=== PATIENT | female | born 1945 | race Caucasian/White ===

== ENCOUNTER 2016-03-06 11:23 | Outpatient (CLI) | payer MEDICARE, MEDICAID | END 2016-03-06 11:24 | disposition home or self-care (01) | DX: R32 Unspecified urinary incontinence (principal); E11.65 Type 2 diabetes mellitus with hyperglycemia; I10 Essential (primary) hypertension; I48.91 Unspecified atrial fibrillation ==

== ENCOUNTER 2016-04-04 14:17 | Outpatient (CLI) | payer MEDICARE, MEDICAID | END 2016-04-04 14:18 | disposition home or self-care (01) | DX: I48.91 Unspecified atrial fibrillation (principal) ==

== ENCOUNTER 2016-04-24 15:10 | Outpatient (CLI) | payer MEDICARE, MEDICAID | END 2016-04-24 15:11 | disposition home or self-care (01) | DX: M16.12 Unilateral primary osteoarthritis, left hip (principal); M17.12 Unilateral primary osteoarthritis, left knee ==

== ENCOUNTER 2016-05-05 14:15 | Outpatient (CLI) | payer MEDICARE, MEDICAID | END 2016-05-05 14:16 | disposition home or self-care (01) | DX: I48.91 Unspecified atrial fibrillation (principal) ==

== ENCOUNTER 2016-05-27 14:39 | Outpatient (CLI) | payer MEDICARE, MEDICAID | END 2016-05-27 14:40 | disposition home or self-care (01) | DX: I48.91 Unspecified atrial fibrillation (principal) ==

== ENCOUNTER 2016-06-10 08:00 | Outpatient (CLI) | payer MEDICARE, MEDICAID | END 2016-06-10 08:01 | disposition home or self-care (01) | DX: E11.9 Type 2 diabetes mellitus without complications (principal) ==

== ENCOUNTER 2016-06-10 15:57 | Emergency (ER) | payer MEDICARE, MEDICAID ==
[2016-06-10] MEDS ORDERED: IPRATROPIUM/ALBUTEROL 3 ML NEB INH STA (16:09)
[2016-06-10] MEDS ORDERED: IPRATROPIUM/ALBUTEROL 3 ML NEB INH ONE (16:16)
[2016-06-10] MEDS ORDERED: AZITHROMYCIN 250 MG TABLET PO STA (17:45)
[2016-06-10] MEDS ORDERED: FUROSEMIDE 20 MG TABLET PO STA (17:45)
[2016-06-10] MEDS ORDERED: AZITHROMYCIN 250 MG TABLET PO ONE (17:51)
[2016-06-10] MEDS ORDERED: FUROSEMIDE 20 MG TABLET ONE (17:51)
== END 2016-06-10 18:07 | disposition home or self-care (01) ==
DX: J40 Bronchitis, not specified as acute or chronic (principal); I50.9 Heart failure, unspecified; Z79.01 Long term (current) use of anticoagulants; I48.91 Unspecified atrial fibrillation; J45.909 Unspecified asthma, uncomplicated; J44.9 Chronic obstructive pulmonary disease, unspecified; E11.9 Type 2 diabetes mellitus without complications; Z79.4 Long term (current) use of insulin; K21.9 Gastro-esophageal reflux disease without esophagitis
CPT/HCPCS: 36415; 71020; 80048; 83036; 84484; 93005; 93010; 94640; 99283; 99284; A9270; J7620

== ENCOUNTER 2016-06-13 14:18 | Outpatient (CLI) | payer MEDICARE, MEDICAID | END 2016-06-13 14:19 | disposition home or self-care (01) | DX: I48.91 Unspecified atrial fibrillation (principal) ==

== ENCOUNTER 2016-06-16 14:03 | Outpatient (CLI) | payer MEDICARE, MEDICAID | END 2016-06-16 14:04 | disposition home or self-care (01) | DX: I48.91 Unspecified atrial fibrillation (principal) ==

== ENCOUNTER 2016-07-08 13:56 | Outpatient (CLI) | payer MEDICARE, MEDICAID | END 2016-07-08 13:57 | disposition home or self-care (01) | DX: I48.91 Unspecified atrial fibrillation (principal) ==

== ENCOUNTER 2016-07-17 10:14 | Outpatient (CLI) | payer MEDICARE, MEDICAID | END 2016-07-17 10:15 | disposition home or self-care (01) | DX: I50.9 Heart failure, unspecified (principal); I48.2 Chronic atrial fibrillation; G47.33 Obstructive sleep apnea (adult) (pediatric); E66.01 Morbid (severe) obesity due to excess calories; I10 Essential (primary) hypertension; Z79.01 Long term (current) use of anticoagulants; I35.0 Nonrheumatic aortic (valve) stenosis ==

== ENCOUNTER 2016-07-24 10:39 | Outpatient (CLI) | payer MEDICARE, MEDICAID ==
--- NOTE | 2016-07-24 17:01 | Ultrasound Report ---
ABDOMEN LIMITED: 07/24/2016 CLINICAL HISTORY: The patient has a possible ventral hernia. She also has a palpable mass above her ventral hernia. TECHNIQUE: Real-time scanning was performed with goodwill representative static images obtained. FINDINGS: A benign lipoma measuring 2.8 cm by 1.2 cm by 2.5 cm is noted immediately superior to the patient's known ventral hernia. A definite ventral hernia is seen nursing home between the xiphoid process and the umbilicus. This ventral hernia contains both mesenteric fat and bowel extending through it. The defect in the anterior abdominal wall measures 2.6 cm by 1.3 cm. Bowel loops appear to be partially reducible. Anterior to the bowel loops within the hernia is mesenteric fat. IMPRESSION: 1. VENTRAL HERNIA IS SEEN. THE VENTRAL HERNIA IS LOCATED MIDWAY BETWEEN THE XIPHOID PROCESS AND UMBILICUS. THROUGH THE HERNIA EXTENDS MESENTERIC FAT AND A LOOP OF BOWEL. THE DEFECT IN THE ANTERIOR ABDOMINAL WALL MEASURES 2.6 CM BY 1.3 CM. THE LOOP OF BOWEL AND MESENTERIC FAT EXTENDING THROUGH THE VENTRAL HERNIA WERE PARTIALLY REDUCIBLE. 2. A 2.5 CM BY 2.8 CM BY 1.2 CM LIPOMA IS NOTED IN THE SUBCUTANEOUS SOFT TISSUES IMMEDIATELY ABOVE THE LEVEL OF THE VENTRAL HERNIA WITHIN THE MIDLINE. JOB #: [id number] EXT JOB #: [id number] DEXTER
== END 2016-07-24 10:40 | disposition home or self-care (01) ==
LOC: DI 10:39
PROVIDERS: ATTEND Family Medicine
DX: K43.9 Ventral hernia without obstruction or gangrene (principal); D17.1 Benign lipomatous neoplasm of skin and subcutaneous tissue of trunk
CPT/HCPCS: 76705

== ENCOUNTER 2016-08-01 15:47 | Outpatient (CLI) | payer MEDICARE, MEDICAID | END 2016-08-01 15:48 | disposition home or self-care (01) | LOC: LAB.N 15:47 | PROVIDERS: ATTEND Family Medicine | DX: I48.91 Unspecified atrial fibrillation (principal) | CPT/HCPCS: 85610 ==

== ENCOUNTER 2016-08-29 14:13 | Outpatient (CLI) | payer MEDICARE, MEDICAID | END 2016-08-29 14:14 | disposition home or self-care (01) | LOC: LAB.N 14:13 | PROVIDERS: ATTEND Family Medicine | DX: I48.91 Unspecified atrial fibrillation (principal) | CPT/HCPCS: 85610 ==

== ENCOUNTER 2016-09-18 15:03 | Outpatient (CLI) | payer MEDICARE, MEDICAID | END 2016-09-18 15:04 | disposition home or self-care (01) | LOC: LAB.N 15:03 | PROVIDERS: ATTEND Family Medicine | DX: E11.9 Type 2 diabetes mellitus without complications (principal); I48.91 Unspecified atrial fibrillation | CPT/HCPCS: 85610 ==

== ENCOUNTER 2016-09-18 15:04 | Outpatient (CLI) | payer MEDICARE, MEDICAID ==
[2016-09-18 19:13] LABS: HCT - HEMATOCRIT 33.9 % (37.0-47.0); HGB - HEMOGLOBIN 11.3 g/dL (12.0-16.0); MEAN CORPUSCULAR HEMOGLOBIN 30.8 pg (27.0-31.0); MEAN CORPUSCULAR HGB CONC 33.2 g/dL (32.0-36.0); MEAN CORPUSCULAR VOLUME 92.7 fL (81.0-99.0); MEAN PLATELET VOLUME 8.6 fL (7.9-10.8); RED BLOOD COUNT 3.66 10^6/uL (4.20-5.40); RED CELL DISTRIBUTION WIDTH 14.3 % (12.0-15.0); WHITE BLOOD COUNT 8.2 x10^3/uL (4.8-10.8)
[2016-09-18 19:38] LABS: CALCIUM 8.8 mg/dL (8.5-10.3); CREATININE 1.5 mg/dL (0.4-1.0); PHOSPHORUS 2.8 mg/dL (2.5-4.6); POTASSIUM 3.8 mmol/L (3.5-5.0)
[2016-09-18 19:45] LABS: HEMOGLOBIN A1C 0.75 g/dL
== END 2016-09-18 15:05 | disposition home or self-care (01) ==
LOC: LAB.N 15:04
PROVIDERS: ATTEND Internal Medicine Nephrology
DX: N05.9 Unspecified nephritic syndrome with unspecified morphologic changes (principal); E11.9 Type 2 diabetes mellitus without complications; D70.9 Neutropenia, unspecified; R80.9 Proteinuria, unspecified; E83.30 Disorder of phosphorus metabolism, unspecified; N25.81 Secondary hyperparathyroidism of renal origin
CPT/HCPCS: 36415; 80048; 82570; 83036; 83970; 84100; 84156; 85610

== ENCOUNTER 2016-09-24 14:36 | Outpatient (CLI) | payer MEDICARE, MEDICAID | END 2016-09-24 14:37 | disposition home or self-care (01) | LOC: LAB.N 14:36 | PROVIDERS: ATTEND Family Medicine | DX: I48.91 Unspecified atrial fibrillation (principal) | CPT/HCPCS: 85610 ==

== ENCOUNTER 2016-10-01 08:00 | Outpatient (CLI) | payer MEDICARE, MEDICAID | END 2016-10-01 08:01 | disposition home or self-care (01) | LOC: LAB.N 08:00 | PROVIDERS: ATTEND Family Medicine | DX: I48.91 Unspecified atrial fibrillation (principal) | CPT/HCPCS: 85610 ==

== ENCOUNTER 2016-10-29 14:35 | Outpatient (CLI) | payer MEDICARE, MEDICAID | END 2016-10-29 14:36 | disposition home or self-care (01) | LOC: LAB.N 14:35 | PROVIDERS: ATTEND Family Medicine | DX: I48.91 Unspecified atrial fibrillation (principal) | CPT/HCPCS: 85610 ==

== ENCOUNTER 2016-11-05 14:44 | Outpatient (CLI) | payer MEDICARE, MEDICAID | END 2016-11-05 14:45 | LOC: LAB.N 14:44 | PROVIDERS: ATTEND Family Medicine | DX: I48.91 Unspecified atrial fibrillation (principal) | CPT/HCPCS: 85610 ==

== ENCOUNTER 2016-11-12 14:07 | Outpatient (CLI) | payer MEDICARE, MEDICAID | END 2016-11-12 14:08 | disposition home or self-care (01) | LOC: LAB.N 14:07 | PROVIDERS: ATTEND Family Medicine | DX: I48.91 Unspecified atrial fibrillation (principal) | CPT/HCPCS: 85610 ==

== ENCOUNTER 2016-11-28 13:44 | Outpatient (CLI) | payer MEDICARE, MEDICAID | END 2016-11-28 13:45 | disposition home or self-care (01) | LOC: LAB.N 13:44 | PROVIDERS: ATTEND Family Medicine | DX: I48.91 Unspecified atrial fibrillation (principal) | CPT/HCPCS: 85610 ==

== ENCOUNTER 2016-12-22 14:48 | Outpatient (CLI) | payer MEDICARE, MEDICAID ==
[2016-12-22 19:37] LABS: CALCIUM 8.9 mg/dL (8.5-10.3); CREATININE 1.3 mg/dL (0.4-1.0); POTASSIUM 3.6 mmol/L (3.5-5.0)
[2016-12-22 19:38] LABS: HEMOGLOBIN A1C 0.76 g/dL
== END 2016-12-22 14:49 | disposition home or self-care (01) ==
LOC: LAB.N 14:48
PROVIDERS: ATTEND Family Medicine
DX: E11.40 Type 2 diabetes mellitus with diabetic neuropathy, unspecified (principal); I48.91 Unspecified atrial fibrillation
CPT/HCPCS: 36415; 80048; 83036; 85610

== ENCOUNTER 2017-01-19 08:00 | Outpatient (CLI) | payer MEDICARE, MEDICAID ==
[2017-01-19 19:07] LABS: BASOPHILS % (AUTO) 0.6 %; EOSINOPHILS % (AUTO) 0.5 %; HCT - HEMATOCRIT 35.6 % (37.0-47.0); HGB - HEMOGLOBIN 11.7 g/dL (12.0-16.0); LYMPHOCYTES # (AUTO) 2.2 10^3/uL (1.5-3.5); LYMPHOCYTES % (AUTO) 29.9 %; MEAN CORPUSCULAR HEMOGLOBIN 30.9 pg (27.0-31.0); MEAN CORPUSCULAR HGB CONC 32.9 g/dL (32.0-36.0); MONOCYTES # (AUTO) 0.5 10^3/uL (0.0-1.0); MONOCYTES % (AUTO) 7.5 %; NEUTROPHILS # (AUTO) 4.5 10^3/uL (1.5-6.6); NEUTROPHILS % (AUTO) 61.5 %; NUCLEATED RED BLOOD CELLS AUTO 0.1 /100WBC; RED BLOOD COUNT 3.79 10^6/uL (4.20-5.40); UNCORRECTED WHITE BLOOD COUNT 7.3 x10^3/uL; WHITE BLOOD COUNT 7.3 x10^3/uL (4.8-10.8)
[2017-01-19 19:42] LABS: CALCIUM 8.9 mg/dL (8.5-10.3); CREATININE 1.5 mg/dL (0.4-1.0); POTASSIUM 3.7 mmol/L (3.5-5.0)
== END 2017-01-19 08:01 | disposition home or self-care (01) ==
LOC: LAB.N 08:00
PROVIDERS: ATTEND Family Medicine
DX: I48.91 Unspecified atrial fibrillation (principal); R06.09 Other forms of dyspnea; I48.2 Chronic atrial fibrillation
CPT/HCPCS: 36415; 80048; 83880; 85025; 85610

== ENCOUNTER 2017-02-13 08:00 | Outpatient (CLI) | payer MEDICARE, MEDICAID | END 2017-02-13 08:01 | disposition home or self-care (01) | LOC: LAB.N 08:00 | PROVIDERS: ATTEND Family Medicine | DX: I48.91 Unspecified atrial fibrillation (principal) | CPT/HCPCS: 85610 ==

== ENCOUNTER 2017-03-10 15:45 | Outpatient (CLI) | payer MEDICARE, MEDICAID | END 2017-03-10 15:46 | disposition home or self-care (01) | LOC: LAB.N 15:45 | PROVIDERS: ATTEND Family Medicine | DX: I48.91 Unspecified atrial fibrillation (principal) | CPT/HCPCS: 85610 ==

== ENCOUNTER 2017-03-19 11:15 | Outpatient (CLI) | payer MEDICARE, MEDICAID | END 2017-03-19 11:16 | disposition home or self-care (01) | LOC: LAB.R 11:15 | PROVIDERS: ATTEND Family Medicine | DX: L97.529 Non-pressure chronic ulcer of other part of left foot with unspecified severity (principal) | CPT/HCPCS: 87070; 87205 ==

== ENCOUNTER 2017-03-27 12:21 | Outpatient (CLI) | payer MEDICARE, MEDICAID | END 2017-03-27 12:22 | disposition critical access hospital (66) | LOC: EMS 12:21 | PROVIDERS: ATTEND Surgery | DX: R53.1 Weakness (principal); R11.2 Nausea with vomiting, unspecified; R19.7 Diarrhea, unspecified; W06.XXXA Fall from bed, initial encounter; Y92.003 Bedroom of unspecified non-institutional (private) residence as the place of occurrence of the external cause | CPT/HCPCS: A0425; A0427 ==

== ENCOUNTER 2017-03-27 12:35 | Inpatient (IN) | payer MEDICARE, MEDICAID ==
[2017-03-27] MEDS ORDERED: SODIUM CHLORIDE 0.9% 1,000 ML IV ONE ×4 (12:54→15:13)
[2017-03-27 13:12] LABS: BASOPHILS # (AUTO) 0.1 10^3/uL (0.0-0.1); BASOPHILS % (AUTO) 0.3 %; HGB - HEMOGLOBIN 11.1 g/dL (12.0-16.0); LYMPHOCYTES # (AUTO) 0.7 10^3/uL (1.5-3.5); LYMPHOCYTES % (AUTO) 3.3 %; MEAN CORPUSCULAR HEMOGLOBIN 30.9 pg (27.0-31.0); MEAN CORPUSCULAR HGB CONC 33.1 g/dL (32.0-36.0); MEAN CORPUSCULAR VOLUME 93.4 fL (81.0-99.0); MONOCYTES # (AUTO) 1.2 10^3/uL (0.0-1.0); MONOCYTES % (AUTO) 5.2 %; NEUTROPHILS # (AUTO) 20.2 10^3/uL (1.5-6.6); NEUTROPHILS % (AUTO) 91.2 %; PLT - PLATELET COUNT 205 10^3/uL (130-450); RED BLOOD COUNT 3.58 10^6/uL (4.20-5.40); RED CELL DISTRIBUTION WIDTH 14.7 % (12.0-15.0); WHITE BLOOD COUNT 22.1 x10^3/uL (4.8-10.8)
[2017-03-27 13:26] LABS: RBC MORPHOLOGY (MULTIPLE) 2+ ANISOCYTOSIS (NORMAL)
[2017-03-27 13:28] LABS: INR 3.1 (0.8-1.2); PT - PROTHROMBIN TIME 33.2 secs (9.9-12.6)
--- NOTE | 2017-03-27 13:29 | ED Physician Documentation ---
History of Present Illness - Stated complaint Stated Complaint: WEAKNESS,N/V/D, INCONTINENT - Chief complaint Chief Complaint: General - History obtained from History obtained from: Patient, EMS - History of Present Illness Timing: Today Pain level max: 0 Pain level now: 0 Improved by: nothing Worsened by: nothing - Additonal information Additional information: Patient is a 71-year-old female, insulin-dependent diabetic history of CHF as well as morbid obesity. Had ovarian cancer in 2001. Is currently in remission. States that she has not been feeling well for the past 24 hours. Unable to stand today. Had diarrhea at home as well as urinary incontinence. Called that he empties to pick her up and were brought into the emergency department. She has felt feverish at home. She is on warfarin for atrial fibrillation. Had nausea and vomiting 1 today as well. Denies a cough, denies any chest pain or shortness of breath. States just feels very weak. Review of Systems Ten Systems: 10 systems reviewed and negative Constitutional: reports: Fever (subjective). denies: Chills Eyes: denies: Decreased vision, Photophobia Ears: denies: Ear pain Nose: denies: Rhinorrhea / runny nose, Congestion Throat: denies: Sore throat Cardiac: denies: Chest pain / pressure Respiratory: reports: Cough (mild, dry) GI: reports: Nausea, Vomiting, Diarrhea. denies: Abdominal Pain, Hematemesis, Bloody / black stool : reports: Incontinent. 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 HEENT: Cataracts, Other - Present Medications Home Medications: Ambulatory Orders Medication Instructions Recorded Confirmed Furosemide [Lasix] 40 mg ORAL DAILY 08/05/13 03/27/17 Insulin 70/30 Human [NovoLIN] 35 units SUBQ QDLUNCH 08/05/13 03/27/17 Albuterol Sulfate [Proair Hfa] 2 puffs INH Q4HR PRN 08/29/13 03/27/17 Cholecalciferol (Vitamin D3) 2,000 units PO DAILY 08/29/13 03/27/17 [Vitamin D] Docusate Sodium [Dss] 250 mg PO DAILY 08/29/13 03/27/17 Insulin 70/30 Human [NovoLIN] 70 units SUBQ QDBREAKFAST 10/31/14 03/27/17 Spironolactone 25 mg ORAL DAILY 08/01/15 03/27/17 Febuxostat [Uloric] 80 mg PO DAILY 10/31/15 03/27/17 Insulin 70/30 Human [NovoLIN] 30 units SUBQ QDDINNER 06/10/16 03/27/17 Losartan [Cozaar] 25 mg PO QPM 06/10/16 03/27/17 Metoprolol Succinate 50 mg PO DAILY 06/10/16 03/27/17 Clotrimazole [Clotrimazole] 1 applic TOP BID 03/27/17 03/27/17 Nystatin [Nystop] 1 applic TOP BID 03/27/17 03/27/17 Warfarin [Coumadin] 5 mg PO MOFR 03/27/17 03/27/17 Warfarin [Coumadin] 7.5 mg PO SUTUWETHSA 03/27/17 03/27/17 - Allergies Allergies/Adverse Reactions: Allergies Allergy/AdvReac Type Severity Reaction Status Date / Time levofloxacin Allergy Unknown Verified 06/10/16 16:12 Penicillins Allergy Respiratory Verified 06/10/16 16:12 - Social History Does the pt smoke?: No Smoking Status: Never smoker Does the pt drink ETOH?: No Does the pt have substance abuse?: No - Immunizations Immunizations are current?: Yes - POLST Patient has POLST: No PD ED PE NORMAL - Vitals Vital signs reviewed: Yes - General General: Alert and oriented X 3, Other (morbidly obese) - HEENT HEENT: PERRL, Other (dry lips and tongue) - Neck Neck: Supple, no meningeal sign, No adenopathy - Cardiac Cardiac: Other (irregular, tachycardic) - Respiratory Respiratory: No respiratory distress, Clear bilaterally - Abdomen Abdomen: Normal bowel sounds, Soft, Non tender, Non distended - Derm Derm: Warm and dry - Extremities Extremities: Other (LLE - redness, swelling, warmth, tenderness from foot to knee on the L side. NVI.) - Neuro Neuro: Alert and oriented X 3 - Psych Psych: Normal mood, Normal affect Results - Vitals Vitals: Vital Signs - 24 hr 03/27/17 03/27/17 12:42 14:25 Temperature 36.5 C 37.5 C Heart Rate 84 88 Respiratory 17 16 Rate Blood Pressure 118/89 H 120/92 H O2 Saturation 95 Oxygen O2 Source Room air - EKG (time done) 1304 Rate: Rate (enter#) (137) Rhythm: Atrial fibrillation ( w RVR) [place]: Normal QRS: Normal Ischemia: Normal ST segments - Labs Labs: Laboratory Tests 03/27/17 03/27/17 03/27/17 13:08 13:08 13:08 WBC 22.1 H RBC 3.58 L Hgb 11.1 L Hct 33.4 L MCV 93.4 MCH 30.9 MCHC 33.1 RDW 14.7 Plt Count 205 MPV 8.0 Neut # 20.2 H Lymph # 0.7 L Chase # 1.2 H Eos # 0.0 Baso # 0.1 Absolute Nucleated RBC 0.00 Nucleated RBC % 0.0 Manual Slide Review Indicated RBC Morph Micro Appear 2+ ANISOCYTOSIS PT 33.2 H INR 3.1 H D-Dimer VBG pH VBG pCO2 VBG pO2 VBG HCO3 VBG Total CO2 VBG O2 Saturation VBG Base Excess Sodium 129 L Potassium 4.0 Chloride 92 L Carbon Dioxide 23 Anion Gap 14.0 H BUN 48 H Creatinine 1.7 H Estimated GFR (MDRD) 30 L Glucose 540 H* Glycated Hemoglobin Estim Average Glucose Lactic Acid Calcium 8.6 Total Bilirubin 2.1 H AST 29 ALT 16 Alkaline Phosphatase 57 Troponin I B-Natriuretic Peptide Total Protein 7.7 Albumin 3.5 Globulin 4.2 Albumin/Globulin Ratio 0.8 L Lipase 11 L Urine Color Urine Clarity Urine pH Ur Specific [place] Urine Protein Urine Glucose (UA) Urine Ketones Urine Occult Blood Urine Nitrite Urine Bilirubin Urine Urobilinogen Ur Leukocyte Esterase Urine RBC Urine WBC Ur Squamous Epith Cells Urine Bacteria Ur Microscopic Review Urine Culture Comments Serum Ketones Influenza A (Rapid) Influenza B (Rapid) Influenza Types A,B Ag 01/26/18 01/26/18 01/26/18 13:08 13:08 14:09 WBC RBC Hgb Hct MCV MCH MCHC RDW Plt Count MPV Neut # Lymph # Chase # Eos # Baso # Absolute Nucleated RBC Nucleated RBC % Manual Slide Review RBC Morph Micro Appear PT INR D-Dimer 271.0 H VBG pH VBG pCO2 VBG pO2 VBG HCO3 VBG Total CO2 VBG O2 Saturation VBG Base Excess Sodium Potassium Chloride Carbon Dioxide Anion Gap BUN Creatinine Estimated GFR (MDRD) Glucose Glycated Hemoglobin 8.1 H Estim Average Glucose 186 H Lactic Acid Calcium Total Bilirubin AST ALT Alkaline Phosphatase Troponin I B-Natriuretic Peptide Total Protein Albumin Globulin Albumin/Globulin Ratio Lipase Urine Color YELLOW Urine Clarity SL. CLOUDY Urine pH 5.5 Ur Specific [place] 1.010 Urine Protein NEGATIVE Urine Glucose (UA) >=1000 H Urine Ketones TRACE Urine Occult Blood SMALL H Urine Nitrite NEGATIVE Urine Bilirubin NEGATIVE Urine Urobilinogen 0.2 (NORMAL) Ur Leukocyte Esterase TRACE H Urine RBC 0-5 Urine WBC >25 H Ur Squamous Epith Cells RARE Squamous Urine Bacteria Many H Ur Microscopic Review INDICATED Urine Culture Comments INDICATED Serum Ketones Influenza A (Rapid) Influenza B (Rapid) Influenza Types A,B Ag 03/27/17 03/27/17 03/27/17 14:24 14:32 14:32 WBC RBC Hgb Hct MCV MCH MCHC RDW Plt Count MPV Neut # Lymph # [place] # Eos # Baso # Absolute Nucleated RBC Nucleated RBC % Manual Slide Review RBC Morph Micro Appear PT INR D-Dimer VBG pH VBG pCO2 VBG pO2 VBG HCO3 VBG Total CO2 VBG O2 Saturation VBG Base Excess Sodium Potassium Chloride Carbon Dioxide Anion Gap BUN Creatinine Estimated GFR (MDRD) Glucose Glycated Hemoglobin Estim Average Glucose Lactic Acid 2.5 H Calcium Total Bilirubin AST ALT Alkaline Phosphatase Troponin I 0.05 B-Natriuretic Peptide Total Protein Albumin Globulin Albumin/Globulin Ratio Lipase Urine Color Urine Clarity Urine pH Ur Specific [place] Urine Protein Urine Glucose (UA) Urine Ketones Urine Occult Blood Urine Nitrite Urine Bilirubin Urine Urobilinogen Ur Leukocyte Esterase Urine RBC Urine WBC Ur Squamous Epith Cells Urine Bacteria Ur Microscopic Review Urine Culture Comments Serum Ketones Influenza A (Rapid) Negative Influenza B (Rapid) Negative Influenza Types A,B Ag - 03/27/17 03/27/17 03/27/17 14:32 14:32 14:32 WBC RBC Hgb Hct MCV MCH MCHC RDW Plt Count MPV Neut # Lymph # [place] # Eos # Baso # Absolute Nucleated RBC Nucleated RBC % Manual Slide Review RBC Morph Micro Appear PT INR D-Dimer VBG pH 7.399 VBG pCO2 38.1 L VBG pO2 34.6 VBG HCO3 23.0 VBG Total CO2 24.2 VBG O2 Saturation 68.2 VBG Base Excess -1.5 Sodium Potassium Chloride Carbon Dioxide Anion Gap BUN Creatinine Estimated GFR (MDRD) Glucose Glycated Hemoglobin Estim Average Glucose Lactic Acid Calcium Total Bilirubin AST ALT Alkaline Phosphatase Troponin I B-Natriuretic Peptide 879 H Total Protein Albumin Globulin Albumin/Globulin Ratio Lipase Urine Color Urine Clarity Urine pH Ur Specific [place] Urine Protein Urine Glucose (UA) Urine Ketones Urine Occult Blood Urine Nitrite Urine Bilirubin Urine Urobilinogen Ur Leukocyte Esterase Urine RBC Urine WBC Ur Squamous Epith Cells Urine Bacteria Ur Microscopic Review Urine Culture Comments Serum Ketones NEGATIVE Influenza A (Rapid) Influenza B (Rapid) Influenza Types A,B Ag - Rads (name of study) cxr Radiology: Prelim report reviewed, EMP read contemporaneously, See rad report ( Cardiomegaly without acute intrathoracic plain film abnormality) PD MEDICAL DECISION MAKING - ED course Complexity details: reviewed old records, reviewed results, re-evaluated patient , considered differential, d/w patient, d/w oracle hyperion consultant ED course: Patient is a 71-year-old female who presents to the emergency department with what appears to be sepsis possibly from UTI, possibly from left lower extremity cellulitis. Blood cultures drawn. IV fluids given somewhat cautiously given her history of congestive heart failure. Blood pressure remained stable. Offered with broad-spectrum antibiotics, she is penicillin allergic. Discussed the case with Dr. Rosario, hospitalist who accepts. This document was made in part using voice recognition software. While efforts are made to proofread this document, sound alike and grammatical errors may occur. Departure - Departure Disposition: [facility] DC/Xfer Clinical Impression: Atrial fibrillation with RVR Cellulitis Qualifiers: Site of cellulitis: extremity Site of cellulitis of extremity: lower extremity Laterality: left Qualified Code(s): L03.116 - Cellulitis of left lower limb UTI (urinary tract infection) Qualifiers: Urinary tract infection type: acute cystitis Hematuria presence: without hematuria Qualified Code(s): N30.00 - Acute cystitis without hematuria Sepsis Qualifiers: Sepsis type: sepsis due to unspecified organism Qualified Code(s): A41.9 - Sepsis, unspecified organism Condition: Stable Discharge Date/Time: 03/27/17 17:10
[2017-03-27 13:30] LABS: ALBUMIN 3.5 g/dL (3.2-5.5); ALBUMIN/GLOBULIN RATIO 0.8 (1.0-2.2); BILIRUBIN,TOTAL 2.1 mg/dL (0.2-1.0); CALCIUM 8.6 mg/dL (8.5-10.3); CREATININE 1.7 mg/dL (0.4-1.0); TOTAL PROTEIN 7.7 g/dL (6.7-8.2)
[2017-03-27] MEDS ORDERED: VANCOMYCIN INJ 2 GM in SODIUM CHLORIDE 0.9% 500 ML IV STA ×2 (13:31→13:41)
[2017-03-27] MEDS ORDERED: CEFEPIME 2 GM in SODIUM CHLORIDE 0.9% MINIBAG 100 ML IV STA (13:32)
[2017-03-27] MEDS ORDERED: VANCOMYCIN 2 GM/NS 500 ML 2 GM/500 ML BAG IV STA (13:37)
[2017-03-27 14:22] LABS: BILIRUBIN,URINE NEGATIVE (NEGATIVE); GLUCOSE, URINE (UA) >=1000 mg/dL (NEGATIVE); KETONES,URINE (UA) TRACE mg/dL (NEGATIVE); LEUKOCYTE ESTERASE, URINE TRACE (NEGATIVE); NITRITE,URINE NEGATIVE (NEGATIVE); OCCULT BLOOD,URINE SMALL (NEGATIVE); PH,URINE 5.5 PH (5.0-7.5); PROTEIN,URINE NEGATIVE (NEGATIVE); UROBILINOGEN,URINE 0.2 (NORMAL) E.U./dL (NORMAL)
[2017-03-27 14:23] LABS: CLARITY,URINE SL. CLOUDY (CLEAR)
[2017-03-27 14:30] LABS: BACTERIA,URINE Many /HPF (None Seen); RBC,URINE 0-5 /HPF (0-5); SQUAMOUS EPITHELIAL CELL,UR RARE Squamous (<= Few)
[2017-03-27 14:42] LABS: VBG PCO2 38.1 mmHg (41-51); VBG PH 7.399 (7.31-7.41); VBG PO2 34.6 mmHg (25-47)
[2017-03-27 14:43] LABS: VBG BASE EXCESS -1.5 mmol/L (-2 - +2); VBG TOTAL CO2 24.2 mmol/L (24-29)
--- NOTE | 2017-03-27 15:17 | XRAY Report ---
EXAM: CHEST RADIOGRAPHY EXAM DATE: 03/27/2017 03:03 PM. CLINICAL HISTORY: Fevers. COMPARISON: 06/10/2016. TECHNIQUE: 1 view. FINDINGS: Lungs/Pleura: No focal opacities evident. No pleural effusion. No pneumothorax. Mediastinum: There is cardiomegaly. Other: None. IMPRESSION: 1. There is cardiomegaly. 2. No acute intrathoracic plain film abnormality. [facility] Referring Provider Line: [phone] SITE ID: [id number]
[2017-03-27] MEDS ORDERED: PROMETHAZINE 25 MG/1 ML VIAL IM PRN (16:11)
--- NOTE | 2017-03-27 16:46 | HISTORY & PHYSICAL EXAMINATION ---
Chief Complaint - Chief Complaint Chief Complaint: nausea, vomiting, and weakness History of Present Illness - History of Present Illness HPI Comment/Other: This is a 71-year-old female with a past medical history significant for insulin -dependent uncontrolled diabetic, chronic lower extremity and foot infection, CHF, morbid obesity, ovarian cancer in 2002 currently in remission, CKD, Asthma , COPD, hx of shortness of breath, Gout, chronic vision loss, who present ER for evaluation and treatment of her lower extremity and foot infection, nausea, vomiting, generalized weakness. Pt States that she has not been feeling well for the past 24 hours, feeling of very weakness, Unable to stand today from bed , nausea, vomiting for one days, had diarrhea at home as well as urinary incontinence. She has also felt feverish at home. She is on warfarin for atrial fibrillation. She Denies a cough, any chest pain or shortness of breath, abdominal pain, headache, hematemesis, GI bleeding, vision changing. Lab test in ER, it reveals Na 129, Anion gap 14 without serum Ketone, BUN 48, creatinine 1.7, Glucose 540, Lactic acid 2.5, bili 2.1, BNP 879, INR 3.1, WBC 22.1. UA reveal positive UTI. 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 She had three children. Living arrangement: At home Living Situation: With spouse/s.o., With family Social History Notes: pt denies cigarette smoking, alcoholic or drug abuse history - Substance History Use: Uses substance without health or social issues: NONE Abuse: Recurrent use of substance despite neg consequences: NONE Dependence: Experiences withdrawal or developed tolerances: NONE - POLST Patient has POLST: No POLST Status: Full Code (pt state she request CPR but without incubation for her code status) Meds/Allgy - Home Medications Home Medications: Ambulatory Orders Medication Instructions Recorded Confirmed Furosemide [Lasix] 40 mg ORAL DAILY 08/05/13 03/27/17 Insulin 70/30 Human [NovoLIN] 35 units SUBQ QDLUNCH 08/05/13 03/27/17 Albuterol Sulfate [Proair Hfa] 2 puffs INH Q4HR PRN 08/29/13 03/27/17 Cholecalciferol (Vitamin D3) 2,000 units PO DAILY 08/29/13 03/27/17 [Vitamin D] Docusate Sodium [Dss] 250 mg PO DAILY 08/29/13 03/27/17 Insulin 70/30 Human [NovoLIN] 70 units SUBQ QDBREAKFAST 10/31/14 03/27/17 Spironolactone 25 mg ORAL DAILY 08/01/15 03/27/17 Febuxostat [Uloric] 80 mg PO DAILY 10/31/15 03/27/17 Insulin 70/30 Human [NovoLIN] 30 units SUBQ QDDINNER 06/10/16 03/27/17 Losartan [Cozaar] 25 mg PO QPM 06/10/16 03/27/17 Metoprolol Succinate 50 mg PO DAILY 06/10/16 03/27/17 Clotrimazole [Clotrimazole] 1 applic TOP BID 03/27/17 03/27/17 Nystatin [Nystop] 1 applic TOP BID 03/27/17 03/27/17 Warfarin [Coumadin] 5 mg PO MOFR 03/27/17 03/27/17 Warfarin [Coumadin] 7.5 mg PO SUTUWETHSA 03/27/17 03/27/17 - Allergies Allergies/Adverse Reactions: Allergies Allergy/AdvReac Type Severity Reaction Status Date / Time levofloxacin Allergy Unknown Verified 06/10/16 16:12 Penicillins Allergy Respiratory Verified 06/10/16 16:12 Review of Systems - Constitutional Constitutional: reports: Fatigue, Fever, Chills, Malaise, Weakness. denies: Diaphoresis, Night sweats, Weight gain, Weight loss - Eyes Eyes: denies: Pain, Irritation, Amaurosis, Blurred vision, Spots in vision, Field loss, Vision loss, Dipolpia - Ears, Nose & Throat Ears, Nose & Throat: denies: Ear pain, Hearing loss, Hearing aids, Tinnitus, Vertigo, Nasal pain, Nasal discharge, Nosebleeds, Nasal obstruction, Nasal congestion, Postnasal drainage, Sore throat, Hoarseness, Mouth lesions, Bleeding gums - Cardiovascular Cariovascular: reports: Edema. denies: Irregular heart rate, Palpitations, Chest pain, Lightheadedness, Syncope, Exertional dyspnea, Decr. exercise tolerance, Orthopnea - Respiratory Respiratory: denies: Cough, Sputum production, Wheezing, Snoring, Hemoptysis, Orthopnea, SOB at rest, SOB with exertion - Gastrointestinal Gastrointestinal: reports: Diarrhea, Nausea, Vomiting. denies: Abdominal pain, Abdominal distention, Constipation, Change in bowel habits, Rectal bleeding, Black stools, Bloody stools, Bile emesis, Damián blood emesis, Coffee grounds emesis, Reflux/heartburn - Genitourinary Genitourinary: reports: Incontinence. denies: Dysuria, Frequency, Urgency, Hematuria, Flank pain, Nocturia, Urethral discharge - Musculoskeletal Musculoskeletal: denies: Muscle pain, Back pain, Muscle aches, Stiffness, Limited range of motion, Muscle weakness, Gout, Joint pain - Integumentary Integumentary: denies: Rash, Lesions, Dryness, Lumps, Pigment changes - Neurological Neurological: reports: General weakness. denies: Focal weakness, Headache, Dizziness, Numbness, Pre-existing deficit, Abnormal gait, Seizures, Incoordination, Slurred speech - Psychiatric Psychiatric: denies: Depression, Anxiety, Suicidal, Delusions, Hallucinations, Homicidal - Endocrine Endocrine: denies: Polyuria, Polydypsia, Polyphagia, Intolerance to cold - Hematologic/Lymphatic Hematologic/Lymphatic: reports: Recurrent infections. denies: Anemia, Bruising , Petechiae, Blood clots, Lymphadenopathy, Bleeding tendencies Exam - Vital Signs Reviewed Vital Signs: Yes Vital Signs: Vital Signs x48h Pulse Resp Pulse Ox 03/27/17 16:20 122 H 25 H 97 - Physical Exam General Appearance: positive: No acute distress, Alert. negative: Lethargic Eyes Bilateral: positive: Normal inspection, PERRL, No lid inflammation, Conjunctivae nml ENT: positive: ENT inspection nml, Pharynx nml, No signs of dehydration. negative: Purulent nasal drainage, Pharyngeal erythema, Oral lesions Neck: positive: Nml inspection, Thyroid nml, No JVD, Trachea midline. negative : Thyromegaly, Lymphadenopathy (R), Lymphadenopathy (L), Stiff neck, Carotid bruit, Swelling/bruising, Tracheal deviation Respiratory: positive: Chest non-tender, No respiratory distress, Breath sounds nml. negative: Wheezes, Rales, Rhonchi Cardiovascular: positive: Regular rate & rhythm, No murmur, No gallop. negative : Irregularly irregular, Extrasystoles, Tachycardia, Bradycardia, Systolic murmur, Diastolic murmur Peripheral Pulses: positive: 2+ Abdomen: negative: Non-tender, No organomegaly, Nml bowel sounds, Tenderness, Guarding, Rebound Back: positive: Nml inspection. negative: CVA tenderness (R), CVA tenderness (L ) Skin: positive: Warm, Dry, Skin rash, Decubitus. negative: Cyanosis, Diaphoresis, Pallor Extremities: positive: Non-tender, Full ROM. negative: Calf tenderness, Joint swelling, Justice's sign/cords Neurologic/Psychiatric: positive: Oriented x3, Mood/affect nml. negative: Sensory loss, Facial droop, Slurred/abnml speech, Depressed mood/affect Conclusion/Plan - Problem List (1) Diabetic foot infection Conclusion/Plan: pt has drainage with odor smell at her left lateral foot for around 4-5 months, and with cellulitis at her left lower extremity blood and wound culture, will follow up Vancomycin Cefepim MRI of foot to R/O osteomyelitis wound care, dressing change (2) UTI (urinary tract infection) Conclusion/Plan: UA reveals UTI UA culture, sensitive study, will follow up Cefepim Qualifiers: Urinary tract infection type: acute cystitis Hematuria presence: without hematuria Qualified Code(s): N30.00 - Acute cystitis without hematuria (3) DM2 (diabetes mellitus, type 2) Conclusion/Plan: uncontrolled DM2, with hyperglycemia at 540 glucose, with complication on vision , renal, and foot infection resume home insulin slide scale for insulin ACHS hypoglycemia protocol check A1C (4) Hx of chronic congestive heart failure Conclusion/Plan: pt with elevated BNP will caution of IVF hydration continue lab and vital monitor continue home meds Lasix, adjust as needed tele monitor (5) History of COPD Conclusion/Plan: pt denies cough, as baseline of breathing status continue home INH treatment O2 supplement as needed RT consult (6) Hx of gout Conclusion/Plan: stable, will resume home meds, and monitor (7) Elevated lactic acid level Conclusion/Plan: Pt's lactic acid 2.5, uncontrolled DM without DKA but elevated anion gap and ongoing infection recheck lactic acid pt already IVF hydration at ER, mild IVF because of hx of CHF continue antibiotics closely monitor with tele, vital, lab test (8) Hyponatremia Conclusion/Plan: today Na 129 Mild hydration IVF of NS lab test closely monitor (10) CKD (chronic kidney disease) Conclusion/Plan: it seems as her baseline of renal function hydration and avoid nephrotoxic agent daily lab monitor (11) Afib Conclusion/Plan: hx of afib controlled HR at 88 today, with Coumadin tele monitor closely continue Coumadin PT/INR test daily today INR is 3.1, will hold Coumadin now. (12) DVT prophylaxis Conclusion/Plan: no SCD due to leg infection, with Heparin bid 5000 unit (13) Full code status Conclusion/Plan: pt clearly request full code with CPR but no incubation status - Lab Results Fish Bones: 03/28/17 04:25 03/28/17 04:25 Core Measures - Anticipated LOS I expect patient to be DC'd or transferred within 96 hours.: Yes
[2017-03-27] MEDS ORDERED: VANCOMYCIN PER PHARMACY 1.5 GM in SODIUM CHLORIDE 0.9% 250 ML IV SCH (17:00)
[2017-03-27] MEDS ORDERED: SODIUM CHLORIDE 0.9% 1,000 ML IV SCH (17:00)
[2017-03-27] MEDS ORDERED: INSULIN 70/30 HUMAN 100 UNIT/1 ML 10 ML MDV SUBQ SCH (17:00)
[2017-03-27 17:07] LABS: HB2 TOTAL 12.5 g/dL; HEMOGLOBIN A1C 0.81 g/dL; HEMOGLOBIN A1C % 8.1 % (4.6-6.2)
[2017-03-27] MEDS ORDERED: INSULIN ASPART 300 UNIT/3 ML PEN SUBQ SCH (17:35)
[2017-03-27] MEDS: INSULIN ASPART 300 UNIT/3 ML PEN SUBQ SCH ×2 (17:48→21:08)
[2017-03-27] MEDS ORDERED: diltiaZEM INJ 5 MG/ML VIAL IVP SCH (20:19)
[2017-03-27] MEDS: METOPROLOL SUCCINATE 50 MG TABLET PO SCH (20:52)
[2017-03-27] MEDS ORDERED: HEPARIN 5,000 UNIT/ML VIAL SUBQ SCH (21:00)
[2017-03-27] MEDS ORDERED: LOSARTAN 50 MG TABLET PO SCH (21:00)
[2017-03-27] MEDS: ONDANSETRON 4 MG/2 ML VIAL IVP PRN (21:05)
[2017-03-27] MEDS: SODIUM CHLORIDE FLUSH 0.9% 10 ML SYRINGE IVP SCH (21:08)
[2017-03-27] MEDS ORDERED: INSULIN REGULAR HUMAN 100 UNIT in SODIUM CHLORIDE 0.9% 100ML 99 ML IV SCH (21:25)
[2017-03-27] MEDS ORDERED: diltiaZEM INJ 125 MG in SODIUM CHLORIDE 0.9% 100ML 100 ML IV SCH (22:00)
[2017-03-27] MEDS: NYSTATIN POWDER 15 GM TOP SCH (22:45)
[2017-03-28] MEDS ORDERED: SODIUM CHLORIDE 0.9% 500 ML IV PRN (01:05)
[2017-03-28] MEDS ORDERED: SODIUM CHLORIDE 0.9% 500 ML IV ONE (02:59)
[2017-03-28] MEDS: SODIUM CHLORIDE FLUSH 0.9% 10 ML SYRINGE IVP SCH ×4 (03:14→20:24)
[2017-03-28] MEDS: ONDANSETRON 4 MG/2 ML VIAL IVP PRN ×3 (04:19→19:11)
[2017-03-28 04:55] LABS: BASOPHILS % (AUTO) 0.1 %; HGB - HEMOGLOBIN 10.2 g/dL (12.0-16.0); LYMPHOCYTES # (AUTO) 1.4 10^3/uL (1.5-3.5); LYMPHOCYTES % (AUTO) 7.7 %; MEAN CORPUSCULAR HEMOGLOBIN 31.2 pg (27.0-31.0); MEAN CORPUSCULAR HGB CONC 33.1 g/dL (32.0-36.0); MEAN CORPUSCULAR VOLUME 94.2 fL (81.0-99.0); MEAN PLATELET VOLUME 9.2 fL (7.9-10.8); MONOCYTES # (AUTO) 1.2 10^3/uL (0.0-1.0); NEUTROPHILS % (AUTO) 85.2 %; PLT - PLATELET COUNT 201 10^3/uL (130-450); RED BLOOD COUNT 3.27 10^6/uL (4.20-5.40); RED CELL DISTRIBUTION WIDTH 14.6 % (12.0-15.0); WHITE BLOOD COUNT 17.6 x10^3/uL (4.8-10.8)
[2017-03-28 05:06] LABS: ALBUMIN 3.1 g/dL (3.2-5.5); ALBUMIN/GLOBULIN RATIO 0.8 (1.0-2.2); BILIRUBIN,TOTAL 1.1 mg/dL (0.2-1.0); CALCIUM 8.7 mg/dL (8.5-10.3); CREATININE 1.6 mg/dL (0.4-1.0); MAGNESIUM 1.7 mg/dL (1.7-2.8); TOTAL PROTEIN 6.8 g/dL (6.7-8.2)
[2017-03-28 05:12] LABS: INR 3.5 (0.8-1.2); PT - PROTHROMBIN TIME 37.7 secs (9.9-12.6)
[2017-03-28] MEDS: MIN OIL/DIMETHICON/COCONUT OIL 92 GM TUBE TOP PRN ×2 (05:45→14:26)
[2017-03-28] MEDS: SODIUM CHLORIDE FLUSH 0.9% 10 ML SYRINGE IVP PRN ×4 (06:06→19:07)
[2017-03-28] MEDS ORDERED: INSULIN 70/30 HUMAN 100 UNIT/1 ML 10 ML MDV SUBQ SCH ×2 (08:00→12:00)
[2017-03-28] MEDS: POLYETHYLENE GLYCOL 3350 17 GM PACKET PO SCH (08:35)
[2017-03-28] MEDS: FAMOTIDINE 20 MG TABLET PO SCH (08:37)
[2017-03-28] MEDS: ACETAMINOPHEN 325 MG TABLET PO PRN ×3 (08:38→18:07)
[2017-03-28] MEDS: METOPROLOL SUCCINATE 50 MG TABLET PO SCH (08:38)
[2017-03-28] MEDS: CHOLECALCIFEROL 1,000 UNIT TABLET PO SCH (08:38)
[2017-03-28] MEDS ORDERED: SPIRONOLACTONE 25 MG TABLET PO SCH (09:00)
[2017-03-28] MEDS ORDERED: FUROSEMIDE 20 MG TABLET PO SCH (09:00)
[2017-03-28] MEDS ORDERED: METOPROLOL SUCCINATE 50 MG TABLET PO SCH ×2 (09:00→20:01)
[2017-03-28 10:44] LABS: HB2 TOTAL 10.6 g/dL; HEMOGLOBIN A1C 0.67 g/dL; HEMOGLOBIN A1C % 7.9 % (4.6-6.2)
[2017-03-28] MEDS ORDERED: INSULIN GLARGINE 300 UNIT/3 ML PEN SUBQ SCH (11:00)
[2017-03-28] MEDS: INSULIN ASPART 300 UNIT/3 ML PEN SUBQ SCH ×5 (12:08→20:43)
[2017-03-28] MEDS: FEBUXOSTAT 80 MG PO SCH (12:08)
[2017-03-28] MEDS: NYSTATIN POWDER 15 GM TOP SCH ×2 (14:26→20:23)
--- NOTE | 2017-03-28 16:34 | PROVIDER PROGRESS NOTE ---
Assessment/Plan - Problem List (1) Atrial fibrillation with RVR Assessment/Plan: After gentle hydration and with iv Cardizem drip overnight and her usual B- carlos po, HR has declined to 80-90s Trops are neg Will DC iv Cardizem and use Cardizem 60 mg po q8h on top of her Toprol Pt off her Coumadin, in preparation for very likely surgery (debridement vs amputation) Daily INR ordered When INR <2, she will need bridging with Lovenox or Heparin Poss begin OOB and PT tomorrow (2) CKD (chronic kidney disease) Assessment/Plan: Small improvement in creat from 1.7 to 1.6 with hydration Continue plan and monitor BUN/creat daily (3) Cellulitis Qualifiers: Site of cellulitis: extremity Site of cellulitis of extremity: lower extremity Laterality: left Qualified Code(s): L03.116 - Cellulitis of left lower limb Assessment/Plan: Pt on Vanco and Cefipime No growth after 24 hours in blood culture Imaging of L lower extremity pending today (4) Diabetic foot infection Assessment/Plan: Foul drainage suggests Pseudomonas vs anaerobic bacteria Culture from wound has no result in [email or web address] yet MRI of L leg pending today Continue empiric antibiotics using Vanco and Cefipime Dr Enrique of Ortho following (5) DM2 (diabetes mellitus, type 2) Assessment/Plan: HbA1c is 7.9 Glu in 400-500 yesterday, today 200-300 Will stop iv Reg Insulin infusion and start an empiric dose of LAntus 20U sq bid and start ss Insulin coverage for an eating Pt Cont glu checks ac and hs (6) History of COPD Assessment/Plan: Wheezing may be bronchospasm vs cardiac asthma Cont inhaler, meds and supplemental O2 Awaiting Echo for LVEF (7) Hx of chronic congestive heart failure Assessment/Plan: Unknown LVEF, awaiting Echo (8) UTI (urinary tract infection) Qualifiers: Urinary tract infection type: acute cystitis Hematuria presence: without hematuria Qualified Code(s): N30.00 - Acute cystitis without hematuria Assessment/Plan: Urine culture is thus far no growth Continue empiric Cefipime - Current Meds Current Meds: Current Medications Generic Name Dose Route Start Last Admin Trade Name Freq PRN Reason Stop Dose Admin Acetaminophen 650 mg 03/27/17 16:11 03/28/17 12:08 Tylenol PO 650 mg Q4HR PRN Administration Pain 1 to 4 Cholecalciferol 2,000 unit 03/28/17 09:00 03/28/17 08:38 Vitamin D3 PO 2,000 unit DAILY EILEEN Administration Diltiazem HCl 60 mg 03/28/17 12:00 03/28/17 12:07 Cardizem PO 60 mg Q8H EILEEN Administration Famotidine 20 mg 03/28/17 09:00 03/28/17 08:37 Pepcid PO 20 mg DAILY EILEEN Administration Insulin Aspart 1 - 5 unit 03/28/17 12:00 03/28/17 12:08 Novolog SUBQ 4 unit 0800,1200,1700,2100 EILEEN Administration Protocol Insulin Glargine 20 unit 03/28/17 11:00 03/28/17 10:55 Lantus Solostar SUBQ 20 unit BID EILEEN Administration Metoprolol Succinate 50 mg 03/27/17 20:18 03/28/17 08:38 Toprol Xl PO 50 mg DAILY EILEEN Administration Mineral Oil 1 applic 03/28/17 05:28 03/28/17 14:26 Cavilon TOP 1 applic PRN PRN Administration Skin Care Nystatin 1 applic 03/27/17 21:00 03/28/17 14:26 Nystop TOP 1 applic BID EILEEN Administration Ondansetron HCl 4 mg 03/27/17 16:11 03/28/17 04:19 Zofran Inj IVP 4 mg Q6HR PRN Administration Nausea / Vomiting (Febuxostat [Uloric] 1 each 03/28/17 09:00 03/28/17 12:08 80 Mg) Tab PO 1 each DAILY EILEEN Administration Polyethylene Glycol 17 gm 03/28/17 09:00 03/28/17 08:35 Miralax PO Not Given DAILY EILEEN Sodium Chloride 10 ml 03/27/17 16:11 03/28/17 11:12 Normal Saline Flush 0.9% IVP 10 ml PRN PRN Administration NEEDED PER PROVIDER ORDERS Sodium Chloride 10 ml 03/27/17 22:00 03/28/17 14:33 Normal Saline Flush 0.9% IVP 10 ml Q8HR EILEEN Administration - Lab Result Fish Bone Diagrams: 03/28/17 04:25 03/28/17 04:25 - Additional Planning My Orders: My Active Orders 03/28/17 09:20 Daily Weight [RC] 0600 03/28/17 11:00 Insulin Glargine [Lantus Solostar] 20 unit SUBQ BID 03/28/17 12:00 Insulin Aspart [NovoLOG] 1 - 5 unit SUBQ 0800,1200,1700,2100 diltiaZEM [Cardizem] 60 mg PO Q8H Subjective - Subjective Patient Reports: Feeling Better, Shortness of Breath Nursing Reports: Other (Pt spiked a Temp of 38 today) Objective Vital Signs: Vital Signs - 24 hr 03/27/17 03/27/17 03/27/17 17:00 20:56 21:00 Temperature Heart Rate [ 124 H 147 H Monitoring electrodes] Respiratory 28 H Rate Blood Pressure 108/57 L Blood Pressure 109/65 108/57 L [Left Radial artery] O2 Saturation 97 03/27/17 03/27/17 03/27/17 21:05 21:10 21:15 Temperature Heart Rate [ 120 H 130 H 140 H Monitoring electrodes] Respiratory Rate Blood Pressure Blood Pressure 116/86 H 63/40 L 100/86 H [Left Radial artery] O2 Saturation 03/27/17 03/27/17 03/28/17 22:32 23:00 00:11 Temperature 37.9 C H Heart Rate [ 138 H 95 123 H Monitoring electrodes] Respiratory 22 25 H 25 H Rate Blood Pressure Blood Pressure 123/45 L 108/57 L 106/70 [Left Radial artery] O2 Saturation 96 97 03/28/17 03/28/17 03/28/17 01:00 02:00 03:00 Temperature Heart Rate [ 112 H 104 H 107 H Monitoring electrodes] Respiratory 27 H 25 H 26 H Rate Blood Pressure Blood Pressure 122/100 H 105/68 87/77 L [Left Radial artery] O2 Saturation 96 96 96 03/28/17 03/28/17 03/28/17 03:15 04:00 05:00 Temperature 38.0 C H Heart Rate [ 103 H 100 104 H Monitoring electrodes] Respiratory 27 H 24 19 Rate Blood Pressure Blood Pressure 116/69 123/63 108/57 L [Left Radial artery] O2 Saturation 96 95 95 03/28/17 03/28/17 03/28/17 06:00 07:00 08:00 Temperature 37.3 C Heart Rate [ 106 H 106 H 101 H Monitoring electrodes] Respiratory 28 H 21 21 Rate Blood Pressure Blood Pressure 111/47 L 108/67 105/51 L [Left Radial artery] O2 Saturation 95 97 96 03/28/17 03/28/17 03/28/17 09:00 10:00 10:23 Temperature Heart Rate [ 100 88 98 Monitoring electrodes] Respiratory 22 23 Rate Blood Pressure Blood Pressure 116/92 H 92/48 L 81/49 L [Left Radial artery] O2 Saturation 94 95 03/28/17 03/28/17 03/28/17 10:25 10:30 10:45 Temperature Heart Rate [ 94 97 97 Monitoring electrodes] Respiratory Rate Blood Pressure Blood Pressure 82/60 L 90/52 L 103/54 L [Left Radial artery] O2 Saturation 03/28/17 03/28/17 03/28/17 11:00 11:15 11:30 Temperature Heart Rate [ 93 99 95 Monitoring electrodes] Respiratory Rate Blood Pressure Blood Pressure 108/56 L 76/57 L 107/49 L [Left Radial artery] O2 Saturation 03/28/17 03/28/17 03/28/17 11:57 12:07 13:00 Temperature 38.2 C H 37.2 C Heart Rate [ 100 98 Monitoring electrodes] Respiratory 21 19 Rate Blood Pressure 104/62 Blood Pressure 104/62 117/76 [Left Radial artery] O2 Saturation 96 100 03/28/17 03/28/17 14:00 15:00 Temperature Heart Rate [ 88 89 Monitoring electrodes] Respiratory 21 21 Rate Blood Pressure Blood Pressure 115/67 99/49 L [Left Radial artery] O2 Saturation 95 95 Oxygen O2 Source Room air I&O (Last 24 Hrs): Intake and Output Totals x24h 03/26/17 03/27/17 03/28/17 23:59 23:59 23:59 Intake Total 4008.917 1836.166 Output Total 550 619 Balance 3458.917 1217.166 General: Alert, Oriented x3 HEENT: Mucous membr. moist/pink Neck: Supple Cardiovascular: No murmurs Respiratory: Other (prolonged expiratory phase and mild wheezing at bases bilaterally) Abdomen: Soft, Other (Obese with a pannus) Extremities: Other (Trace edema, shins are bandaged, R foot bandaged) - Results Results: Laboratory Results WBC 17.6 x10^3/uL (4.8-10.8) H 03/28/17 04:25 RBC 3.27 10^6/uL (4.20-5.40) L 03/28/17 04:25 Hgb 10.2 g/dL (12.0-16.0) L 03/28/17 04:25 Hct 30.8 % (37.0-47.0) L 03/28/17 04:25 MCV 94.2 fL (81.0-99.0) 03/28/17 04:25 MCH 31.2 pg (27.0-31.0) H 03/28/17 04:25 MCHC 33.1 g/dL (32.0-36.0) 03/28/17 04:25 RDW 14.6 % (12.0-15.0) 03/28/17 04:25 Plt Count 201 10^3/uL (130-450) 03/28/17 04:25 MPV 9.2 fL (7.9-10.8) 03/28/17 04:25 Neut # 15.0 10^3/uL (1.5-6.6) H 03/28/17 04:25 Lymph # 1.4 10^3/uL (1.5-3.5) L 03/28/17 04:25 [place] # 1.2 10^3/uL (0.0-1.0) H 03/28/17 04:25 Eos # 0.0 10^3/uL (0.0-0.7) 03/28/17 04:25 Baso # 0.0 10^3/uL (0.0-0.1) 03/28/17 04:25 Absolute Nucleated RBC 0.00 x10^3/uL 03/28/17 04:25 Nucleated RBC % 0.0 /100WBC 03/28/17 04:25 Manual Slide Review Indicated 03/27/17 13:08 RBC Morph Micro Appear 2+ ANISOCYTOSIS (NORMAL) 03/27/17 13:08 PT 37.7 secs (9.9-12.6) H 03/28/17 04:25 INR 3.5 (0.8-1.2) H 03/28/17 04:25 D-Dimer 271.0 ng/mL (200.0-255.0) H 03/27/17 13:08 VBG pH 7.399 (7.31-7.41) 03/27/17 14:32 VBG pCO2 38.1 mmHg (41-51) L 03/27/17 14:32 VBG pO2 34.6 mmHg (25-47) 03/27/17 14:32 VBG HCO3 23.0 mmol/L (23-28) 03/27/17 14:32 VBG Total CO2 24.2 mmol/L (24-29) 03/27/17 14:32 VBG O2 Saturation 68.2 % (60-80) 03/27/17 14:32 VBG Base Excess -1.5 mmol/L (-2 - +2) 03/27/17 14:32 Sodium 135 mmol/L (135-145) 03/28/17 04:25 Potassium 3.9 mmol/L (3.5-5.0) 03/28/17 04:25 Chloride 99 mmol/L (101-111) L 03/28/17 04:25 Carbon Dioxide 24 mmol/L (21-32) 03/28/17 04:25 Anion Gap 12.0 (6-13) 03/28/17 04:25 BUN 51 mg/dL (6-20) H 03/28/17 04:25 Creatinine 1.6 mg/dL (0.4-1.0) H 03/28/17 04:25 Estimated GFR (MDRD) 32 (>89) L 03/28/17 04:25 Glucose 202 mg/dL (70-100) H 03/28/17 04:25 Glycated Hemoglobin 7.9 % (4.6-6.2) H 03/28/17 07:49 Estim Average Glucose 180 (70-100) H 03/28/17 07:49 Lactic Acid 1.4 mmol/L (0.5-2.2) 03/28/17 07:49 Calcium 8.7 mg/dL (8.5-10.3) 03/28/17 04:25 Magnesium 1.7 mg/dL (1.7-2.8) 03/28/17 04:25 Total Bilirubin 1.1 mg/dL (0.2-1.0) H 03/28/17 04:25 AST 51 IU/L (10-42) H 03/28/17 04:25 ALT 19 IU/L (10-60) 03/28/17 04:25 Alkaline Phosphatase 48 IU/L (42-121) 03/28/17 04:25 Troponin I 0.05 ng/mL (<0.49) 03/27/17 14:32 B-Natriuretic Peptide 879 pg/mL (5-100) H 03/27/17 14:32 Total Protein 6.8 g/dL (6.7-8.2) 03/28/17 04:25 Albumin 3.1 g/dL (3.2-5.5) L 03/28/17 04:25 Globulin 3.7 g/dL (2.1-4.2) 03/28/17 04:25 Albumin/Globulin Ratio 0.8 (1.0-2.2) L 03/28/17 04:25 Lipase 11 U/L (22-51) L 03/27/17 13:08 Urine Color YELLOW 03/27/17 14:09 Urine Clarity SL. CLOUDY (CLEAR) 03/27/17 14:09 Urine pH 5.5 PH (5.0-7.5) 03/27/17 14:09 Ur Specific [place] 1.010 (1.002-1.030) 03/27/17 14:09 Urine Protein NEGATIVE mg/dL (NEGATIVE) 03/27/17 14:09 Urine Glucose (UA) >=1000 mg/dL (NEGATIVE) H 03/27/17 14:09 Urine Ketones TRACE mg/dL (NEGATIVE) 03/27/17 14:09 Urine Occult Blood SMALL (NEGATIVE) H 03/27/17 14:09 Urine Nitrite NEGATIVE (NEGATIVE) 03/27/17 14:09 Urine Bilirubin NEGATIVE (NEGATIVE) 03/27/17 14:09 Urine Urobilinogen 0.2 (NORMAL) E.U./dL (NORMAL) 03/27/17 14:09 Ur Leukocyte Esterase TRACE (NEGATIVE) H 03/27/17 14:09 Urine RBC 0-5 /HPF (0-5) 03/27/17 14:09 Urine WBC >25 /HPF (0-5) H 03/27/17 14:09 Ur Squamous Epith Cells RARE Squamous (<= Few) 03/27/17 14:09 Urine Bacteria Many /HPF (None Seen) H 03/27/17 14:09 Ur Microscopic Review INDICATED 03/27/17 14:09 Urine Culture Comments INDICATED 03/27/17 14:09 Serum Ketones NEGATIVE (NEGATIVE) 03/27/17 14:32 Influenza A (Rapid) Negative (Negative) 03/27/17 14:24 Influenza B (Rapid) Negative (Negative) 03/27/17 14:24 Influenza Types A,B Ag - 03/27/17 14:24
[2017-03-28] MEDS: VANCOMYCIN INJ 2 GM in SODIUM CHLORIDE 0.9% 500 ML IV SCH (17:15)
[2017-03-28] MEDS: CEFEPIME 2 GM in SODIUM CHLORIDE 0.9% MINIBAG 100 ML IV SCH (17:39)
[2017-03-28] MEDS ORDERED: VANCOMYCIN 2 GM/NS 500 ML 2 GM/500 ML BAG IV SCH (18:00)
[2017-03-28] MEDS ORDERED: VANCOMYCIN INJ 2 GM in SODIUM CHLORIDE 0.9% 500 ML IV SCH ×4 (18:00)
[2017-03-28] MEDS: ALBUTEROL NEB 2.5 MG/3 ML INH PRN ×2 (18:17→22:56)
--- NOTE | 2017-03-28 18:43 | MRI Preliminary Report ---
Exam: MRI FOOT LT W/O IMPRESSION: 1. Extensive periarticular fifth metatarsophalangeal joint edema and artifact presumably from a post surgical changes and there is likely postsurgical artifact dorsal aspect of proximal phalanx of fourt h toe. Soft tissue gas cannot be excluded. 2. There is edema at the fifth metatarsal head and base of the proximal phalanx fifth digit with equi vocal cortical disruption and decreased marrow signal sagittal T1-weighted sequence (image 25 series 1101) . Moderate suspicion for osteomyelitis fifth metatarsophalangeal joint. [facility] MUSCULOSKELETAL RADIOLOGY SECTION SITE ID: [id number]
--- NOTE | 2017-03-28 20:30 | XRAY Report ---
EXAM: LEFT TIBIA/FIBULA RADIOGRAPHY EXAM DATE: 03/28/2017 08:14 PM. CLINICAL HISTORY: Might have a radha, ortho needs to see planning surg. COMPARISON: None. TECHNIQUE: 2 views. FINDINGS: Bones: Fixation track artifacts are present in the mid and distal tibia. No tibial hardware present a t this time. A metal plate is secured to the lateral surface of the distal femur means of multiple sc rews, incompletely seen. No acute fracture or other bone lesion. Joints: Marked degenerative changes of the knee. Mild degenerative changes of the ankle. Soft Tissues: Extensive vascular calcification, compatible with diabetes. IMPRESSION: Chronic findings. No acute disease. [facility] Referring Provider Line: [phone] SITE ID: [id number]
[2017-03-28] MEDS ORDERED: INSULIN REGULAR HUMAN 100 UNIT/1 ML 10 ML MDV IVP STA (20:36)
[2017-03-28] MEDS: INSULIN GLARGINE 300 UNIT/3 ML PEN SUBQ SCH (21:05)
--- NOTE | 2017-03-28 23:20 | MRI Report ---
EXAM: LEFT FOREFOOT MRI WITHOUT CONTRAST EXAM DATE: 03/28/2017 03:19 PM. CLINICAL HISTORY: Diabetes mellitus foot infection, osteomyelitis. Patient had corn removed plantar l ateral aspect of left foot 3 weeks ago. COMPARISON: None. TECHNIQUE: Multiplanar, multisequence T1-weighted and fluid-sensitive sequences of the forefoot witho ut contrast. Other: None. FINDINGS: Bones: Edema is noted at the fifth metatarsal head and the base of proximal phalanx fifth toe. Indist inct cortical margin dorsal aspect fifth metatarsal head on the sagittal T1-weighted sequence. Indist inct dorsal margin base proximal phalanx fifth toe on the sagittal T1-weighted sequence. Negative for marrow decreased signal on the T1-weighted sequences to confirm osteomyelitis. Joints: There is a hallux valgus. Increased primus metatarsus angle. Moderate osteoarthritis of first metatarsal-phalangeal joint and first metatarsal head and cuneiform articulations. Mild osteoarthrit is interphalangeal joint great toe. No effusions. The [id number] complex is unremarka ble. The visualized plantar plates are unremarkable. Articular Cartilage: Unremarkable. Ligaments: The visualized collateral ligaments are intact. Tendons: The flexor and extensor tendons are unremarkable. Musculature: No edema or fatty atrophy. Other: Low signal artifact from gas, fistula or metallic fragments is noted at the dorsal aspect prox imal phalanx fourth digit (image 22 series 1101 and image 13 series 1601). Multifocal decreased signa l or artifact from postsurgical changes or gas is noted at the dorsal aspect fifth metatarsophalangea l joint (image 25 series 1101 and image 19 series 1401). Possible focal 1 cm fluid collection dorsal lateral aspect of fifth metatarsophalangeal joint on the coronal T2-weighted fat saturation sequence. The subcutaneous tissues are unremarkable. Extensive subcutaneous edema or cellulitis forefoot. IMPRESSION: 1. Extensive periarticular fifth metatarsophalangeal joint edema and artifact presumably from postsur gical changes and there is likely postsurgical artifact dorsal aspect of proximal phalanx of fourth t oe. Soft tissue gas cannot be excluded. 2. There is a edema at the fifth metatarsal head and the base of the proximal phalanx fifth digit wit h equivocal cortical disruption and decreased marrow signal sagittal T1-weighted sequence (image 25 s eries 1101). Moderate suspicion for osteomyelitis. [facility] MUSCULOSKELETAL RADIOLOGY SECTION Referring Provider Line: [phone] SITE ID: [id number]
[2017-03-29 04:38] LABS: BASOPHILS # (AUTO) 0.1 10^3/uL (0.0-0.1); BASOPHILS % (AUTO) 0.4 %; HGB - HEMOGLOBIN 10.4 g/dL (12.0-16.0); LYMPHOCYTES # (AUTO) 1.1 10^3/uL (1.5-3.5); LYMPHOCYTES % (AUTO) 6.1 %; MEAN CORPUSCULAR HEMOGLOBIN 30.9 pg (27.0-31.0); MEAN CORPUSCULAR HGB CONC 32.6 g/dL (32.0-36.0); MEAN CORPUSCULAR VOLUME 94.7 fL (81.0-99.0); MEAN PLATELET VOLUME 9.4 fL (7.9-10.8); MONOCYTES # (AUTO) 0.9 10^3/uL (0.0-1.0); MONOCYTES % (AUTO) 5.2 %; NEUTROPHILS # (AUTO) 15.4 10^3/uL (1.5-6.6); NEUTROPHILS % (AUTO) 88.3 %; PLT - PLATELET COUNT 202 10^3/uL (130-450); RED BLOOD COUNT 3.37 10^6/uL (4.20-5.40); RED CELL DISTRIBUTION WIDTH 14.5 % (12.0-15.0); WHITE BLOOD COUNT 17.4 x10^3/uL (4.8-10.8)
[2017-03-29 04:44] LABS: ALBUMIN/GLOBULIN RATIO 0.7 (1.0-2.2); BILIRUBIN,TOTAL 1.2 mg/dL (0.2-1.0); CALCIUM 8.3 mg/dL (8.5-10.3); CREATININE 1.7 mg/dL (0.4-1.0); TOTAL PROTEIN 7.1 g/dL (6.7-8.2); URIC ACID 5.9 mg/dL (2.6-7.2)
[2017-03-29 05:03] LABS: INR 2.9 (0.8-1.2)
[2017-03-29] MEDS: SODIUM CHLORIDE FLUSH 0.9% 10 ML SYRINGE IVP SCH ×7 (06:12→20:54)
[2017-03-29] MEDS: ACETAMINOPHEN 325 MG TABLET PO PRN ×3 (08:29→23:02)
[2017-03-29] MEDS: CHOLECALCIFEROL 1,000 UNIT TABLET PO SCH (08:51)
[2017-03-29] MEDS: FAMOTIDINE 20 MG TABLET PO SCH (08:51)
[2017-03-29] MEDS: INSULIN ASPART 300 UNIT/3 ML PEN SUBQ SCH ×4 (08:52→20:52)
[2017-03-29] MEDS: INSULIN GLARGINE 300 UNIT/3 ML PEN SUBQ SCH ×2 (08:54→20:52)
[2017-03-29] MEDS: FEBUXOSTAT 80 MG PO SCH (08:56)
[2017-03-29] MEDS: METOPROLOL SUCCINATE 50 MG TABLET PO SCH (09:01)
[2017-03-29] MEDS ORDERED: INSULIN ASPART 300 UNIT/3 ML PEN SUBQ SCH (12:00)
[2017-03-29] MEDS: POLYETHYLENE GLYCOL 3350 17 GM PACKET PO SCH (12:00)
--- NOTE | 2017-03-29 12:11 | PROVIDER PROGRESS NOTE ---
Subjective - Prog Note Date Prog Note Date: 03/29/17 Prog Note Time: 12:09 - Subjective Pt reports feeling: No change (Still with lateral left foot pain) Objective - Vital Signs/Intake & Output Vital Signs: Vital Signs x48h Temp Pulse Resp BP BP Pulse Ox 03/29/17 09:00 36.7 C 106 H 24 132/62 H 95 03/29/17 08:51 132/62 H 03/29/17 07:33 37.7 C H 106 H 28 H 95 Intake & Output: Intake & Output 03/26/17 03/27/17 03/28/17 03/29/17 23:59 23:59 23:59 23:59 Intake Total 4008.917 3626.166 970 Output Total 550 1159 675 Balance 3458.917 2467.166 295 - Lab Results Fish Bones: 03/29/17 04:23 03/29/17 04:23 Other Labs: Lab Results x24hrs 03/29/17 03/29/17 03/29/17 Range/Units 08:22 04:23 04:23 WBC 17.4 H (4.8-10.8) x10^3/uL RBC 3.37 L (4.20-5.40) 10^6/uL Hgb 10.4 L (12.0-16.0) g/dL Hct 31.9 L (37.0-47.0) % MCV 94.7 (81.0-99.0) fL MCH 30.9 (27.0-31.0) pg MCHC 32.6 (32.0-36.0) g/dL RDW 14.5 (12.0-15.0) % Plt Count 202 (130-450) 10^3/uL MPV 9.4 (7.9-10.8) fL Neut # 15.4 H (1.5-6.6) 10^3/uL Lymph # 1.1 L (1.5-3.5) 10^3/uL [place] # 0.9 (0.0-1.0) 10^3/uL Eos # 0.0 (0.0-0.7) 10^3/uL Baso # 0.1 (0.0-0.1) 10^3/uL Absolute Nucleated RBC 0.00 x10^3/uL Nucleated RBC % 0.0 /100WBC PT (9.9-12.6) secs INR (0.8-1.2) Sodium 131 L (135-145) mmol/L Potassium 4.0 (3.5-5.0) mmol/L Chloride 99 L (101-111) mmol/L Carbon Dioxide 22 (21-32) mmol/L Anion Gap 10.0 (6-13) BUN 62 H (6-20) mg/dL Creatinine 1.7 H (0.4-1.0) mg/dL Estimated GFR (MDRD) 30 L (>89) Glucose 350 H (70-100) mg/dL POC Whole Bld Glucose 360 H (70 - 100) mg/dL Uric Acid 5.9 (2.6-7.2) mg/dL Calcium 8.3 L (8.5-10.3) mg/dL Total Bilirubin 1.2 H (0.2-1.0) mg/dL AST 81 H (10-42) IU/L ALT 35 (10-60) IU/L Alkaline Phosphatase 56 (42-121) IU/L Total Protein 7.1 (6.7-8.2) g/dL Albumin 3.0 L (3.2-5.5) g/dL Globulin 4.1 (2.1-4.2) g/dL Albumin/Globulin Ratio 0.7 L (1.0-2.2) 03/29/17 03/28/17 03/28/17 Range/Units 04:23 23:01 20:12 WBC (4.8-10.8) x10^3/uL RBC (4.20-5.40) 10^6/uL Hgb (12.0-16.0) g/dL Hct (37.0-47.0) % MCV (81.0-99.0) fL MCH (27.0-31.0) pg MCHC (32.0-36.0) g/dL RDW (12.0-15.0) % Plt Count (130-450) 10^3/uL MPV (7.9-10.8) fL Neut # (1.5-6.6) 10^3/uL Lymph # (1.5-3.5) 10^3/uL [place] # (0.0-1.0) 10^3/uL Eos # (0.0-0.7) 10^3/uL Baso # (0.0-0.1) 10^3/uL Absolute Nucleated RBC x10^3/uL Nucleated RBC % /100WBC PT 31.0 H (9.9-12.6) secs INR 2.9 H (0.8-1.2) Sodium (135-145) mmol/L Potassium (3.5-5.0) mmol/L Chloride (101-111) mmol/L Carbon Dioxide (21-32) mmol/L Anion Gap (6-13) BUN (6-20) mg/dL Creatinine (0.4-1.0) mg/dL Estimated GFR (MDRD) (>89) Glucose (70-100) mg/dL POC Whole Bld Glucose 328 H 455 H (70 - 100) mg/dL Uric Acid (2.6-7.2) mg/dL Calcium (8.5-10.3) mg/dL Total Bilirubin (0.2-1.0) mg/dL AST (10-42) IU/L ALT (10-60) IU/L Alkaline Phosphatase (42-121) IU/L Total Protein (6.7-8.2) g/dL Albumin (3.2-5.5) g/dL Globulin (2.1-4.2) g/dL Albumin/Globulin Ratio (1.0-2.2) 03/28/17 03/28/17 03/28/17 Range/Units 17:01 12:01 10:07 WBC (4.8-10.8) x10^3/uL RBC (4.20-5.40) 10^6/uL Hgb (12.0-16.0) g/dL Hct (37.0-47.0) % MCV (81.0-99.0) fL MCH (27.0-31.0) pg MCHC (32.0-36.0) g/dL RDW (12.0-15.0) % Plt Count (130-450) 10^3/uL MPV (7.9-10.8) fL Neut # (1.5-6.6) 10^3/uL Lymph # (1.5-3.5) 10^3/uL [place] # (0.0-1.0) 10^3/uL Eos # (0.0-0.7) 10^3/uL Baso # (0.0-0.1) 10^3/uL Absolute Nucleated RBC x10^3/uL Nucleated RBC % /100WBC PT (9.9-12.6) secs INR (0.8-1.2) Sodium (135-145) mmol/L Potassium (3.5-5.0) mmol/L Chloride (101-111) mmol/L Carbon Dioxide (21-32) mmol/L Anion Gap (6-13) BUN (6-20) mg/dL Creatinine (0.4-1.0) mg/dL Estimated GFR (MDRD) (>89) Glucose (70-100) mg/dL POC Whole Bld Glucose 350 H 305 H 312 H (70 - 100) mg/dL Uric Acid (2.6-7.2) mg/dL Calcium (8.5-10.3) mg/dL Total Bilirubin (0.2-1.0) mg/dL AST (10-42) IU/L ALT (10-60) IU/L Alkaline Phosphatase (42-121) IU/L Total Protein (6.7-8.2) g/dL Albumin (3.2-5.5) g/dL Globulin (2.1-4.2) g/dL Albumin/Globulin Ratio (1.0-2.2) 03/28/17 03/28/17 03/28/17 Range/Units 09:10 08:59 08:08 WBC (4.8-10.8) x10^3/uL RBC (4.20-5.40) 10^6/uL Hgb (12.0-16.0) g/dL Hct (37.0-47.0) % MCV (81.0-99.0) fL MCH (27.0-31.0) pg MCHC (32.0-36.0) g/dL RDW (12.0-15.0) % Plt Count (130-450) 10^3/uL MPV (7.9-10.8) fL Neut # (1.5-6.6) 10^3/uL Lymph # (1.5-3.5) 10^3/uL [place] # (0.0-1.0) 10^3/uL Eos # (0.0-0.7) 10^3/uL Baso # (0.0-0.1) 10^3/uL Absolute Nucleated RBC x10^3/uL Nucleated RBC % /100WBC PT (9.9-12.6) secs INR (0.8-1.2) Sodium (135-145) mmol/L Potassium (3.5-5.0) mmol/L Chloride (101-111) mmol/L Carbon Dioxide (21-32) mmol/L Anion Gap (6-13) BUN (6-20) mg/dL Creatinine (0.4-1.0) mg/dL Estimated GFR (MDRD) (>89) Glucose (70-100) mg/dL POC Whole Bld Glucose 299 H 304 H 198 H (70 - 100) mg/dL Uric Acid (2.6-7.2) mg/dL Calcium (8.5-10.3) mg/dL Total Bilirubin (0.2-1.0) mg/dL AST (10-42) IU/L ALT (10-60) IU/L Alkaline Phosphatase (42-121) IU/L Total Protein (6.7-8.2) g/dL Albumin (3.2-5.5) g/dL Globulin (2.1-4.2) g/dL Albumin/Globulin Ratio (1.0-2.2) 03/28/17 03/28/17 03/28/17 Range/Units 07:00 06:02 05:02 WBC (4.8-10.8) x10^3/uL RBC (4.20-5.40) 10^6/uL Hgb (12.0-16.0) g/dL Hct (37.0-47.0) % MCV (81.0-99.0) fL MCH (27.0-31.0) pg MCHC (32.0-36.0) g/dL RDW (12.0-15.0) % Plt Count (130-450) 10^3/uL MPV (7.9-10.8) fL Neut # (1.5-6.6) 10^3/uL Lymph # (1.5-3.5) 10^3/uL [place] # (0.0-1.0) 10^3/uL Eos # (0.0-0.7) 10^3/uL Baso # (0.0-0.1) 10^3/uL Absolute Nucleated RBC x10^3/uL Nucleated RBC % /100WBC PT (9.9-12.6) secs INR (0.8-1.2) Sodium (135-145) mmol/L Potassium (3.5-5.0) mmol/L Chloride (101-111) mmol/L Carbon Dioxide (21-32) mmol/L Anion Gap (6-13) BUN (6-20) mg/dL Creatinine (0.4-1.0) mg/dL Estimated GFR (MDRD) (>89) Glucose (70-100) mg/dL POC Whole Bld Glucose 191 H 195 H 202 H (70 - 100) mg/dL Uric Acid (2.6-7.2) mg/dL Calcium (8.5-10.3) mg/dL Total Bilirubin (0.2-1.0) mg/dL AST (10-42) IU/L ALT (10-60) IU/L Alkaline Phosphatase (42-121) IU/L Total Protein (6.7-8.2) g/dL Albumin (3.2-5.5) g/dL Globulin (2.1-4.2) g/dL Albumin/Globulin Ratio (1.0-2.2) 03/28/17 03/28/17 03/28/17 Range/Units 03:56 02:38 01:37 WBC (4.8-10.8) x10^3/uL RBC (4.20-5.40) 10^6/uL Hgb (12.0-16.0) g/dL Hct (37.0-47.0) % MCV (81.0-99.0) fL MCH (27.0-31.0) pg MCHC (32.0-36.0) g/dL RDW (12.0-15.0) % Plt Count (130-450) 10^3/uL MPV (7.9-10.8) fL Neut # (1.5-6.6) 10^3/uL Lymph # (1.5-3.5) 10^3/uL [place] # (0.0-1.0) 10^3/uL Eos # (0.0-0.7) 10^3/uL Baso # (0.0-0.1) 10^3/uL Absolute Nucleated RBC x10^3/uL Nucleated RBC % /100WBC PT (9.9-12.6) secs INR (0.8-1.2) Sodium (135-145) mmol/L Potassium (3.5-5.0) mmol/L Chloride (101-111) mmol/L Carbon Dioxide (21-32) mmol/L Anion Gap (6-13) BUN (6-20) mg/dL Creatinine (0.4-1.0) mg/dL Estimated GFR (MDRD) (>89) Glucose (70-100) mg/dL POC Whole Bld Glucose 214 H 212 H 275 H (70 - 100) mg/dL Uric Acid (2.6-7.2) mg/dL Calcium (8.5-10.3) mg/dL Total Bilirubin (0.2-1.0) mg/dL AST (10-42) IU/L ALT (10-60) IU/L Alkaline Phosphatase (42-121) IU/L Total Protein (6.7-8.2) g/dL Albumin (3.2-5.5) g/dL Globulin (2.1-4.2) g/dL Albumin/Globulin Ratio (1.0-2.2) 03/28/17 03/27/17 03/27/17 Range/Units 00:35 23:34 22:28 WBC (4.8-10.8) x10^3/uL RBC (4.20-5.40) 10^6/uL Hgb (12.0-16.0) g/dL Hct (37.0-47.0) % MCV (81.0-99.0) fL MCH (27.0-31.0) pg MCHC (32.0-36.0) g/dL RDW (12.0-15.0) % Plt Count (130-450) 10^3/uL MPV (7.9-10.8) fL Neut # (1.5-6.6) 10^3/uL Lymph # (1.5-3.5) 10^3/uL [place] # (0.0-1.0) 10^3/uL Eos # (0.0-0.7) 10^3/uL Baso # (0.0-0.1) 10^3/uL Absolute Nucleated RBC x10^3/uL Nucleated RBC % /100WBC PT (9.9-12.6) secs INR (0.8-1.2) Sodium (135-145) mmol/L Potassium (3.5-5.0) mmol/L Chloride (101-111) mmol/L Carbon Dioxide (21-32) mmol/L Anion Gap (6-13) BUN (6-20) mg/dL Creatinine (0.4-1.0) mg/dL Estimated GFR (MDRD) (>89) Glucose (70-100) mg/dL POC Whole Bld Glucose 334 H 406 H 439 H (70 - 100) mg/dL Uric Acid (2.6-7.2) mg/dL Calcium (8.5-10.3) mg/dL Total Bilirubin (0.2-1.0) mg/dL AST (10-42) IU/L ALT (10-60) IU/L Alkaline Phosphatase (42-121) IU/L Total Protein (6.7-8.2) g/dL Albumin (3.2-5.5) g/dL Globulin (2.1-4.2) g/dL Albumin/Globulin Ratio (1.0-2.2) 03/27/17 03/27/17 Range/Units 20:20 17:27 WBC (4.8-10.8) x10^3/uL RBC (4.20-5.40) 10^6/uL Hgb (12.0-16.0) g/dL Hct (37.0-47.0) % MCV (81.0-99.0) fL MCH (27.0-31.0) pg MCHC (32.0-36.0) g/dL RDW (12.0-15.0) % Plt Count (130-450) 10^3/uL MPV (7.9-10.8) fL Neut # (1.5-6.6) 10^3/uL Lymph # (1.5-3.5) 10^3/uL [place] # (0.0-1.0) 10^3/uL Eos # (0.0-0.7) 10^3/uL Baso # (0.0-0.1) 10^3/uL Absolute Nucleated RBC x10^3/uL Nucleated RBC % /100WBC PT (9.9-12.6) secs INR (0.8-1.2) Sodium (135-145) mmol/L Potassium (3.5-5.0) mmol/L Chloride (101-111) mmol/L Carbon Dioxide (21-32) mmol/L Anion Gap (6-13) BUN (6-20) mg/dL Creatinine (0.4-1.0) mg/dL Estimated GFR (MDRD) (>89) Glucose (70-100) mg/dL POC Whole Bld Glucose 465 H 540 H* (70 - 100) mg/dL Uric Acid (2.6-7.2) mg/dL Calcium (8.5-10.3) mg/dL Total Bilirubin (0.2-1.0) mg/dL AST (10-42) IU/L ALT (10-60) IU/L Alkaline Phosphatase (42-121) IU/L Total Protein (6.7-8.2) g/dL Albumin (3.2-5.5) g/dL Globulin (2.1-4.2) g/dL Albumin/Globulin Ratio (1.0-2.2) - Diagnostic Imaging Diagnostic Imaging Comments: MRI scan: consistent with osteomyelitis of left 5th proximal phalanx and metatarsal head. - Other Results/Comments Other Results/Comments: EXAM: Persistent purulent drainage from lateral forefoot wound. Less redness/ swelling in foot. Assessment/Plan - Problem List (1) Diabetic foot infection Impression: clinically better but still symptomatic. MRI scan showed probable osteomyelitis of 5th proximal phalanx and 5th MT head PLAN: Had extensive discussion with patient and her of treatment options. They agree that surgical amputation is necessary. Would like to proceed directly to a [id number] amputation vs trying a 5th ray amputation first. Risk and benefit of surgery explained. Questions answered. Consent signed and leg marked. INR is elevated and will need to be reversed preop. Will schedule surgery later in the week.
[2017-03-29 12:25] LABS: VANCOMYCIN,RANDOM 17.7 ug/mL
[2017-03-29] MEDS: NYSTATIN POWDER 15 GM TOP SCH ×2 (12:33→20:53)
--- NOTE | 2017-03-29 12:55 | CONSULTATION NOTE ---
DATE OF SERVICE: 03/29/2017 Physician: Benji Enrique MD DATE OF CONSULTATION: 03/29/2017 REFERRING PHYSICIAN: Dr. Medina CHIEF COMPLAINT: "My left foot hurts." HISTORY OF PRESENT ILLNESS: The patient is a 71-year-old diabetic female who was recently admitted to the hospital for a left diabetic foot infection. She has had a persistent lateral forefoot wound that had been draining gross purulence. She has responded well to the antibiotics since her admission. Recently was admitted to the ICU for treatment of her atrial fibrillation as well. Part of her workup while an inpatient has included an MRI scan of her foot. This showed evidence of osteomyelitis involving the fifth proximal phalanx of the toe as well as the distal fifth metatarsal head. We have been asked to consult with regards to possible surgical intervention to help with her osteomyelitis of her diabetic foot infection. PHYSICAL EXAMINATION: Patient was afebrile. Examination of her left foot shows a wound over the lateral fifth metatarsal head. It is draining foul smelling purulence from the wound. The foot and distal calf, however, are less swollen and less erythematous than on admission. She still has some sensation in her toes on exam. Has tenderness on palpation over the fifth MTP joint. X-rays of her left tibia show no hardware present. MRI scan of the foot shows evidence consistent with osteomyelitis of her fifth metatarsal head and fifth proximal phalanx of the toe. Laboratories showed elevated white count of 17,400 with a left shift. INR elevated at 2.9. ASSESSMENT: 1. Clinically and improving left diabetic foot infection, but MRI scan is consistent with associated osteomyelitis of her forefoot. 2. Atrial fibrillation with rapid ventricular rate. 3. Chronic Coumadin therapy. PLAN: After speaking extensively with the patient and her with regards to treatment options for her osteomyelitis, they have agreed that a surgical intervention would be necessary for a curative plan. We have talked about possibly doing a partial fifth ray resection in hopes that this would eventually heal and would eliminate the foot infection. It is not clear that this would be the last procedure, however. The other option would be doing a [id number] amputation, which would be more likely to be the last procedure for this particular problem. After answering all their questions, they have opted to proceed with a [id number] amputation when she has been medically cleared to do so. Risks and benefits of surgery were explained, including anesthesia risk, wound healing issues, recurrent infection, blood clots in the leg, etc. All their questions were answered. Consent has been signed. Leg marked. We will then proceed with a [id number] amputation later this week once the INR has been reversed. TD: 03/29/2017 13:54
[2017-03-29] MEDS ORDERED: PHYTONADIONE INJ (ADULT) 10 MG in SODIUM CHLORIDE 0.9% 50 ML IV ONE (14:30)
[2017-03-29] MEDS: CEFEPIME 2 GM in SODIUM CHLORIDE 0.9% MINIBAG 100 ML IV SCH (17:19)
[2017-03-29] MEDS: ONDANSETRON 4 MG/2 ML VIAL IVP PRN (17:28)
[2017-03-29] MEDS ORDERED: INSULIN ASPART 300 UNIT/3 ML PEN SUBQ ONE (17:48)
[2017-03-29] MEDS: VANCOMYCIN INJ 2 GM in SODIUM CHLORIDE 0.9% 500 ML IV SCH (17:59)
[2017-03-29] MEDS: ALBUTEROL NEB 2.5 MG/3 ML INH PRN (23:07)
[2017-03-30] MEDS: SODIUM CHLORIDE FLUSH 0.9% 10 ML SYRINGE IVP SCH ×5 (04:43→21:42)
[2017-03-30 05:13] LABS: BASOPHILS % (AUTO) 0.2 %; EOSINOPHILS % (AUTO) 0.1 %; HGB - HEMOGLOBIN 10.2 g/dL (12.0-16.0); LYMPHOCYTES # (AUTO) 1.2 10^3/uL (1.5-3.5); LYMPHOCYTES % (AUTO) 8.2 %; MEAN CORPUSCULAR HEMOGLOBIN 30.7 pg (27.0-31.0); MEAN CORPUSCULAR HGB CONC 32.4 g/dL (32.0-36.0); MEAN CORPUSCULAR VOLUME 94.6 fL (81.0-99.0); MEAN PLATELET VOLUME 9.4 fL (7.9-10.8); MONOCYTES # (AUTO) 1.1 10^3/uL (0.0-1.0); MONOCYTES % (AUTO) 7.4 %; NEUTROPHILS # (AUTO) 12.4 10^3/uL (1.5-6.6); NEUTROPHILS % (AUTO) 84.1 %; PLT - PLATELET COUNT 207 10^3/uL (130-450); RED BLOOD COUNT 3.34 10^6/uL (4.20-5.40); RED CELL DISTRIBUTION WIDTH 14.1 % (12.0-15.0); WHITE BLOOD COUNT 14.8 x10^3/uL (4.8-10.8)
[2017-03-30 05:21] LABS: ALBUMIN 2.8 g/dL (3.2-5.5); ALBUMIN/GLOBULIN RATIO 0.7 (1.0-2.2); BILIRUBIN,TOTAL 1.2 mg/dL (0.2-1.0); CALCIUM 8.4 mg/dL (8.5-10.3); CREATININE 1.3 mg/dL (0.4-1.0); TOTAL PROTEIN 6.9 g/dL (6.7-8.2)
[2017-03-30 05:24] LABS: INR 1.4 (0.8-1.2); PT - PROTHROMBIN TIME 15.4 secs (9.9-12.6)
[2017-03-30] MEDS: CHOLECALCIFEROL 1,000 UNIT TABLET PO SCH (08:26)
[2017-03-30] MEDS: INSULIN ASPART 300 UNIT/3 ML PEN SUBQ SCH ×4 (08:26→21:03)
[2017-03-30] MEDS: FAMOTIDINE 20 MG TABLET PO SCH (08:26)
[2017-03-30] MEDS: diltiaZEM CD 180 MG CAPSULE PO SCH (08:26)
[2017-03-30] MEDS: FEBUXOSTAT 80 MG PO SCH (08:26)
[2017-03-30] MEDS: INSULIN GLARGINE 300 UNIT/3 ML PEN SUBQ SCH ×2 (08:33→21:02)
[2017-03-30] MEDS: POLYETHYLENE GLYCOL 3350 17 GM PACKET PO SCH (08:34)
[2017-03-30] MEDS: cefTRIAXone 2 GM in SODIUM CHLORIDE 0.9% MINIBAG 100 ML IV SCH (09:18)
[2017-03-30] MEDS: METOPROLOL SUCCINATE 50 MG TABLET PO SCH ×2 (09:19→21:03)
--- NOTE | 2017-03-30 09:45 | PROVIDER PROGRESS NOTE ---
Subjective - Prog Note Date Prog Note Date: 03/30/17 Prog Note Time: 09:42 - Subjective Pt reports feeling: Improved (Less foot pain.) Objective - Vital Signs/Intake & Output Vital Signs: Vital Signs x48h Temp Pulse Pulse Resp BP BP Pulse Ox 03/30/17 09:00 36.8 C 109 H 25 H 120/83 H 96 03/30/17 08:15 114 H 20 03/30/17 04:41 36.7 C 101 H 21 145/87 H 95 Intake & Output: Intake & Output 03/27/17 03/28/17 03/29/17 03/30/17 23:59 23:59 23:59 23:59 Intake Total 4008.917 3626.166 2796 575 Output Total 550 1159 1785 675 Balance 3458.917 2467.166 1011 -100 - Lab Results Fish Bones: 03/30/17 04:38 03/30/17 04:38 Other Labs: Lab Results x24hrs 03/30/17 03/30/17 03/30/17 Range/Units 07:43 04:38 04:38 WBC 14.8 H (4.8-10.8) x10^3/uL RBC 3.34 L (4.20-5.40) 10^6/uL Hgb 10.2 L (12.0-16.0) g/dL Hct 31.5 L (37.0-47.0) % MCV 94.6 (81.0-99.0) fL MCH 30.7 (27.0-31.0) pg MCHC 32.4 (32.0-36.0) g/dL RDW 14.1 (12.0-15.0) % Plt Count 207 (130-450) 10^3/uL MPV 9.4 (7.9-10.8) fL Neut # 12.4 H (1.5-6.6) 10^3/uL Lymph # 1.2 L (1.5-3.5) 10^3/uL [place] # 1.1 H (0.0-1.0) 10^3/uL Eos # 0.0 (0.0-0.7) 10^3/uL Baso # 0.0 (0.0-0.1) 10^3/uL Absolute Nucleated RBC 0.00 x10^3/uL Nucleated RBC % 0.0 /100WBC PT (9.9-12.6) secs INR (0.8-1.2) Sodium 135 (135-145) mmol/L Potassium 3.9 (3.5-5.0) mmol/L Chloride 102 (101-111) mmol/L Carbon Dioxide 24 (21-32) mmol/L Anion Gap 9.0 (6-13) BUN 51 H (6-20) mg/dL Creatinine 1.3 H (0.4-1.0) mg/dL Estimated GFR (MDRD) 40 L (>89) Glucose 288 H (70-100) mg/dL POC Whole Bld Glucose 295 H (70 - 100) mg/dL Calcium 8.4 L (8.5-10.3) mg/dL Total Bilirubin 1.2 H (0.2-1.0) mg/dL AST 64 H (10-42) IU/L ALT 49 (10-60) IU/L Alkaline Phosphatase 66 (42-121) IU/L Total Protein 6.9 (6.7-8.2) g/dL Albumin 2.8 L (3.2-5.5) g/dL Globulin 4.1 (2.1-4.2) g/dL Albumin/Globulin Ratio 0.7 L (1.0-2.2) Last Dose Date Last Dose Time Random Vancomycin ug/mL 03/30/17 03/29/17 03/29/17 Range/Units 04:38 20:50 16:53 WBC (4.8-10.8) x10^3/uL RBC (4.20-5.40) 10^6/uL Hgb (12.0-16.0) g/dL Hct (37.0-47.0) % MCV (81.0-99.0) fL MCH (27.0-31.0) pg MCHC (32.0-36.0) g/dL RDW (12.0-15.0) % Plt Count (130-450) 10^3/uL MPV (7.9-10.8) fL Neut # (1.5-6.6) 10^3/uL Lymph # (1.5-3.5) 10^3/uL [place] # (0.0-1.0) 10^3/uL Eos # (0.0-0.7) 10^3/uL Baso # (0.0-0.1) 10^3/uL Absolute Nucleated RBC x10^3/uL Nucleated RBC % /100WBC PT 15.4 H (9.9-12.6) secs INR 1.4 H (0.8-1.2) Sodium (135-145) mmol/L Potassium (3.5-5.0) mmol/L Chloride (101-111) mmol/L Carbon Dioxide (21-32) mmol/L Anion Gap (6-13) BUN (6-20) mg/dL Creatinine (0.4-1.0) mg/dL Estimated GFR (MDRD) (>89) Glucose (70-100) mg/dL POC Whole Bld Glucose 297 H 406 H (70 - 100) mg/dL Calcium (8.5-10.3) mg/dL Total Bilirubin (0.2-1.0) mg/dL AST (10-42) IU/L ALT (10-60) IU/L Alkaline Phosphatase (42-121) IU/L Total Protein (6.7-8.2) g/dL Albumin (3.2-5.5) g/dL Globulin (2.1-4.2) g/dL Albumin/Globulin Ratio (1.0-2.2) Last Dose Date Last Dose Time Random Vancomycin ug/mL 03/29/17 03/29/17 03/29/17 Range/Units 12:07 12:00 08:22 WBC (4.8-10.8) x10^3/uL RBC (4.20-5.40) 10^6/uL Hgb (12.0-16.0) g/dL Hct (37.0-47.0) % MCV (81.0-99.0) fL MCH (27.0-31.0) pg MCHC (32.0-36.0) g/dL RDW (12.0-15.0) % Plt Count (130-450) 10^3/uL MPV (7.9-10.8) fL Neut # (1.5-6.6) 10^3/uL Lymph # (1.5-3.5) 10^3/uL [place] # (0.0-1.0) 10^3/uL Eos # (0.0-0.7) 10^3/uL Baso # (0.0-0.1) 10^3/uL Absolute Nucleated RBC x10^3/uL Nucleated RBC % /100WBC PT (9.9-12.6) secs INR (0.8-1.2) Sodium (135-145) mmol/L Potassium (3.5-5.0) mmol/L Chloride (101-111) mmol/L Carbon Dioxide (21-32) mmol/L Anion Gap (6-13) BUN (6-20) mg/dL Creatinine (0.4-1.0) mg/dL Estimated GFR (MDRD) (>89) Glucose (70-100) mg/dL POC Whole Bld Glucose 373 H 360 H (70 - 100) mg/dL Calcium (8.5-10.3) mg/dL Total Bilirubin (0.2-1.0) mg/dL AST (10-42) IU/L ALT (10-60) IU/L Alkaline Phosphatase (42-121) IU/L Total Protein (6.7-8.2) g/dL Albumin (3.2-5.5) g/dL Globulin (2.1-4.2) g/dL Albumin/Globulin Ratio (1.0-2.2) Last Dose Date 03/28/17 Last Dose Time 1934 Random Vancomycin 17.7 ug/mL 03/28/17 03/28/17 03/28/17 Range/Units 23:01 20:12 17:01 WBC (4.8-10.8) x10^3/uL RBC (4.20-5.40) 10^6/uL Hgb (12.0-16.0) g/dL Hct (37.0-47.0) % MCV (81.0-99.0) fL MCH (27.0-31.0) pg MCHC (32.0-36.0) g/dL RDW (12.0-15.0) % Plt Count (130-450) 10^3/uL MPV (7.9-10.8) fL Neut # (1.5-6.6) 10^3/uL Lymph # (1.5-3.5) 10^3/uL [place] # (0.0-1.0) 10^3/uL Eos # (0.0-0.7) 10^3/uL Baso # (0.0-0.1) 10^3/uL Absolute Nucleated RBC x10^3/uL Nucleated RBC % /100WBC PT (9.9-12.6) secs INR (0.8-1.2) Sodium (135-145) mmol/L Potassium (3.5-5.0) mmol/L Chloride (101-111) mmol/L Carbon Dioxide (21-32) mmol/L Anion Gap (6-13) BUN (6-20) mg/dL Creatinine (0.4-1.0) mg/dL Estimated GFR (MDRD) (>89) Glucose (70-100) mg/dL POC Whole Bld Glucose 328 H 455 H 350 H (70 - 100) mg/dL Calcium (8.5-10.3) mg/dL Total Bilirubin (0.2-1.0) mg/dL AST (10-42) IU/L ALT (10-60) IU/L Alkaline Phosphatase (42-121) IU/L Total Protein (6.7-8.2) g/dL Albumin (3.2-5.5) g/dL Globulin (2.1-4.2) g/dL Albumin/Globulin Ratio (1.0-2.2) Last Dose Date Last Dose Time Random Vancomycin ug/mL 03/28/17 03/28/17 03/28/17 Range/Units 12:01 10:07 09:10 WBC (4.8-10.8) x10^3/uL RBC (4.20-5.40) 10^6/uL Hgb (12.0-16.0) g/dL Hct (37.0-47.0) % MCV (81.0-99.0) fL MCH (27.0-31.0) pg MCHC (32.0-36.0) g/dL RDW (12.0-15.0) % Plt Count (130-450) 10^3/uL MPV (7.9-10.8) fL Neut # (1.5-6.6) 10^3/uL Lymph # (1.5-3.5) 10^3/uL [place] # (0.0-1.0) 10^3/uL Eos # (0.0-0.7) 10^3/uL Baso # (0.0-0.1) 10^3/uL Absolute Nucleated RBC x10^3/uL Nucleated RBC % /100WBC PT (9.9-12.6) secs INR (0.8-1.2) Sodium (135-145) mmol/L Potassium (3.5-5.0) mmol/L Chloride (101-111) mmol/L Carbon Dioxide (21-32) mmol/L Anion Gap (6-13) BUN (6-20) mg/dL Creatinine (0.4-1.0) mg/dL Estimated GFR (MDRD) (>89) Glucose (70-100) mg/dL POC Whole Bld Glucose 305 H 312 H 299 H (70 - 100) mg/dL Calcium (8.5-10.3) mg/dL Total Bilirubin (0.2-1.0) mg/dL AST (10-42) IU/L ALT (10-60) IU/L Alkaline Phosphatase (42-121) IU/L Total Protein (6.7-8.2) g/dL Albumin (3.2-5.5) g/dL Globulin (2.1-4.2) g/dL Albumin/Globulin Ratio (1.0-2.2) Last Dose Date Last Dose Time Random Vancomycin ug/mL 03/28/17 03/28/17 03/28/17 Range/Units 08:59 08:08 07:00 WBC (4.8-10.8) x10^3/uL RBC (4.20-5.40) 10^6/uL Hgb (12.0-16.0) g/dL Hct (37.0-47.0) % MCV (81.0-99.0) fL MCH (27.0-31.0) pg MCHC (32.0-36.0) g/dL RDW (12.0-15.0) % Plt Count (130-450) 10^3/uL MPV (7.9-10.8) fL Neut # (1.5-6.6) 10^3/uL Lymph # (1.5-3.5) 10^3/uL [place] # (0.0-1.0) 10^3/uL Eos # (0.0-0.7) 10^3/uL Baso # (0.0-0.1) 10^3/uL Absolute Nucleated RBC x10^3/uL Nucleated RBC % /100WBC PT (9.9-12.6) secs INR (0.8-1.2) Sodium (135-145) mmol/L Potassium (3.5-5.0) mmol/L Chloride (101-111) mmol/L Carbon Dioxide (21-32) mmol/L Anion Gap (6-13) BUN (6-20) mg/dL Creatinine (0.4-1.0) mg/dL Estimated GFR (MDRD) (>89) Glucose (70-100) mg/dL POC Whole Bld Glucose 304 H 198 H 191 H (70 - 100) mg/dL Calcium (8.5-10.3) mg/dL Total Bilirubin (0.2-1.0) mg/dL AST (10-42) IU/L ALT (10-60) IU/L Alkaline Phosphatase (42-121) IU/L Total Protein (6.7-8.2) g/dL Albumin (3.2-5.5) g/dL Globulin (2.1-4.2) g/dL Albumin/Globulin Ratio (1.0-2.2) Last Dose Date Last Dose Time Random Vancomycin ug/mL 03/28/17 03/28/17 03/28/17 Range/Units 06:02 05:02 03:56 WBC (4.8-10.8) x10^3/uL RBC (4.20-5.40) 10^6/uL Hgb (12.0-16.0) g/dL Hct (37.0-47.0) % MCV (81.0-99.0) fL MCH (27.0-31.0) pg MCHC (32.0-36.0) g/dL RDW (12.0-15.0) % Plt Count (130-450) 10^3/uL MPV (7.9-10.8) fL Neut # (1.5-6.6) 10^3/uL Lymph # (1.5-3.5) 10^3/uL [place] # (0.0-1.0) 10^3/uL Eos # (0.0-0.7) 10^3/uL Baso # (0.0-0.1) 10^3/uL Absolute Nucleated RBC x10^3/uL Nucleated RBC % /100WBC PT (9.9-12.6) secs INR (0.8-1.2) Sodium (135-145) mmol/L Potassium (3.5-5.0) mmol/L Chloride (101-111) mmol/L Carbon Dioxide (21-32) mmol/L Anion Gap (6-13) BUN (6-20) mg/dL Creatinine (0.4-1.0) mg/dL Estimated GFR (MDRD) (>89) Glucose (70-100) mg/dL POC Whole Bld Glucose 195 H 202 H 214 H (70 - 100) mg/dL Calcium (8.5-10.3) mg/dL Total Bilirubin (0.2-1.0) mg/dL AST (10-42) IU/L ALT (10-60) IU/L Alkaline Phosphatase (42-121) IU/L Total Protein (6.7-8.2) g/dL Albumin (3.2-5.5) g/dL Globulin (2.1-4.2) g/dL Albumin/Globulin Ratio (1.0-2.2) Last Dose Date Last Dose Time Random Vancomycin ug/mL 03/28/17 03/28/17 03/28/17 Range/Units 02:38 01:37 00:35 WBC (4.8-10.8) x10^3/uL RBC (4.20-5.40) 10^6/uL Hgb (12.0-16.0) g/dL Hct (37.0-47.0) % MCV (81.0-99.0) fL MCH (27.0-31.0) pg MCHC (32.0-36.0) g/dL RDW (12.0-15.0) % Plt Count (130-450) 10^3/uL MPV (7.9-10.8) fL Neut # (1.5-6.6) 10^3/uL Lymph # (1.5-3.5) 10^3/uL [place] # (0.0-1.0) 10^3/uL Eos # (0.0-0.7) 10^3/uL Baso # (0.0-0.1) 10^3/uL Absolute Nucleated RBC x10^3/uL Nucleated RBC % /100WBC PT (9.9-12.6) secs INR (0.8-1.2) Sodium (135-145) mmol/L Potassium (3.5-5.0) mmol/L Chloride (101-111) mmol/L Carbon Dioxide (21-32) mmol/L Anion Gap (6-13) BUN (6-20) mg/dL Creatinine (0.4-1.0) mg/dL Estimated GFR (MDRD) (>89) Glucose (70-100) mg/dL POC Whole Bld Glucose 212 H 275 H 334 H (70 - 100) mg/dL Calcium (8.5-10.3) mg/dL Total Bilirubin (0.2-1.0) mg/dL AST (10-42) IU/L ALT (10-60) IU/L Alkaline Phosphatase (42-121) IU/L Total Protein (6.7-8.2) g/dL Albumin (3.2-5.5) g/dL Globulin (2.1-4.2) g/dL Albumin/Globulin Ratio (1.0-2.2) Last Dose Date Last Dose Time Random Vancomycin ug/mL 03/27/17 03/27/17 03/27/17 Range/Units 23:34 22:28 20:20 WBC (4.8-10.8) x10^3/uL RBC (4.20-5.40) 10^6/uL Hgb (12.0-16.0) g/dL Hct (37.0-47.0) % MCV (81.0-99.0) fL MCH (27.0-31.0) pg MCHC (32.0-36.0) g/dL RDW (12.0-15.0) % Plt Count (130-450) 10^3/uL MPV (7.9-10.8) fL Neut # (1.5-6.6) 10^3/uL Lymph # (1.5-3.5) 10^3/uL [place] # (0.0-1.0) 10^3/uL Eos # (0.0-0.7) 10^3/uL Baso # (0.0-0.1) 10^3/uL Absolute Nucleated RBC x10^3/uL Nucleated RBC % /100WBC PT (9.9-12.6) secs INR (0.8-1.2) Sodium (135-145) mmol/L Potassium (3.5-5.0) mmol/L Chloride (101-111) mmol/L Carbon Dioxide (21-32) mmol/L Anion Gap (6-13) BUN (6-20) mg/dL Creatinine (0.4-1.0) mg/dL Estimated GFR (MDRD) (>89) Glucose (70-100) mg/dL POC Whole Bld Glucose 406 H 439 H 465 H (70 - 100) mg/dL Calcium (8.5-10.3) mg/dL Total Bilirubin (0.2-1.0) mg/dL AST (10-42) IU/L ALT (10-60) IU/L Alkaline Phosphatase (42-121) IU/L Total Protein (6.7-8.2) g/dL Albumin (3.2-5.5) g/dL Globulin (2.1-4.2) g/dL Albumin/Globulin Ratio (1.0-2.2) Last Dose Date Last Dose Time Random Vancomycin ug/mL 03/27/17 Range/Units 17:27 WBC (4.8-10.8) x10^3/uL RBC (4.20-5.40) 10^6/uL Hgb (12.0-16.0) g/dL Hct (37.0-47.0) % MCV (81.0-99.0) fL MCH (27.0-31.0) pg MCHC (32.0-36.0) g/dL RDW (12.0-15.0) % Plt Count (130-450) 10^3/uL MPV (7.9-10.8) fL Neut # (1.5-6.6) 10^3/uL Lymph # (1.5-3.5) 10^3/uL [place] # (0.0-1.0) 10^3/uL Eos # (0.0-0.7) 10^3/uL Baso # (0.0-0.1) 10^3/uL Absolute Nucleated RBC x10^3/uL Nucleated RBC % /100WBC PT (9.9-12.6) secs INR (0.8-1.2) Sodium (135-145) mmol/L Potassium (3.5-5.0) mmol/L Chloride (101-111) mmol/L Carbon Dioxide (21-32) mmol/L Anion Gap (6-13) BUN (6-20) mg/dL Creatinine (0.4-1.0) mg/dL Estimated GFR (MDRD) (>89) Glucose (70-100) mg/dL POC Whole Bld Glucose 540 H* (70 - 100) mg/dL Calcium (8.5-10.3) mg/dL Total Bilirubin (0.2-1.0) mg/dL AST (10-42) IU/L ALT (10-60) IU/L Alkaline Phosphatase (42-121) IU/L Total Protein (6.7-8.2) g/dL Albumin (3.2-5.5) g/dL Globulin (2.1-4.2) g/dL Albumin/Globulin Ratio (1.0-2.2) Last Dose Date Last Dose Time Random Vancomycin ug/mL - Other Results/Comments Other Results/Comments: EXAM: Still with purulent drainage from forefoot wound. Assessment/Plan - Problem List (1) Diabetic foot infection Impression: INR now 1.4 PLAN: Patient still in favor of left BKA tomorrow. COnsent signed.
[2017-03-30] MEDS: NYSTATIN POWDER 15 GM TOP SCH ×2 (12:13→21:05)
[2017-03-30] MEDS: ACETAMINOPHEN 325 MG TABLET PO PRN (14:47)
[2017-03-30] MEDS: ONDANSETRON 4 MG/2 ML VIAL IVP PRN (14:47)
--- NOTE | 2017-03-30 16:55 | CONSULTATION NOTE ---
DATE OF SERVICE: 03/27/2017 Physician: Kacy Martinez MD DAILY PROGRESS NOTE/OVERNIGHT EVALUATION NOTE/CRITICAL CARE TRANSFER NOTE REASON FOR EVALUATION: Hypotension, atrial fibrillation with rapid ventricular rate, sepsis. BRIEF PRESENTATION AND EVALUATION COURSE: Patient is a 71-year-old white female with multiple chronic medical problems who was admitted earlier on 03/27/2017, I refer the reader to the history and physical performed by [facility]. Briefly, this patient was admitted showing septic physiology. She was tachycardic, had elevated white blood cell count and was found with extensive lower extremity wounds, cellulitis, and infection. She was started on vancomycin and cefepime and for possible osteomyelitis, orthopedic consultation was requested. 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 Monitor and EKG showed atrial fibrillation with rapid ventricular rate; blood pressure was borderline around 110 systolic. In addition, patient remained hyperglycemic. On admission , her blood glucose was above 500 and remained in the 400 range regardless insulin boluses. For atrial fibrillation and rapid ventricular rate, a dose of Cardizem was given, 10 mg IV , after which blood pressure dropped to 60 systolic. This was a transient hypotensive episode ; however, unfortunately, although the heart rate improved for a short time, the improvement of the heart rate was transient as well, and regardless of the Cardizem bolus, heart rate again went up to the 140s. Additional issue was IV hydration. Patient received 3 liters normal saline; she had good urine output and good mentation, but I did feel that, given her history of underlying congestive heart failure and elevated BNP, she could not tolerate much more IV fluid. Therefore, given these complicated issues, I decided to transfer her to the intensive care unit, manage atrial fibrillation and rapid ventricular rate on Cardizem drip and manage hyperglycemia on insulin drip. PHYSICAL EXAMINATION VITAL SIGNS: Lowest blood pressure 60/40. Current blood pressure 100/70. Respiratory rate 25, oxygen saturation 97% on room air, heart rate between 120 and 140, temperature 37.9. MUSCULOSKELETAL: Extensive wounds on the left foot and left leg; skin with cellulitis on both lower extremities. Panniculitis of the abdominal wall and erythema and macerated skin under the breast area. CARDIOVASCULAR: S1, S2, irregular fast rate. RESPIRATORY: Slightly increased work of breathing with increased respiratory rate. No wheezes, no crackles. LYMPH: Pitting edema. NEUROLOGIC: Alert, oriented, nonfocal. PSYCHIATRIC: Cooperative. REVIEWED ADMISSION DOCUMENTS: ER workup, laboratories and diagnostics per electronic medical record. OUTPATIENT MEDICATIONS AND CURRENT MEDICATIONS: Per electronic medical record. ACTIVE ISSUES/DIAGNOSES 1. Sepsis secondary to wounds on both lower extremities, chronic superficial skin infection of the under breast area and extensive cellulitis of both lower extremities. There is high risk that this patient has bacteremia plus her left foot wound is likely complicated by osteomyelitis. 2. Diabetic foot. 3. Uncontrolled diabetes/hyperglycemia in the setting of sepsis. 4. Atrial fibrillation with rapid ventricular rate. Notably, the patient has history of atrial fibrillation. She was on atenolol for rate control and she was therapeutically anticoagulated on Coumadin. Her hemodynamic decompensation is likely secondary to sepsis plus her hypotensive episodes are associated with rate dependent hypotension in the setting of rapid ventricular rate. Patient will be on Cardizem drip, will also continue metoprolol at home dose. PLAN AND ORDERS 1. Transfer to the intensive care unit. 2. Cardizem drip. 3. Insulin drip. Notably, the patient did not have consistent oral intake and she has high dose insulin boluses with 70/30 as outpatient. Given the current situation when she is acutely ill, she is better managed on insulin drip. 4. Regarding atrial fibrillation with rapid rate and hypotension in the setting of sepsis, we will hold all diuretics including Lasix, losartan, and spironolactone. 5. Regarding IV fluids, the patient already received 3 liters. To avoid overloading her circulation and pushing her into congestive heart failure, I will hold IV fluids overnight and will encourage oral fluid intake. 6. Regarding anticoagulation, INR was above 3; therefore heparin for DVT prophylaxis is not needed. INR should be rechecked in the morning and when falls below 2, then heparin bridging should be started until further intervention is decided. In particular, patient might need intervention such as surgical debridement of her foot wound and for that, coagulopathy would need to be reversed. I would think until we have a plan on possible procedure or surgery, we should hold the Coumadin and use heparin for bridging. 7. Repeat laboratories are already ordered for the morning, cultures are pending including urine culture and blood culture. 8. We will order wound care and send wound cultures. 9. We will continue antibiotics including cefepime and vancomycin. Critical care time spent with the patient overnight was 40 minutes. TD: 03/28/2017 06:29 [email or web address]
[2017-03-30] MEDS ORDERED: METOPROLOL 5 MG/5 ML VIAL IVP STA (18:48)
--- NOTE | 2017-03-30 21:49 | PROVIDER PROGRESS NOTE ---
Assessment/Plan - Problem List (1) Osteomyelitis of left foot Assessment/Plan: MRI of the foot shows osteomyelitis of the 4th and 5th toes on the left foot Ortho consulted today and discussed with patient who would like to get a left BKA Patient on coumadin with supertherapeutic INR therefore will give Vitamin K and monitor INR once it is below 1.5 Ortho will schedule patient for surgery Continue IV vancomycin and Cefepime day 3 Wound culture pending (2) Atrial fibrillation with RVR Assessment/Plan: Patient off dilt drip this am Will continue to titrate PO dilt and metoprolol as patients HR still in low 100s Coumadin has been held Will give Vitamin K today and monitor INR daily Once INR is below 1.5 patient will be scheduled for surgery Patients CHADS2 score is 3 therefore does not need bridging with heparin for surgery Will restart coumadin after surgery Continue monitoring on tele (3) CKD (chronic kidney disease) Assessment/Plan: Technical Support Professional remains 1.7 after hydration COntinue to monitor Avoid nephrotoxic agents (4) DM2 (diabetes mellitus, type 2) Assessment/Plan: HbA1c is 7.9 Glu continues to be elevated in the 300s-400s Increase lantus to 50 units BID Continue sliding scale insulin Cont glu checks ac and hs (5) History of COPD Assessment/Plan: Wheezing improved Cont inhaler, meds and supplemental O2 Echo shows EF of 30-35% (6) Hx of chronic congestive heart failure Assessment/Plan: EF is 30-35% Patient has LE edema Breathing well on RA Patient on metoprolol and cozaar at home Will continue home meds No need for lasix at this time (7) UTI (urinary tract infection) Qualifiers: Urinary tract infection type: acute cystitis Hematuria presence: without hematuria Qualified Code(s): N30.00 - Acute cystitis without hematuria Assessment/Plan: Urine culture pending Continue empiric Cefipime day 3 - Current Meds Current Meds: Current Medications Generic Name Dose Route Start Last Admin Trade Name Freq PRN Reason Stop Dose Admin Acetaminophen 650 mg 03/27/17 16:11 03/30/17 14:47 Tylenol PO 650 mg Q4HR PRN Administration Pain 1 to 4 Albuterol 2.5 mg 03/27/17 16:56 03/29/17 23:07 INH 2.5 mg RTQ4H PRN Administration Wheezing Cholecalciferol 2,000 unit 03/28/17 09:00 03/30/17 08:26 Vitamin D3 PO 2,000 unit DAILY EILEEN Administration Diltiazem HCl 360 mg 03/30/17 08:00 03/30/17 08:26 Cardizem Cd PO 360 mg DAILY EILEEN Administration Famotidine 20 mg 03/28/17 09:00 03/30/17 08:26 Pepcid PO 20 mg DAILY EILEEN Administration Ceftriaxone Sodium 2 gm/ 100 mls @ 200 mls/hr 03/30/17 09:00 03/30/17 10:00 Sodium Chloride IV Infused DAILY EILEEN Infusion Insulin Aspart 3 - 11 unit 03/29/17 17:00 03/30/17 21:03 Novolog SUBQ 11 unit 0800,1200,1700,2100 EILEEN Administration Protocol Insulin Glargine 50 unit 03/29/17 21:00 03/30/17 21:02 Lantus Solostar SUBQ 50 unit BID EILEEN Administration Metoprolol Succinate 100 mg 03/30/17 21:00 03/30/17 21:03 Toprol Xl PO 100 mg DAILY EILEEN Administration Mineral Oil 1 applic 03/28/17 05:28 03/28/17 14:26 Cavilon TOP 1 applic PRN PRN Administration Skin Care Nystatin 1 applic 03/27/17 21:00 03/30/17 21:05 Nystop TOP 1 applic BID EILEEN Administration Ondansetron HCl 4 mg 03/27/17 16:11 03/30/17 14:47 Zofran Inj IVP 4 mg Q6HR PRN Administration Nausea / Vomiting (Febuxostat [Uloric] 1 each 03/28/17 09:00 03/30/17 08:26 80 Mg) Tab PO 1 each DAILY EILEEN Administration Polyethylene Glycol 17 gm 03/28/17 09:00 03/30/17 08:34 Miralax PO Not Given DAILY EILEEN Sodium Chloride 10 ml 03/27/17 16:11 03/28/17 19:07 Normal Saline Flush 0.9% IVP 10 ml PRN PRN Administration NEEDED PER PROVIDER ORDERS Sodium Chloride 10 ml 03/27/17 22:00 03/30/17 04:43 Normal Saline Flush 0.9% IVP 10 ml Q8HR EILEEN Administration Sodium Chloride 10 ml 03/28/17 22:00 03/30/17 12:17 Normal Saline Flush 0.9% IVP 10 ml Q8HR EILEEN Administration - Lab Result Lab results reviewed: Yes Fish Bone Diagrams: 03/30/17 04:38 03/30/17 04:38 - Diagnostic Imaging Results Diagnostic Imaging Results: Final report reviewed - Additional Planning Condition/Complexity: Guarded My Orders: My Active Orders 03/29/17 21:00 Insulin Glargine [Lantus Solostar] 50 unit SUBQ BID 03/30/17 08:00 [email or web address] CD [Cardizem Cd] 360 mg PO DAILY 03/30/17 09:00 cefTRIAXone [Rocephin] 2 gm Sodium Chloride 0.9% Minibag [Normal Saline 0.9% Minibag] 100 ml IV DAILY 03/30/17 21:00 Metoprolol Succinate [Toprol Xl] 100 mg PO DAILY 03/30/17 Lunch Soft Mechanical Diet [DIET] Consult/Specialty: Other (Ortho) Time Spent: Greater than 60 minutes Subjective - Subjective Patient Reports: Fatigue, Fever, Pain (Left foot), Other (Generalized weakness) Nursing Reports: No Complaints Objective Vital Signs: Vital Signs - 24 hr 03/29/17 03/30/17 03/30/17 23:09 01:00 01:07 Temperature 36.5 C Heart Rate 90 Heart Rate [ 91 Monitoring electrodes] Respiratory 20 97 H Rate Blood Pressure 159/104 H Blood Pressure [Left Radial artery] Blood Pressure 159/104 H [Right Brachial artery] O2 Saturation 21 L 03/30/17 03/30/17 03/30/17 04:41 08:15 09:00 Temperature 36.7 C 36.8 C Heart Rate 114 H Heart Rate [ 101 H 109 H Monitoring electrodes] Respiratory 21 20 25 H Rate Blood Pressure Blood Pressure 120/83 H [Left Radial artery] Blood Pressure 145/87 H [Right Brachial artery] O2 Saturation 95 96 03/30/17 03/30/17 03/30/17 13:00 15:55 16:03 Temperature 37.3 C 38.0 C H Heart Rate Heart Rate [ 110 H 123 H 117 H Monitoring electrodes] Respiratory 28 H 30 H Rate Blood Pressure Blood Pressure [Left Radial artery] Blood Pressure 153/92 H 115/89 H [Right Brachial artery] O2 Saturation 98 96 03/30/17 03/30/17 03/30/17 16:46 17:14 18:41 Temperature 37.2 C Heart Rate Heart Rate [ 125 H 123 H 99 Monitoring electrodes] Respiratory 28 H 22 Rate Blood Pressure Blood Pressure [Left Radial artery] Blood Pressure [Right Brachial artery] O2 Saturation 94 95 03/30/17 03/30/17 03/30/17 18:54 19:00 19:07 Temperature Heart Rate Heart Rate [ 95 98 Monitoring electrodes] Respiratory 30 H 25 H Rate Blood Pressure 113/73 Blood Pressure 102/75 109/56 L [Left Radial artery] Blood Pressure [Right Brachial artery] O2 Saturation 98 96 03/30/17 19:59 Temperature 37.5 C Heart Rate Heart Rate [ 107 H Monitoring electrodes] Respiratory 30 H Rate Blood Pressure Blood Pressure 126/77 [Left Radial artery] Blood Pressure [Right Brachial artery] O2 Saturation 97 Oxygen O2 Source Room air I&O (Last 24 Hrs): Intake and Output Totals x24h 03/28/17 03/29/17 03/30/17 23:59 23:59 23:59 Intake Total 3626.166 2796 1795 Output Total 1159 1785 2270 Balance 2467.166 1011 -475 General: Alert, Oriented x3, Cooperative, Other (Obese) HEENT: Atraumatic, PERRLA, EOMI, Mucous membr. moist/pink Neck: Supple, No JVD, No thyromegaly, +2 carotid pulse wo bruit, No LAD Lymphatic: no adenopathy Neuro: Alert, Non Focal, CN 2-12 Grossly Intact, Oriented Times 3 Cardiovascular: No murmurs, Other (Irregularly irregular with tachycardia) Respiratory: Chest non-tender, No respiratory distress, Wheezes (scattered), Rales (bases) Abdomen: Normal bowel sounds, Soft, No tenderness, Other (Obese) Extremities: No clubbing, No cyanosis, Normal pulses, Other (Bilateral LE edema) Comments/Notes: Left foot swollen, with erythema and drainage, foul smelling - Results Results: Laboratory Results WBC 14.8 x10^3/uL (4.8-10.8) H 03/30/17 04:38 RBC 3.34 10^6/uL (4.20-5.40) L 03/30/17 04:38 Hgb 10.2 g/dL (12.0-16.0) L 03/30/17 04:38 Hct 31.5 % (37.0-47.0) L 03/30/17 04:38 MCV 94.6 fL (81.0-99.0) 03/30/17 04:38 MCH 30.7 pg (27.0-31.0) 03/30/17 04:38 MCHC 32.4 g/dL (32.0-36.0) 03/30/17 04:38 RDW 14.1 % (12.0-15.0) 03/30/17 04:38 Plt Count 207 10^3/uL (130-450) 03/30/17 04:38 MPV 9.4 fL (7.9-10.8) 03/30/17 04:38 Neut # 12.4 10^3/uL (1.5-6.6) H 03/30/17 04:38 Lymph # 1.2 10^3/uL (1.5-3.5) L 03/30/17 04:38 [place] # 1.1 10^3/uL (0.0-1.0) H 03/30/17 04:38 Eos # 0.0 10^3/uL (0.0-0.7) 03/30/17 04:38 Baso # 0.0 10^3/uL (0.0-0.1) 03/30/17 04:38 Absolute Nucleated RBC 0.00 x10^3/uL 03/30/17 04:38 Nucleated RBC % 0.0 /100WBC 03/30/17 04:38 Manual Slide Review Indicated 03/27/17 13:08 RBC Morph Micro Appear 2+ ANISOCYTOSIS (NORMAL) 03/27/17 13:08 PT 15.4 secs (9.9-12.6) H 03/30/17 04:38 INR 1.4 (0.8-1.2) H 03/30/17 04:38 D-Dimer 271.0 ng/mL (200.0-255.0) H 03/27/17 13:08 VBG pH 7.399 (7.31-7.41) 03/27/17 14:32 VBG pCO2 38.1 mmHg (41-51) L 03/27/17 14:32 VBG pO2 34.6 mmHg (25-47) 03/27/17 14:32 VBG HCO3 23.0 mmol/L (23-28) 03/27/17 14:32 VBG Total CO2 24.2 mmol/L (24-29) 03/27/17 14:32 VBG O2 Saturation 68.2 % (60-80) 03/27/17 14:32 VBG Base Excess -1.5 mmol/L (-2 - +2) 03/27/17 14:32 Sodium 135 mmol/L (135-145) 03/30/17 04:38 Potassium 3.9 mmol/L (3.5-5.0) 03/30/17 04:38 Chloride 102 mmol/L (101-111) 03/30/17 04:38 Carbon Dioxide 24 mmol/L (21-32) 03/30/17 04:38 Anion Gap 9.0 (6-13) 03/30/17 04:38 BUN 51 mg/dL (6-20) H 03/30/17 04:38 Creatinine 1.3 mg/dL (0.4-1.0) H 03/30/17 04:38 Estimated GFR (MDRD) 40 (>89) L 03/30/17 04:38 Glucose 288 mg/dL (70-100) H 03/30/17 04:38 POC Whole Bld Glucose 373 mg/dL (70 - 100) H 03/30/17 20:50 Glycated Hemoglobin 7.9 % (4.6-6.2) H 03/28/17 07:49 Estim Average Glucose 180 (70-100) H 03/28/17 07:49 Lactic Acid 1.4 mmol/L (0.5-2.2) 03/28/17 07:49 Uric Acid 5.9 mg/dL (2.6-7.2) 03/29/17 04:23 Calcium 8.4 mg/dL (8.5-10.3) L 03/30/17 04:38 Magnesium 1.7 mg/dL (1.7-2.8) 03/28/17 04:25 Total Bilirubin 1.2 mg/dL (0.2-1.0) H 03/30/17 04:38 AST 64 IU/L (10-42) H 03/30/17 04:38 ALT 49 IU/L (10-60) 03/30/17 04:38 Alkaline Phosphatase 66 IU/L (42-121) 03/30/17 04:38 Troponin I 0.05 ng/mL (<0.49) 03/27/17 14:32 B-Natriuretic Peptide 879 pg/mL (5-100) H 03/27/17 14:32 Total Protein 6.9 g/dL (6.7-8.2) 03/30/17 04:38 Albumin 2.8 g/dL (3.2-5.5) L 03/30/17 04:38 Globulin 4.1 g/dL (2.1-4.2) 03/30/17 04:38 Albumin/Globulin Ratio 0.7 (1.0-2.2) L 03/30/17 04:38 Lipase 11 U/L (22-51) L 03/27/17 13:08 Urine Color YELLOW 03/27/17 14:09 Urine Clarity SL. CLOUDY (CLEAR) 03/27/17 14:09 Urine pH 5.5 PH (5.0-7.5) 03/27/17 14:09 Ur Specific [place] 1.010 (1.002-1.030) 03/27/17 14:09 Urine Protein NEGATIVE mg/dL (NEGATIVE) 03/27/17 14:09 Urine Glucose (UA) >=1000 mg/dL (NEGATIVE) H 03/27/17 14:09 Urine Ketones TRACE mg/dL (NEGATIVE) 03/27/17 14:09 Urine Occult Blood SMALL (NEGATIVE) H 03/27/17 14:09 Urine Nitrite NEGATIVE (NEGATIVE) 03/27/17 14:09 Urine Bilirubin NEGATIVE (NEGATIVE) 03/27/17 14:09 Urine Urobilinogen 0.2 (NORMAL) E.U./dL (NORMAL) 03/27/17 14:09 Ur Leukocyte Esterase TRACE (NEGATIVE) H 03/27/17 14:09 Urine RBC 0-5 /HPF (0-5) 03/27/17 14:09 Urine WBC >25 /HPF (0-5) H 03/27/17 14:09 Ur Squamous Epith Cells RARE Squamous (<= Few) 03/27/17 14:09 Urine Bacteria Many /HPF (None Seen) H 03/27/17 14:09 Ur Microscopic Review INDICATED 03/27/17 14:09 Urine Culture Comments INDICATED 03/27/17 14:09 Last Dose Date 03/28/17 03/29/17 12:00 Last Dose Time 19303/29/17 12:00 Random Vancomycin 17.7 ug/mL 03/29/17 12:00 Serum Ketones NEGATIVE (NEGATIVE) 03/27/17 14:32 Influenza A (Rapid) Negative (Negative) 03/27/17 14:24 Influenza B (Rapid) Negative (Negative) 03/27/17 14:24 Influenza Types A,B Ag - 03/27/17 14:24
--- NOTE | 2017-03-30 22:20 | PROVIDER PROGRESS NOTE ---
Assessment/Plan - Problem List (1) Osteomyelitis of left foot Qualifiers: Osteomyelitis type: subacute Qualified Code(s): M86.272 - Subacute osteomyelitis, left ankle and foot Assessment/Plan: MRI of the foot shows osteomyelitis of the 4th and 5th toes on the left foot Ortho consulted they discussed with patient who would like to get a left BKA INR 1.4 today after Vit K given Continue IV vancomycin and Cefepime day 4 Wound culture growing ecoli susceptible to ceftriaxone Stop vanco and cefepime and start ceftriaxone Ortho to take patient for Left BKA tomorrow morning Patient NPO after midnight for left BKA (2) Atrial fibrillation with RVR Assessment/Plan: Patient off dilt drip HR in the 110s to 120s Increase Dilt to 360 mg daily and metoprolol to 100mg BID Coumadin held for surgery and given Vit K and INR now down to 1.4 Patients CHADS2 score is 3 therefore does not need bridging with heparin for surgery Will restart coumadin after surgery Continue monitoring on tele (3) CKD (chronic kidney disease) Assessment/Plan: Tripe Scraper improved to 1.3 after hydration COntinue to monitor Avoid nephrotoxic agents (4) DM2 (diabetes mellitus, type 2) Assessment/Plan: HbA1c is 7.9 Glu continues to be elevated in the 300s-400s Continue lantus to 50 units BID Continue sliding scale insulin Cont glu checks ac and hs (5) History of COPD Assessment/Plan: Mild wheezing Cont inhaler, meds and supplemental O2 Echo shows EF of 30-35% (6) Hx of chronic congestive heart failure Assessment/Plan: EF is 30-35% Patient has LE edema Breathing well on RA Patient on metoprolol and cozaar at home Will continue home meds No need for lasix at this time (7) UTI (urinary tract infection) Qualifiers: Urinary tract infection type: acute cystitis Hematuria presence: without hematuria Qualified Code(s): N30.00 - Acute cystitis without hematuria Assessment/Plan: Urine culture growing ecoli and klebsiella pneumonia both susceptible to ceftriaxone - Current Meds Current Meds: Current Medications Generic Name Dose Route Start Last Admin Trade Name Freq PRN Reason Stop Dose Admin Acetaminophen 650 mg 03/27/17 16:11 03/30/17 14:47 Tylenol PO 650 mg Q4HR PRN Administration Pain 1 to 4 Albuterol 2.5 mg 03/27/17 16:56 03/29/17 23:07 INH 2.5 mg RTQ4H PRN Administration Wheezing Cholecalciferol 2,000 unit 03/28/17 09:00 03/30/17 08:26 Vitamin D3 PO 2,000 unit DAILY EILEEN Administration Diltiazem HCl 360 mg 03/30/17 08:00 03/30/17 08:26 Cardizem Cd PO 360 mg DAILY EILEEN Administration Famotidine 20 mg 03/28/17 09:00 03/30/17 08:26 Pepcid PO 20 mg DAILY EILEEN Administration Ceftriaxone Sodium 2 gm/ 100 mls @ 200 mls/hr 03/30/17 09:00 03/30/17 10:00 Sodium Chloride IV Infused DAILY EILEEN Infusion Insulin Aspart 3 - 11 unit 03/29/17 17:00 03/30/17 21:03 Novolog SUBQ 11 unit 0800,1200,1700,2100 EILEEN Administration Protocol Insulin Glargine 50 unit 03/29/17 21:00 03/30/17 21:02 Lantus Solostar SUBQ 50 unit BID EILEEN Administration Metoprolol Succinate 100 mg 03/30/17 21:00 03/30/17 21:03 Toprol Xl PO 100 mg DAILY EILEEN Administration Mineral Oil 1 applic 03/28/17 05:28 03/28/17 14:26 Cavilon TOP 1 applic PRN PRN Administration Skin Care Nystatin 1 applic 03/27/17 21:00 03/30/17 21:05 Nystop TOP 1 applic BID EILEEN Administration Ondansetron HCl 4 mg 03/27/17 16:11 03/30/17 14:47 Zofran Inj IVP 4 mg Q6HR PRN Administration Nausea / Vomiting (Febuxostat [Uloric] 1 each 03/28/17 09:00 03/30/17 08:26 80 Mg) Tab PO 1 each DAILY EILEEN Administration Polyethylene Glycol 17 gm 03/28/17 09:00 03/30/17 08:34 Miralax PO Not Given DAILY EILEEN Sodium Chloride 10 ml 03/27/17 16:11 03/28/17 19:07 Normal Saline Flush 0.9% IVP 10 ml PRN PRN Administration NEEDED PER PROVIDER ORDERS Sodium Chloride 10 ml 03/27/17 22:00 03/30/17 21:42 Normal Saline Flush 0.9% IVP 10 ml Q8HR EILEEN Administration Sodium Chloride 10 ml 03/28/17 22:00 03/30/17 21:42 Normal Saline Flush 0.9% IVP 10 ml Q8HR EILEEN Administration - Lab Result Lab results reviewed: Yes Fish Bone Diagrams: 03/30/17 04:38 03/30/17 04:38 - Diagnostic Imaging Results Diagnostic Imaging Results: Final report reviewed - Additional Planning Condition/Complexity: Guarded My Orders: My Active Orders 03/30/17 08:00 [email or web address] CD [Cardizem Cd] 360 mg PO DAILY 03/30/17 09:00 cefTRIAXone [Rocephin] 2 gm Sodium Chloride 0.9% Minibag [Normal Saline 0.9% Minibag] 100 ml IV DAILY 03/30/17 21:00 Metoprolol Succinate [Toprol Xl] 100 mg PO DAILY 03/30/17 Lunch Soft Mechanical Diet [DIET] Consult/Specialty: PT, Other (Ortho) Plan Discussed with:: Patient, Family Time Spent: 31-60 minutes Subjective - Subjective Patient Reports: Fatigue, Fever, Nausea, Pain (LEft foot), Other (Patient feels lowsy) Nursing Reports: No Complaints Objective Vital Signs: Vital Signs - 24 hr 03/29/17 03/30/17 03/30/17 23:09 01:00 01:07 Temperature 36.5 C Heart Rate 90 Heart Rate [ 91 Monitoring electrodes] Respiratory 20 97 H Rate Blood Pressure 159/104 H Blood Pressure [Left Radial artery] Blood Pressure 159/104 H [Right Brachial artery] O2 Saturation 21 L 03/30/17 03/30/17 03/30/17 04:41 08:15 09:00 Temperature 36.7 C 36.8 C Heart Rate 114 H Heart Rate [ 101 H 109 H Monitoring electrodes] Respiratory 21 20 25 H Rate Blood Pressure Blood Pressure 120/83 H [Left Radial artery] Blood Pressure 145/87 H [Right Brachial artery] O2 Saturation 95 96 03/30/17 03/30/17 03/30/17 13:00 15:55 16:03 Temperature 37.3 C 38.0 C H Heart Rate Heart Rate [ 110 H 123 H 117 H Monitoring electrodes] Respiratory 28 H 30 H Rate Blood Pressure Blood Pressure [Left Radial artery] Blood Pressure 153/92 H 115/89 H [Right Brachial artery] O2 Saturation 98 96 03/30/17 03/30/17 03/30/17 16:46 17:14 18:41 Temperature 37.2 C Heart Rate Heart Rate [ 125 H 123 H 99 Monitoring electrodes] Respiratory 28 H 22 Rate Blood Pressure Blood Pressure [Left Radial artery] Blood Pressure [Right Brachial artery] O2 Saturation 94 95 03/30/17 03/30/17 03/30/17 18:54 19:00 19:07 Temperature Heart Rate Heart Rate [ 95 98 Monitoring electrodes] Respiratory 30 H 25 H Rate Blood Pressure 113/73 Blood Pressure 102/75 109/56 L [Left Radial artery] Blood Pressure [Right Brachial artery] O2 Saturation 98 96 03/30/17 19:59 Temperature 37.5 C Heart Rate Heart Rate [ 107 H Monitoring electrodes] Respiratory 30 H Rate Blood Pressure Blood Pressure 126/77 [Left Radial artery] Blood Pressure [Right Brachial artery] O2 Saturation 97 Oxygen O2 Source Room air I&O (Last 24 Hrs): Intake and Output Totals x24h 03/28/17 03/29/17 03/30/17 23:59 23:59 23:59 Intake Total 3626.166 2796 1975 Output Total 1159 1785 2510 Balance 2467.166 1011 -535 General: Alert, Oriented x3, Cooperative, Mild distress, Other (Obese) HEENT: Atraumatic, PERRLA, EOMI, Mucous membr. moist/pink Neck: Supple, No JVD, No thyromegaly, +2 carotid pulse wo bruit, No LAD Lymphatic: no adenopathy Neuro: Alert, Non Focal, CN 2-12 Grossly Intact, Oriented Times 3 Cardiovascular: No murmurs, Other (Irregular with tachycardia) Respiratory: No respiratory distress, Wheezes (scattered), Rales (bases) Abdomen: Normal bowel sounds, Soft, No tenderness, No hepatospenomegaly Extremities: Normal pulses, Other (Bilateral LE edema, left foot foul smelling with drainage, swelling and erythema) Comments/Notes: Left foot as above, bilateral lower extremity stasis dermatitis. - Results Results: Laboratory Results WBC 14.8 x10^3/uL (4.8-10.8) H 03/30/17 04:38 RBC 3.34 10^6/uL (4.20-5.40) L 03/30/17 04:38 Hgb 10.2 g/dL (12.0-16.0) L 03/30/17 04:38 Hct 31.5 % (37.0-47.0) L 03/30/17 04:38 MCV 94.6 fL (81.0-99.0) 03/30/17 04:38 MCH 30.7 pg (27.0-31.0) 03/30/17 04:38 MCHC 32.4 g/dL (32.0-36.0) 03/30/17 04:38 RDW 14.1 % (12.0-15.0) 03/30/17 04:38 Plt Count 207 10^3/uL (130-450) 03/30/17 04:38 MPV 9.4 fL (7.9-10.8) 03/30/17 04:38 Neut # 12.4 10^3/uL (1.5-6.6) H 03/30/17 04:38 Lymph # 1.2 10^3/uL (1.5-3.5) L 03/30/17 04:38 [place] # 1.1 10^3/uL (0.0-1.0) H 03/30/17 04:38 Eos # 0.0 10^3/uL (0.0-0.7) 03/30/17 04:38 Baso # 0.0 10^3/uL (0.0-0.1) 03/30/17 04:38 Absolute Nucleated RBC 0.00 x10^3/uL 03/30/17 04:38 Nucleated RBC % 0.0 /100WBC 03/30/17 04:38 Manual Slide Review Indicated 03/27/17 13:08 RBC Morph Micro Appear 2+ ANISOCYTOSIS (NORMAL) 03/27/17 13:08 PT 15.4 secs (9.9-12.6) H 03/30/17 04:38 INR 1.4 (0.8-1.2) H 03/30/17 04:38 D-Dimer 271.0 ng/mL (200.0-255.0) H 03/27/17 13:08 VBG pH 7.399 (7.31-7.41) 03/27/17 14:32 VBG pCO2 38.1 mmHg (41-51) L 03/27/17 14:32 VBG pO2 34.6 mmHg (25-47) 03/27/17 14:32 VBG HCO3 23.0 mmol/L (23-28) 03/27/17 14:32 VBG Total CO2 24.2 mmol/L (24-29) 03/27/17 14:32 VBG O2 Saturation 68.2 % (60-80) 03/27/17 14:32 VBG Base Excess -1.5 mmol/L (-2 - +2) 03/27/17 14:32 Sodium 135 mmol/L (135-145) 03/30/17 04:38 Potassium 3.9 mmol/L (3.5-5.0) 03/30/17 04:38 Chloride 102 mmol/L (101-111) 03/30/17 04:38 Carbon Dioxide 24 mmol/L (21-32) 03/30/17 04:38 Anion Gap 9.0 (6-13) 03/30/17 04:38 BUN 51 mg/dL (6-20) H 03/30/17 04:38 Creatinine 1.3 mg/dL (0.4-1.0) H 03/30/17 04:38 Estimated GFR (MDRD) 40 (>89) L 03/30/17 04:38 Glucose 288 mg/dL (70-100) H 03/30/17 04:38 POC Whole Bld Glucose 373 mg/dL (70 - 100) H 03/30/17 20:50 Glycated Hemoglobin 7.9 % (4.6-6.2) H 03/28/17 07:49 Estim Average Glucose 180 (70-100) H 03/28/17 07:49 Lactic Acid 1.4 mmol/L (0.5-2.2) 03/28/17 07:49 Uric Acid 5.9 mg/dL (2.6-7.2) 03/29/17 04:23 Calcium 8.4 mg/dL (8.5-10.3) L 03/30/17 04:38 Magnesium 1.7 mg/dL (1.7-2.8) 03/28/17 04:25 Total Bilirubin 1.2 mg/dL (0.2-1.0) H 03/30/17 04:38 AST 64 IU/L (10-42) H 03/30/17 04:38 ALT 49 IU/L (10-60) 03/30/17 04:38 Alkaline Phosphatase 66 IU/L (42-121) 03/30/17 04:38 Troponin I 0.05 ng/mL (<0.49) 03/27/17 14:32 B-Natriuretic Peptide 879 pg/mL (5-100) H 03/27/17 14:32 Total Protein 6.9 g/dL (6.7-8.2) 03/30/17 04:38 Albumin 2.8 g/dL (3.2-5.5) L 03/30/17 04:38 Globulin 4.1 g/dL (2.1-4.2) 03/30/17 04:38 Albumin/Globulin Ratio 0.7 (1.0-2.2) L 03/30/17 04:38 Lipase 11 U/L (22-51) L 03/27/17 13:08 Urine Color YELLOW 03/27/17 14:09 Urine Clarity SL. CLOUDY (CLEAR) 03/27/17 14:09 Urine pH 5.5 PH (5.0-7.5) 03/27/17 14:09 Ur Specific [place] 1.010 (1.002-1.030) 03/27/17 14:09 Urine Protein NEGATIVE mg/dL (NEGATIVE) 03/27/17 14:09 Urine Glucose (UA) >=1000 mg/dL (NEGATIVE) H 03/27/17 14:09 Urine Ketones TRACE mg/dL (NEGATIVE) 03/27/17 14:09 Urine Occult Blood SMALL (NEGATIVE) H 03/27/17 14:09 Urine Nitrite NEGATIVE (NEGATIVE) 03/27/17 14:09 Urine Bilirubin NEGATIVE (NEGATIVE) 03/27/17 14:09 Urine Urobilinogen 0.2 (NORMAL) E.U./dL (NORMAL) 03/27/17 14:09 Ur Leukocyte Esterase TRACE (NEGATIVE) H 03/27/17 14:09 Urine RBC 0-5 /HPF (0-5) 03/27/17 14:09 Urine WBC >25 /HPF (0-5) H 03/27/17 14:09 Ur Squamous Epith Cells RARE Squamous (<= Few) 03/27/17 14:09 Urine Bacteria Many /HPF (None Seen) H 03/27/17 14:09 Ur Microscopic Review INDICATED 03/27/17 14:09 Urine Culture Comments INDICATED 03/27/17 14:09 Last Dose Date 03/28/17 03/29/17 12:00 Last Dose Time 193303/29/17 12:00 Random Vancomycin 17.7 ug/mL 03/29/17 12:00 Serum Ketones NEGATIVE (NEGATIVE) 03/27/17 14:32 Influenza A (Rapid) Negative (Negative) 03/27/17 14:24 Influenza B (Rapid) Negative (Negative) 03/27/17 14:24 Influenza Types A,B Ag - 03/27/17 14:24
[2017-03-31] MEDS: LOSARTAN 50 MG TABLET PO SCH ×2 (00:24→09:22)
[2017-03-31 05:09] LABS: BASOPHILS # (AUTO) 0.1 10^3/uL (0.0-0.1); BASOPHILS % (AUTO) 0.7 %; HGB - HEMOGLOBIN 10.1 g/dL (12.0-16.0); LYMPHOCYTES # (AUTO) 1.3 10^3/uL (1.5-3.5); LYMPHOCYTES % (AUTO) 7.7 %; MEAN CORPUSCULAR HEMOGLOBIN 30.7 pg (27.0-31.0); MEAN CORPUSCULAR HGB CONC 31.3 g/dL (32.0-36.0); MEAN CORPUSCULAR VOLUME 98.1 fL (81.0-99.0); MEAN PLATELET VOLUME 9.2 fL (7.9-10.8); MONOCYTES # (AUTO) 1.4 10^3/uL (0.0-1.0); MONOCYTES % (AUTO) 8.2 %; NEUTROPHILS # (AUTO) 13.9 10^3/uL (1.5-6.6); NEUTROPHILS % (AUTO) 83.4 %; PLT - PLATELET COUNT 224 10^3/uL (130-450); RED BLOOD COUNT 3.28 10^6/uL (4.20-5.40); RED CELL DISTRIBUTION WIDTH 15.1 % (12.0-15.0); WHITE BLOOD COUNT 16.7 x10^3/uL (4.8-10.8)
[2017-03-31 05:15] LABS: INR 1.3 (0.8-1.2); PT - PROTHROMBIN TIME 14.8 secs (9.9-12.6)
[2017-03-31 05:23] LABS: ALBUMIN 2.6 g/dL (3.2-5.5); ALBUMIN/GLOBULIN RATIO 0.7 (1.0-2.2); BILIRUBIN,TOTAL 0.9 mg/dL (0.2-1.0); CALCIUM 8.5 mg/dL (8.5-10.3); CREATININE 1.4 mg/dL (0.4-1.0); TOTAL PROTEIN 6.6 g/dL (6.7-8.2)
[2017-03-31] MEDS: SODIUM CHLORIDE FLUSH 0.9% 10 ML SYRINGE IVP SCH ×7 (05:59→21:36)
[2017-03-31] MEDS: INSULIN REGULAR HUMAN 100 UNIT/1 ML 10 ML MDV SUBQ SCH ×2 (08:35→14:22)
[2017-03-31] MEDS: cefTRIAXone 2 GM in SODIUM CHLORIDE 0.9% MINIBAG 100 ML IV SCH (08:40)
[2017-03-31] MEDS: MIN OIL/DIMETHICON/COCONUT OIL 92 GM TUBE TOP PRN (08:46)
[2017-03-31] MEDS: INSULIN GLARGINE 300 UNIT/3 ML PEN SUBQ SCH ×2 (09:11→21:16)
[2017-03-31] MEDS: SODIUM CHLORIDE FLUSH 0.9% 10 ML SYRINGE IVP PRN (09:16)
[2017-03-31] MEDS: diltiaZEM CD 180 MG CAPSULE PO SCH (09:21)
[2017-03-31] MEDS: FAMOTIDINE 20 MG TABLET PO SCH (09:21)
[2017-03-31] MEDS: CHOLECALCIFEROL 1,000 UNIT TABLET PO SCH (09:21)
[2017-03-31] MEDS: METOPROLOL SUCCINATE 50 MG TABLET PO SCH (09:22)
[2017-03-31] MEDS: FEBUXOSTAT 80 MG PO SCH (09:22)
[2017-03-31] MEDS: POLYETHYLENE GLYCOL 3350 17 GM PACKET PO SCH (09:22)
[2017-03-31] MEDS: NYSTATIN POWDER 15 GM TOP SCH ×2 (09:22→21:15)
[2017-03-31] MEDS ORDERED: LACTATED RINGERS 1,000 ML IV ONE (12:02)
[2017-03-31] MEDS ORDERED: PROCHLORPERAZINE 10 MG/2 ML VIAL IVP PRN (12:24)
[2017-03-31] MEDS ORDERED: SENNA 8.6 MG TABLET PO PRN (12:24)
[2017-03-31] MEDS ORDERED: ONDANSETRON 4 MG/2 ML VIAL IVP PRN (12:24)
[2017-03-31] MEDS ORDERED: SODIUM CHLORIDE FLUSH 0.9% 10 ML SYRINGE IVP PRN (12:24)
[2017-03-31] MEDS ORDERED: ACETAMINOPHEN 325 MG TABLET PO PRN (12:24)
[2017-03-31] MEDS ORDERED: ACETAMINOPHEN 1,000 MG/100 ML 100 ML IV PRN (12:24)
[2017-03-31] MEDS ORDERED: ceFAZolin 2 GM/50 ML 50 ML IV SCH (12:30)
--- NOTE | 2017-03-31 12:34 | OPERATIVE REPORT ---
Operative Report - General Admit Date: 03/27/17 Procedure Date: 03/31/17 Planned Procedure: Left Anzsu-cif-Hymf Amputation Pre-Op Diagnosis: Left diabetic foot infection Procedure Performed: Left Lxwsx-yzk-Jllz Amputation Post Op Diagnosis: Same - Procedure Note Primary Surgeon: Kalia Enrique Anesthesia Provider: Michela Santos Anesthesia Technique: General ET tube Pathology: Left foot and calf IV Fluids (mL): 1,200 Estimated Blood Loss (mL): 600 Drain/Tube Type: Edilma (1/2 inch [place] drain) Complications: None
[2017-03-31] MEDS: MORPHINE 2 MG/ML CARPUJECT IVP PRN ×3 (12:40→18:38)
--- NOTE | 2017-03-31 13:08 | OPERATIVE REPORT ---
DATE OF SERVICE: 03/31/2017 Physician: Benji Enrique MD DATE OF SURGERY: 03/31/2017 PREOPERATIVE DIAGNOSIS: Diabetic left foot infection. POSTOPERATIVE DIAGNOSIS: Diabetic left foot infection. NAME OF PROCEDURE: Left [id number] amputation. SURGEON: Benji Enrique MD ANESTHESIA: General. DESCRIPTION OF PROCEDURE: The patient was taken to the operating room in the morning of 03/31/2017, where she was placed under general anesthetic without any complications. We then placed a sandbag under her left hip and placed thigh pneumatic tourniquet to the left lower extremity. We then prepped and draped the left leg free in the usual fashion for our procedure. We inflated the thigh pneumatic tourniquet to 350 mmHg pressure after 30 seconds of gravity exsanguination of the limb. We then proceeded to create a transverse skin incision anteriorly approximately 8 cm distal to the joint line. We then fashioned a very long posterior flap extending to approximately a 12 cm beyond the anterior transverse skin incision made earlier. Next, we transected the proximal tibia shaft approximately 2 cm proximal to our transverse skin incision. We also transected the proximal fibular shaft approximately a centimeter more proximal to the transtibial saw cut. At this point, we then dissected the soft tissues off the posterior aspect of the tibial shaft and fibular shaft down to the distal end of our posterior flap. At this point, the left foot and tibia specimen was free and it was transferred off the operating table and sent to Pathology for inspection. Using a sharp knife, we then trimmed the bulk of our posterior flap to allow for easier closure of our posterior flap to our anterior incision. Satisfied with this, we then released the tourniquet. The bleeders were then clamped with hemostats and a large posterior tibial vasculature and posterior nerve were clamped with hemostats. Hemostasis was obtained with electrocautery and with 2-0 free ties. A 2-0 Vicryl stick tie was also used to tie off the posterior tibial vessels and nerve. At this point, we had good hemostasis of the posterior flap of our amputation site. We then smoothed off the distal end of our fibula and tibia osteotomies. This was done with our oscillating saw, as well as with the file. At this point, we then irrigated the wounds out thoroughly with saline. We then proceeded to close the wound in layers, first closing the fascial layer with 0 Vicryl sutures with simple interrupted stitches. The subcutaneous tissue was then closed with 2-0 Vicryl in a buried simple stitch fashion. Finally, the skin was closed with horizontal mattress stitches of 3-0 nylon. As we were closing the wound, we also placed a through and through half inch [place] drain from medial to lateral across our stump wound. Care was made not to incorporate any of our stitches with the [place] drain. We then washed the wound and applied Xeroform gauze, fluffs, Kerlix, and an Bobby wrap to dress the stump. Patient was then transferred off the operating room table onto her bed and taken to ICU for her recovery. ESTIMATED BLOOD LOSS: 600 mL REPLACEMENT: 1200 mL crystalloid. TOURNIQUET TIME: 22 minutes. INTRAOPERATIVE COMPLICATIONS: None. PLAN: The patient will keep the left [id number] amputation stump elevated on pillows. We will pull the drain out in 36-48 hours. Patient will be mobilized as tolerated. TD: 03/31/2017 14:07
[2017-03-31] MEDS: SODIUM CHLORIDE 0.9% 1,000 ML IV SCH (13:22)
[2017-03-31] MEDS ORDERED: SODIUM CHLORIDE FLUSH 0.9% 10 ML SYRINGE IVP SCH (14:00)
[2017-03-31] MEDS ORDERED: SODIUM CHLORIDE 0.9% 500 ML IV ONE (16:26)
[2017-03-31] MEDS: INSULIN ASPART 300 UNIT/3 ML PEN SUBQ SCH ×2 (17:43→21:15)
--- NOTE | 2017-03-31 23:07 | PROVIDER PROGRESS NOTE ---
Assessment/Plan - Problem List (1) Atrial fibrillation with RVR Assessment/Plan: Improved HR. Continue present plan. (2) CKD (chronic kidney disease) Assessment/Plan: Minimal improvement Urine output down after surgery. Will give a fluid bolus (500cc NS) Continue present plan and watch creat and urine output (3) Cellulitis Qualifiers: Site of cellulitis: extremity Site of cellulitis of extremity: lower extremity Laterality: left Qualified Code(s): L03.116 - Cellulitis of left lower limb Assessment/Plan: Pt had successful BKA by Dr Enrique. She is in good s[pirits post-op. Continue with wound care as per Orthopedics. (4) Diabetic foot infection Assessment/Plan: S/P BKA Continue iv antibiotics (5) DM2 (diabetes mellitus, type 2) Assessment/Plan: Glu under control on current Insulin and diet orders. Continue plan. (6) History of COPD Assessment/Plan: SDtable without wheezing since admission. (7) Hx of chronic congestive heart failure Assessment/Plan: Stable without rales or excessive edema since admission. Continue present meds. (8) UTI (urinary tract infection) Qualifiers: Urinary tract infection type: acute cystitis Hematuria presence: without hematuria Qualified Code(s): N30.00 - Acute cystitis without hematuria Assessment/Plan: Awaiting culture results Continue antibiotics for UTI (and foot infection) coverage. - Current Meds Current Meds: Current Medications Generic Name Dose Route Start Last Admin Trade Name Freq PRN Reason Stop Dose Admin Acetaminophen 650 mg 03/27/17 16:11 03/30/17 14:47 Tylenol PO 650 mg Q4HR PRN Administration Pain 1 to 4 Albuterol 2.5 mg 03/27/17 16:56 03/29/17 23:07 INH 2.5 mg RTQ4H PRN Administration Wheezing Cholecalciferol 2,000 unit 03/28/17 09:00 03/31/17 09:21 Vitamin D3 PO Not Given DAILY EILEEN Diltiazem HCl 360 mg 03/30/17 08:00 03/31/17 09:21 Cardizem Cd PO Not Given DAILY EILEEN Famotidine 20 mg 03/28/17 09:00 03/31/17 09:21 Pepcid PO Not Given DAILY EILEEN Ceftriaxone Sodium 2 gm/ 100 mls @ 200 mls/hr 03/30/17 09:00 03/31/17 09:10 Sodium Chloride IV Infused DAILY EILEEN Infusion Sodium Chloride 1,000 mls @ 80 mls/hr 03/31/17 13:00 03/31/17 19:00 Normal Saline 0.9% IV 80 mls/hr .[id number] IELEEN Infusion Insulin Aspart 3 - 11 unit 03/31/17 17:00 03/31/17 21:15 Novolog SUBQ 11 unit 0800,1200,1700,2100 EILEEN Administration Protocol Insulin Glargine 50 unit 03/29/17 21:00 03/31/17 21:16 Lantus Solostar SUBQ 50 unit BID EILEEN Administration Losartan Potassium 50 mg 03/30/17 23:00 03/31/17 09:22 Cozaar PO Not Given DAILY EILEEN Metoprolol Succinate 100 mg 03/30/17 21:00 03/31/17 09:22 Toprol Xl PO Not Given DAILY [facility] Mineral Oil 1 applic 03/28/17 05:28 03/31/17 08:46 Cavilon TOP 1 applic PRN PRN Administration Skin Care Morphine Sulfate 2 mg 03/31/17 12:24 03/31/17 18:38 Morphine (Carpuject) IVP 2 mg Q2HR PRN Administration PAIN Nystatin 1 applic 03/27/17 21:00 03/31/17 21:15 Nystop TOP 1 applic BID EILEEN Administration Ondansetron HCl 4 mg 03/27/17 16:11 03/30/17 14:47 Zofran Inj IVP 4 mg Q6HR PRN Administration Nausea / Vomiting (Febuxostat [Uloric] 1 each 03/28/17 09:00 03/31/17 09:22 80 Mg) Tab PO Not Given DAILY [facility] Polyethylene Glycol 17 gm 03/28/17 09:00 03/31/17 09:22 Miralax PO Not Given DAILY [facility] Sodium Chloride 10 ml 03/27/17 16:11 03/31/17 09:16 Normal Saline Flush 0.9% IVP 10 ml PRN PRN Administration NEEDED PER PROVIDER ORDERS Sodium Chloride 10 ml 03/27/17 22:00 03/31/17 21:16 Normal Saline Flush 0.9% IVP 10 ml Q8HR EILEEN Administration Sodium Chloride 10 ml 03/28/17 22:00 01/30/18 21:36 Normal Saline Flush 0.9% IVP Not Given Q8HR EILEEN - Lab Result Fish Bone Diagrams: 04/03/17 05:45 04/03/17 05:45 - Additional Planning My Orders: My Active Orders 03/31/17 Dinner DIET [Carb-controlled Diet] [DIET] Subjective - Subjective Patient Reports: Feeling Better Objective Vital Signs: Vital Signs - 24 hr 03/31/17 03/31/17 03/31/17 00:27 04:00 05:56 Temperature 37.4 C 37.1 C Heart Rate Heart Rate [ 98 88 85 Monitoring electrodes] Respiratory 20 24 26 H Rate Blood Pressure 120/58 L 121/70 [Left Radial artery] O2 Saturation 96 95 94 03/31/17 03/31/17 03/31/17 08:13 12:17 12:25 Temperature 37.3 C Heart Rate Heart Rate [ 92 Monitoring electrodes] Respiratory 24 Rate Blood Pressure 121/70 [Left Radial artery] O2 Saturation 97 99 98 03/31/17 03/31/17 03/31/17 12:30 13:00 13:30 Temperature 36.6 C Heart Rate Heart Rate [ 116 H 106 H Monitoring electrodes] Respiratory 224 H 24 Rate Blood Pressure 115/69 101/74 [Left Radial artery] O2 Saturation 99 98 97 03/31/17 03/31/17 03/31/17 14:09 15:00 16:00 Temperature Heart Rate Heart Rate [ 95 107 H 102 H Monitoring electrodes] Respiratory 109 H 23 18 Rate Blood Pressure 115/90 H 126/78 120/65 [Left Radial artery] O2 Saturation 100 98 99 03/31/17 03/31/17 03/31/17 17:00 17:20 18:00 Temperature 37.1 C Heart Rate 106 H Heart Rate [ 89 111 H Monitoring electrodes] Respiratory 18 20 24 Rate Blood Pressure 129/73 101/64 [Left Radial artery] O2 Saturation 100 94 03/31/17 03/31/17 03/31/17 19:58 21:00 22:00 Temperature 37.4 C Heart Rate Heart Rate [ 107 H 113 H 113 H Monitoring electrodes] Respiratory 21 19 22 Rate Blood Pressure 101/66 123/81 H 128/81 H [Left Radial artery] O2 Saturation 98 96 97 03/31/17 23:00 Temperature Heart Rate Heart Rate [ 110 H Monitoring electrodes] Respiratory 25 H Rate Blood Pressure 97/79 [Left Radial artery] O2 Saturation 98 Oxygen O2 Source Room air I&O (Last 24 Hrs): Intake and Output Totals x24h 03/29/17 03/30/17 03/31/17 23:59 23:59 23:59 Intake Total 2796 1975 1809.334 Output Total 1785 1710 1205 Balance 1011 -535 604.334 - Results Results: Laboratory Results WBC 16.7 x10^3/uL (4.8-10.8) H 03/31/17 05:00 RBC 3.28 10^6/uL (4.20-5.40) L 03/31/17 05:00 Hgb 10.1 g/dL (12.0-16.0) L 03/31/17 05:00 Hct 32.1 % (37.0-47.0) L 03/31/17 05:00 MCV 98.1 fL (81.0-99.0) 03/31/17 05:00 MCH 30.7 pg (27.0-31.0) 03/31/17 05:00 MCHC 31.3 g/dL (32.0-36.0) L 03/31/17 05:00 RDW 15.1 % (12.0-15.0) H 03/31/17 05:00 Plt Count 224 10^3/uL (130-450) 03/31/17 05:00 MPV 9.2 fL (7.9-10.8) 03/31/17 05:00 Neut # 13.9 10^3/uL (1.5-6.6) H 03/31/17 05:00 Lymph # 1.3 10^3/uL (1.5-3.5) L 03/31/17 05:00 [place] # 1.4 10^3/uL (0.0-1.0) H 03/31/17 05:00 Eos # 0.0 10^3/uL (0.0-0.7) 03/31/17 05:00 Baso # 0.1 10^3/uL (0.0-0.1) 03/31/17 05:00 Absolute Nucleated RBC 0.01 x10^3/uL 03/31/17 05:00 Nucleated RBC % 0.1 /100WBC 03/31/17 05:00 Manual Slide Review Indicated 03/27/17 13:08 RBC Morph Micro Appear 2+ ANISOCYTOSIS (NORMAL) 03/27/17 13:08 PT 14.8 secs (9.9-12.6) H 03/31/17 05:00 INR 1.3 (0.8-1.2) H 03/31/17 05:00 D-Dimer 271.0 ng/mL (200.0-255.0) H 03/27/17 13:08 VBG pH 7.399 (7.31-7.41) 03/27/17 14:32 VBG pCO2 38.1 mmHg (41-51) L 03/27/17 14:32 VBG pO2 34.6 mmHg (25-47) 03/27/17 14:32 VBG HCO3 23.0 mmol/L (23-28) 03/27/17 14:32 VBG Total CO2 24.2 mmol/L (24-29) 03/27/17 14:32 VBG O2 Saturation 68.2 % (60-80) 03/27/17 14:32 VBG Base Excess -1.5 mmol/L (-2 - +2) 03/27/17 14:32 Sodium 137 mmol/L (135-145) 03/31/17 05:00 Potassium 4.0 mmol/L (3.5-5.0) 03/31/17 05:00 Chloride 102 mmol/L (101-111) 03/31/17 05:00 Carbon Dioxide 25 mmol/L (21-32) 03/31/17 05:00 Anion Gap 10.0 (6-13) 03/31/17 05:00 BUN 46 mg/dL (6-20) H 03/31/17 05:00 Creatinine 1.4 mg/dL (0.4-1.0) H 03/31/17 05:00 Estimated GFR (MDRD) 37 (>89) L 03/31/17 05:00 Glucose 271 mg/dL (70-100) H 03/31/17 05:00 POC Whole Bld Glucose 359 mg/dL (70 - 100) H 03/31/17 21:07 Glycated Hemoglobin 7.9 % (4.6-6.2) H 03/28/17 07:49 Estim Average Glucose 180 (70-100) H 03/28/17 07:49 Lactic Acid 1.4 mmol/L (0.5-2.2) 03/28/17 07:49 Uric Acid 5.9 mg/dL (2.6-7.2) 03/29/17 04:23 Calcium 8.5 mg/dL (8.5-10.3) 03/31/17 05:00 Magnesium 1.7 mg/dL (1.7-2.8) 03/28/17 04:25 Total Bilirubin 0.9 mg/dL (0.2-1.0) 03/31/17 05:00 AST 46 IU/L (10-42) H 03/31/17 05:00 ALT 48 IU/L (10-60) 03/31/17 05:00 Alkaline Phosphatase 64 IU/L (42-121) 03/31/17 05:00 Troponin I 0.05 ng/mL (<0.49) 03/27/17 14:32 B-Natriuretic Peptide 775 pg/mL (5-100) H 03/31/17 05:00 Total Protein 6.6 g/dL (6.7-8.2) L 03/31/17 05:00 Albumin 2.6 g/dL (3.2-5.5) L 03/31/17 05:00 Globulin 4.0 g/dL (2.1-4.2) 03/31/17 05:00 Albumin/Globulin Ratio 0.7 (1.0-2.2) L 03/31/17 05:00 Lipase 11 U/L (22-51) L 03/27/17 13:08 Urine Color YELLOW 03/27/17 14:09 Urine Clarity SL. CLOUDY (CLEAR) 03/27/17 14:09 Urine pH 5.5 PH (5.0-7.5) 03/27/17 14:09 Ur Specific [place] 1.010 (1.002-1.030) 03/27/17 14:09 Urine Protein NEGATIVE mg/dL (NEGATIVE) 03/27/17 14:09 Urine Glucose (UA) >=1000 mg/dL (NEGATIVE) H 03/27/17 14:09 Urine Ketones TRACE mg/dL (NEGATIVE) 03/27/17 14:09 Urine Occult Blood SMALL (NEGATIVE) H 03/27/17 14:09 Urine Nitrite NEGATIVE (NEGATIVE) 03/27/17 14:09 Urine Bilirubin NEGATIVE (NEGATIVE) 03/27/17 14:09 Urine Urobilinogen 0.2 (NORMAL) E.U./dL (NORMAL) 03/27/17 14:09 Ur Leukocyte Esterase TRACE (NEGATIVE) H 03/27/17 14:09 Urine RBC 0-5 /HPF (0-5) 03/27/17 14:09 Urine WBC >25 /HPF (0-5) H 03/27/17 14:09 Ur Squamous Epith Cells RARE Squamous (<= Few) 03/27/17 14:09 Urine Bacteria Many /HPF (None Seen) H 03/27/17 14:09 Ur Microscopic Review INDICATED 03/27/17 14:09 Urine Culture Comments INDICATED 03/27/17 14:09 Last Dose Date 03/28/17 03/29/17 12:00 Last Dose Time 193303/29/17 12:00 Random Vancomycin 17.7 ug/mL 03/29/17 12:00 Serum Ketones NEGATIVE (NEGATIVE) 03/27/17 14:32 Influenza A (Rapid) Negative (Negative) 03/27/17 14:24 Influenza B (Rapid) Negative (Negative) 03/27/17 14:24 Influenza Types A,B Ag - 03/27/17 14:24 Blood Type A POSITIVE 03/31/17 09:16 Antibody Screen NEGATIVE 03/31/17 09:16
[2017-04-01] MEDS: SODIUM CHLORIDE 0.9% 1,000 ML IV SCH ×2 (02:44→15:27)
[2017-04-01 04:47] LABS: BASOPHILS % (AUTO) 0.1 %; EOSINOPHILS % (AUTO) 0.1 %; HGB - HEMOGLOBIN 9.3 g/dL (12.0-16.0); LYMPHOCYTES # (AUTO) 1.4 10^3/uL (1.5-3.5); MEAN CORPUSCULAR HEMOGLOBIN 30.7 pg (27.0-31.0); MEAN CORPUSCULAR HGB CONC 32.4 g/dL (32.0-36.0); MEAN CORPUSCULAR VOLUME 94.7 fL (81.0-99.0); MEAN PLATELET VOLUME 9.2 fL (7.9-10.8); MONOCYTES # (AUTO) 1.3 10^3/uL (0.0-1.0); MONOCYTES % (AUTO) 9.5 %; NEUTROPHILS # (AUTO) 11.3 10^3/uL (1.5-6.6); NEUTROPHILS % (AUTO) 80.3 %; PLT - PLATELET COUNT 216 10^3/uL (130-450); RED BLOOD COUNT 3.04 10^6/uL (4.20-5.40); WHITE BLOOD COUNT 14.1 x10^3/uL (4.8-10.8)
[2017-04-01 04:55] LABS: INR 1.2 (0.8-1.2); PT - PROTHROMBIN TIME 13.9 secs (9.9-12.6)
[2017-04-01 04:58] LABS: ALBUMIN 2.3 g/dL (3.2-5.5); ALBUMIN/GLOBULIN RATIO 0.6 (1.0-2.2); BILIRUBIN,TOTAL 0.4 mg/dL (0.2-1.0); CALCIUM 7.9 mg/dL (8.5-10.3); TOTAL PROTEIN 6.2 g/dL (6.7-8.2)
[2017-04-01] MEDS: SODIUM CHLORIDE FLUSH 0.9% 10 ML SYRINGE IVP SCH ×6 (06:11→21:04)
[2017-04-01] MEDS: INSULIN ASPART 300 UNIT/3 ML PEN SUBQ SCH ×5 (09:17→21:00)
[2017-04-01] MEDS: INSULIN GLARGINE 300 UNIT/3 ML PEN SUBQ SCH ×2 (09:18→21:00)
[2017-04-01] MEDS: cefTRIAXone 2 GM in SODIUM CHLORIDE 0.9% MINIBAG 100 ML IV SCH (09:21)
[2017-04-01] MEDS: SODIUM CHLORIDE FLUSH 0.9% 10 ML SYRINGE IVP PRN (09:21)
[2017-04-01] MEDS: FEBUXOSTAT 80 MG PO SCH (09:31)
[2017-04-01] MEDS: POLYETHYLENE GLYCOL 3350 17 GM PACKET PO SCH (09:32)
[2017-04-01] MEDS: ACETAMINOPHEN 325 MG TABLET PO PRN ×2 (09:32→15:25)
[2017-04-01] MEDS: diltiaZEM CD 240 MG CAPSULE PO SCH (09:33)
[2017-04-01] MEDS: LOSARTAN 50 MG TABLET PO SCH (09:34)
[2017-04-01] MEDS: METOPROLOL SUCCINATE 50 MG TABLET PO SCH (09:35)
[2017-04-01] MEDS: CHOLECALCIFEROL 1,000 UNIT TABLET PO SCH (09:36)
[2017-04-01] MEDS: FAMOTIDINE 20 MG TABLET PO SCH (09:36)
[2017-04-01] MEDS: MIN OIL/DIMETHICON/COCONUT OIL 92 GM TUBE TOP PRN ×2 (09:56→12:39)
--- NOTE | 2017-04-01 11:06 | PROVIDER PROGRESS NOTE ---
Subjective - Prog Note Date Prog Note Date: 04/01/17 Prog Note Time: 11:02 - Subjective Pt reports feeling: Improved (Mild stump pain.) Objective - Vital Signs/Intake & Output Vital Signs: Vital Signs x48h Temp Pulse Resp BP Pulse Ox 04/01/17 10:09 110 H 18 117/65 95 04/01/17 09:16 120 H 04/01/17 09:14 36.7 C 109/90 H 04/01/17 07:56 54 L 21 100/87 H 97 04/01/17 07:00 111 H 20 100/87 H 98 04/01/17 06:00 113 H 20 98/61 97 04/01/17 05:00 115 H 25 H 116/83 H 96 04/01/17 04:00 36.8 C 100 15 134/57 H 97 Intake & Output: Intake & Output 03/29/17 03/30/17 03/31/17 04/01/17 23:59 23:59 23:59 23:59 Intake Total 2796 1975 4537.657 7097.666 Output Total 1785 2510 1205 596 Balance 1011 -535 201.493 9780.666 - Lab Results Fish Bones: 04/01/17 04:10 04/01/17 04:10 Other Labs: Lab Results x24hrs 04/01/17 04/01/17 04/01/17 Range/Units 08:00 04:10 04:10 WBC (4.8-10.8) x10^3/uL RBC (4.20-5.40) 10^6/uL Hgb (12.0-16.0) g/dL Hct (37.0-47.0) % MCV (81.0-99.0) fL MCH (27.0-31.0) pg MCHC (32.0-36.0) g/dL RDW (12.0-15.0) % Plt Count (130-450) 10^3/uL MPV (7.9-10.8) fL Neut # (1.5-6.6) 10^3/uL Lymph # (1.5-3.5) 10^3/uL [place] # (0.0-1.0) 10^3/uL Eos # (0.0-0.7) 10^3/uL Baso # (0.0-0.1) 10^3/uL Absolute Nucleated RBC x10^3/uL Nucleated RBC % /100WBC PT (9.9-12.6) secs INR (0.8-1.2) Sodium 137 (135-145) mmol/L Potassium 4.5 (3.5-5.0) mmol/L Chloride 103 (101-111) mmol/L Carbon Dioxide 24 (21-32) mmol/L Anion Gap 10.0 (6-13) BUN 61 H (6-20) mg/dL Creatinine 2.0 H (0.4-1.0) mg/dL Estimated GFR (MDRD) 25 L (>89) Glucose 282 H (70-100) mg/dL POC Whole Bld Glucose 304 H (70 - 100) mg/dL Calcium 7.9 L (8.5-10.3) mg/dL Total Bilirubin 0.4 (0.2-1.0) mg/dL AST 73 H (10-42) IU/L ALT 49 (10-60) IU/L Alkaline Phosphatase 58 (42-121) IU/L B-Natriuretic Peptide 506 H (5-100) pg/mL Total Protein 6.2 L (6.7-8.2) g/dL Albumin 2.3 L (3.2-5.5) g/dL Globulin 3.9 (2.1-4.2) g/dL Albumin/Globulin Ratio 0.6 L (1.0-2.2) 04/01/17 04/01/17 03/31/17 Range/Units 04:10 04:10 21:07 WBC 14.1 H (4.8-10.8) x10^3/uL RBC 3.04 L (4.20-5.40) 10^6/uL Hgb 9.3 L (12.0-16.0) g/dL Hct 28.8 L (37.0-47.0) % MCV 94.7 (81.0-99.0) fL MCH 30.7 (27.0-31.0) pg MCHC 32.4 (32.0-36.0) g/dL RDW 15.0 (12.0-15.0) % Plt Count 216 (130-450) 10^3/uL MPV 9.2 (7.9-10.8) fL Neut # 11.3 H (1.5-6.6) 10^3/uL Lymph # 1.4 L (1.5-3.5) 10^3/uL [place] # 1.3 H (0.0-1.0) 10^3/uL Eos # 0.0 (0.0-0.7) 10^3/uL Baso # 0.0 (0.0-0.1) 10^3/uL Absolute Nucleated RBC 0.00 x10^3/uL Nucleated RBC % 0.0 /100WBC PT 13.9 H (9.9-12.6) secs INR 1.2 (0.8-1.2) Sodium (135-145) mmol/L Potassium (3.5-5.0) mmol/L Chloride (101-111) mmol/L Carbon Dioxide (21-32) mmol/L Anion Gap (6-13) BUN (6-20) mg/dL Creatinine (0.4-1.0) mg/dL Estimated GFR (MDRD) (>89) Glucose (70-100) mg/dL POC Whole Bld Glucose 359 H (70 - 100) mg/dL Calcium (8.5-10.3) mg/dL Total Bilirubin (0.2-1.0) mg/dL AST (10-42) IU/L ALT (10-60) IU/L Alkaline Phosphatase (42-121) IU/L B-Natriuretic Peptide (5-100) pg/mL Total Protein (6.7-8.2) g/dL Albumin (3.2-5.5) g/dL Globulin (2.1-4.2) g/dL Albumin/Globulin Ratio (1.0-2.2) 03/31/17 03/31/17 Range/Units 17:18 13:36 WBC (4.8-10.8) x10^3/uL RBC (4.20-5.40) 10^6/uL Hgb (12.0-16.0) g/dL Hct (37.0-47.0) % MCV (81.0-99.0) fL MCH (27.0-31.0) pg MCHC (32.0-36.0) g/dL RDW (12.0-15.0) % Plt Count (130-450) 10^3/uL MPV (7.9-10.8) fL Neut # (1.5-6.6) 10^3/uL Lymph # (1.5-3.5) 10^3/uL [place] # (0.0-1.0) 10^3/uL Eos # (0.0-0.7) 10^3/uL Baso # (0.0-0.1) 10^3/uL Absolute Nucleated RBC x10^3/uL Nucleated RBC % /100WBC PT (9.9-12.6) secs INR (0.8-1.2) Sodium (135-145) mmol/L Potassium (3.5-5.0) mmol/L Chloride (101-111) mmol/L Carbon Dioxide (21-32) mmol/L Anion Gap (6-13) BUN (6-20) mg/dL Creatinine (0.4-1.0) mg/dL Estimated GFR (MDRD) (>89) Glucose (70-100) mg/dL POC Whole Bld Glucose 254 H 282 H (70 - 100) mg/dL Calcium (8.5-10.3) mg/dL Total Bilirubin (0.2-1.0) mg/dL AST (10-42) IU/L ALT (10-60) IU/L Alkaline Phosphatase (42-121) IU/L B-Natriuretic Peptide (5-100) pg/mL Total Protein (6.7-8.2) g/dL Albumin (3.2-5.5) g/dL Globulin (2.1-4.2) g/dL Albumin/Globulin Ratio (1.0-2.2) - Other Results/Comments Other Results/Comments: EXAM: Dressing intact. Minimal visible drainage Assessment/Plan - Problem List (2) Osteomyelitis of left foot Impression: S/p left BKA for left foot osteomyelitis - doing eell post op PLAN: change dressing in AM and remove [place] drain Qualifiers: Osteomyelitis type: subacute Qualified Code(s): M86.272 - Subacute osteomyelitis, left ankle and foot
[2017-04-01 11:53] LABS: HGB - HEMOGLOBIN 9.4 g/dL (12.0-16.0)
[2017-04-01] MEDS: NYSTATIN POWDER 15 GM TOP SCH ×2 (12:39→20:59)
--- NOTE | 2017-04-01 16:48 | PROVIDER PROGRESS NOTE ---
Assessment/Plan - Problem List (1) DM2 (diabetes mellitus, type 2) Assessment/Plan: Glu control is better with BKA. Continue present meds and diet (2) Atrial fibrillation with RVR Assessment/Plan: Rate is better controlled. Continue present meds (3) History of COPD Assessment/Plan: No active wheezing, no SOB. Continue present plan. (4) Hx of chronic congestive heart failure Assessment/Plan: Stable symptoms. Will advance activity with PT. (5) UTI (urinary tract infection) Qualifiers: Urinary tract infection type: acute cystitis Hematuria presence: without hematuria Qualified Code(s): N30.00 - Acute cystitis without hematuria Assessment/Plan: No c/o dysuria. Her antibiotic for foot infection is covering her for the UTI - Current Meds Current Meds: Current Medications Generic Name Dose Route Start Last Admin Trade Name Freq PRN Reason Stop Dose Admin Acetaminophen 650 mg 03/27/17 16:11 04/01/17 15:25 Tylenol PO 650 mg Q4HR PRN Administration Pain 1 to 4 Albuterol 2.5 mg 03/27/17 16:56 03/29/17 23:07 INH 2.5 mg RTQ4H PRN Administration Wheezing Cholecalciferol 2,000 unit 03/28/17 09:00 04/01/17 09:36 Vitamin D3 PO 2,000 unit DAILY EILEEN Administration Diltiazem HCl 240 mg 04/01/17 08:14 04/01/17 09:33 Cardizem Cd PO 240 mg DAILY EILEEN Administration Famotidine 20 mg 03/28/17 09:00 04/01/17 09:36 Pepcid PO 20 mg DAILY EILEEN Administration Ceftriaxone Sodium 2 gm/ 100 mls @ 200 mls/hr 03/30/17 09:00 04/01/17 09:51 Sodium Chloride IV Infused DAILY EILEEN Infusion Insulin Aspart 3 - 11 unit 03/31/17 17:00 04/01/17 12:40 Novolog SUBQ 11 unit 0800,1200,1700,2100 EILEEN Administration Protocol Insulin Glargine 50 unit 03/29/17 21:00 04/01/17 09:18 Lantus Solostar SUBQ 50 unit BID EILEEN Administration Losartan Potassium 50 mg 03/30/17 23:00 04/01/17 09:34 Cozaar PO 50 mg DAILY EILEEN Administration Metoprolol Succinate 100 mg 03/30/17 21:00 04/01/17 09:35 Toprol Xl PO 100 mg DAILY EILEEN Administration Mineral Oil 1 applic 03/28/17 05:28 04/01/17 12:39 Cavilon TOP 2 applic PRN PRN Administration Skin Care Morphine Sulfate 2 mg 03/31/17 12:24 03/31/17 18:38 Morphine (Carpuject) IVP 2 mg Q2HR PRN Administration PAIN Nystatin 1 applic 03/27/17 21:00 04/01/17 12:39 Nystop TOP 1 applic BID EILEEN Administration Ondansetron HCl 4 mg 03/27/17 16:11 03/30/17 14:47 Zofran Inj IVP 4 mg Q6HR PRN Administration Nausea / Vomiting (Febuxostat [Uloric] 1 each 03/28/17 09:00 04/01/17 09:31 80 Mg) Tab PO 1 each DAILY EILEEN Administration Polyethylene Glycol 17 gm 03/28/17 09:00 04/01/17 09:32 Miralax PO 17 gm DAILY EILEEN Administration Sodium Chloride 10 ml 03/27/17 16:11 04/01/17 09:21 Normal Saline Flush 0.9% IVP 10 ml PRN PRN Administration NEEDED PER PROVIDER ORDERS Sodium Chloride 10 ml 03/27/17 22:00 04/01/17 15:25 Normal Saline Flush 0.9% IVP 10 ml Q8HR EILEEN Administration Sodium Chloride 10 ml 03/28/17 22:00 04/01/17 15:27 Normal Saline Flush 0.9% IVP Not Given Q8HR EILEEN - Lab Result Fish Bone Diagrams: 04/03/17 05:45 04/03/17 05:45 - Additional Planning My Orders: My Active Orders 03/31/17 Dinner DIET [Carb-controlled Diet] [DIET] 04/01/17 08:14 [email or web address] CD [Cardizem Cd] 240 mg PO DAILY 04/01/17 16:27 Admit \ Transfer \ Status [RC] .ONCE 04/01/17 16:33 Telemetry- [RC] Q4HR 04/01/17 17:00 Insulin Aspart [NovoLOG] 10 unit SUBQ TIDWM Subjective - Subjective Patient Reports: Other (Spirits are good after BKA) Nursing Reports: Other (HR was 110 overnight, this am back up to 133 (aflutter with 2:1 block)) Objective Vital Signs: Vital Signs - 24 hr 03/31/17 03/31/17 03/31/17 17:00 17:20 18:00 Temperature 37.1 C Heart Rate 106 H Heart Rate [ 89 111 H Monitoring electrodes] Heart Rate [ Sitting] Heart Rate [ Supine] Respiratory 18 20 24 Rate Blood Pressure 129/73 101/64 [Left Radial artery] Blood Pressure [Right Radial artery] Blood Pressure [Sitting] Blood Pressure [Supine] O2 Saturation 100 94 03/31/17 03/31/17 03/31/17 19:58 21:00 22:00 Temperature 37.4 C Heart Rate Heart Rate [ 107 H 113 H 113 H Monitoring electrodes] Heart Rate [ Sitting] Heart Rate [ Supine] Respiratory 21 19 22 Rate Blood Pressure 101/66 123/81 H 128/81 H [Left Radial artery] Blood Pressure [Right Radial artery] Blood Pressure [Sitting] Blood Pressure [Supine] O2 Saturation 98 96 97 03/31/17 04/01/17 04/01/17 23:00 00:00 01:00 Temperature 36.7 C Heart Rate Heart Rate [ 110 H 104 H 104 H Monitoring electrodes] Heart Rate [ Sitting] Heart Rate [ Supine] Respiratory 25 H 16 15 Rate Blood Pressure 97/79 104/58 L 108/64 [Left Radial artery] Blood Pressure [Right Radial artery] Blood Pressure [Sitting] Blood Pressure [Supine] O2 Saturation 98 97 97 04/01/17 04/01/17 04/01/17 02:00 03:00 04:00 Temperature 36.8 C Heart Rate Heart Rate [ 100 98 100 Monitoring electrodes] Heart Rate [ Sitting] Heart Rate [ Supine] Respiratory 15 16 15 Rate Blood Pressure 109/81 H 102/72 134/57 H [Left Radial artery] Blood Pressure [Right Radial artery] Blood Pressure [Sitting] Blood Pressure [Supine] O2 Saturation 97 98 97 04/01/17 04/01/17 04/01/17 05:00 06:00 07:00 Temperature Heart Rate Heart Rate [ 115 H 113 H 111 H Monitoring electrodes] Heart Rate [ Sitting] Heart Rate [ Supine] Respiratory 25 H 20 20 Rate Blood Pressure 116/83 H 98/61 100/87 H [Left Radial artery] Blood Pressure [Right Radial artery] Blood Pressure [Sitting] Blood Pressure [Supine] O2 Saturation 96 97 98 04/01/17 04/01/17 04/01/17 07:56 09:14 09:16 Temperature 36.7 C Heart Rate Heart Rate [ 54 L 120 H Monitoring electrodes] Heart Rate [ Sitting] Heart Rate [ Supine] Respiratory 21 Rate Blood Pressure 100/87 H 109/90 H [Left Radial artery] Blood Pressure [Right Radial artery] Blood Pressure [Sitting] Blood Pressure [Supine] O2 Saturation 97 04/01/17 04/01/17 04/01/17 10:00 10:09 10:49 Temperature Heart Rate 105 H Heart Rate [ 110 H Monitoring electrodes] Heart Rate [ 114 H Sitting] Heart Rate [ 105 H Supine] Respiratory 22 18 Rate Blood Pressure 117/65 [Left Radial artery] Blood Pressure [Right Radial artery] Blood Pressure 129/90 H [Sitting] Blood Pressure 108/52 L [Supine] O2 Saturation 95 04/01/17 04/01/17 10:50 15:33 Temperature 36.6 C Heart Rate Heart Rate [ 85 Monitoring electrodes] Heart Rate [ 113 H Sitting] Heart Rate [ 114 H Supine] Respiratory 20 Rate Blood Pressure [Left Radial artery] Blood Pressure 109/56 L [Right Radial artery] Blood Pressure 88/72 L [Sitting] Blood Pressure 108/52 L [Supine] O2 Saturation 100 Oxygen O2 Source Room air I&O (Last 24 Hrs): Intake and Output Totals x24h 03/30/17 03/31/17 04/01/17 23:59 23:59 23:59 Intake Total 1975 7343.610 7254.666 Output Total 2510 1205 811 Balance -535 702.306 4619.666 General: Alert, Oriented x3 HEENT: Mucous membr. moist/pink Neck: Supple Cardiovascular: No murmurs Respiratory: No respiratory distress Abdomen: Soft Extremities: Other (L foot bandaged at BKA) - Results Results: Laboratory Results WBC 14.1 x10^3/uL (4.8-10.8) H 04/01/17 04:10 RBC 3.04 10^6/uL (4.20-5.40) L 04/01/17 04:10 Hgb 9.4 g/dL (12.0-16.0) L 04/01/17 11:39 Hct 27.1 % (37.0-47.0) L 04/01/17 11:39 MCV 94.7 fL (81.0-99.0) 04/01/17 04:10 MCH 30.7 pg (27.0-31.0) 04/01/17 04:10 MCHC 32.4 g/dL (32.0-36.0) 04/01/17 04:10 RDW 15.0 % (12.0-15.0) 04/01/17 04:10 Plt Count 216 10^3/uL (130-450) 04/01/17 04:10 MPV 9.2 fL (7.9-10.8) 04/01/17 04:10 Neut # 11.3 10^3/uL (1.5-6.6) H 04/01/17 04:10 Lymph # 1.4 10^3/uL (1.5-3.5) L 04/01/17 04:10 [place] # 1.3 10^3/uL (0.0-1.0) H 04/01/17 04:10 Eos # 0.0 10^3/uL (0.0-0.7) 04/01/17 04:10 Baso # 0.0 10^3/uL (0.0-0.1) 04/01/17 04:10 Absolute Nucleated RBC 0.00 x10^3/uL 04/01/17 04:10 Nucleated RBC % 0.0 /100WBC 04/01/17 04:10 Manual Slide Review Indicated 03/27/17 13:08 RBC Morph Micro Appear 2+ ANISOCYTOSIS (NORMAL) 03/27/17 13:08 PT 13.9 secs (9.9-12.6) H 04/01/17 04:10 INR 1.2 (0.8-1.2) 04/01/17 04:10 D-Dimer 271.0 ng/mL (200.0-255.0) H 03/27/17 13:08 VBG pH 7.399 (7.31-7.41) 03/27/17 14:32 VBG pCO2 38.1 mmHg (41-51) L 03/27/17 14:32 VBG pO2 34.6 mmHg (25-47) 03/27/17 14:32 VBG HCO3 23.0 mmol/L (23-28) 03/27/17 14:32 VBG Total CO2 24.2 mmol/L (24-29) 03/27/17 14:32 VBG O2 Saturation 68.2 % (60-80) 03/27/17 14:32 VBG Base Excess -1.5 mmol/L (-2 - +2) 03/27/17 14:32 Sodium 137 mmol/L (135-145) 04/01/17 04:10 Potassium 4.5 mmol/L (3.5-5.0) 04/01/17 04:10 Chloride 103 mmol/L (101-111) 04/01/17 04:10 Carbon Dioxide 24 mmol/L (21-32) 04/01/17 04:10 Anion Gap 10.0 (6-13) 04/01/17 04:10 BUN 61 mg/dL (6-20) H 04/01/17 04:10 Creatinine 2.0 mg/dL (0.4-1.0) H 04/01/17 04:10 Estimated GFR (MDRD) 25 (>89) L 04/01/17 04:10 Glucose 282 mg/dL (70-100) H 04/01/17 04:10 POC Whole Bld Glucose 261 mg/dL (70 - 100) H 04/01/17 16:23 Glycated Hemoglobin 7.9 % (4.6-6.2) H 03/28/17 07:49 Estim Average Glucose 180 (70-100) H 03/28/17 07:49 Lactic Acid 1.4 mmol/L (0.5-2.2) 03/28/17 07:49 Uric Acid 5.9 mg/dL (2.6-7.2) 03/29/17 04:23 Calcium 7.9 mg/dL (8.5-10.3) L 04/01/17 04:10 Magnesium 1.7 mg/dL (1.7-2.8) 03/28/17 04:25 Total Bilirubin 0.4 mg/dL (0.2-1.0) 04/01/17 04:10 AST 73 IU/L (10-42) H 04/01/17 04:10 ALT 49 IU/L (10-60) 04/01/17 04:10 Alkaline Phosphatase 58 IU/L (42-121) 04/01/17 04:10 Troponin I 0.05 ng/mL (<0.49) 03/27/17 14:32 B-Natriuretic Peptide 506 pg/mL (5-100) H 04/01/17 04:10 Total Protein 6.2 g/dL (6.7-8.2) L 04/01/17 04:10 Albumin 2.3 g/dL (3.2-5.5) L 04/01/17 04:10 Globulin 3.9 g/dL (2.1-4.2) 04/01/17 04:10 Albumin/Globulin Ratio 0.6 (1.0-2.2) L 04/01/17 04:10 Lipase 11 U/L (22-51) L 03/27/17 13:08 Urine Color YELLOW 03/27/17 14:09 Urine Clarity SL. CLOUDY (CLEAR) 03/27/17 14:09 Urine pH 5.5 PH (5.0-7.5) 03/27/17 14:09 Ur Specific [place] 1.010 (1.002-1.030) 03/27/17 14:09 Urine Protein NEGATIVE mg/dL (NEGATIVE) 03/27/17 14:09 Urine Glucose (UA) >=1000 mg/dL (NEGATIVE) H 03/27/17 14:09 Urine Ketones TRACE mg/dL (NEGATIVE) 03/27/17 14:09 Urine Occult Blood SMALL (NEGATIVE) H 03/27/17 14:09 Urine Nitrite NEGATIVE (NEGATIVE) 03/27/17 14:09 Urine Bilirubin NEGATIVE (NEGATIVE) 03/27/17 14:09 Urine Urobilinogen 0.2 (NORMAL) E.U./dL (NORMAL) 03/27/17 14:09 Ur Leukocyte Esterase TRACE (NEGATIVE) H 03/27/17 14:09 Urine RBC 0-5 /HPF (0-5) 03/27/17 14:09 Urine WBC >25 /HPF (0-5) H 03/27/17 14:09 Ur Squamous Epith Cells RARE Squamous (<= Few) 03/27/17 14:09 Urine Bacteria Many /HPF (None Seen) H 03/27/17 14:09 Ur Microscopic Review INDICATED 03/27/17 14:09 Urine Culture Comments INDICATED 03/27/17 14:09 Last Dose Date 03/28/17 03/29/17 12:00 Last Dose Time 19303/29/17 12:00 Random Vancomycin 17.7 ug/mL 03/29/17 12:00 Serum Ketones NEGATIVE (NEGATIVE) 03/27/17 14:32 Influenza A (Rapid) Negative (Negative) 03/27/17 14:24 Influenza B (Rapid) Negative (Negative) 03/27/17 14:24 Influenza Types A,B Ag - 03/27/17 14:24 Blood Type A POSITIVE 03/31/17 09:16 Antibody Screen NEGATIVE 03/31/17 09:16
[2017-04-01] MEDS: oxyCOD/ACETAMIN 5 MG/325 MG TABLET PO PRN (19:36)
[2017-04-02] MEDS: SODIUM CHLORIDE FLUSH 0.9% 10 ML SYRINGE IVP SCH ×6 (05:27→22:54)
[2017-04-02 05:49] LABS: BASOPHILS # (AUTO) 0.1 10^3/uL (0.0-0.1); BASOPHILS % (AUTO) 0.6 %; EOSINOPHILS # (AUTO) 0.1 10^3/uL (0.0-0.7); EOSINOPHILS % (AUTO) 0.9 %; HGB - HEMOGLOBIN 9.3 g/dL (12.0-16.0); LYMPHOCYTES # (AUTO) 2.3 10^3/uL (1.5-3.5); LYMPHOCYTES % (AUTO) 20.1 %; MEAN CORPUSCULAR HEMOGLOBIN 30.6 pg (27.0-31.0); MEAN CORPUSCULAR HGB CONC 32.2 g/dL (32.0-36.0); MEAN CORPUSCULAR VOLUME 94.9 fL (81.0-99.0); MEAN PLATELET VOLUME 8.8 fL (7.9-10.8); MONOCYTES # (AUTO) 1.2 10^3/uL (0.0-1.0); MONOCYTES % (AUTO) 10.5 %; NEUTROPHILS # (AUTO) 7.8 10^3/uL (1.5-6.6); NEUTROPHILS % (AUTO) 67.9 %; PLT - PLATELET COUNT 267 10^3/uL (130-450); RED BLOOD COUNT 3.03 10^6/uL (4.20-5.40); RED CELL DISTRIBUTION WIDTH 14.9 % (12.0-15.0); WHITE BLOOD COUNT 11.5 x10^3/uL (4.8-10.8)
[2017-04-02 05:53] LABS: INR 1.3 (0.8-1.2); PT - PROTHROMBIN TIME 14.3 secs (9.9-12.6)
[2017-04-02 06:03] LABS: ALBUMIN 2.4 g/dL (3.2-5.5); ALBUMIN/GLOBULIN RATIO 0.6 (1.0-2.2); BILIRUBIN,TOTAL 0.5 mg/dL (0.2-1.0); CALCIUM 7.9 mg/dL (8.5-10.3); CREATININE 1.6 mg/dL (0.4-1.0); TOTAL PROTEIN 6.3 g/dL (6.7-8.2)
[2017-04-02] MEDS: ALBUTEROL NEB 2.5 MG/3 ML INH PRN ×2 (07:47→16:27)
[2017-04-02 09:10] LABS: HGB - HEMOGLOBIN 10.1 g/dL (12.0-16.0)
[2017-04-02] MEDS: INSULIN ASPART 300 UNIT/3 ML PEN SUBQ SCH ×7 (09:13→20:31)
[2017-04-02] MEDS: CHOLECALCIFEROL 1,000 UNIT TABLET PO SCH (09:32)
[2017-04-02] MEDS: FAMOTIDINE 20 MG TABLET PO SCH (09:34)
[2017-04-02] MEDS: LOSARTAN 50 MG TABLET PO SCH (09:34)
[2017-04-02] MEDS: diltiaZEM CD 240 MG CAPSULE PO SCH (09:34)
[2017-04-02] MEDS: DOCUSATE SODIUM 100 MG CAPSULE PO PRN (09:34)
[2017-04-02] MEDS: METOPROLOL SUCCINATE 50 MG TABLET PO SCH (09:34)
[2017-04-02] MEDS: INSULIN GLARGINE 300 UNIT/3 ML PEN SUBQ SCH ×2 (09:35→20:31)
[2017-04-02] MEDS: POLYETHYLENE GLYCOL 3350 17 GM PACKET PO SCH (09:36)
[2017-04-02] MEDS: FEBUXOSTAT 80 MG PO SCH (09:36)
[2017-04-02] MEDS: cefTRIAXone 2 GM in SODIUM CHLORIDE 0.9% MINIBAG 100 ML IV SCH (09:40)
[2017-04-02] MEDS: SODIUM CHLORIDE FLUSH 0.9% 10 ML SYRINGE IVP PRN (09:41)
[2017-04-02] MEDS: NYSTATIN POWDER 15 GM TOP SCH ×2 (10:03→20:28)
--- NOTE | 2017-04-02 11:44 | PROVIDER PROGRESS NOTE ---
Subjective - Prog Note Date Prog Note Date: 04/02/17 Prog Note Time: 11:42 - Subjective Pt reports feeling: Improved (Minimal stump pain) Objective - Vital Signs/Intake & Output Vital Signs: Vital Signs x48h Temp Pulse Pulse Pulse Resp BP BP 04/02/17 08:11 36.7 C 92 20 128/77 04/02/17 07:50 52 L 22 04/02/17 05:17 36.5 C 79 19 126/62 Pulse Ox 04/02/17 08:11 98 04/02/17 07:50 04/02/17 05:17 97 Intake & Output: Intake & Output 03/30/17 03/31/17 04/01/17 04/02/17 23:59 23:59 23:59 23:59 Intake Total 1975 8115.018 2012.666 456 Output Total 2510 1205 1611 60 Balance -535 904.988 8202.666 396 - Lab Results Fish Bones: 04/02/17 09:00 04/02/17 05:19 Other Labs: Lab Results x24hrs 04/02/17 04/02/17 04/02/17 Range/Units 11:21 09:00 07:20 WBC (4.8-10.8) x10^3/uL RBC (4.20-5.40) 10^6/uL Hgb 10.1 L (12.0-16.0) g/dL Hct 31.5 L (37.0-47.0) % MCV (81.0-99.0) fL MCH (27.0-31.0) pg MCHC (32.0-36.0) g/dL RDW (12.0-15.0) % Plt Count (130-450) 10^3/uL MPV (7.9-10.8) fL Neut # (1.5-6.6) 10^3/uL Lymph # (1.5-3.5) 10^3/uL [place] # (0.0-1.0) 10^3/uL Eos # (0.0-0.7) 10^3/uL Baso # (0.0-0.1) 10^3/uL Absolute Nucleated RBC x10^3/uL Nucleated RBC % /100WBC PT (9.9-12.6) secs INR (0.8-1.2) Sodium (135-145) mmol/L Potassium (3.5-5.0) mmol/L Chloride (101-111) mmol/L Carbon Dioxide (21-32) mmol/L Anion Gap (6-13) BUN (6-20) mg/dL Creatinine (0.4-1.0) mg/dL Estimated GFR (MDRD) (>89) Glucose (70-100) mg/dL POC Whole Bld Glucose 197 H 124 H (70 - 100) mg/dL Calcium (8.5-10.3) mg/dL Total Bilirubin (0.2-1.0) mg/dL AST (10-42) IU/L ALT (10-60) IU/L Alkaline Phosphatase (42-121) IU/L B-Natriuretic Peptide (5-100) pg/mL Total Protein (6.7-8.2) g/dL Albumin (3.2-5.5) g/dL Globulin (2.1-4.2) g/dL Albumin/Globulin Ratio (1.0-2.2) 04/02/17 04/02/17 04/02/17 Range/Units 05:19 05:19 05:19 WBC 11.5 H (4.8-10.8) x10^3/uL RBC 3.03 L (4.20-5.40) 10^6/uL Hgb 9.3 L (12.0-16.0) g/dL Hct 28.8 L (37.0-47.0) % MCV 94.9 (81.0-99.0) fL MCH 30.6 (27.0-31.0) pg MCHC 32.2 (32.0-36.0) g/dL RDW 14.9 (12.0-15.0) % Plt Count 267 (130-450) 10^3/uL MPV 8.8 (7.9-10.8) fL Neut # 7.8 H (1.5-6.6) 10^3/uL Lymph # 2.3 (1.5-3.5) 10^3/uL [place] # 1.2 H (0.0-1.0) 10^3/uL Eos # 0.1 (0.0-0.7) 10^3/uL Baso # 0.1 (0.0-0.1) 10^3/uL Absolute Nucleated RBC 0.00 x10^3/uL Nucleated RBC % 0.0 /100WBC PT (9.9-12.6) secs INR (0.8-1.2) Sodium 138 (135-145) mmol/L Potassium 4.2 (3.5-5.0) mmol/L Chloride 105 (101-111) mmol/L Carbon Dioxide 24 (21-32) mmol/L Anion Gap 9.0 (6-13) BUN 60 H (6-20) mg/dL Creatinine 1.6 H (0.4-1.0) mg/dL Estimated GFR (MDRD) 32 L (>89) Glucose 144 H (70-100) mg/dL POC Whole Bld Glucose (70 - 100) mg/dL Calcium 7.9 L (8.5-10.3) mg/dL Total Bilirubin 0.5 (0.2-1.0) mg/dL AST 91 H (10-42) IU/L ALT 74 H (10-60) IU/L Alkaline Phosphatase 58 (42-121) IU/L B-Natriuretic Peptide 378 H (5-100) pg/mL Total Protein 6.3 L (6.7-8.2) g/dL Albumin 2.4 L (3.2-5.5) g/dL Globulin 3.9 (2.1-4.2) g/dL Albumin/Globulin Ratio 0.6 L (1.0-2.2) 04/02/17 04/01/17 04/01/17 Range/Units 05:19 20:47 16:23 WBC (4.8-10.8) x10^3/uL RBC (4.20-5.40) 10^6/uL Hgb (12.0-16.0) g/dL Hct (37.0-47.0) % MCV (81.0-99.0) fL MCH (27.0-31.0) pg MCHC (32.0-36.0) g/dL RDW (12.0-15.0) % Plt Count (130-450) 10^3/uL MPV (7.9-10.8) fL Neut # (1.5-6.6) 10^3/uL Lymph # (1.5-3.5) 10^3/uL [place] # (0.0-1.0) 10^3/uL Eos # (0.0-0.7) 10^3/uL Baso # (0.0-0.1) 10^3/uL Absolute Nucleated RBC x10^3/uL Nucleated RBC % /100WBC PT 14.3 H (9.9-12.6) secs INR 1.3 H (0.8-1.2) Sodium (135-145) mmol/L Potassium (3.5-5.0) mmol/L Chloride (101-111) mmol/L Carbon Dioxide (21-32) mmol/L Anion Gap (6-13) BUN (6-20) mg/dL Creatinine (0.4-1.0) mg/dL Estimated GFR (MDRD) (>89) Glucose (70-100) mg/dL POC Whole Bld Glucose 265 H 261 H (70 - 100) mg/dL Calcium (8.5-10.3) mg/dL Total Bilirubin (0.2-1.0) mg/dL AST (10-42) IU/L ALT (10-60) IU/L Alkaline Phosphatase (42-121) IU/L B-Natriuretic Peptide (5-100) pg/mL Total Protein (6.7-8.2) g/dL Albumin (3.2-5.5) g/dL Globulin (2.1-4.2) g/dL Albumin/Globulin Ratio (1.0-2.2) 04/01/17 04/01/17 Range/Units 12:10 11:39 WBC (4.8-10.8) x10^3/uL RBC (4.20-5.40) 10^6/uL Hgb 9.4 L (12.0-16.0) g/dL Hct 27.1 L (37.0-47.0) % MCV (81.0-99.0) fL MCH (27.0-31.0) pg MCHC (32.0-36.0) g/dL RDW (12.0-15.0) % Plt Count (130-450) 10^3/uL MPV (7.9-10.8) fL Neut # (1.5-6.6) 10^3/uL Lymph # (1.5-3.5) 10^3/uL [place] # (0.0-1.0) 10^3/uL Eos # (0.0-0.7) 10^3/uL Baso # (0.0-0.1) 10^3/uL Absolute Nucleated RBC x10^3/uL Nucleated RBC % /100WBC PT (9.9-12.6) secs INR (0.8-1.2) Sodium (135-145) mmol/L Potassium (3.5-5.0) mmol/L Chloride (101-111) mmol/L Carbon Dioxide (21-32) mmol/L Anion Gap (6-13) BUN (6-20) mg/dL Creatinine (0.4-1.0) mg/dL Estimated GFR (MDRD) (>89) Glucose (70-100) mg/dL POC Whole Bld Glucose 328 H (70 - 100) mg/dL Calcium (8.5-10.3) mg/dL Total Bilirubin (0.2-1.0) mg/dL AST (10-42) IU/L ALT (10-60) IU/L Alkaline Phosphatase (42-121) IU/L B-Natriuretic Peptide (5-100) pg/mL Total Protein (6.7-8.2) g/dL Albumin (3.2-5.5) g/dL Globulin (2.1-4.2) g/dL Albumin/Globulin Ratio (1.0-2.2) - Other Results/Comments Other Results/Comments: EXAM: Stump dressing changed. Riesel drain removed without problem. Wound edges appear viable. Flaps appear viable Assessment/Plan - Problem List (2) Osteomyelitis of left foot Impression: S/p left BKA - doing well post op PLAN: Can go to SNF from orthopedic standpoint with follow up in clinic in 3-4 weeks for wound inspection and SR. Qualifiers: Osteomyelitis type: subacute Qualified Code(s): M86.272 - Subacute osteomyelitis, left ankle and foot
[2017-04-02 14:12] LABS: BILIRUBIN,URINE NEGATIVE (NEGATIVE); CLARITY,URINE CLOUDY (CLEAR); GLUCOSE, URINE (UA) NEGATIVE (NEGATIVE); KETONES,URINE (UA) NEGATIVE (NEGATIVE); LEUKOCYTE ESTERASE, URINE SMALL (NEGATIVE); NITRITE,URINE NEGATIVE (NEGATIVE); OCCULT BLOOD,URINE MODERATE (NEGATIVE); PH,URINE 5.5 PH (5.0-7.5); PROTEIN,URINE NEGATIVE (NEGATIVE); UROBILINOGEN,URINE 0.2 (NORMAL) E.U./dL (NORMAL)
[2017-04-02 14:27] LABS: BACTERIA,URINE Rare /HPF (None Seen); RBC,URINE 0-5 /HPF (0-5); SQUAMOUS EPITHELIAL CELL,UR RARE Squamous (<= Few)
[2017-04-02 14:28] LABS: YEAST,URINE PRESENT
--- NOTE | 2017-04-02 16:05 | PROVIDER PROGRESS NOTE ---
Assessment/Plan - Problem List (1) Atrial fibrillation with RVR Assessment/Plan: Tachycardia has resolved. HR is controlled but Pt still in Afib No need for telemetry as she was transferred to Med Surg floor, we will watch her Pulse in VS (2) CKD (chronic kidney disease) Assessment/Plan: Creat remains elevated but is improving overall Continue to monitor urine output and creat (3) Diabetic foot infection Assessment/Plan: Osteomyelitis was documented. She is S/P BKA POD #2. Antibiotics can be stopped per Dr Enrique, Orthopod He looked at her wound and took out a drain today. Continue with advancing OOB and PT She will need a SNF, SW is starting to locate a place for her with poss [facility] tomorrow (4) DM2 (diabetes mellitus, type 2) Assessment/Plan: Glu control is tighter due to improved infection with a BKA Continue with present diet and will decrease sliding scale Insulin coverage from High to Moderate. (5) History of COPD Assessment/Plan: Mild wheezing today when she was constipated and trying to move for a BM Continue inhalers (6) Hx of chronic congestive heart failure Assessment/Plan: Continue present management (7) UTI (urinary tract infection) Qualifiers: Urinary tract infection type: acute cystitis Hematuria presence: without hematuria Qualified Code(s): N30.00 - Acute cystitis without hematuria Assessment/Plan: Urine culture has grown Ecoli and Klebsiella. Will complete a 7-10 day of treatment by changing iv antibiotics to Macrodantin , which both bacteria are sensative to. (8) Constipation Qualifiers: Constipation type: drug induced constipation Qualified Code(s): K59.03 - Drug induced constipation Assessment/Plan: Begin bowel protocol - Current Meds Current Meds: Current Medications Generic Name Dose Route Start Last Admin Trade Name Freq PRN Reason Stop Dose Admin Acetaminophen 650 mg 03/27/17 16:11 04/01/17 15:25 Tylenol PO 650 mg Q4HR PRN Administration Pain 1 to 4 Albuterol 2.5 mg 03/27/17 16:56 04/02/17 07:47 INH 2.5 mg RTQ4H PRN Administration Wheezing Cholecalciferol 2,000 unit 03/28/17 09:00 04/02/17 09:32 Vitamin D3 PO 2,000 unit DAILY EILEEN Administration Diltiazem HCl 240 mg 04/01/17 08:14 04/02/17 09:34 Cardizem Cd PO 240 mg DAILY EILEEN Administration Docusate Sodium 100 mg 03/31/17 12:24 04/02/17 09:34 Colace 100mg Capsule PO 100 mg BID PRN Administration Constipation Famotidine 20 mg 03/28/17 09:00 04/02/17 09:34 Pepcid PO 20 mg DAILY EILEEN Administration Ceftriaxone Sodium 2 gm/ 100 mls @ 200 mls/hr 03/30/17 09:00 04/02/17 11:32 Sodium Chloride IV Infused DAILY EILEEN Infusion Insulin Aspart 10 unit 04/01/17 17:00 04/02/17 12:03 Novolog SUBQ 10 unit TIDWM EILEEN Administration Insulin Glargine 50 unit 03/29/17 21:00 04/02/17 09:35 Lantus Solostar SUBQ 50 unit BID EILEEN Administration Losartan Potassium 50 mg 03/30/17 23:00 04/02/17 09:34 Cozaar PO 50 mg DAILY EILEEN Administration Metoprolol Succinate 100 mg 03/30/17 21:00 04/02/17 09:34 Toprol Xl PO 100 mg DAILY EILEEN Administration Mineral Oil 1 applic 03/28/17 05:28 04/01/17 12:39 Cavilon TOP 2 applic PRN PRN Administration Skin Care Morphine Sulfate 2 mg 03/31/17 12:24 03/31/17 18:38 Morphine (Carpuject) IVP 2 mg Q2HR PRN Administration PAIN Nystatin 1 applic 03/27/17 21:00 04/02/17 10:03 Nystop TOP 1 applic BID EILEEN Administration Ondansetron HCl 4 mg 03/27/17 16:11 03/30/17 14:47 Zofran Inj IVP 4 mg Q6HR PRN Administration Nausea / Vomiting Oxycodone/Acetaminophen 1 tab 03/31/17 12:24 04/01/17 19:36 Percocet 5 Mg/325 Mg PO 1 tab Q4HR PRN Administration PAIN (Febuxostat [Uloric] 1 each 03/28/17 09:00 04/02/17 09:36 80 Mg) Tab PO 1 each DAILY EILEEN Administration Polyethylene Glycol 17 gm 03/28/17 09:00 04/02/17 09:36 Miralax PO 17 gm DAILY EILEEN Administration Sodium Chloride 10 ml 03/27/17 16:11 04/02/17 09:41 Normal Saline Flush 0.9% IVP 10 ml PRN PRN Administration NEEDED PER PROVIDER ORDERS Sodium Chloride 10 ml 03/27/17 22:00 04/02/17 05:27 Normal Saline Flush 0.9% IVP 10 ml Q8HR EILEEN Administration Sodium Chloride 10 ml 03/28/17 22:00 04/02/17 05:27 Normal Saline Flush 0.9% IVP Not Given Q8HR EILEEN - Lab Result Fish Bone Diagrams: 04/02/17 09:00 04/02/17 05:19 - Additional Planning My Orders: My Active Orders 04/01/17 17:00 Insulin Aspart [NovoLOG] 10 unit SUBQ TIDWM 04/02/17 11:01 Miscellaenous Nursing Order [RC] QSHIFT 04/02/17 12:42 Initiate Hypoglycemia Protocol [RC] .protocol 04/02/17 14:00 CUL, URINE [RM] Urgent 04/02/17 17:00 Insulin Aspart [NovoLOG] 1 - 9 unit SUBQ 0800,1200,1700,2100 Subjective - Subjective Patient Reports: Other (New constipation) Nursing Reports: Other (Pt wanrts an enema but hasn't had MOM, etc) Objective Vital Signs: Vital Signs - 24 hr 04/01/17 04/01/17 04/01/17 19:15 20:48 23:58 Temperature 37.2 C 36.8 C 36.8 C Heart Rate Heart Rate [ Brachial] Heart Rate [ 85 86 79 Monitoring electrodes] Respiratory 28 H 22 20 Rate Blood Pressure 119/66 [Left Radial artery] Blood Pressure 112/67 110/71 [Right Radial artery] O2 Saturation 99 95 97 04/02/17 04/02/17 04/02/17 05:17 07:50 08:11 Temperature 36.5 C 36.7 C Heart Rate 52 L Heart Rate [ 92 Brachial] Heart Rate [ 79 Monitoring electrodes] Respiratory 19 22 20 Rate Blood Pressure 126/62 [Left Radial artery] Blood Pressure 128/77 [Right Radial artery] O2 Saturation 97 98 04/02/17 04/02/17 11:45 15:59 Temperature 36.6 C 36.9 C Heart Rate Heart Rate [ 59 L Brachial] Heart Rate [ 85 Monitoring electrodes] Respiratory 20 20 Rate Blood Pressure [Left Radial artery] Blood Pressure 117/66 109/60 [Right Radial artery] O2 Saturation 100 98 Oxygen O2 Source Room air I&O (Last 24 Hrs): Intake and Output Totals x24h 03/31/17 04/01/17 04/02/17 23:59 23:59 23:59 Intake Total 0980.639 6983.666 856 Output Total 1205 1611 60 Balance 737.338 8769.666 796 General: Alert, Oriented x3 HEENT: Mucous membr. moist/pink Neck: Supple Cardiovascular: Regular rate Respiratory: Other (Scattered wheezing) Abdomen: Soft, Other (Obese with pannus) Extremities: Other (L BKA bandaged) - Results Results: Laboratory Results WBC 11.5 x10^3/uL (4.8-10.8) H 04/02/17 05:19 RBC 3.03 10^6/uL (4.20-5.40) L 04/02/17 05:19 Hgb 10.1 g/dL (12.0-16.0) L 04/02/17 09:00 Hct 31.5 % (37.0-47.0) L 04/02/17 09:00 MCV 94.9 fL (81.0-99.0) 04/02/17 05:19 MCH 30.6 pg (27.0-31.0) 04/02/17 05:19 MCHC 32.2 g/dL (32.0-36.0) 04/02/17 05:19 RDW 14.9 % (12.0-15.0) 04/02/17 05:19 Plt Count 267 10^3/uL (130-450) 04/02/17 05:19 MPV 8.8 fL (7.9-10.8) 04/02/17 05:19 Neut # 7.8 10^3/uL (1.5-6.6) H 04/02/17 05:19 Lymph # 2.3 10^3/uL (1.5-3.5) 04/02/17 05:19 Leake # 1.2 10^3/uL (0.0-1.0) H 04/02/17 05:19 Eos # 0.1 10^3/uL (0.0-0.7) 04/02/17 05:19 Baso # 0.1 10^3/uL (0.0-0.1) 04/02/17 05:19 Absolute Nucleated RBC 0.00 x10^3/uL 04/02/17 05:19 Nucleated RBC % 0.0 /100WBC 04/02/17 05:19 Manual Slide Review Indicated 03/27/17 13:08 RBC Morph Micro Appear 2+ ANISOCYTOSIS (NORMAL) 03/27/17 13:08 PT 14.3 secs (9.9-12.6) H 04/02/17 05:19 INR 1.3 (0.8-1.2) H 04/02/17 05:19 D-Dimer 271.0 ng/mL (200.0-255.0) H 03/27/17 13:08 VBG pH 7.399 (7.31-7.41) 03/27/17 14:32 VBG pCO2 38.1 mmHg (41-51) L 03/27/17 14:32 VBG pO2 34.6 mmHg (25-47) 03/27/17 14:32 VBG HCO3 23.0 mmol/L (23-28) 03/27/17 14:32 VBG Total CO2 24.2 mmol/L (24-29) 03/27/17 14:32 VBG O2 Saturation 68.2 % (60-80) 03/27/17 14:32 VBG Base Excess -1.5 mmol/L (-2 - +2) 03/27/17 14:32 Sodium 138 mmol/L (135-145) 04/02/17 05:19 Potassium 4.2 mmol/L (3.5-5.0) 04/02/17 05:19 Chloride 105 mmol/L (101-111) 04/02/17 05:19 Carbon Dioxide 24 mmol/L (21-32) 04/02/17 05:19 Anion Gap 9.0 (6-13) 04/02/17 05:19 BUN 60 mg/dL (6-20) H 04/02/17 05:19 Creatinine 1.6 mg/dL (0.4-1.0) H 04/02/17 05:19 Estimated GFR (MDRD) 32 (>89) L 04/02/17 05:19 Glucose 144 mg/dL (70-100) H 04/02/17 05:19 POC Whole Bld Glucose 197 mg/dL (70 - 100) H 04/02/17 11:21 Glycated Hemoglobin 7.9 % (4.6-6.2) H 03/28/17 07:49 Estim Average Glucose 180 (70-100) H 03/28/17 07:49 Lactic Acid 1.4 mmol/L (0.5-2.2) 03/28/17 07:49 Uric Acid 5.9 mg/dL (2.6-7.2) 03/29/17 04:23 Calcium 7.9 mg/dL (8.5-10.3) L 04/02/17 05:19 Magnesium 1.7 mg/dL (1.7-2.8) 03/28/17 04:25 Total Bilirubin 0.5 mg/dL (0.2-1.0) 04/02/17 05:19 AST 91 IU/L (10-42) H 04/02/17 05:19 ALT 74 IU/L (10-60) H 04/02/17 05:19 Alkaline Phosphatase 58 IU/L (42-121) 04/02/17 05:19 Troponin I 0.05 ng/mL (<0.49) 03/27/17 14:32 B-Natriuretic Peptide 378 pg/mL (5-100) H 04/02/17 05:19 Total Protein 6.3 g/dL (6.7-8.2) L 04/02/17 05:19 Albumin 2.4 g/dL (3.2-5.5) L 04/02/17 05:19 Globulin 3.9 g/dL (2.1-4.2) 04/02/17 05:19 Albumin/Globulin Ratio 0.6 (1.0-2.2) L 04/02/17 05:19 Lipase 11 U/L (22-51) L 03/27/17 13:08 Urine Color YELLOW 04/02/17 14:00 Urine Clarity CLOUDY (CLEAR) 04/02/17 14:00 Urine pH 5.5 PH (5.0-7.5) 04/02/17 14:00 Ur Specific [place] 1.010 (1.002-1.030) 04/02/17 14:00 Urine Protein NEGATIVE mg/dL (NEGATIVE) 04/02/17 14:00 Urine Glucose (UA) NEGATIVE mg/dL (NEGATIVE) 04/02/17 14:00 Urine Ketones NEGATIVE mg/dL (NEGATIVE) 04/02/17 14:00 Urine Occult Blood MODERATE (NEGATIVE) H 04/02/17 14:00 Urine Nitrite NEGATIVE (NEGATIVE) 04/02/17 14:00 Urine Bilirubin NEGATIVE (NEGATIVE) 04/02/17 14:00 Urine Urobilinogen 0.2 (NORMAL) E.U./dL (NORMAL) 04/02/17 14:00 Ur Leukocyte Esterase SMALL (NEGATIVE) H 04/02/17 14:00 Urine RBC 0-5 /HPF (0-5) 04/02/17 14:00 Urine WBC 6-10 /HPF (0-5) H 04/02/17 14:00 Ur Squamous Epith Cells RARE Squamous (<= Few) 04/02/17 14:00 Urine Bacteria Rare /HPF (None Seen) 04/02/17 14:00 Urine Yeast PRESENT 04/02/17 14:00 Ur Microscopic Review INDICATED 04/02/17 14:00 Urine Culture Comments INDICATED 04/02/17 14:00 Last Dose Date 03/28/17 03/29/17 12:00 Last Dose Time 1934 03/29/17 12:00 Random Vancomycin 17.7 ug/mL 03/29/17 12:00 Serum Ketones NEGATIVE (NEGATIVE) 03/27/17 14:32 Influenza A (Rapid) Negative (Negative) 03/27/17 14:24 Influenza B (Rapid) Negative (Negative) 03/27/17 14:24 Influenza Types A,B Ag - 03/27/17 14:24 Blood Type A POSITIVE 03/31/17 09:16 Antibody Screen NEGATIVE 03/31/17 09:16
[2017-04-02] MEDS: ACETAMINOPHEN 325 MG TABLET PO PRN (17:48)
[2017-04-02] MEDS: oxyCOD/ACETAMIN 5 MG/325 MG TABLET PO PRN (20:25)
[2017-04-03 05:52] LABS: BASOPHILS # (AUTO) 0.1 10^3/uL (0.0-0.1); BASOPHILS % (AUTO) 1.1 %; EOSINOPHILS # (AUTO) 0.1 10^3/uL (0.0-0.7); HGB - HEMOGLOBIN 9.7 g/dL (12.0-16.0); LYMPHOCYTES # (AUTO) 2.3 10^3/uL (1.5-3.5); LYMPHOCYTES % (AUTO) 23.9 %; MEAN CORPUSCULAR HEMOGLOBIN 31.1 pg (27.0-31.0); MEAN CORPUSCULAR HGB CONC 32.3 g/dL (32.0-36.0); MEAN CORPUSCULAR VOLUME 96.5 fL (81.0-99.0); MEAN PLATELET VOLUME 8.2 fL (7.9-10.8); MONOCYTES # (AUTO) 1.1 10^3/uL (0.0-1.0); MONOCYTES % (AUTO) 11.7 %; NEUTROPHILS # (AUTO) 6.1 10^3/uL (1.5-6.6); NEUTROPHILS % (AUTO) 62.3 %; PLT - PLATELET COUNT 271 10^3/uL (130-450); RED BLOOD COUNT 3.12 10^6/uL (4.20-5.40); RED CELL DISTRIBUTION WIDTH 14.7 % (12.0-15.0); WHITE BLOOD COUNT 9.8 x10^3/uL (4.8-10.8)
[2017-04-03 05:57] LABS: INR 1.2 (0.8-1.2); PT - PROTHROMBIN TIME 13.6 secs (9.9-12.6)
[2017-04-03] MEDS: SODIUM CHLORIDE FLUSH 0.9% 10 ML SYRINGE IVP SCH ×2 (06:00)
[2017-04-03 06:04] LABS: ALBUMIN 2.3 g/dL (3.2-5.5); ALBUMIN/GLOBULIN RATIO 0.6 (1.0-2.2); BILIRUBIN,TOTAL 0.6 mg/dL (0.2-1.0); CALCIUM 8.1 mg/dL (8.5-10.3); CREATININE 1.2 mg/dL (0.4-1.0); TOTAL PROTEIN 6.3 g/dL (6.7-8.2)
[2017-04-03] MEDS: ALBUTEROL NEB 2.5 MG/3 ML INH PRN (07:48)
[2017-04-03] MEDS: METOPROLOL SUCCINATE 50 MG TABLET PO SCH (08:59)
[2017-04-03] MEDS: diltiaZEM CD 240 MG CAPSULE PO SCH (08:59)
[2017-04-03] MEDS: CHOLECALCIFEROL 1,000 UNIT TABLET PO SCH (08:59)
[2017-04-03] MEDS: LOSARTAN 50 MG TABLET PO SCH (08:59)
[2017-04-03] MEDS: POLYETHYLENE GLYCOL 3350 17 GM PACKET PO SCH (08:59)
[2017-04-03] MEDS: FAMOTIDINE 20 MG TABLET PO SCH (08:59)
[2017-04-03] MEDS: cefTRIAXone 2 GM in SODIUM CHLORIDE 0.9% MINIBAG 100 ML IV SCH (09:00)
[2017-04-03] MEDS: INSULIN ASPART 300 UNIT/3 ML PEN SUBQ SCH (09:09)
[2017-04-03] MEDS ORDERED: INSULIN ASPART 300 UNIT/3 ML PEN SUBQ SCH ×2 (09:12→12:00)
[2017-04-03] MEDS: INSULIN GLARGINE 300 UNIT/3 ML PEN SUBQ SCH ×2 (09:17→10:18)
[2017-04-03] MEDS: FEBUXOSTAT 80 MG PO SCH (09:18)
[2017-04-03] MEDS: NYSTATIN POWDER 15 GM TOP SCH (09:18)
--- NOTE | 2017-04-03 10:40 | PROVIDER PROGRESS NOTE ---
Subjective - Prog Note Date Prog Note Date: 04/03/17 Prog Note Time: 10:38 - Subjective Pt reports feeling: Improved (No problems) Objective - Vital Signs/Intake & Output Vital Signs: Vital Signs x48h Temp Pulse Pulse Resp BP Pulse Ox 04/03/17 09:00 36.7 C 94 18 135/77 H 98 04/03/17 07:49 58 L 20 04/03/17 05:00 36.5 C 71 20 126/71 99 Intake & Output: Intake & Output 03/31/17 04/01/17 04/02/17 04/03/17 23:59 23:59 23:59 23:59 Intake Total 2851.583 0931.666 1606 250 Output Total 1205 1611 310 200 Balance 236.935 9094.666 1296 50 - Lab Results Fish Bones: 04/03/17 05:45 04/03/17 05:45 Other Labs: Lab Results x24hrs 04/03/17 04/03/17 04/03/17 Range/Units 10:08 08:16 07:29 WBC (4.8-10.8) x10^3/uL RBC (4.20-5.40) 10^6/uL Hgb (12.0-16.0) g/dL Hct (37.0-47.0) % MCV (81.0-99.0) fL MCH (27.0-31.0) pg MCHC (32.0-36.0) g/dL RDW (12.0-15.0) % Plt Count (130-450) 10^3/uL MPV (7.9-10.8) fL Neut # (1.5-6.6) 10^3/uL Lymph # (1.5-3.5) 10^3/uL Mcminn # (0.0-1.0) 10^3/uL Eos # (0.0-0.7) 10^3/uL Baso # (0.0-0.1) 10^3/uL Absolute Nucleated RBC x10^3/uL Nucleated RBC % /100WBC PT (9.9-12.6) secs INR (0.8-1.2) Sodium (135-145) mmol/L Potassium (3.5-5.0) mmol/L Chloride (101-111) mmol/L Carbon Dioxide (21-32) mmol/L Anion Gap (6-13) BUN (6-20) mg/dL Creatinine (0.4-1.0) mg/dL Estimated GFR (MDRD) (>89) Glucose (70-100) mg/dL POC Whole Bld Glucose 176 H 98 68 L (70 - 100) mg/dL Calcium (8.5-10.3) mg/dL Total Bilirubin (0.2-1.0) mg/dL AST (10-42) IU/L ALT (10-60) IU/L Alkaline Phosphatase (42-121) IU/L Total Protein (6.7-8.2) g/dL Albumin (3.2-5.5) g/dL Globulin (2.1-4.2) g/dL Albumin/Globulin Ratio (1.0-2.2) Urine Color Urine Clarity (CLEAR) Urine pH (5.0-7.5) PH Ur Specific [place] (1.002-1.030) Urine Protein (NEGATIVE) mg/dL Urine Glucose (UA) (NEGATIVE) mg/dL Urine Ketones (NEGATIVE) mg/dL Urine Occult Blood (NEGATIVE) Urine Nitrite (NEGATIVE) Urine Bilirubin (NEGATIVE) Urine Urobilinogen (NORMAL) E.U./dL Ur Leukocyte Esterase (NEGATIVE) Urine RBC (0-5) /HPF Urine WBC (0-5) /HPF Ur Squamous Epith Cells (<= Few) Urine Bacteria (None Seen) /HPF Urine Yeast Ur Microscopic Review Urine Culture Comments 04/03/17 04/03/17 04/03/17 Range/Units 05:45 05:45 05:45 WBC 9.8 (4.8-10.8) x10^3/uL RBC 3.12 L (4.20-5.40) 10^6/uL Hgb 9.7 L (12.0-16.0) g/dL Hct 30.1 L (37.0-47.0) % MCV 96.5 (81.0-99.0) fL MCH 31.1 H (27.0-31.0) pg MCHC 32.3 (32.0-36.0) g/dL RDW 14.7 (12.0-15.0) % Plt Count 271 (130-450) 10^3/uL MPV 8.2 (7.9-10.8) fL Neut # 6.1 (1.5-6.6) 10^3/uL Lymph # 2.3 (1.5-3.5) 10^3/uL Mcminn # 1.1 H (0.0-1.0) 10^3/uL Eos # 0.1 (0.0-0.7) 10^3/uL Baso # 0.1 (0.0-0.1) 10^3/uL Absolute Nucleated RBC 0.00 x10^3/uL Nucleated RBC % 0.0 /100WBC PT 13.6 H (9.9-12.6) secs INR 1.2 (0.8-1.2) Sodium 139 (135-145) mmol/L Potassium 4.7 (3.5-5.0) mmol/L Chloride 103 (101-111) mmol/L Carbon Dioxide 27 (21-32) mmol/L Anion Gap 9.0 (6-13) BUN 51 H (6-20) mg/dL Creatinine 1.2 H (0.4-1.0) mg/dL Estimated GFR (MDRD) 44 L (>89) Glucose 81 (70-100) mg/dL POC Whole Bld Glucose (70 - 100) mg/dL Calcium 8.1 L (8.5-10.3) mg/dL Total Bilirubin 0.6 (0.2-1.0) mg/dL AST 56 H (10-42) IU/L ALT 63 H (10-60) IU/L Alkaline Phosphatase 68 (42-121) IU/L Total Protein 6.3 L (6.7-8.2) g/dL Albumin 2.3 L (3.2-5.5) g/dL Globulin 4.0 (2.1-4.2) g/dL Albumin/Globulin Ratio 0.6 L (1.0-2.2) Urine Color Urine Clarity (CLEAR) Urine pH (5.0-7.5) PH Ur Specific [place] (1.002-1.030) Urine Protein (NEGATIVE) mg/dL Urine Glucose (UA) (NEGATIVE) mg/dL Urine Ketones (NEGATIVE) mg/dL Urine Occult Blood (NEGATIVE) Urine Nitrite (NEGATIVE) Urine Bilirubin (NEGATIVE) Urine Urobilinogen (NORMAL) E.U./dL Ur Leukocyte Esterase (NEGATIVE) Urine RBC (0-5) /HPF Urine WBC (0-5) /HPF Ur Squamous Epith Cells (<= Few) Urine Bacteria (None Seen) /HPF Urine Yeast Ur Microscopic Review Urine Culture Comments 04/02/17 04/02/17 04/02/17 Range/Units 20:21 16:42 14:00 WBC (4.8-10.8) x10^3/uL RBC (4.20-5.40) 10^6/uL Hgb (12.0-16.0) g/dL Hct (37.0-47.0) % MCV (81.0-99.0) fL MCH (27.0-31.0) pg MCHC (32.0-36.0) g/dL RDW (12.0-15.0) % Plt Count (130-450) 10^3/uL MPV (7.9-10.8) fL Neut # (1.5-6.6) 10^3/uL Lymph # (1.5-3.5) 10^3/uL Mcminn # (0.0-1.0) 10^3/uL Eos # (0.0-0.7) 10^3/uL Baso # (0.0-0.1) 10^3/uL Absolute Nucleated RBC x10^3/uL Nucleated RBC % /100WBC PT (9.9-12.6) secs INR (0.8-1.2) Sodium (135-145) mmol/L Potassium (3.5-5.0) mmol/L Chloride (101-111) mmol/L Carbon Dioxide (21-32) mmol/L Anion Gap (6-13) BUN (6-20) mg/dL Creatinine (0.4-1.0) mg/dL Estimated GFR (MDRD) (>89) Glucose (70-100) mg/dL POC Whole Bld Glucose 188 H 140 H (70 - 100) mg/dL Calcium (8.5-10.3) mg/dL Total Bilirubin (0.2-1.0) mg/dL AST (10-42) IU/L ALT (10-60) IU/L Alkaline Phosphatase (42-121) IU/L Total Protein (6.7-8.2) g/dL Albumin (3.2-5.5) g/dL Globulin (2.1-4.2) g/dL Albumin/Globulin Ratio (1.0-2.2) Urine Color YELLOW Urine Clarity CLOUDY (CLEAR) Urine pH 5.5 (5.0-7.5) PH Ur Specific [place] 1.010 (1.002-1.030) Urine Protein NEGATIVE (NEGATIVE) mg/dL Urine Glucose (UA) NEGATIVE (NEGATIVE) mg/dL Urine Ketones NEGATIVE (NEGATIVE) mg/dL Urine Occult Blood MODERATE H (NEGATIVE) Urine Nitrite NEGATIVE (NEGATIVE) Urine Bilirubin NEGATIVE (NEGATIVE) Urine Urobilinogen 0.2 (NORMAL) (NORMAL) E.U./dL Ur Leukocyte Esterase SMALL H (NEGATIVE) Urine RBC 0-5 (0-5) /HPF Urine WBC 6-10 H (0-5) /HPF Ur Squamous Epith Cells RARE Squamous (<= Few) Urine Bacteria Rare (None Seen) /HPF Urine Yeast PRESENT Ur Microscopic Review INDICATED Urine Culture Comments INDICATED 04/02/17 Range/Units 11:21 WBC (4.8-10.8) x10^3/uL RBC (4.20-5.40) 10^6/uL Hgb (12.0-16.0) g/dL Hct (37.0-47.0) % MCV (81.0-99.0) fL MCH (27.0-31.0) pg MCHC (32.0-36.0) g/dL RDW (12.0-15.0) % Plt Count (130-450) 10^3/uL MPV (7.9-10.8) fL Neut # (1.5-6.6) 10^3/uL Lymph # (1.5-3.5) 10^3/uL Mcminn # (0.0-1.0) 10^3/uL Eos # (0.0-0.7) 10^3/uL Baso # (0.0-0.1) 10^3/uL Absolute Nucleated RBC x10^3/uL Nucleated RBC % /100WBC PT (9.9-12.6) secs INR (0.8-1.2) Sodium (135-145) mmol/L Potassium (3.5-5.0) mmol/L Chloride (101-111) mmol/L Carbon Dioxide (21-32) mmol/L Anion Gap (6-13) BUN (6-20) mg/dL Creatinine (0.4-1.0) mg/dL Estimated GFR (MDRD) (>89) Glucose (70-100) mg/dL POC Whole Bld Glucose 197 H (70 - 100) mg/dL Calcium (8.5-10.3) mg/dL Total Bilirubin (0.2-1.0) mg/dL AST (10-42) IU/L ALT (10-60) IU/L Alkaline Phosphatase (42-121) IU/L Total Protein (6.7-8.2) g/dL Albumin (3.2-5.5) g/dL Globulin (2.1-4.2) g/dL Albumin/Globulin Ratio (1.0-2.2) Urine Color Urine Clarity (CLEAR) Urine pH (5.0-7.5) PH Ur Specific [place] (1.002-1.030) Urine Protein (NEGATIVE) mg/dL Urine Glucose (UA) (NEGATIVE) mg/dL Urine Ketones (NEGATIVE) mg/dL Urine Occult Blood (NEGATIVE) Urine Nitrite (NEGATIVE) Urine Bilirubin (NEGATIVE) Urine Urobilinogen (NORMAL) E.U./dL Ur Leukocyte Esterase (NEGATIVE) Urine RBC (0-5) /HPF Urine WBC (0-5) /HPF Ur Squamous Epith Cells (<= Few) Urine Bacteria (None Seen) /HPF Urine Yeast Ur Microscopic Review Urine Culture Comments - Other Results/Comments Other Results/Comments: EXAM: Dressing intact Assessment/Plan - Problem List (2) Osteomyelitis of left foot Impression: S/p left BKA - satis post op PLAN: To SNF. Every other day stump dressing change as needed. Bed to chair transfers to wheelchair. Followup in ortho clinic in 3 weeks for SR and wound check. Qualifiers: Osteomyelitis type: subacute Qualified Code(s): M86.272 - Subacute osteomyelitis, left ankle and foot
[2017-04-03] MEDS ORDERED: BISACODYL 10 MG SUPP PR SCH (12:59)
--- NOTE | 2017-04-03 13:07 | Discharge Plan ---
"Discharge Plan for SNF / [facility] - DC Plan and Transition Orders Disposition: 03 SNF DC/Xfer Condition: Stable SNF Transition Orders: Admit to: [facility] under the care of Dr Kelly Discharge Diagnosis: 1) S/P BKA 2) Osteomyelitis 3) Diabetic foot infection 4) UTI 5) Chronic Afib 6) Chronic systolic heart failure 7) Chronic Kidney Disease 8) History of COPD 9) Morbid Obesity 10) Code Status: Full Code Medicare Certification: I certify that [facility] care is medically necessary on a continuing basis for any of the conditions for which she/he is receiving care during hospitalization. Notify PCP of admission and forward orders to primary provider for signature. Weight on admission and Weekly. Call PCP immediately if weight increases by 5 pounds or if patient develops dyspnea, chest pain/tightness or edema. House Bowel Program: Yes If no BM after 2 days, nurse may give M.O.M. 30ml PO PRN and /or ducolax Supp 1 PA and /or BRONWYN 250mg P.O., and/or senna 1-2 tabs PO. On day 3 nurse may give repeat above order until residents constipation is resolved. Immunizations: Annual Influenza Vaccine: Yes. (between Oct 31 and May 30.) Unless allergy or already given Two-Step PPD: Yes per [facility] [id number] or appropriate documentation of approved exceptions Treatments & Other Orders: Daily PT Daily OT Oxygen Orders: No Lab Tests or X-Rays Orders: None Orthopedic Orders: Pt to be seen in Ortho Clinic in 3 weeks for suture removal ( per Dr Enrique, Ortho). Medications: PLEASE REFER TO THE DISCHARGE MEDICATION LIST. Insulin Orders? Yes Diagnosis: Diabetes Initiate hypo and hyperglycemia protocols for BG <70 and BG >375. May check BG prn for signs/symptoms of dysglycemia. Frequency of BG checks: AC and HS] Basal Insulin: Lantus 50 units inject subq as follows: bid Other: Insulin Aspart 5 U subq tid with meals Correction Insulin: - Select the type of insulin below Insulin Aspart 100 units /ml insulin inject subq per orders indicate below: LOW DOSE CORRECTION X LOW DOSE [] MODERATE DOSE [] MODERATE/HIGH DOSE [] HIGH DOSE GB UNITS GB UNITS GB UNITS GB UNITS 61-140 0 UNITS 61-140 0 UNITS 61-140 0 UNITS 61-140 0 UNITS 141-175 1 UNITS 141-175 1 UNITS 141-175 2 UNITS 141-175 3 UNITS 176-225 2 UNITS 176-225 3 UNITS 176-225 4 UNITS 176-225 5 UNITS 226-275 3 UNITS 226-275 5 UNITS 226-275 6 UNITS 226-275 7 UNITS 276-325 4 UNITS 276-325 7 UNITS 276-325 8 UNITS 276-325 9 UNITS 326-375 5 UNITS 326-375 9 UNITS 326-375 10 UNITS 326-375 11 UNITS >375 CONTACT MD >375 CONTACT MD >375 CONTACT MD >375 CONTACT MD Allergies and Adverse Reactions: Allergies Allergy/AdvReac Type Severity Reaction Status Date / Time levofloxacin Allergy Unknown Verified 06/10/16 16:12 Penicillins Allergy Respiratory Verified 06/10/16 16:12 shellfish Allergy Rash Uncoded 03/29/17 09:47 - Medications New Prescriptions: Acetaminophen [Tylenol] 650 mg PO Q4HR PRN #50 tablet PRN Reason: Pain 1 to 4 oxyCODONE/ACET 5/325 [Percocet 5 mg/325 mg] 1 tab PO Q4HR PRN #14 tablet PRN Reason: Pain diltiaZEM CD [Cardizem Cd] 240 mg PO DAILY #30 capsule Insulin Aspart [NovoLOG] 5 unit SUBQ TIDWM #1 pen Insulin Aspart [NovoLOG] 5 unit SUBQ 0800,1200,1700,2100 #1 pen Insulin Glargine [Lantus Solostar] 50 unit SUBQ BID #1 pen Nitrofurantoin Macrocrystal [Macrodantin] 100 mg PO BID #8 capsule Polyethylene Glycol 3350 [Miralax] 17 gm PO DAILY #30 packet - Diet Type: Diabetic Texture: Regular May have monthly special meal: No - Therapies | Activity Therapy: Evaluation | Treat if indicated: PT, OT Rehabilitation Potential: Maximize functional status Activity: Wt Bearing as Tolerated Weight Bearing: Other (L BKA) Extremities: NWBLLE Assistance Devices: Wheelchair Additional Instructions: Take the Macrodantin til pills are done Follow Up: Follow-up with your primary doctor in 1-2 weeks See [facility] in 3 weeks"
[2017-04-03] MEDS: DOCUSATE SODIUM 100 MG CAPSULE PO PRN (13:18)
[2017-04-03 14:07] VITALS: BP 116/49
--- NOTE | 2017-04-19 10:38 | DISCHARGE SUMMARY ---
Physician: Katie Isaac MD DATE OF ADMISSION: 03/27/2017 DATE OF DISCHARGE: 04/03/2017 This is a 71-year-old white female with history of obesity, insulin-dependent diabetes, ovarian cancer in 2001, currently in remission, COPD/asthma, CKD, gout, urinary incontinence, who presented to the emergency room with severe weakness, nausea and vomiting, fever , foul smelling discharge from her left leg and foot where she had several open wounds and was treating them on her own topically. The patient was felt to be septic, admitted for management of diabetic foot infection, poorly controlled diabetes with a glucose of 540, findings of a UTI from her admission urinalysis. and also atrial fibrillation with initially a normal =rate , that worsened into RVR over the first evening, HOSPITAL COURSE AND DISCHARGE DIAGNOSES 1. Status post below the knee amputation. The eventual management of the diabetic foot and leg infection and osteomyelitis, was the need for a left BKA. This was done by the consulting orthopedist. Following this, her spirits improved and she was eager to begin physical therapy. she was discharged to a [facility] facility to start aggressive PT and OT and eventual use of a prosthesis and weightbearing. 2. Osteomyelitis. This was diagnosed by MRI on the day after admission and she was on iv antibiotics (see #3) and she required an orthopedic consultation and the BKA procedure ( done in #1). 3. Diabetic foot infection. The patient had cellulitis of both shins and multiple wounds of the left foot and left leg and there was foul smelling discharge from these wounds. She had wound and blood cultures done. The wound cultures grew E coli, but blood cultures were negative. She was put on vancomycin and a third generation cephalosporin during her entire course. After the BKA, the surgeon felt that she did not require further antibiotics for treatment of the soft tissue and bony infection. 4. Urinary tract infection. Urinalysis on admission showed a trace of ketones , many white blood cells and many bacteria. The urine grew E coli, and Klebsiella. Her third generation cephalosporin covered these bacteria and when she was discharged to the SNF she was put on Macrodantin 100 mg p.o. b.i.d. for 4 more days of treatment. 5. Chronic atrial fibrillation. The patient was in rapid ventricular response and required an ICU stay for an IV Cardizem drip and overall further management in the ICU until after the BKA. Her heart rate was eventually controlled as the infection was treated. Coumadin was held for the surgery, but resumed after that. 6. Chronic systolic heart failure. The patient's BNP on admission was 879. The patient had an echo during this admission showing moderate concentric LVH, moderate to severe global hypokinesis with an LVEF of 30% to 35% and diastolic function indeterminate. She also had moderate RV enlargement with mildly impaired RV function. Both atria were severely enlarged and valves had mild aortic regurgitation, moderate to severe mitral regurgitation, moderate tricuspid regurgitation and calculated PA pressure 36 mmHg. The patient required gentle diuresis during this admission and her electrolytes and BUN and creatinine were followed throughout. 7. Chronic kidney disease. The patient's creatinine was 1.7 on admission, went as high as 2.0, and at discharge creat was 1.2. There was careful management of her volume status and any nephrotoxic medications. 8. Chronic obstructive pulmonary disease/asthma. The patient was kept on her inhaler throughout the hospitalization. She had no signs of shortness of breath or wheezing until the day before discharge to the SNF, when extra nebulizers were given p.r.n. 9. Morbid obesity. The patient was on a diabetic calorie restricted diet. 10. Diabetes. The patient's admission A1c was 8.1. Her initial glucose of 540 was undoubtedly elevated because of the active infection. She was not in DKA and had glucose values that ranged between 250 and 350 during most of this stay, and the final blood glucose was 219. 11. Gout. A low purine diet is advised for the future. 12. Urinary incontinence. This problem began prior to hospitalization, she did require a Solorio during part of her stay. 13. Vision loss per her report and a history of cataracts. Diabetic eye exams are advised. IMAGING AND LABS: Reviewed and summarized above. ALLERGIES 1. LEVOFLOXACIN. 2. PENICILLIN. 3. SHELLFISH. MEDICATIONS AT THE TIME OF TRANSFER TO SNF 1. Tylenol p.r.n. pain. 2. Albuterol inhaler 2 puffs q. 4 hours p.r.n. 3. Percocet p.r.n. pain. 4. Vitamin D3 2000 units daily. 5. Clotrimazole cream p.r.n. 6. Cardizem-CD 240 mg p.o. daily. 7. Colace 250 mg p.o. daily. 8. Uloric 80 mg p.o. daily. 9. Lasix 40 mg p.o. daily. 10. NovoLog insulin 5 units subcutaneous t.i.d. with meals. 11. Low dose sliding scale, Glargine insulin 50 units subcutaneous b.i.d. 12. Cozaar 25 mg p.o. every evening. 13. Toprol-XL 50 mg p.o. daily. 14. Nitrofurantoin 100 mg p.o. b.i.d. for an additional 4 days. 15. Nystatin topically p.r.n. 16. MiraLax 17 grams p.o. daily. 17. Spironolactone 25 mg p.o. daily. 18. Warfarin alternating between 2.5 and 7.5 mg as needed to obtain a therapeutic INR of 2.0. CONDITION AT DISCHARGE: Stable PHYSICAL EXAM AT DISCHARGE: VSS HEENT: unremarkable NECK: no JVD or bruits Chest: clear, diminished breath sounds Heart: distant heart sounds Abdomen: obese with a large pannus, non-tender, soft Extremities: L BKA stump pink with rahul and bandaged. R has trace edema Neurologic: intact FOLLOWUP: The patient is to see Orthopedics in 3 weeks following the BKA per the insurance claims specialist. She should have physical therapy and occupational therapy at [facility]. She should have followup with her PCP after discharge from the SNF. CODE STATUS: FULL CODE. TIME REQUIRED TO COMPLETE THIS ENTIRE DISCHARGE: 65 minutes. TD: 04/19/2017 10[facility]
== END 2017-04-03 15:30 | DRG 616 ==
LOC: ED 12:35 → MS2 16:11 → ICU 22:32 → MS2 04-01 20:14
PROVIDERS: ADMIT Nurse Practitioner Gerontology; ATTEND Internal Medicine
PROC: 0Y6J0Z1 Detachment at Left Lower Leg, High, Open Approach (ICD-10-PCS; principal; 2017-03-31 09:30)
DX: I48.91 Unspecified atrial fibrillation (principal); E11.69 Type 2 diabetes mellitus with other specified complication; A41.9 Sepsis, unspecified organism; M86.672 Other chronic osteomyelitis, left ankle and foot; E11.52 Type 2 diabetes mellitus with diabetic peripheral angiopathy with gangrene; Z68.43 Body mass index [BMI] 50.0-59.9, adult; I50.9 Heart failure, unspecified; L03.116 Cellulitis of left lower limb; E11.9 Type 2 diabetes mellitus without complications; L03.115 Cellulitis of right lower limb; N30.00 Acute cystitis without hematuria; E87.1 Hypo-osmolality and hyponatremia; I50.22 Chronic systolic (congestive) heart failure; E11.621 Type 2 diabetes mellitus with foot ulcer; L97.524 Non-pressure chronic ulcer of other part of left foot with necrosis of bone; I48.2 Chronic atrial fibrillation; E11.65 Type 2 diabetes mellitus with hyperglycemia; E11.42 Type 2 diabetes mellitus with diabetic polyneuropathy; E11.22 Type 2 diabetes mellitus with diabetic chronic kidney disease; N18.9 Chronic kidney disease, unspecified; E66.01 Morbid (severe) obesity due to excess calories; J44.9 Chronic obstructive pulmonary disease, unspecified; I08.3 Combined rheumatic disorders of mitral, aortic and tricuspid valves; K21.9 Gastro-esophageal reflux disease without esophagitis; K44.9 Diaphragmatic hernia without obstruction or gangrene; R32 Unspecified urinary incontinence; H54.7 Unspecified visual loss; M10.9 Gout, unspecified; Z79.4 Long term (current) use of insulin; Z79.51 Long term (current) use of inhaled steroids; Z79.01 Long term (current) use of anticoagulants; Z79.899 Other long term (current) drug therapy; Z85.43 Personal history of malignant neoplasm of ovary
CPT/HCPCS: 36415; 51702; 71045; 80053; 80202; 81001; 81003; 82009; 82803; 83036; 83605; 83690; 83735; 83880; 84132; 84484; 84550; 85014; 85018; 85025; 85379; 85610; 86850; 86900; 86901; 87040; 87070; 87077; 87086; 87150; 87205; 87275; 87276; 88307; 93005; 93306; 94640; 96365; 96366; 96368; 99283; 99284; 99285

== ENCOUNTER 2017-04-03 15:25 | Outpatient (CLI) | payer MEDICARE, MEDICAID | END 2017-04-03 15:26 | LOC: EMS 15:25 | PROVIDERS: ATTEND Surgery | DX: R53.1 Weakness (principal); E66.9 Obesity, unspecified; Z89.512 Acquired absence of left leg below knee | CPT/HCPCS: A0425; A0428 ==

== ENCOUNTER 2017-04-05 12:36 | Outpatient (CLI) | payer MEDICARE, MEDICAID | END 2017-04-05 12:37 | disposition critical access hospital (66) | LOC: EMS 12:36 | PROVIDERS: ATTEND Surgery | DX: M79.605 Pain in left leg (principal) | CPT/HCPCS: A0425; A0429 ==

== ENCOUNTER 2017-04-05 12:43 | Inpatient (IN) | payer MEDICARE, MEDICAID ==
--- NOTE | 2017-04-05 14:15 | PROVIDER PROGRESS NOTE ---
Subjective - Prog Note Date Prog Note Date: 04/05/17 Prog Note Time: 14:07 - Subjective Pt reports feeling: Worse (No fever. Mild lateral stump pain with persistent drainage) Objective - Vital Signs/Intake & Output Vital Signs: Vital Signs x48h Temp Pulse Resp BP Pulse Ox 04/05/17 12:47 36.5 C 53 L 22 118/57 L 96 - Other Results/Comments Other Results/Comments: EXAM: Erythematous posterior and anterior flaps. Flaps appear viable except small area of the anterolateral incision (1-1.5 cm . No,lymphangitis into thigh. Small amount of serosangious drainage from lateral [place] drain site was expressible. After betadine skin prep of the stump, attempt to aspirate the stump in three areas: lateral, near the [place] drain site of stump incision, midline posterior of incision, and anterolateral of the incision site in an area seen on ultrasound done at the bedside in ED. Only 0.5 ml of bloody fluid obtained fromaspiration from all sites - specimen sent to lab for C&S. The only fluid collection seen on ED U/S was very superficial and anteriolateral of stump incision and was not aspirable and thought to likely be a postop hematoma. (not compressible like an abscess would have been). Pateint toleratd the procedure well. Assessment/Plan - Problem List (1) Cellulitis Impression: No abscess aspirated and ulotrasound did not detect abscess collection either. PLAN: Discussed with hospitalist. Medicine will admit for IV antibiotics for presumed cellulitis to her left BKA stump. and management of her multiple medical problems, including DM, cardiovascular/pulmonary issues. Orthopedics will follow with medicine. Dr. Arsalan Becerra will be covering, beginning on Thursday04/06/2017. Qualifiers: Site of cellulitis: extremity Site of cellulitis of extremity: lower extremity Laterality: left Qualified Code(s): L03.116 - Cellulitis of left lower limb
[2017-04-05 14:17] LABS: BASOPHILS # (AUTO) 0.4 10^3/uL (0.0-0.1); BASOPHILS % (AUTO) 2.8 %; EOSINOPHILS # (AUTO) 0.1 10^3/uL (0.0-0.7); EOSINOPHILS % (AUTO) 0.6 %; LYMPHOCYTES # (AUTO) 2.3 10^3/uL (1.5-3.5); LYMPHOCYTES % (AUTO) 15.9 %; MEAN CORPUSCULAR HEMOGLOBIN 30.6 pg (27.0-31.0); MEAN CORPUSCULAR HGB CONC 32.9 g/dL (32.0-36.0); MEAN CORPUSCULAR VOLUME 93.2 fL (81.0-99.0); MEAN PLATELET VOLUME 8.3 fL (7.9-10.8); MONOCYTES # (AUTO) 1.2 10^3/uL (0.0-1.0); MONOCYTES % (AUTO) 8.5 %; NEUTROPHILS # (AUTO) 10.3 10^3/uL (1.5-6.6); NEUTROPHILS % (AUTO) 72.2 %; PLT - PLATELET COUNT 343 10^3/uL (130-450); RED BLOOD COUNT 3.27 10^6/uL (4.20-5.40); RED CELL DISTRIBUTION WIDTH 14.6 % (12.0-15.0); WHITE BLOOD COUNT 14.2 x10^3/uL (4.8-10.8)
[2017-04-05 14:34] LABS: ALBUMIN 2.8 g/dL (3.2-5.5); ALBUMIN/GLOBULIN RATIO 0.6 (1.0-2.2); BILIRUBIN,TOTAL 0.6 mg/dL (0.2-1.0); CALCIUM 8.7 mg/dL (8.5-10.3); CREATININE 1.1 mg/dL (0.4-1.0); TOTAL PROTEIN 7.4 g/dL (6.7-8.2)
--- NOTE | 2017-04-05 14:37 | ED Physician Documentation ---
History of Present Illness - Stated complaint Stated Complaint: POST OP WOUND - Chief complaint Chief Complaint: Ext Problem - History obtained from History obtained from: Patient, Other (ortho Dr. Enrique) - History of Present Illness Timing: Yesterday - Additonal information Additional information: 71-year-old female had a left BKA done here last week and she has returned to [facility] for recovery. She has developed some erythema and drainage from the stump. She is sent to the emergency department for evaluation by Dr. Benji Enrique. Review of Systems Constitutional: denies: Fever Eyes: denies: Decreased vision Ears: denies: Ear pain Nose: denies: Congestion Throat: denies: Sore throat Cardiac: denies: Chest pain / pressure Respiratory: denies: Dyspnea, Cough GI: denies: Abdominal Pain, Nausea, Vomiting : denies: Dysuria Skin: reports: Other (The patient does have some developing bedsores and her biggest complaint is pain to her buttocks) Musculoskeletal: reports: Extremity pain Neurologic: reports: Generalized weakness. denies: Focal weakness, Numbness PD PAST MEDICAL HISTORY - Past Medical History Cardiovascular: Congestive heart failure Respiratory: Asthma, COPD, Shortness of breath Neuro: Peripheral neuropathy Endocrine/Autoimmune: Type 2 diabetes GI: GERD, Hiatal hernia : Incontinence HEENT: Chronic vision loss Psych: None Musculoskeletal: Gout Derm: None - Past Surgical History Past Surgical History: Yes General: Cholecystectomy, Appendectomy Ortho: Other /[employer]ER: Hysterectomy, Oophrectomy HEENT: Cataracts, Other - Present Medications Home Medications: Ambulatory Orders Medication Instructions Recorded Confirmed Cholecalciferol (Vitamin D3) 2,000 units PO DAILY 08/29/13 03/27/17 [Vitamin D3] Losartan [Cozaar] 25 mg PO QPM 06/10/16 03/27/17 Metoprolol Succinate 50 mg PO DAILY 06/10/16 03/27/17 Acetaminophen [Tylenol] 650 mg PO Q4HR PRN #50 tablet 04/03/17 Albuterol Sulfate [Proair Hfa 2 puffs INH Q4HR PRN #1 inh 04/03/17 03/27/17 Inhaler] Clotrimazole 1 applic TOP BID #1 tub 04/03/17 03/27/17 Docusate Sodium [Dss] 250 mg PO DAILY #30 04/03/17 03/27/17 Febuxostat [Uloric] 80 mg PO DAILY #30 04/03/17 03/27/17 Furosemide [Lasix] 40 mg ORAL DAILY #60 04/03/17 03/27/17 Insulin Aspart [NovoLOG] 5 unit SUBQ 0800,1200,1700,2100 #1 04/03/17 pen Insulin Aspart [NovoLOG] 5 unit SUBQ TIDWM #1 pen 04/03/17 Insulin Glargine [Lantus Solostar] 50 unit SUBQ BID #1 pen 04/03/17 Nitrofurantoin Macrocrystal 100 mg PO BID #8 capsule 04/03/17 [Macrodantin] Nystatin [Nystop] 1 applic TOP BID #1 tub 04/03/17 03/27/17 Polyethylene Glycol 3350 [Miralax] 17 gm PO DAILY #30 packet 04/03/17 Spironolactone 25 mg ORAL DAILY #30 04/03/17 03/27/17 Warfarin [Coumadin] 5 mg PO MOFR #8 04/03/17 03/27/17 Warfarin [Coumadin] 7.5 mg PO SUTUWETHSA #22 04/03/17 03/27/17 diltiaZEM CD [Cardizem Cd] 240 mg PO DAILY #30 capsule 04/03/17 oxyCODONE/ACET 5/325 [Percocet 5 1 tab PO Q4HR PRN #14 tablet 04/03/17 mg/325 mg] - Allergies Allergies/Adverse Reactions: Allergies Allergy/AdvReac Type Severity Reaction Status Date / Time levofloxacin Allergy Unknown Verified 04/05/17 12:51 Penicillins Allergy Respiratory Verified 04/05/17 12:51 shellfish Allergy Rash Uncoded 04/05/17 12:51 - Social History Does the pt smoke?: No Smoking Status: Never smoker Does the pt drink ETOH?: No Does the pt have substance abuse?: No - Immunizations Immunizations are current?: Yes - POLST Patient has POLST: No POLST Status: Full Code (pt state she request CPR but without incubation for her code status) PD ED PE NORMAL - Vitals Vital signs reviewed: Yes (Normal) - General General: Alert and oriented X 3, No acute distress, Well developed/nourished - HEENT HEENT: Atraumatic, PERRL - Neck Neck: Supple, no meningeal sign - Respiratory Respiratory: No respiratory distress - Derm Derm: Normal color, Warm and dry - Extremities Extremities: Other (There is a left BKA and the flap appears erythematous with some recent drainage from the anterior portion of this there is no specific fluctuance to anywhere on the area of the stump. The outlines of the erythema are marked.The erythema does not extend past the knee) - Neuro Neuro: No motor deficit, No sensory deficit Eye Opening: Spontaneous Motor: Obeys Commands Verbal: Oriented GCS Score: 15 - Psych Psych: Normal mood, Normal affect Results - Vitals Vitals: Vital Signs - 24 hr 04/05/17 12:47 Temperature 36.5 C Heart Rate 53 L Respiratory 22 Rate Blood Pressure 118/57 L O2 Saturation 96 Oxygen O2 Source Room air - Labs Labs: Microbiology 04/05/17 13:45 Wound Culture - Preliminary Abscess Laboratory Tests 04/05/17 04/05/17 14:00 14:00 WBC 14.2 H RBC 3.27 L Hgb 10.0 L Hct 30.5 L MCV 93.2 MCH 30.6 MCHC 32.9 RDW 14.6 Plt Count 343 MPV 8.3 Neut # 10.3 H Lymph # 2.3 Summers # 1.2 H Eos # 0.1 Baso # 0.4 H Absolute Nucleated RBC 0.00 Nucleated RBC % 0.0 Sodium 139 Potassium 4.8 Chloride 100 L Carbon Dioxide 27 Anion Gap 12.0 BUN 31 H Creatinine 1.1 H Estimated GFR (MDRD) 49 L Glucose 177 H Calcium 8.7 Total Bilirubin 0.6 AST 28 ALT 38 Alkaline Phosphatase 68 Total Protein 7.4 Albumin 2.8 L Globulin 4.6 H Albumin/Globulin Ratio 0.6 L Lipase 42 PD MEDICAL DECISION MAKING - ED course Complexity details: reviewed old records, reviewed results, re-evaluated patient , considered differential, d/w patient, d/w family ED course: 71-year-old female status post left BKA appears to have infection in the residual stump. Dr. Enrique comes to the emergency department and evaluates the patient he is able to draw off some fluid from one area of the wound and with ultrasound assistance there does appear to be a hematoma on the anterior portion of the wound and attempt to aspirate this resulted only a small amount of blood aspiration. He is asked Dr. Rosario for help with admission and Dr. Rosario will admit the patient to the hospital for antibiotic therapy today. Departure - Departure Disposition: [facility] DC/Xfer Clinical Impression: Postoperative wound cellulitis Qualifiers: Encounter type: initial encounter Qualified Code(s): T81.4XXA - Infection following a procedure, initial encounter Condition: Stable
[2017-04-05] MEDS ORDERED: ZOLPIDEM 5 MG TABLET PO PRN (16:34)
[2017-04-05] MEDS ORDERED: PROCHLORPERAZINE 10 MG/2 ML VIAL IVP PRN (16:34)
[2017-04-05] MEDS ORDERED: WARFARIN 2.5 MG TABLET PO SCH (17:00)
[2017-04-05] MEDS ORDERED: VANCOMYCIN PER PHARMACY 100 GM in SODIUM CHLORIDE 0.9% 250 ML IV SCH (17:00)
--- NOTE | 2017-04-05 17:48 | CONSULTATION NOTE ---
Physician: Benji Enrique MD DATE OF ADMISSION: 04/05/2017. ORTHOPEDIC CONSULT NOTE FROM EMERGENCY ROOM REFERRING PHYSICIAN: Dr. Arsalan Morales of the emergency room department. CHIEF COMPLAINT: "I was sent in by the skilled nursing to have my left leg evaluated." HISTORY OF PRESENT ILLNESS: The patient is a 71-year-old obese female, diabetic , who is well known to my service. She was recently admitted with a severe left foot diabetic infection, which on further evaluation with an MRI scan indicated a presumed osteomyelitis associated with this infection involving the fifth metatarsal. After her condition was stabilized and she had been on IV antibiotics with some clinical improvement in the redness and swelling of her left foot, she elected to proceed with a [id number]-jcz-[id number] amputation as opposed to a fifth ray resection. This was done approximately 5 days ago. It was only done under 22 minutes of tourniquet time. Her flaps at the time of surgery appeared viable. We were able to close her wound satisfactorily over a Sherwood drain. After 48 hours, her drain was removed. She was noted to have some serosanguineous drainage from her stump. There was a little questionable area of edge necrosis in the anterior lateral portion of her stump incision site , but otherwise incision looked fine. She had no tenderness or fluctuance. No associated erythema of her flaps noted. The patient was subsequently transferred to [facility] for the balance of her postoperative care 2 days ago. Reports from the nursing staff at [facility] indicated the patient still had a moderate amount of serosanguineous drainage, the day before and the day of her admission. There was a foul smell to the drainage. The patient had no fever, had minimal stump symptoms, and had stable vital signs. She was subsequently transferred for an evaluation in the emergency room on Thursday04/05/2017. While in the emergency room, she was afebrile, and her vital signs were stable. Examination of her left [id number]-[id number] amputation stump after the dressings were removed showed that she still had some foul smelling serosanguineous drainage, primarily from the lateral portion of her stump in the area where the Sherwood drain had been. This was also an area that was slightly tender on palpation, though no significant amount of drainage was expressible. She did have a significant amount of erythema involving the posterior flap, as well as an irregular pattern over the anterior flap as well. This was demarcated by the skilled nursing staff. There was no proximal lymphangitis extending from her stump into the thigh. There was no obvious fluctuance on palpation around her stump or the stump incision site. There was still an area of about a centimeter in length in the anterolateral aspect of her stump incision that looked to be somewhat necrotic, but again measured about a centimeter in length and may be 0.25 to 0.5 cm wide. Again, no fluctuance or tenderness in this area noted. With the patient's permission after Betadine skin preparation in multiple sites around her stump, we attempted to aspirate any collection of fluid that might be present. First aspiration was done lateral in the vicinity of her prior Edilma drain site. The other site was in the posterior mid portion of her incision. Only a couple drops of bloody fluid were obtained, and they were sent off to laboratory for cultures and sensitivity. An ultrasound study done in the emergency room was performed with the emergency room doctor. No large deep collection of fluid was noted on our exam. There was a small area anterior lateral and proximal to the stump incision that was seen on our ultrasound exam. We did introduce another needle and syringe, and we were unable to aspirate any fluid from this. The mass was noted not to be compressible, and the needle was in the vicinity and confirmed with the ultrasound exam. It was thought that this probably represented a postoperative hematoma as opposed to an abscess collection. The fluid was pooled with the other aspirate and sent to microbiology for cultures and sensitivities. The patient tolerated the aspiration and ultrasound study well. Wound was redressed. ASSESSMENT 1. Presumed cellulitis of left [id number] amputation. 2. Status post left below-knee amputation secondary to a left diabetic foot infection, which involved osteomyelitis of the fifth metatarsal. 3. Diabetes mellitus. 4. History of congestive heart failure. 5. History of chronic obstructive pulmonary disease. 6. History of atrial fibrillation. PLAN: I have discussed this patient with the medical hospitalist. This was also the hospitalist that the patient was on at the time of the amputation done a week ago. She has accepted the patient onto her service and will begin IV antibiotics with adjustments as needed pending the patient's clinical improvement as well as the culture results. If she continues to not improve, would consider doing an MRI scan to determine if again there was an associated soft tissue abscess that may need to be surgically drained and washed out. Dr. Arsalan Becerra will be covering the orthopedic service beginning on Thursday04/06/2017. TD: 04/05/2017 17:47 [email or web address]
[2017-04-05] MEDS: ACETAMINOPHEN 325 MG TABLET PO PRN (19:27)
[2017-04-05] MEDS: INSULIN ASPART 300 UNIT/3 ML PEN SUBQ SCH (19:32)
[2017-04-05] MEDS: CLINDAMYCIN 600 MG/50 ML 50 ML IV SCH (20:03)
[2017-04-05] MEDS: INSULIN GLARGINE 300 UNIT/3 ML PEN SUBQ SCH (20:55)
[2017-04-05] MEDS: SODIUM CHLORIDE FLUSH 0.9% 10 ML SYRINGE IVP SCH (21:02)
[2017-04-05] MEDS: CLOTRIMAZOLE 1% CREAM 15 GM TUBE TOP SCH (21:22)
[2017-04-05] MEDS: SODIUM CHLORIDE FLUSH 0.9% 10 ML SYRINGE IVP PRN (21:22)
[2017-04-05] MEDS: NYSTATIN POWDER 15 GM TOP SCH (22:00)
[2017-04-06] MEDS: CLINDAMYCIN 600 MG/50 ML 50 ML IV SCH ×4 (03:00→19:49)
[2017-04-06 06:08] LABS: BASOPHILS % (AUTO) 0.3 %; EOSINOPHILS # (AUTO) 0.1 10^3/uL (0.0-0.7); EOSINOPHILS % (AUTO) 0.6 %; LYMPHOCYTES # (AUTO) 2.6 10^3/uL (1.5-3.5); LYMPHOCYTES % (AUTO) 20.7 %; MEAN CORPUSCULAR HEMOGLOBIN 30.8 pg (27.0-31.0); MEAN CORPUSCULAR HGB CONC 33.2 g/dL (32.0-36.0); MEAN CORPUSCULAR VOLUME 92.7 fL (81.0-99.0); MEAN PLATELET VOLUME 8.3 fL (7.9-10.8); NEUTROPHILS # (AUTO) 8.8 10^3/uL (1.5-6.6); NEUTROPHILS % (AUTO) 70.4 %; PLT - PLATELET COUNT 302 10^3/uL (130-450); RED BLOOD COUNT 2.94 10^6/uL (4.20-5.40); RED CELL DISTRIBUTION WIDTH 14.9 % (12.0-15.0); WHITE BLOOD COUNT 12.5 x10^3/uL (4.8-10.8)
[2017-04-06 06:13] LABS: CALCIUM 8.1 mg/dL (8.5-10.3); CREATININE 1.2 mg/dL (0.4-1.0); MAGNESIUM 1.7 mg/dL (1.7-2.8)
[2017-04-06 06:14] LABS: INR 1.5 (0.8-1.2); PT - PROTHROMBIN TIME 16.7 secs (9.9-12.6)
[2017-04-06] MEDS: SODIUM CHLORIDE FLUSH 0.9% 10 ML SYRINGE IVP SCH ×3 (06:42→22:17)
[2017-04-06] MEDS: ALBUTEROL NEB 2.5 MG/3 ML INH PRN ×2 (08:11→21:41)
[2017-04-06 08:17] LABS: BASOPHILS # (AUTO) 0.2 10^3/uL (0.0-0.1); BASOPHILS % (AUTO) 1.7 %; EOSINOPHILS # (AUTO) 0.1 10^3/uL (0.0-0.7); EOSINOPHILS % (AUTO) 0.5 %; LYMPHOCYTES # (AUTO) 1.8 10^3/uL (1.5-3.5); LYMPHOCYTES % (AUTO) 16.8 %; MEAN CORPUSCULAR HEMOGLOBIN 30.9 pg (27.0-31.0); MEAN CORPUSCULAR HGB CONC 33.4 g/dL (32.0-36.0); MEAN CORPUSCULAR VOLUME 92.5 fL (81.0-99.0); MONOCYTES # (AUTO) 0.9 10^3/uL (0.0-1.0); NEUTROPHILS # (AUTO) 7.9 10^3/uL (1.5-6.6); PLT - PLATELET COUNT 303 10^3/uL (130-450); RED BLOOD COUNT 2.91 10^6/uL (4.20-5.40); RED CELL DISTRIBUTION WIDTH 14.4 % (12.0-15.0); WHITE BLOOD COUNT 10.9 x10^3/uL (4.8-10.8)
[2017-04-06] MEDS ORDERED: NITROFURANTOIN MACRO 100 MG CAPSULE PO SCH (09:00)
[2017-04-06] MEDS: METOPROLOL SUCCINATE 50 MG TABLET PO SCH (10:26)
[2017-04-06] MEDS: SODIUM CHLORIDE FLUSH 0.9% 10 ML SYRINGE IVP PRN ×2 (10:26→22:42)
--- NOTE | 2017-04-06 10:27 | PROVIDER PROGRESS NOTE ---
Subjective - General Admit Date: 04/05/17 Procedure Date: 03/31/17 Post Op Days: 6 - Review of Systems General: positive: Fatigue Objective - Patient Data Vital Signs: Vital Signs x48h Temp Pulse Pulse Resp BP Pulse Ox 04/06/17 08:12 92 20 04/06/17 08:02 36.5 C 94 20 129/90 H 97 04/06/17 05:46 37.2 C 60 20 126/79 97 Weight: Weight 04/04/17 04/05/17 04/06/17 23:59 23:59 23:59 Weight (kg) 147 kg 150.5 kg Intake & Output: Intake and Output Totals x24h 04/04/17 04/05/17 04/06/17 23:59 23:59 23:59 Intake Total 50 50 Output Total 1000 Balance 50 -950 - Lab Results Lab Results: 04/06/17 08:09 04/06/17 05:55 Other Lab Results: Lab Results x24hrs 04/06/17 04/06/17 04/06/17 Range/Units 08:09 05:55 05:55 WBC 10.9 H 12.5 H (4.8-10.8) x10^3/uL RBC 2.91 L 2.94 L (4.20-5.40) 10^6/uL Hgb 9.0 L 9.0 L (12.0-16.0) g/dL Hct 26.9 L 27.2 L (37.0-47.0) % MCV 92.5 92.7 (81.0-99.0) fL MCH 30.9 30.8 (27.0-31.0) pg MCHC 33.4 33.2 (32.0-36.0) g/dL RDW 14.4 14.9 (12.0-15.0) % Plt Count 303 302 (130-450) 10^3/uL MPV 8.0 8.3 (7.9-10.8) fL Neut # 7.9 H 8.8 H (1.5-6.6) 10^3/uL Lymph # 1.8 2.6 (1.5-3.5) 10^3/uL [place]ham # 0.9 1.0 (0.0-1.0) 10^3/uL Eos # 0.1 0.1 (0.0-0.7) 10^3/uL Baso # 0.2 H 0.0 (0.0-0.1) 10^3/uL Absolute Nucleated RBC 0.00 0.00 x10^3/uL Nucleated RBC % 0.0 0.0 /100WBC ESR (0-30) mm/Hr PT 16.7 H (9.9-12.6) secs INR 1.5 H (0.8-1.2) Sodium (135-145) mmol/L Potassium (3.5-5.0) mmol/L Chloride (101-111) mmol/L Carbon Dioxide (21-32) mmol/L Anion Gap (6-13) BUN (6-20) mg/dL Creatinine (0.4-1.0) mg/dL Estimated GFR (MDRD) (>89) Glucose (70-100) mg/dL Calcium (8.5-10.3) mg/dL Magnesium (1.7-2.8) mg/dL C-Reactive Protein (0-1.0) mg/dL 04/06/17 04/05/17 04/05/17 Range/Units 05:55 20:39 20:39 WBC (4.8-10.8) x10^3/uL RBC (4.20-5.40) 10^6/uL Hgb (12.0-16.0) g/dL Hct (37.0-47.0) % MCV (81.0-99.0) fL MCH (27.0-31.0) pg MCHC (32.0-36.0) g/dL RDW (12.0-15.0) % Plt Count (130-450) 10^3/uL MPV (7.9-10.8) fL Neut # (1.5-6.6) 10^3/uL Lymph # (1.5-3.5) 10^3/uL [place] # (0.0-1.0) 10^3/uL Eos # (0.0-0.7) 10^3/uL Baso # (0.0-0.1) 10^3/uL Absolute Nucleated RBC x10^3/uL Nucleated RBC % /100WBC ESR > 140 H (0-30) mm/Hr PT (9.9-12.6) secs INR (0.8-1.2) Sodium 139 (135-145) mmol/L Potassium 4.6 (3.5-5.0) mmol/L Chloride 101 (101-111) mmol/L Carbon Dioxide 27 (21-32) mmol/L Anion Gap 11.0 (6-13) BUN 30 H (6-20) mg/dL Creatinine 1.2 H (0.4-1.0) mg/dL Estimated GFR (MDRD) 44 L (>89) Glucose 132 H (70-100) mg/dL Calcium 8.1 L (8.5-10.3) mg/dL Magnesium 1.7 (1.7-2.8) mg/dL C-Reactive Protein 10.5 H (0-1.0) mg/dL esF > 140 crp 10 wbc 12k - Current Medications Current Medications: Current Medications Generic Name Dose Route Start Last Admin Trade Name Freq PRN Reason Stop Dose Admin Acetaminophen 650 mg 04/05/17 16:34 04/05/17 19:27 Tylenol PO 650 mg Q4HR PRN Administration Pain 1 to 4 Albuterol 2.5 mg 04/05/17 17:05 04/06/17 08:11 INH 2.5 mg RTQ4H PRN Administration Wheezing Clotrimazole 1 applic 04/05/17 21:00 04/05/17 21:22 Lotrimin 1% Cream TOP Not Given BID EILEEN Clindamycin Phosphate 50 mls @ 100 mls/hr 04/05/17 20:00 04/06/17 03:35 Cleocin 600 Mg/50 Ml IV Infused Q6H EILEEN Infusion Insulin Aspart 5 unit 04/05/17 17:00 04/05/17 19:32 Novolog SUBQ 5 unit TIDWM EILEEN Administration Insulin Glargine 50 unit 04/05/17 21:00 04/05/17 20:55 Lantus Solostar SUBQ 50 unit BID EILEEN Administration Nystatin 1 applic 04/05/17 21:00 04/05/17 22:00 Nystop TOP 1 applic BID EILEEN Administration Sodium Chloride 10 ml 04/05/17 16:34 04/05/17 21:22 Normal Saline Flush 0.9% IVP 10 ml PRN PRN Administration NEEDED PER PROVIDER ORDERS Sodium Chloride 10 ml 04/05/17 22:00 04/06/17 06:42 Normal Saline Flush 0.9% IVP 10 ml Q8HR EILEEN Administration Warfarin Sodium 7.5 mg 04/05/17 17:00 04/05/17 19:35 Coumadin PO 7.5 mg SUTUWETHSA@1700 EILEEN Administration - Physical Exam Wound/Incisions: positive: Dressing dry and intact, No drainage, Drainage (LEft stump foul odor, gross pus in middle of wound, diffuse eryhema, about 1cm DECREASE in e erythema approaching the knee; short stump.) Impression/Plan - Problem List Problem List: Left Leg stump infection. I explained to patient that the leg infection will spread. If it involves the orthopedic hardware in he femur, she coiuld of complicatons. I&D urgently needed to allow wound to drain and o remove infected tissuee. She seemed to understand and signed the conssent in my presence. Surgery planned for later this morning.
[2017-04-06] MEDS: INSULIN ASPART 300 UNIT/3 ML PEN SUBQ SCH ×5 (10:31→22:08)
[2017-04-06] MEDS: CHOLECALCIFEROL 1,000 UNIT TABLET PO SCH (10:31)
[2017-04-06] MEDS: FAMOTIDINE 20 MG TABLET PO SCH (10:32)
[2017-04-06] MEDS: diltiaZEM CD 240 MG CAPSULE PO SCH (10:32)
[2017-04-06] MEDS: DOCUSATE SODIUM 250 MG CAPSULE PO SCH ×2 (10:32→22:01)
[2017-04-06] MEDS: ENOXAPARIN 40 MG/0.4 ML SYRINGE SUBQ SCH (10:32)
[2017-04-06] MEDS: FUROSEMIDE 20 MG TABLET PO SCH (10:33)
[2017-04-06] MEDS: INSULIN GLARGINE 300 UNIT/3 ML PEN SUBQ SCH ×2 (10:39→22:06)
[2017-04-06] MEDS: INSULIN REGULAR HUMAN 100 UNIT/1 ML 10 ML MDV SUBQ SCH ×2 (10:39→11:58)
[2017-04-06] MEDS: NYSTATIN POWDER 15 GM TOP SCH ×2 (10:40→22:11)
[2017-04-06] MEDS: POLYETHYLENE GLYCOL 3350 17 GM PACKET PO SCH (10:41)
[2017-04-06] MEDS: SPIRONOLACTONE 25 MG TABLET PO SCH (10:41)
[2017-04-06] MEDS: CLOTRIMAZOLE 1% CREAM 15 GM TUBE TOP SCH ×2 (11:15→22:11)
[2017-04-06] MEDS: cefTRIAXone 2 GM in SODIUM CHLORIDE 0.9% MINIBAG 100 ML IV SCH (11:15)
[2017-04-06] MEDS ORDERED: LACTATED RINGERS 1,000 ML IV ONE ×2 (11:18→13:58)
[2017-04-06] MEDS ORDERED: ROCURONIUM 50 MG/5 ML VIAL IVP ONE (13:15)
[2017-04-06] MEDS ORDERED: PHENYLEPHRINE 50 MG/5 ML VIAL IV ONE (13:15)
[2017-04-06] MEDS ORDERED: PROPOFOL 200 MG/20 ML VIAL IVP ONE (13:15)
--- NOTE | 2017-04-06 13:40 | OPERATIVE REPORT ---
Operative Report - General Admit Date: 04/05/17 Planned Procedure: I andD of left amputation stump Pre-Op Diagnosis: Left leg stump wound infection Procedure Performed: I andD of left amputation stump Wound Vac Placement -- large area Post Op Diagnosis: same - Procedure Note Primary Surgeon: Mariam Anesthesia Technique: General ET tube Pathology: Culture specimen sent for aerobic and anaerobic Estimated Blood Loss (mL): 200 Drain/Tube Type: Self contained (WoundVac)
[2017-04-06] MEDS ORDERED: ALBUTEROL NEB 2.5 MG/3 ML INH ONE (13:51)
[2017-04-06] MEDS ORDERED: MIN OIL/DIMETHICON/COCONUT OIL 92 GM TUBE TOP PRN (14:24)
[2017-04-06 14:26] LABS: BASOPHILS # (AUTO) 0.2 10^3/uL (0.0-0.1); BASOPHILS % (AUTO) 1.4 %; EOSINOPHILS # (AUTO) 0.1 10^3/uL (0.0-0.7); EOSINOPHILS % (AUTO) 0.7 %; HGB - HEMOGLOBIN 9.1 g/dL (12.0-16.0); MEAN CORPUSCULAR HEMOGLOBIN 30.6 pg (27.0-31.0); MEAN CORPUSCULAR HGB CONC 32.7 g/dL (32.0-36.0); MEAN CORPUSCULAR VOLUME 93.6 fL (81.0-99.0); MONOCYTES # (AUTO) 0.9 10^3/uL (0.0-1.0); MONOCYTES % (AUTO) 7.2 %; NEUTROPHILS # (AUTO) 8.3 10^3/uL (1.5-6.6); NEUTROPHILS % (AUTO) 66.7 %; PLT - PLATELET COUNT 348 10^3/uL (130-450); RED BLOOD COUNT 2.98 10^6/uL (4.20-5.40); WHITE BLOOD COUNT 12.4 x10^3/uL (4.8-10.8)
[2017-04-06] MEDS: ACETAMINOPHEN 325 MG TABLET PO PRN ×2 (14:39→22:00)
[2017-04-06] MEDS ORDERED: WARFARIN 5 MG TABLET PO SCH (17:00)
--- NOTE | 2017-04-06 18:17 | PROVIDER PROGRESS NOTE ---
Assessment/Plan - Problem List (1) Postoperative wound infection Qualifiers: Encounter type: subsequent encounter Qualified Code(s): T81.4XXD - Infection following a procedure, subsequent encounter Assessment/Plan: The BKA site needed debridement, done by Ortho. Continue iv antibiotics and dressing changes, wound management as per Dr Mazariegos. (2) Osteomyelitis of ankle and foot Assessment/Plan: Wound aspirates done in ER yesterday from the BKA stump (which was done due to osteo) have grown Ecoli, which was one of the organisms in the original infected diabetic foot. Blood cultures done yesterday have not grown any pathogen yet. New wound samples were sent from the OR today. Continue current empiric antibiotics, Day#2 of iv Clinda and iv Ceftriaxone. (3) Atrial fibrillation with RVR Assessment/Plan: Rate is controlled on B-carlos and Cardizem Pt also on Coumadin, currently on hold. (4) DM2 (diabetes mellitus, type 2) Assessment/Plan: Continue diet an Insulin coverage, glu checks. (5) History of COPD Assessment/Plan: Respiratory status stable, on inhalers. (6) Hx of chronic congestive heart failure Assessment/Plan: Pt on B-carlos and Spironolactone and Lasix. Continue meds and follow daily weights. (7) UTI (urinary tract infection) Qualifiers: Urinary tract infection type: acute cystitis Hematuria presence: without hematuria Qualified Code(s): N30.00 - Acute cystitis without hematuria Assessment/Plan: She was on po Macrodantin for a UTI last recent admission. Continue Ceftriaxone. - Current Meds Current Meds: Current Medications Generic Name Dose Route Start Last Admin Trade Name Freq PRN Reason Stop Dose Admin Acetaminophen 650 mg 04/05/17 16:34 04/06/17 14:39 Tylenol PO 650 mg Q4HR PRN Administration Pain 1 to 4 Albuterol 2.5 mg 04/05/17 17:05 04/06/17 08:11 INH 2.5 mg RTQ4H PRN Administration Wheezing Cholecalciferol 2,000 unit 04/06/17 09:00 04/06/17 10:31 Vitamin D3 PO Not Given DAILY [facility] Clotrimazole 1 applic 04/05/17 21:00 04/06/17 11:15 Lotrimin 1% Cream TOP Not Given BID [facility] Diltiazem HCl 240 mg 04/06/17 09:00 04/06/17 10:32 Cardizem Cd PO Not Given DAILY [facility] Docusate Sodium 250 mg 04/06/17 09:00 04/06/17 10:32 Colace 250mg Capsule PO Not Given DAILY [facility] Enoxaparin Sodium 40 mg 04/06/17 09:00 04/06/17 10:32 Lovenox SUBQ Not Given DAILY [facility] Famotidine 20 mg 04/06/17 09:00 04/06/17 10:32 Pepcid PO Not Given DAILY [facility] Furosemide 40 mg 04/06/17 09:00 04/06/17 10:33 Lasix PO Not Given DAILY [facility] Ceftriaxone Sodium 2 gm/ 100 mls @ 200 mls/hr 04/06/17 09:00 04/06/17 11:15 Sodium Chloride IV Not Given DAILY [facility] Clindamycin Phosphate 50 mls @ 100 mls/hr 04/05/17 20:00 04/06/17 15:25 Cleocin 600 Mg/50 Ml IV Infused Q6H [facility] Infusion Insulin Aspart 5 unit 04/05/17 17:00 04/06/17 17:22 Novolog SUBQ 5 unit TIDWM [facility] Administration Insulin Aspart 1 - 5 unit 04/06/17 17:00 04/06/17 17:22 Novolog SUBQ 1 unit 0800,1200,1700,2100 [facility] Administration Protocol Insulin Glargine 50 unit 04/05/17 21:00 04/06/17 10:39 Lantus Solostar SUBQ Not Given BID [facility] Metoprolol Succinate 50 mg 04/06/17 09:00 04/06/17 10:26 Toprol Xl PO 50 mg DAILY [facility] Administration Nitrofurantoin 100 mg 04/06/17 09:00 04/06/17 10:33 Macrobid PO Not Given BID [facility] Nystatin 1 applic 04/05/17 21:00 04/06/17 10:40 Nystop TOP 1 applic BID EILEEN Administration (Febuxostat [Uloric] 1 each 04/06/17 09:00 04/06/17 10:40 80 Mg) Tab PO Not Given DAILY [facility] Polyethylene Glycol 17 gm 04/06/17 09:00 04/06/17 10:41 Miralax PO Not Given DAILY [facility] Sodium Chloride 10 ml 04/05/17 16:34 04/06/17 10:26 Normal Saline Flush 0.9% IVP 10 ml PRN PRN Administration NEEDED PER PROVIDER ORDERS Sodium Chloride 10 ml 04/05/17 22:00 04/06/17 14:33 Normal Saline Flush 0.9% IVP Not Given Q8HR [facility] Spironolactone 25 mg 04/06/17 09:00 04/06/17 10:41 Aldactone PO Not Given DAILY [facility] Warfarin Sodium 7.5 mg 04/05/17 17:00 04/05/17 19:35 Coumadin PO 7.5 mg SUTUWETHSA@1700 [facility] Administration Warfarin Sodium 5 mg 04/06/17 17:00 04/06/17 17:22 Coumadin PO 5 mg MOFR@1700 [facility] Administration - Lab Result Fish Bone Diagrams: 04/06/17 14:13 04/06/17 05:55 - Additional Planning My Orders: My Active Orders 04/05/17 20:00 Clindamycin 600 mg/50 ml [Cleocin 600 mg/50 ml] 50 ml IV Q6H 04/05/17 21:00 Clotrimazole 1% Cream [Lotrimin 1% Cream] 1 applic TOP BID Insulin Glargine [Lantus Solostar] 50 unit SUBQ BID Nystatin [Nystop] 1 applic TOP BID 04/06/17 08:31 Blood Glucose POC [] 0800,1200,1700,2100 Initiate Hypoglycemia Protocol [RC] .protocol 04/06/17 09:00 Cholecalciferol [Vitamin D3] 2,000 unit PO DAILY Docusate Sodium 250Mg Capsule [Colace 250Mg Capsule] 250 mg PO DAILY Furosemide [Lasix] 40 mg PO DAILY Metoprolol Succinate [Toprol Xl] 50 mg PO DAILY Nitrofurantoin [Macrobid] 100 mg PO BID Patient Own Med [Patient Own Medication] 1 each PO DAILY Spironolactone [Aldactone] 25 mg PO DAILY cefTRIAXone [Rocephin] 2 gm Sodium Chloride 0.9% Minibag [Normal Saline 0.9% Minibag] 100 ml IV DAILY diltiaZEM CD [Cardizem Cd] 240 mg PO DAILY 04/06/17 14:24 Min Oil/Dimeth/Coconut Oil Crm [Cavilon] 1 applic TOP PRN PRN 04/06/17 17:00 Insulin Aspart [NovoLOG] 1 - 5 unit SUBQ 0800,1200,1700,2100 Warfarin [Coumadin] 5 mg PO MOFR@1700 04/06/17 21:00 Losartan [Cozaar] 25 mg PO QPM 04/06/17 Dinner DIET [Carb-controlled Diet] [DIET] 04/07/17 05:00 BMP - BASIC METABOLIC PANEL [CHEM] DAILYLAB CBC - COMP BLD CT W/AUTO DIFF [HEME] DAILYLAB CRP - C-REACTIVE PROTEIN [CHEM] DAILYLAB Subjective - Subjective Nursing Reports: Other (Pt NPO this am for surgery.) Objective Vital Signs: Vital Signs - 24 hr 04/05/17 04/05/17 04/05/17 19:15 22:00 23:30 Temperature 37.1 C 36.7 C Heart Rate 88 Heart Rate [ 86 92 Brachial] Respiratory 18 18 20 Rate Blood Pressure 112/45 L 128/56 L [Right Brachial artery] O2 Saturation 97 98 04/06/17 04/06/17 04/06/17 05:46 08:02 08:12 Temperature 37.2 C 36.5 C Heart Rate 92 Heart Rate [ 60 94 Brachial] Respiratory 20 20 20 Rate Blood Pressure 126/79 129/90 H [Right Brachial artery] O2 Saturation 97 97 04/06/17 04/06/17 04/06/17 13:30 13:35 13:39 Temperature Heart Rate Heart Rate [ Brachial] Respiratory Rate Blood Pressure [Right Brachial artery] O2 Saturation 100 98 98 04/06/17 04/06/17 04/06/17 13:48 13:55 14:02 Temperature Heart Rate Heart Rate [ Brachial] Respiratory Rate Blood Pressure [Right Brachial artery] O2 Saturation 100 100 99 04/06/17 04/06/17 04/06/17 14:04 14:34 15:03 Temperature 37.2 C Heart Rate Heart Rate [ 130 H 110 H Brachial] Respiratory 22 20 Rate Blood Pressure 104/56 L 101/55 L [Right Brachial artery] O2 Saturation 99 99 100 04/06/17 04/06/17 15:42 17:06 Temperature 36.9 C 36.7 C Heart Rate Heart Rate [ 106 H 60 Brachial] Respiratory 18 18 Rate Blood Pressure 115/55 L 113/68 [Right Brachial artery] O2 Saturation 100 100 Oxygen O2 Source Nasal cannula I&O (Last 24 Hrs): Intake and Output Totals x24h 04/04/17 04/05/17 04/06/17 23:59 23:59 23:59 Intake Total 50 150 Output Total 1300 Balance 50 -1150 General: No acute distress HEENT: Mucous membr. moist/pink Neck: Supple Cardiovascular: Regular rate Respiratory: No respiratory distress Abdomen: Other (Obese with pannus.) Extremities: Other (L BKA bandaged, had drainage overnight.) - Results Results: Laboratory Results WBC 12.4 x10^3/uL (4.8-10.8) H 04/06/17 14:13 RBC 2.98 10^6/uL (4.20-5.40) L 04/06/17 14:13 Hgb 9.1 g/dL (12.0-16.0) L 04/06/17 14:13 Hct 27.9 % (37.0-47.0) L 04/06/17 14:13 MCV 93.6 fL (81.0-99.0) 04/06/17 14:13 MCH 30.6 pg (27.0-31.0) 04/06/17 14:13 MCHC 32.7 g/dL (32.0-36.0) 04/06/17 14:13 RDW 15.0 % (12.0-15.0) 04/06/17 14:13 Plt Count 348 10^3/uL (130-450) 04/06/17 14:13 MPV 8.0 fL (7.9-10.8) 04/06/17 14:13 Neut # 8.3 10^3/uL (1.5-6.6) H 04/06/17 14:13 Lymph # 3.0 10^3/uL (1.5-3.5) 04/06/17 14:13 [place] # 0.9 10^3/uL (0.0-1.0) 04/06/17 14:13 Eos # 0.1 10^3/uL (0.0-0.7) 04/06/17 14:13 Baso # 0.2 10^3/uL (0.0-0.1) H 04/06/17 14:13 Absolute Nucleated RBC 0.00 x10^3/uL 04/06/17 14:13 Nucleated RBC % 0.0 /100WBC 04/06/17 14:13 ESR > 140 mm/Hr (0-30) H 04/05/17 20:39 PT 16.7 secs (9.9-12.6) H 04/06/17 05:55 INR 1.5 (0.8-1.2) H 04/06/17 05:55 Sodium 139 mmol/L (135-145) 04/06/17 05:55 Potassium 4.6 mmol/L (3.5-5.0) 04/06/17 05:55 Chloride 101 mmol/L (101-111) 04/06/17 05:55 Carbon Dioxide 27 mmol/L (21-32) 04/06/17 05:55 Anion Gap 11.0 (6-13) 04/06/17 05:55 BUN 30 mg/dL (6-20) H 04/06/17 05:55 Creatinine 1.2 mg/dL (0.4-1.0) H 04/06/17 05:55 Estimated GFR (MDRD) 44 (>89) L 04/06/17 05:55 Glucose 132 mg/dL (70-100) H 04/06/17 05:55 Calcium 8.1 mg/dL (8.5-10.3) L 04/06/17 05:55 Magnesium 1.7 mg/dL (1.7-2.8) 04/06/17 05:55 Total Bilirubin 0.6 mg/dL (0.2-1.0) 04/05/17 14:00 AST 28 IU/L (10-42) 04/05/17 14:00 ALT 38 IU/L (10-60) 04/05/17 14:00 Alkaline Phosphatase 68 IU/L (42-121) 04/05/17 14:00 C-Reactive Protein 10.5 mg/dL (0-1.0) H 04/05/17 20:39 Total Protein 7.4 g/dL (6.7-8.2) 04/05/17 14:00 Albumin 2.8 g/dL (3.2-5.5) L 04/05/17 14:00 Globulin 4.6 g/dL (2.1-4.2) H 04/05/17 14:00 Albumin/Globulin Ratio 0.6 (1.0-2.2) L 04/05/17 14:00 Lipase 42 U/L (22-51) 04/05/17 14:00
[2017-04-06] MEDS: SENNA 8.6 MG TABLET PO SCH (22:02)
[2017-04-06] MEDS: LOSARTAN 50 MG TABLET PO SCH (22:04)
[2017-04-06] MEDS: SODIUM CHLORIDE 0.9% 1,000 ML IV SCH (23:46)
[2017-04-07] MEDS: CLINDAMYCIN 600 MG/50 ML 50 ML IV SCH ×4 (02:17→21:12)
[2017-04-07] MEDS: ACETAMINOPHEN 325 MG TABLET PO PRN (04:12)
[2017-04-07] MEDS: ALBUTEROL NEB 2.5 MG/3 ML INH PRN (04:43)
[2017-04-07] MEDS ORDERED: HYDROmorphone 1 MG/ML SYRINGE ONE (04:55)
[2017-04-07 05:07] LABS: BASOPHILS # (AUTO) 0.1 10^3/uL (0.0-0.1); BASOPHILS % (AUTO) 0.9 %; EOSINOPHILS % (AUTO) 0.4 %; HGB - HEMOGLOBIN 8.6 g/dL (12.0-16.0); LYMPHOCYTES # (AUTO) 2.2 10^3/uL (1.5-3.5); LYMPHOCYTES % (AUTO) 17.1 %; MEAN CORPUSCULAR HGB CONC 32.3 g/dL (32.0-36.0); MEAN PLATELET VOLUME 8.3 fL (7.9-10.8); MONOCYTES # (AUTO) 1.2 10^3/uL (0.0-1.0); MONOCYTES % (AUTO) 9.1 %; NEUTROPHILS # (AUTO) 9.4 10^3/uL (1.5-6.6); NEUTROPHILS % (AUTO) 72.5 %; PLT - PLATELET COUNT 329 10^3/uL (130-450); RED BLOOD COUNT 2.85 10^6/uL (4.20-5.40); RED CELL DISTRIBUTION WIDTH 14.8 % (12.0-15.0)
[2017-04-07 05:20] LABS: CALCIUM 7.7 mg/dL (8.5-10.3); CREATININE 1.1 mg/dL (0.4-1.0); CRP - C-REACTIVE PROTEIN 13.5 mg/dL (0-1.0)
--- NOTE | 2017-04-07 06:24 | OPERATIVE REPORT ---
Physician: Arsalan Becerra MD DATE OF SURGERY: 04/06/2017 PREOPERATIVE DIAGNOSIS: Wound infection, left below-knee amputation stump. POSTOPERATIVE DIAGNOSIS: Wound infection, left below-knee amputation stump. PROCEDURES PERFORMED 1. Left leg amputation stump incision, debridement, drainage and irrigation. 2. Placement of a wound VAC. SURGEON: Arsalan Becerra MD PERCUSSION INSTRUMENT TUNER: None. ANESTHESIA: General FINDINGS: There was gross pus in small amounts, which could easily be brought out of the lateral corner of the wound. There was an area of about 8 cm of necrotic skin at both the anterior and posterior flap on the lateral half of the wound. When the sucker was placed in to remove purulence, there was a good flow of this. The path worked its all the way to the medial side of the surgical area as well. One by one, the skin sutures were removed. There was not a great tendency for the wound to open. One by one, the subcutaneous probably 3-0 undyed Vicryl sutures were removed. This allowed the wound to open up more. Then, there were some probably 2-0 undyed Vicryl sutures that were removed more deeply. Most of these had to be found by spreading tissue and seeing the points at which it was held together. With the wound opened up, much necrotic fat, infected fat, and fascia with no value was removed from the wound. Wound was irrigated with normal saline. There had been a pocket of purulence laying right over the distal end of the tibial cut. This was cleaned out and wiped out. A uterine curette was then utilized to scrape over areas where the tissue clearly had some necrotic or infected fat. This did a nice job of debriding. Hemostasis was obtained with electrocautery. About 3 small pulsatile arterial bleeders were closed with a cerclage 3-0 PDS suture. The posterior tibial artery and anterior compartment arteries were not identified. Wound was irrigated with normal saline 3 times during the procedure. In general , the condition of the wound was good. There were some small areas of questionable fat, which could be addressed at another procedure. A wound VAC sponge was applied over the end of the wound. No attempt was made to close the wound. Wound VAC functioned properly. The patient was then awakened, slid over to the hospital bed on the air mattress device, and she was extubated and taken to the recovery room in good condition, having tolerated the procedure well with about 200 mL. There was no tourniquet used. TD: 04/07/2017 06:23 DEXTER
[2017-04-07] MEDS: SODIUM CHLORIDE FLUSH 0.9% 10 ML SYRINGE IVP SCH ×3 (06:36→17:59)
--- NOTE | 2017-04-07 07:02 | HISTORY & PHYSICAL EXAMINATION ---
DATE OF SERVICE: 04/05/2017 Physician: Katie Isaac MD DATE OF ADMISSION: 04/05/2017 HISTORY OF PRESENT ILLNESS: This is a 71-year-old white female with a history of diabetes on insulin who was recently admitted here for treatment of a diabetic foot infection, which was diagnosed as left foot osteomyelitis requiring a left BKA. Her diabetes was poorly controlled, she had chronic AFib and chronic renal failure. When the patient was recently discharged from here, it was to undergo physical therapy at [facility]. She was only there 3 days and started to develop a discharge, redness and swelling of the BKA wound site and she was therefore brought to the emergency room here for evaluation. The orthopedic surgeon who had performed the case, Dr. Enrique, was able to evaluate the stump of the BKA and did take several samples for culture from the abscess site and the patient is now admitted for management of this new problem. The patient denies any pain at the site, but does have tenderness when it is touched. There has been no fever. The staff at [facility] described a somewhat purulent discharge, foul odor and redness around the suture line. PAST MEDICAL HISTORY: Diabetes on insulin, obesity, chronic atrial fibrillation on anticoagulation, history of COPD, history of CHF, recent admission for a diabetic foot infection which had already developed osteomyelitis leading the recent left BKA. MEDICATIONS: 1. Tylenol p.r.n. 2. Albuterol inhaler. 3. Percocet p.r.n. 4. Vitamin D3. 5. Clotrimazole topical cream. 6. Cardizem-CD 240 mg daily. 7. Colace. 8. Uloric. 9. Lasix 40 mg daily. 10. NovoLog insulin. 11. Lantus insulin. 12. Cozaar 50 mg daily. 13. Toprol-XL 50 mg daily. 14. Nitrofurantoin completing a 4 more day course for UTI. 15. Nystatin topical. 16. MiraLax. 17. Spironolactone 25 mg daily. 18. Warfarin. ALLERGIES: 1. LEVOFLOXACIN. 2. PENICILLINS. 3. SHELLFISH. FAMILY HISTORY: There are no inherited diseases. SOCIAL HISTORY: She is a nonsmoker who never smoked, uses no alcohol or illicit drugs. The patient tolerated the BKA with good spirits and has not started to wear a prosthesis yet or have aggressive PT yet. REVIEW OF SYSTEMS: A comprehensive review of systems was performed and the pertinent positives are as above. PHYSICAL EXAMINATION: GENERAL: Obese, middle-aged white female. She is in mild distress from pain as the wound is being redressed as I am seeing her. VITAL SIGNS: Blood pressure 125/50, pulse 50-80 in atrial fibrillation, afebrile, room air saturation 98%. HEENT: Unremarkable with moist oral mucosa. NECK: Shows no JVD. No carotid bruits or thyromegaly. CHEST: Clear at the anterior bases. HEART: Sounds are very distant without murmurs, she has pendulous breasts. ABDOMEN: Soft, obese, nontender. EXTREMITIES: Show the right leg to have 1+ edema and venous stasis of the plunkett. The left leg has a BKA with redness extending upward anteriorly and less so posteriorly and the lateral aspect of the wound at the suture line has purulent drainage. NEUROLOGIC: Grossly intact. LABORATORY DATA: Normal electrolytes, BUN 31, creatinine 1.1. Normal liver tests. Albumin 2.8. White blood count 42.2 with a left shift, hemoglobin 10, platelet count normal at 343. INR 1.5. No imaging was done. No EKG was done. IMPRESSION: 1. Postoperative wound infection. 2. Status post below knee amputation, left. 3. Recent osteomyelitis of the left foot. 4. Diabetes mellitus on insulin. 5. Chronic atrial fibrillation. 6. History of chronic obstructive pulmonary disease. 7. History of congestive heart failure. ASSESSMENT AND PLAN: Place the patient in med/surg unit. Obtain blood cultures. Start empiric antibiotics for coverage of skin organisms, as well as gram negatives and anaerobes (the patient grew out Gram neg bacteria at the last infection and currently the wound has the smell of anaerobes as well). Start her on a diabetic diet with insulin coverage plus a sliding scale coverage. Continue with her diltiazem for rate control and continue Coumadin until time for surgical intervention. Obtain orthopedic consult for management of the postop wound. Continue with her inhaler. Deep venous thrombosis prophylaxis: Lovenox and discontinue the oral warfarin in preparation for surgery. CODE STATUS: FULL CODE. ATTESTATION: The patient is expected to be discharged or transferred to another facility within 96 hours: Yes. TD: 04/07/2017 07:01 [email or web address]
--- NOTE | 2017-04-07 07:21 | PROVIDER PROGRESS NOTE ---
Subjective - General Admit Date: 04/05/17 Procedure Date: 03/31/17 Post Op Days: 7 - Review of Systems Wound/Incisions: positive: Dressing dry and intact, No drainage, Drainage (LEft stump foul odor, gross pus in middle of wound, diffuse eryhema, about 1cm DECREASE in e erythema approaching the knee; short stump.) General: positive: Fatigue, Other (Battery ran out on NPT device due to no power cord. I was called and instructed to leave device attached. RN took it upon herself to remove the entire assembly including the occlusive wrap and sponge. Pt denies pain.) Objective - Patient Data Vital Signs: Vital Signs x48h Temp Pulse Pulse Resp BP Pulse Ox 04/07/17 04:44 94 18 04/07/17 00:19 36.7 C 109 H 18 96/62 97 Weight: Weight 04/05/17 04/06/17 04/07/17 23:59 23:59 23:59 Weight (kg) 147 kg 150.5 kg 150 kg Intake & Output: Intake and Output Totals x24h 04/05/17 04/06/17 04/07/17 23:59 23:59 23:59 Intake Total 50 1140 326.5 Output Total 1900 300 Balance 50 -760 26.5 - Lab Results Lab Results: 04/07/17 04:42 04/07/17 04:42 Other Lab Results: Lab Results x24hrs 04/07/17 04/07/17 04/06/17 Range/Units 04:42 04:42 14:13 WBC 13.0 H 12.4 H (4.8-10.8) x10^3/uL RBC 2.85 L 2.98 L (4.20-5.40) 10^6/uL Hgb 8.6 L 9.1 L (12.0-16.0) g/dL Hct 26.5 L 27.9 L (37.0-47.0) % MCV 93.0 93.6 (81.0-99.0) fL MCH 30.0 30.6 (27.0-31.0) pg MCHC 32.3 32.7 (32.0-36.0) g/dL RDW 14.8 15.0 (12.0-15.0) % Plt Count 329 348 (130-450) 10^3/uL MPV 8.3 8.0 (7.9-10.8) fL Neut # 9.4 H 8.3 H (1.5-6.6) 10^3/uL Lymph # 2.2 3.0 (1.5-3.5) 10^3/uL [place] # 1.2 H 0.9 (0.0-1.0) 10^3/uL Eos # 0.0 0.1 (0.0-0.7) 10^3/uL Baso # 0.1 0.2 H (0.0-0.1) 10^3/uL Absolute Nucleated RBC 0.00 0.00 x10^3/uL Nucleated RBC % 0.0 0.0 /100WBC Sodium 137 (135-145) mmol/L Potassium 4.4 (3.5-5.0) mmol/L Chloride 102 (101-111) mmol/L Carbon Dioxide 25 (21-32) mmol/L Anion Gap 10.0 (6-13) BUN 26 H (6-20) mg/dL Creatinine 1.1 H (0.4-1.0) mg/dL Estimated GFR (MDRD) 49 L (>89) Glucose 133 H (70-100) mg/dL Calcium 7.7 L (8.5-10.3) mg/dL C-Reactive Protein 13.5 H (0-1.0) mg/dL 04/06/17 Range/Units 08:09 WBC 10.9 H (4.8-10.8) x10^3/uL RBC 2.91 L (4.20-5.40) 10^6/uL Hgb 9.0 L (12.0-16.0) g/dL Hct 26.9 L (37.0-47.0) % MCV 92.5 (81.0-99.0) fL MCH 30.9 (27.0-31.0) pg MCHC 33.4 (32.0-36.0) g/dL RDW 14.4 (12.0-15.0) % Plt Count 303 (130-450) 10^3/uL MPV 8.0 (7.9-10.8) fL Neut # 7.9 H (1.5-6.6) 10^3/uL Lymph # 1.8 (1.5-3.5) 10^3/uL [place] # 0.9 (0.0-1.0) 10^3/uL Eos # 0.1 (0.0-0.7) 10^3/uL Baso # 0.2 H (0.0-0.1) 10^3/uL Absolute Nucleated RBC 0.00 x10^3/uL Nucleated RBC % 0.0 /100WBC Sodium (135-145) mmol/L Potassium (3.5-5.0) mmol/L Chloride (101-111) mmol/L Carbon Dioxide (21-32) mmol/L Anion Gap (6-13) BUN (6-20) mg/dL Creatinine (0.4-1.0) mg/dL Estimated GFR (MDRD) (>89) Glucose (70-100) mg/dL Calcium (8.5-10.3) mg/dL C-Reactive Protein (0-1.0) mg/dL Microbiology E. Coli in culture. - Current Medications Current Medications: Current Medications Generic Name Dose Route Start Last Admin Trade Name Freq PRN Reason Stop Dose Admin Acetaminophen 650 mg 04/05/17 16:34 04/07/17 04:12 Tylenol PO 650 mg Q4HR PRN Administration Pain 1 to 4 Albuterol 2.5 mg 04/05/17 17:05 04/07/17 04:43 INH 2.5 mg RTQ4H PRN Administration Wheezing Cholecalciferol 2,000 unit 04/06/17 09:00 04/06/17 10:31 Vitamin D3 PO Not Given DAILY [facility] Clotrimazole 1 applic 04/05/17 21:00 04/06/17 22:11 Lotrimin 1% Cream TOP 1 applic BID EILEEN Administration Diltiazem HCl 240 mg 04/06/17 09:00 04/06/17 10:32 Cardizem Cd PO Not Given DAILY [facility] Docusate Sodium 250 mg 04/06/17 09:00 04/06/17 10:32 Colace 250mg Capsule PO Not Given DAILY [facility] Docusate Sodium 250 - 500 mg 04/06/17 21:30 04/06/17 22:01 Colace 250mg Capsule PO 250 mg DAILY [facility] Administration Enoxaparin Sodium 40 mg 04/06/17 09:00 04/06/17 10:32 Lovenox SUBQ Not Given DAILY EILEEN Famotidine 20 mg 04/06/17 09:00 04/06/17 10:32 Pepcid PO Not Given DAILY EILEEN Furosemide 40 mg 04/06/17 09:00 04/06/17 10:33 Lasix PO Not Given DAILY EILEEN Ceftriaxone Sodium 2 gm/ 100 mls @ 200 mls/hr 04/06/17 09:00 04/06/17 11:15 Sodium Chloride IV Not Given DAILY EILEEN Clindamycin Phosphate 50 mls @ 100 mls/hr 04/05/17 20:00 04/07/17 02:55 Cleocin 600 Mg/50 Ml IV Infused Q6H EILEEN Infusion Sodium Chloride 1,000 mls @ 0 mls/hr 04/06/17 20:00 04/07/17 02:55 Normal Saline 0.9% IV 30 mls/hr .Q0M EILEEN Infusion TKO Insulin Aspart 5 unit 04/05/17 17:00 04/06/17 17:22 Novolog SUBQ 5 unit TIDWM EILEEN Administration Insulin Aspart 1 - 5 unit 04/06/17 17:00 04/06/17 22:08 Novolog SUBQ 1 unit 0800,1200,1700,2100 EILEEN Administration Protocol Insulin Glargine 50 unit 04/05/17 21:00 04/06/17 22:06 Lantus Solostar SUBQ 50 unit BID EILEEN Administration Losartan Potassium 25 mg 04/06/17 21:00 04/06/17 22:04 Cozaar PO 25 mg QPM EILEEN Administration Metoprolol Succinate 50 mg 04/06/17 09:00 04/06/17 10:26 Toprol Xl PO 50 mg DAILY EILEEN Administration Nystatin 1 applic 04/05/17 21:00 04/06/17 22:11 Nystop TOP 1 applic BID EILEEN Administration (Febuxostat [Uloric] 1 each 04/06/17 09:00 04/06/17 10:40 80 Mg) Tab PO Not Given DAILY EILEEN Polyethylene Glycol 17 gm 04/06/17 09:00 04/06/17 10:41 Miralax PO Not Given DAILY EILEEN Senna 8.6 - 17.2 mg 04/06/17 21:30 04/06/17 22:02 Senokot PO 8.6 mg DAILY EILEEN Administration Sodium Chloride 10 ml 04/05/17 16:34 04/06/17 22:42 Normal Saline Flush 0.9% IVP 10 ml PRN PRN Administration NEEDED PER PROVIDER ORDERS Sodium Chloride 10 ml 04/05/17 22:00 04/07/17 06:36 Normal Saline Flush 0.9% IVP Not Given Q8HR EILEEN Spironolactone 25 mg 04/06/17 09:00 04/06/17 10:41 Aldactone PO Not Given DAILY EILEEN
--- NOTE | 2017-04-07 07:32 | PROVIDER PROGRESS NOTE ---
Subjective - General Admit Date: 04/05/17 Procedure Date: 03/31/17 Post Op Days: 7 - Review of Systems Wound/Incisions: positive: Dressing dry and intact, No drainage, Drainage (LEft stump foul odor, gross pus in middle of wound, diffuse eryhema, about 1cm DECREASE in e erythema approaching the knee; short stump.) Functional Status: positive: 1, 2, 3, 4 General: positive: Fatigue, Other (Battery ran out on NPT device due to no power cord. I was called and instructed to leave device attached. RN took it upon herself to remove the entire assembly including the occlusive wrap and sponge. Pt denies pain.) HEENT: positive: No symptoms Pulmonary: positive: No symptoms Cardiovascular: positive: No symptoms Gastrointestinal: positive: No symptoms Genitourinary: positive: No symptoms Musculoskeletal: positive: No symptoms Skin: positive: No symptoms Neurological: Psychiatric: positive: No symptoms All Other Systems: positive: Reviewed and negative - Other Other Information/Narrative: Correction of prior note today. Much of the text generated in the history was not accurate. HX: Battery on NPT device ran out last night (cord could not be found). I was called and instructed nurse to leave device and dressing in place. She promptly removed it all. Pt denies pain this a.m. PE: Wet Kerlex wrap dressing in place. Drainage not bloody. LAB: E coli from first culture. 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 PLan: Discussed situation with revit drafter. She also does [employer] application. I requested her to replace the new NPT sponge and device LILIANA today. Will discuss antibiotics with hospitalist. Objective - Patient Data Vital Signs: Vital Signs x48h Temp Pulse Pulse Resp BP Pulse Ox 04/07/17 04:44 94 18 04/07/17 00:19 36.7 C 109 H 18 96/62 97 Weight: Weight 04/05/17 04/06/17 04/07/17 23:59 23:59 23:59 Weight (kg) 147 kg 150.5 kg 150 kg Intake & Output: Intake and Output Totals x24h 04/05/17 04/06/17 04/07/17 23:59 23:59 23:59 Intake Total 50 1140 326.5 Output Total 1900 300 Balance 50 -760 26.5 - Lab Results Lab Results: 04/07/17 04:42 04/07/17 04:42 Other Lab Results: Lab Results x24hrs 04/07/17 04/07/17 04/06/17 Range/Units 04:42 04:42 14:13 WBC 13.0 H 12.4 H (4.8-10.8) x10^3/uL RBC 2.85 L 2.98 L (4.20-5.40) 10^6/uL Hgb 8.6 L 9.1 L (12.0-16.0) g/dL Hct 26.5 L 27.9 L (37.0-47.0) % MCV 93.0 93.6 (81.0-99.0) fL MCH 30.0 30.6 (27.0-31.0) pg MCHC 32.3 32.7 (32.0-36.0) g/dL RDW 14.8 15.0 (12.0-15.0) % Plt Count 329 348 (130-450) 10^3/uL MPV 8.3 8.0 (7.9-10.8) fL Neut # 9.4 H 8.3 H (1.5-6.6) 10^3/uL Lymph # 2.2 3.0 (1.5-3.5) 10^3/uL [place] # 1.2 H 0.9 (0.0-1.0) 10^3/uL Eos # 0.0 0.1 (0.0-0.7) 10^3/uL Baso # 0.1 0.2 H (0.0-0.1) 10^3/uL Absolute Nucleated RBC 0.00 0.00 x10^3/uL Nucleated RBC % 0.0 0.0 /100WBC Sodium 137 (135-145) mmol/L Potassium 4.4 (3.5-5.0) mmol/L Chloride 102 (101-111) mmol/L Carbon Dioxide 25 (21-32) mmol/L Anion Gap 10.0 (6-13) BUN 26 H (6-20) mg/dL Creatinine 1.1 H (0.4-1.0) mg/dL Estimated GFR (MDRD) 49 L (>89) Glucose 133 H (70-100) mg/dL Calcium 7.7 L (8.5-10.3) mg/dL C-Reactive Protein 13.5 H (0-1.0) mg/dL 04/06/17 Range/Units 08:09 WBC 10.9 H (4.8-10.8) x10^3/uL RBC 2.91 L (4.20-5.40) 10^6/uL Hgb 9.0 L (12.0-16.0) g/dL Hct 26.9 L (37.0-47.0) % MCV 92.5 (81.0-99.0) fL MCH 30.9 (27.0-31.0) pg MCHC 33.4 (32.0-36.0) g/dL RDW 14.4 (12.0-15.0) % Plt Count 303 (130-450) 10^3/uL MPV 8.0 (7.9-10.8) fL Neut # 7.9 H (1.5-6.6) 10^3/uL Lymph # 1.8 (1.5-3.5) 10^3/uL [place] # 0.9 (0.0-1.0) 10^3/uL Eos # 0.1 (0.0-0.7) 10^3/uL Baso # 0.2 H (0.0-0.1) 10^3/uL Absolute Nucleated RBC 0.00 x10^3/uL Nucleated RBC % 0.0 /100WBC Sodium (135-145) mmol/L Potassium (3.5-5.0) mmol/L Chloride (101-111) mmol/L Carbon Dioxide (21-32) mmol/L Anion Gap (6-13) BUN (6-20) mg/dL Creatinine (0.4-1.0) mg/dL Estimated GFR (MDRD) (>89) Glucose (70-100) mg/dL Calcium (8.5-10.3) mg/dL C-Reactive Protein (0-1.0) mg/dL - Current Medications Current Medications: Current Medications Generic Name Dose Route Start Last Admin Trade Name Freq PRN Reason Stop Dose Admin Acetaminophen 650 mg 04/05/17 16:34 04/07/17 04:12 Tylenol PO 650 mg Q4HR PRN Administration Pain 1 to 4 Albuterol 2.5 mg 04/05/17 17:05 04/07/17 04:43 INH 2.5 mg RTQ4H PRN Administration Wheezing Cholecalciferol 2,000 unit 04/06/17 09:00 04/06/17 10:31 Vitamin D3 PO Not Given DAILY [facility] Clotrimazole 1 applic 04/05/17 21:00 04/06/17 22:11 Lotrimin 1% Cream TOP 1 applic BID EILEEN Administration Diltiazem HCl 240 mg 04/06/17 09:00 04/06/17 10:32 Cardizem Cd PO Not Given DAILY [facility] Docusate Sodium 250 mg 04/06/17 09:00 04/06/17 10:32 Colace 250mg Capsule PO Not Given DAILY [facility] Docusate Sodium 250 - 500 mg 04/06/17 21:30 04/06/17 22:01 Colace 250mg Capsule PO 250 mg DAILY EILEEN Administration Enoxaparin Sodium 40 mg 04/06/17 09:00 04/06/17 10:32 Lovenox SUBQ Not Given DAILY [facility] Famotidine 20 mg 04/06/17 09:00 04/06/17 10:32 Pepcid PO Not Given DAILY [facility] Furosemide 40 mg 04/06/17 09:00 04/06/17 10:33 Lasix PO Not Given DAILY [facility] Ceftriaxone Sodium 2 gm/ 100 mls @ 200 mls/hr 04/06/17 09:00 04/06/17 11:15 Sodium Chloride IV Not Given DAILY [facility] Clindamycin Phosphate 50 mls @ 100 mls/hr 04/05/17 20:00 04/07/17 02:55 Cleocin 600 Mg/50 Ml IV Infused Q6H EILEEN Infusion Sodium Chloride 1,000 mls @ 0 mls/hr 04/06/17 20:00 04/07/17 02:55 Normal Saline 0.9% IV 30 mls/hr .Q0M E[facility] Infusion TKO Insulin Aspart 5 unit 04/05/17 17:00 04/06/17 17:22 Novolog SUBQ 5 unit TIDWM EILEEN Administration Insulin Aspart 1 - 5 unit 04/06/17 17:00 04/06/17 22:08 Novolog SUBQ 1 unit 0800,1200,1700,2100 EILEEN Administration Protocol Insulin Glargine 50 unit 04/05/17 21:00 04/06/17 22:06 Lantus Solostar SUBQ 50 unit BID EILEEN Administration Losartan Potassium 25 mg 04/06/17 21:00 04/06/17 22:04 Cozaar PO 25 mg QPM EILEEN Administration Metoprolol Succinate 50 mg 04/06/17 09:00 04/06/17 10:26 Toprol Xl PO 50 mg DAILY EILE[facility] Administration Nystatin 1 applic 04/05/17 21:00 04/06/17 22:11 Nystop TOP 1 applic BID EILEEN Administration (Febuxostat [Uloric] 1 each 04/06/17 09:00 04/06/17 10:40 80 Mg) Tab PO Not Given DAILY [facility] Polyethylene Glycol 17 gm 04/06/17 09:00 04/06/17 10:41 Miralax PO Not Given DAILY [facility] Senna 8.6 - 17.2 mg 04/06/17 21:30 04/06/17 22:02 Senokot PO 8.6 mg DAILY E[facility] Administration Sodium Chloride 10 ml 04/05/17 16:34 04/06/17 22:42 Normal Saline Flush 0.9% IVP 10 ml PRN PRN Administration NEEDED PER PROVIDER ORDERS Sodium Chloride 10 ml 04/05/17 22:00 04/07/17 06:36 Normal Saline Flush 0.9% IVP Not Given Q8HR EILEEN Spironolactone 25 mg 04/06/17 09:00 04/06/17 10:41 Aldactone PO Not Given DAILY EILEEN
[2017-04-07] MEDS: INSULIN ASPART 300 UNIT/3 ML PEN SUBQ SCH ×7 (08:04→21:19)
[2017-04-07] MEDS: METOPROLOL SUCCINATE 50 MG TABLET PO SCH (08:55)
[2017-04-07] MEDS: SPIRONOLACTONE 25 MG TABLET PO SCH (08:55)
[2017-04-07] MEDS: FAMOTIDINE 20 MG TABLET PO SCH (08:55)
[2017-04-07] MEDS: diltiaZEM CD 240 MG CAPSULE PO SCH (08:55)
[2017-04-07] MEDS: FUROSEMIDE 20 MG TABLET PO SCH (08:55)
[2017-04-07] MEDS: DOCUSATE SODIUM 250 MG CAPSULE PO SCH ×2 (08:56→09:01)
[2017-04-07] MEDS: CHOLECALCIFEROL 1,000 UNIT TABLET PO SCH (08:56)
[2017-04-07] MEDS: SENNA 8.6 MG TABLET PO SCH (08:56)
[2017-04-07] MEDS: cefTRIAXone 2 GM in SODIUM CHLORIDE 0.9% MINIBAG 100 ML IV SCH (09:00)
[2017-04-07] MEDS: POLYETHYLENE GLYCOL 3350 17 GM PACKET PO SCH (09:01)
[2017-04-07] MEDS: ENOXAPARIN 40 MG/0.4 ML SYRINGE SUBQ SCH (09:01)
[2017-04-07] MEDS: CLOTRIMAZOLE 1% CREAM 15 GM TUBE TOP SCH ×2 (09:04→18:00)
[2017-04-07] MEDS: INSULIN GLARGINE 300 UNIT/3 ML PEN SUBQ SCH ×2 (09:04→21:20)
[2017-04-07] MEDS: NYSTATIN POWDER 15 GM TOP SCH ×2 (09:04→17:59)
[2017-04-07] MEDS ORDERED: IOPAMIDOL-300 100 ML VIAL ONE (09:45)
[2017-04-07] MEDS ORDERED: IOPAMIDOL-300 100 ML VIAL IVP ONE (10:41)
--- NOTE | 2017-04-07 10:53 | PROVIDER PROGRESS NOTE ---
Subjective - Prog Note Date Prog Note Date: 04/07/17 Prog Note Time: 10:53 - Subjective Subjective: her main discomfort is from her sacrum. She fells and bruised herself a few weeks ago and hurt since then. "they're suppose to be putting a salve on there and they're not" Wound RN and floor steward/stewardess are both there changing the dressing on her right AKA. Stump is raw, bleeding muscle. Surrounding skin has rubor but no warmth or drainage. She had sudden tachycardia, sob and hypoxia early this am. This is a woman with sepsis from wound that has resolved, chronic afib, POD for BKA on 03/31 then redo surgery with debridement of infected seroma/skin 04/06. Was on coumadin for afib on this admission but no lovenox or coumadin since admission. She has afib and is on metoprolol and cardizem. No fever. No change in BP. Denies cp, just short of breath with it. Once rate slowed, felt better. I did a 30 minute bedside eval for this: EKG with afib with RVR, no acute STTW changes CXR without changes CTA with fluid overload, no PE Troponin <0.04 Nutrition services would like multivit, Vit C Current Medications - Current Medications Current Medications: Active Medications Acetaminophen (Tylenol) 650 mg PO Q4HR PRN PRN Reason: Pain 1 to 4 Last Admin: 04/07/17 04:12 Dose: 650 mg Cholecalciferol (Vitamin D3) 2,000 unit PO DAILY [facility] Last Admin: 04/07/17 08:56 Dose: 2,000 unit Clotrimazole (Lotrimin 1% Cream) 1 applic TOP BID [facility] Last Admin: 04/07/17 09:04 Dose: 1 applic Diltiazem HCl (Cardizem Cd) 240 mg PO DAILY [facility] Last Admin: 04/07/17 08:55 Dose: 240 mg Docusate Sodium (Colace 250mg Capsule) 250 mg PO DAILY [facility] Last Admin: 04/07/17 09:01 Dose: Not Given Docusate Sodium (Colace 250mg Capsule) 250 - 500 mg PO DAILY [facility] Last Admin: 04/07/17 08:56 Dose: 500 mg Enoxaparin Sodium (Lovenox) 40 mg SUBQ DAILY [facility] Last Admin: 04/07/17 09:01 Dose: 40 mg Famotidine (Pepcid) 20 mg PO DAILY [facility] Last Admin: 04/07/17 08:55 Dose: 20 mg Furosemide (Lasix) 40 mg PO DAILY [facility] Last Admin: 04/07/17 08:55 Dose: 40 mg Hydromorphone HCl (Dilaudid Inj Syringe) 2 mg IVP Q1HR PRN PRN Reason: severe pain Ceftriaxone Sodium 2 gm/ (Sodium Chloride) 100 mls @ 200 mls/hr IV DAILY [facility] Last Admin: 04/07/17 09:00 Dose: 200 mls/hr Clindamycin Phosphate (Cleocin 600 Mg/50 Ml) 50 mls @ 100 mls/hr IV Q6H [facility] Last Infusion: 04/07/17 08:43 Dose: Infused Sodium Chloride (Normal Saline 0.9%) 1,000 mls @ 0 mls/hr IV .Q0M EILEEN PRN Reason: TKO Last Infusion: 04/07/17 02:55 Dose: 30 mls/hr Insulin Aspart (Novolog) 5 unit SUBQ TIDWM [facility] Last Admin: 04/07/17 08:16 Dose: 5 unit Insulin Aspart (Novolog) 1 - 5 unit SUBQ 0800,1200,1700,2100 EILEEN PRN Reason: Protocol Last Admin: 04/07/17 08:04 Dose: Not Given Insulin Glargine (Lantus Solostar) 50 unit SUBQ BID [facility] Last Admin: 04/07/17 09:04 Dose: 50 unit Levalbuterol HCl (Xopenex) 1.25 mg INH RTQ4H PRN PRN Reason: SOB/WHEEZING Losartan Potassium (Cozaar) 25 mg PO QPM [facility] Last Admin: 04/06/17 22:04 Dose: 25 mg Metoprolol Succinate (Toprol Xl) 50 mg PO DAILY [facility] Last Admin: 04/07/17 08:55 Dose: 50 mg Mineral Oil (Cavilon) 1 applic TOP PRN PRN PRN Reason: Skin Care Nystatin (Nystop) 1 applic TOP BID [facility] Last Admin: 04/07/17 09:04 Dose: 1 applic (Febuxostat [Uloric] (80 Mg) Tab) 1 each PO DAILY [facility] Last Admin: 04/07/17 09:02 Dose: Not Given Polyethylene Glycol (Miralax) 17 gm PO DAILY [facility] Last Admin: 04/07/17 09:01 Dose: 17 gm Prochlorperazine Edisylate (Compazine Inj) 10 mg IVP Q6HR PRN PRN Reason: Nausea / Vomiting Senna (Senokot) 8.6 - 17.2 mg PO DAILY [facility] Last Admin: 04/07/17 08:56 Dose: 17.2 mg Sodium Chloride (Normal Saline Flush 0.9%) 10 ml IVP PRN PRN PRN Reason: NEEDED PER PROVIDER ORDERS Last Admin: 04/06/17 22:42 Dose: 10 ml Sodium Chloride (Normal Saline Flush 0.9%) 10 ml IVP Q8HR [facility] Last Admin: 04/07/17 06:36 Dose: Not Given Spironolactone (Aldactone) 25 mg PO DAILY [facility] Last Admin: 04/07/17 08:55 Dose: 25 mg Zolpidem Tartrate (Ambien) 5 mg PO QPM PRN PRN Reason: Insomnia Cholecalciferol (Vitamin D3) [Vitamin D3] 2,000 units PO DAILY 08/29/13 Losartan [Cozaar] 25 mg PO QPM 06/10/16 Metoprolol Succinate 50 mg PO DAILY 06/10/16 Insulin Aspart [NovoLOG] 0 - 5 unit SUBQ 0800,1200,1700,2100 PRN 04/05/17 Warfarin [Coumadin] 5 mg PO MOFR@1700 04/05/17 Warfarin [Coumadin] 7.5 mg PO SUTUWETHSA@1700 04/05/17 Objective - Vital Signs/Intake & Output Reviewed Vital Signs: Yes Vital Signs: Vital Signs x48h Temp Pulse Pulse Resp BP Pulse Ox 04/07/17 08:51 36.8 C 140 H 130 H 20 120/73 97 04/07/17 04:44 94 18 Intake & Output: Intake & Output 04/04/17 04/05/17 04/06/17 04/07/17 23:59 23:59 23:59 23:59 Intake Total 50 1140 676.5 Output Total 1900 300 Balance 50 -305 376.5 - Objective General Appearance: positive: No acute distress, Alert, Other (severely obese, anhedonic flat affect elderly woman, furrowed brow, but no acute distress laying at about 30 degrees in bed) Eyes Bilateral: positive: PERRL, EOMI ENT: positive: Pharynx nml Neck: positive: Other (neck too thick to assess for JVD). negative: Stiff neck , Carotid bruit Respiratory: positive: Chest non-tender, No respiratory distress, Rales. negative: Wheezes, Rhonchi Cardiovascular: positive: Irregularly irregular, Tachycardia (at times). negative: Gallop/S4, Friction rub Abdomen: positive: Non-tender, Nml bowel sounds, No distention, Other (can't assess for organomegaly bc of large, large abd panus) Back: positive: Other (I can't roll her over) Skin: positive: Warm, Dry Extremities: positive: Pedal edema, Other (left BKA stump with raw oozing muscle , bone clean, no skin flap. surrounding skin is with bruising and rubor but no warmth, and she can't extend knee completely so partially flexed at knee) Neurologic/Psychiatric: positive: Oriented x3, CN's nml (2-12), Motor nml. negative: Mood/affect nml (depression? Flat affect. She is worried about her . He went to be evaluted for kidney problem and in doing US of kidney they found lung nocule so now getting villaseñor for lung cancer and she is afraid of what they will find.) - Lab Results Fish Bones: 04/07/17 04:42 04/07/17 04:42 Other Labs: Lab Results x24hrs 04/07/17 04/07/17 04/07/17 Range/Units 09:32 04:42 04:42 WBC 13.0 H (4.8-10.8) x10^3/uL RBC 2.85 L (4.20-5.40) 10^6/uL Hgb 8.6 L (12.0-16.0) g/dL Hct 26.5 L (37.0-47.0) % MCV 93.0 (81.0-99.0) fL MCH 30.0 (27.0-31.0) pg MCHC 32.3 (32.0-36.0) g/dL RDW 14.8 (12.0-15.0) % Plt Count 329 (130-450) 10^3/uL MPV 8.3 (7.9-10.8) fL Neut # 9.4 H (1.5-6.6) 10^3/uL Lymph # 2.2 (1.5-3.5) 10^3/uL [place] # 1.2 H (0.0-1.0) 10^3/uL Eos # 0.0 (0.0-0.7) 10^3/uL Baso # 0.1 (0.0-0.1) 10^3/uL Absolute Nucleated RBC 0.00 x10^3/uL Nucleated RBC % 0.0 /100WBC Sodium 137 (135-145) mmol/L Potassium 4.4 (3.5-5.0) mmol/L Chloride 102 (101-111) mmol/L Carbon Dioxide 25 (21-32) mmol/L Anion Gap 10.0 (6-13) BUN 26 H (6-20) mg/dL Creatinine 1.1 H (0.4-1.0) mg/dL Estimated GFR (MDRD) 49 L (>89) Glucose 133 H (70-100) mg/dL Calcium 7.7 L (8.5-10.3) mg/dL Troponin I < 0.04 (<0.49) ng/mL C-Reactive Protein 13.5 H (0-1.0) mg/dL 04/06/17 Range/Units 14:13 WBC 12.4 H (4.8-10.8) x10^3/uL RBC 2.98 L (4.20-5.40) 10^6/uL Hgb 9.1 L (12.0-16.0) g/dL Hct 27.9 L (37.0-47.0) % MCV 93.6 (81.0-99.0) fL MCH 30.6 (27.0-31.0) pg MCHC 32.7 (32.0-36.0) g/dL RDW 15.0 (12.0-15.0) % Plt Count 348 (130-450) 10^3/uL MPV 8.0 (7.9-10.8) fL Neut # 8.3 H (1.5-6.6) 10^3/uL Lymph # 3.0 (1.5-3.5) 10^3/uL [place] # 0.9 (0.0-1.0) 10^3/uL Eos # 0.1 (0.0-0.7) 10^3/uL Baso # 0.2 H (0.0-0.1) 10^3/uL Absolute Nucleated RBC 0.00 x10^3/uL Nucleated RBC % 0.0 /100WBC Sodium (135-145) mmol/L Potassium (3.5-5.0) mmol/L Chloride (101-111) mmol/L Carbon Dioxide (21-32) mmol/L Anion Gap (6-13) BUN (6-20) mg/dL Creatinine (0.4-1.0) mg/dL Estimated GFR (MDRD) (>89) Glucose (70-100) mg/dL Calcium (8.5-10.3) mg/dL Troponin I (<0.49) ng/mL C-Reactive Protein (0-1.0) mg/dL Assessment/Plan - Problem List (1) Atrial fibrillation with RVR Impression: work up as above. 30 minute evaluation and treatment. On her meds to slow her down. can't do coumadin since may need to go to surgery. On lovenox until she does go to surgery. Once final surgery, resume coumadin. add digoxin for rate control. workup does not show PE or pneumonia but has fluid overload. will give IV lasix instead of po lasix. (2) Postoperative wound cellulitis Impression: The BKA site needed debridement, done by Ortho. POD #1 Continue iv antibiotics and dressing changes, wound management as per Dr Mazariegos. May need further surgery (3) Osteomyelitis of ankle and foot Assessment/Plan: Wound aspirates done in ER yesterday from the BKA stump (which was done due to osteo) have grown Ecoli, which was one of the organisms in the original infected diabetic foot. Blood cultures done 2/4 have not grown any pathogen. Wound culture 04/05 with E coli New wound samples were sent from the OR 04/06/17 and no report as of yet. Continue current empiric antibiotics, Day#3 of iv Clinda and iv Ceftriaxone. (4) DM2 (diabetes mellitus, type 2) Assessment/Plan: Continue diet an Insulin coverage, glu checks. Controlled. /5 glucose: 112, 127, 125 and 144 2/6 glucose: 132, 198 (5) History of COPD Assessment/Plan: Respiratory status stable, on inhalers. (6) Hx of chronic congestive heart failure Assessment/Plan: Pt on B-carlos and Spironolactone and Lasix. Change to IV lasix today Continue meds and follow daily weights. (7) UTI (urinary tract infection) Qualifiers: Urinary tract infection type: acute cystitis Hematuria presence: without hematuria Qualified Code(s): N30.00 - Acute cystitis without hematuria Assessment/Plan: She was on po Macrodantin for a UTI last recent admission that grew out Klebsiella and E coli 03/27 Continue Ceftriaxone. Qualifiers: Qualified Code(s): T81.4XXA - Infection following a procedure, initial encounter
[2017-04-07] MEDS: HYDROmorphone 1 MG/ML SYRINGE IVP PRN ×2 (10:59→17:59)
[2017-04-07] MEDS: DIGOXIN 500 MCG/2 ML AMP IVP SCH (13:08)
--- NOTE | 2017-04-07 13:13 | XRAY Report ---
DATE OF SERVICE: FRONTAL CHEST: 04/07/2017 CLINICAL INDICATION: Shortness of breath, tachycardia. FINDINGS: Frontal view of the chest demonstrates an enlarged cardiac silhouette. Pulmonary vasculature is prominent, compatible with fluid overload. No definite infiltrate is seen. IMPRESSION: CARDIOMEGALY WITH CENTRAL PULMONARY VASCULAR PROMINENCE, COMPATIBLE WITH FLUID OVERLOAD. TD: 04/07/2017 13:12
--- NOTE | 2017-04-07 13:17 | CT Report ---
DATE OF SERVICE: CT PULMONARY ANGIOGRAM: 04/07/2017 CLINICAL INDICATION: Shortness of breath, tachycardia. TECHNIQUE: Axial CT images of the chest were obtained with 80 mL Isovue 300 intravenously. Sagittal and coronal 3-D reconstructions were performed. FINDINGS: The heart is enlarged. Trace effusions are present. There is no evidence of pulmonary embolus. No focal infiltrate is seen. Pulmonary vasculature is prominent. No pneumothorax is present. Limited evaluation of upper abdominal structures demonstrates normal adrenal glands. Osseous structures demonstrate degenerative changes. IMPRESSION: NO EVIDENCE OF PULMONARY EMBOLUS. TRACE PLEURAL EFFUSIONS, CARDIOMEGALY, AND PULMONARY VASCULAR CONGESTION, COMPATIBLE WITH FLUID OVERLOAD. In accordance with CT protocol optimization, one or more of the following dose reduction techniques were utilized for this exam: automated exposure control, adjustment of mA and/or KV based on patient size, or use of iterative reconstructive technique. TD: 04/07/2017 13:16
[2017-04-07] MEDS ORDERED: BISACODYL 10 MG SUPP PR SCH (14:20)
[2017-04-07] MEDS: SACCHAROMYCES BOULARDII 250 MG CAPSULE PO SCH ×2 (17:52→17:56)
[2017-04-07] MEDS: MULTIVITAMIN TABLET PO SCH (17:52)
[2017-04-07] MEDS: ASCORBIC ACID CHEW 500 MG TABLET PO SCH (17:52)
[2017-04-07] MEDS: LEVALBUTEROL 1.25 MG/3 ML NEB INH PRN (18:53)
[2017-04-07] MEDS ORDERED: SODIUM CHLORIDE 0.9% 500 ML IV SCH (19:10)
[2017-04-07] MEDS: LOSARTAN 50 MG TABLET PO SCH (21:17)
[2017-04-08] MEDS: CLINDAMYCIN 600 MG/50 ML 50 ML IV SCH ×2 (02:08→07:43)
[2017-04-08] MEDS: HYDROmorphone 1 MG/ML SYRINGE IVP PRN ×2 (02:13→13:48)
[2017-04-08] MEDS: SODIUM CHLORIDE FLUSH 0.9% 10 ML SYRINGE IVP SCH ×3 (06:29→21:08)
--- NOTE | 2017-04-08 07:13 | PROVIDER PROGRESS NOTE ---
Subjective - General Admit Date: 04/05/17 Procedure Date: 03/31/17 (also Apr 06 -- I&D) Post Op Days: 8 - Review of Systems Wound/Incisions: positive: Dressing dry and intact, No drainage, Drainage (LEft stump foul odor, gross pus in middle of wound, diffuse eryhema, about 1cm DECREASE in e erythema approaching the knee; short stump.) Functional Status: positive: 1, 2, 3, 4 General: positive: Fatigue, Other (Battery ran out on NPT device due to no power cord. I was called and instructed to leave device attached. RN took it upon herself to remove the entire assembly including the occlusive wrap and sponge. Pt denies pain.) HEENT: positive: No symptoms Pulmonary: positive: No symptoms Cardiovascular: positive: No symptoms Gastrointestinal: positive: No symptoms Genitourinary: positive: No symptoms Musculoskeletal: positive: No symptoms Skin: positive: No symptoms Psychiatric: positive: No symptoms All Other Systems: positive: Reviewed and negative Objective - Patient Data Vital Signs: Vital Signs x48h Temp Pulse Resp BP Pulse Ox 04/08/17 05:00 36.6 C 87 16 120/48 L 97 04/08/17 00:28 37.2 C 94 18 94/47 L 100 Weight: Weight 04/06/17 04/07/17 04/08/17 23:59 23:59 23:59 Weight (kg) 150.5 kg 150 kg 151.5 kg Intake & Output: Intake and Output Totals x24h 04/06/17 04/07/17 04/08/17 23:59 23:59 23:59 Intake Total 1140 2809.0 276 Output Total 1900 900 300 Balance -760 1909.0 -24 - Lab Results Lab Results: 04/07/17 04:42 04/07/17 04:42 Other Lab Results: Lab Results x24hrs 04/07/17 04/07/17 Range/Units 20:02 09:32 Lactic Acid 1.6 (0.5-2.2) mmol/L Troponin I < 0.04 (<0.49) ng/mL - Current Medications Current Medications: Current Medications Generic Name Dose Route Start Last Admin Trade Name Freq PRN Reason Stop Dose Admin Acetaminophen 650 mg 04/05/17 16:34 02/06/18 04:12 Tylenol PO 650 mg Q4HR PRN Administration Pain 1 to 4 Ascorbic Acid 500 mg 04/07/17 16:00 04/07/17 17:52 Vitamin C PO 500 mg DAILY EILEEN Administration Cholecalciferol 2,000 unit 04/06/17 09:00 04/07/17 08:56 Vitamin D3 PO 2,000 unit DAILY EILEEN Administration Clotrimazole 1 applic 04/05/17 21:00 04/07/17 18:00 Lotrimin 1% Cream TOP 1 applic BID EILEEN Administration Digoxin 250 mcg 04/07/17 13:00 04/07/17 13:08 Lanoxin Inj IVP 250 mcg DAILY EILEEN Administration Diltiazem HCl 240 mg 04/06/17 09:00 04/07/17 08:55 Cardizem Cd PO 240 mg DAILY EILEEN Administration Docusate Sodium 250 mg 04/06/17 09:00 04/07/17 09:01 Colace 250mg Capsule PO Not Given DAILY EILEEN Docusate Sodium 250 - 500 mg 04/06/17 21:30 04/07/17 08:56 Colace 250mg Capsule PO 500 mg DAILY EILEEN Administration Enoxaparin Sodium 40 mg 04/06/17 09:00 04/07/17 09:01 Lovenox SUBQ 40 mg DAILY EILEEN Administration Famotidine 20 mg 04/06/17 09:00 04/07/17 08:55 Pepcid PO 20 mg DAILY EILEEN Administration Furosemide 40 mg 04/06/17 09:00 04/07/17 08:55 Lasix PO 40 mg DAILY EILEEN Administration Hydromorphone HCl 2 mg 04/07/17 06:33 04/08/17 02:13 Dilaudid Inj Syringe IVP 2 mg Q1HR PRN Administration severe pain Ceftriaxone Sodium 2 gm/ 100 mls @ 200 mls/hr 04/06/17 09:00 04/07/17 09:00 Sodium Chloride IV 200 mls/hr DAILY EILEEN Administration Clindamycin Phosphate 50 mls @ 100 mls/hr 04/05/17 20:00 04/08/17 02:40 Cleocin 600 Mg/50 Ml IV Infused Q6H EILEEN Infusion Sodium Chloride 1,000 mls @ 0 mls/hr 04/06/17 20:00 04/08/17 02:41 Normal Saline 0.9% IV 30 mls/hr .Q0M EILEEN Infusion TKO Insulin Aspart 5 unit 04/05/17 17:00 04/07/17 17:52 Novolog SUBQ 5 unit TIDWM EILEEN Administration Insulin Aspart 1 - 5 unit 04/06/17 17:00 04/07/17 21:19 Novolog SUBQ 2 unit 0800,1200,1700,2100 EILEEN Administration Protocol Insulin Glargine 50 unit 04/05/17 21:00 04/07/17 21:20 Lantus Solostar SUBQ 50 unit BID EILEEN Administration Levalbuterol HCl 1.25 mg 04/07/17 11:00 04/07/17 18:53 Xopenex INH 1.25 mg RTQ4H PRN Administration SOB/WHEEZING Losartan Potassium 25 mg 04/06/17 21:00 04/07/17 21:17 Cozaar PO Not Given QPM EILEEN Metoprolol Succinate 50 mg 04/06/17 09:00 04/07/17 08:55 Toprol Xl PO 50 mg DAILY EILEEN Administration Multivitamins 1 tab 04/07/17 16:00 04/07/17 17:52 Theragran PO 1 tab DAILYWM EILEEN Administration Nystatin 1 applic 04/05/17 21:00 04/07/17 17:59 Nystop TOP 1 applic BID EILEEN Administration (Febuxostat [Uloric] 1 each 04/06/17 09:00 04/07/17 09:02 80 Mg) Tab PO Not Given DAILY EILEEN Polyethylene Glycol 17 gm 04/06/17 09:00 04/07/17 09:01 Miralax PO 17 gm DAILY EILEEN Administration Saccharomyces Boulardii 250 mg 04/07/17 16:00 04/07/17 17:56 Florastor PO 250 mg BIDWM EILEEN Administration Senna 8.6 - 17.2 mg 04/06/17 21:30 04/07/17 08:56 Senokot PO 17.2 mg DAILY EILEEN Administration Sodium Chloride 10 ml 04/05/17 16:34 04/06/17 22:42 Normal Saline Flush 0.9% IVP 10 ml PRN PRN Administration NEEDED PER PROVIDER ORDERS Sodium Chloride 10 ml 04/05/17 22:00 04/08/17 06:29 Normal Saline Flush 0.9% IVP 10 ml Q8HR EILEEN Administration Spironolactone 25 mg 04/06/17 09:00 04/07/17 08:55 Aldactone PO 25 mg DAILY EILEEN Administration - Physical Exam Wound/Incisions: positive: Healing well ( Wouind Vac moderate drainage; tender area of erythema about 6by 2 cm on anterior flap;), Dressing dry and intact, No drainage Impression/Plan - Problem List Problem List: Impression: Erythema over anterior wound may indicate residual pus. No lab today, but yesterday CRP had risen to 13. E coli sensitive to all including ceftriaxone. Plan re check CRP If leryt miguelina remains and CRP further elevated, then might take patient back to OR this evening or latest tomorrow. Linn will take patient Thursday to OR for attempted partial closure.
[2017-04-08] MEDS: INSULIN ASPART 300 UNIT/3 ML PEN SUBQ SCH ×7 (07:40→21:08)
--- NOTE | 2017-04-08 07:47 | PROVIDER PROGRESS NOTE ---
Subjective - Prog Note Date Prog Note Date: 04/08/17 Prog Note Time: 07:46 - Subjective Subjective: she has no more new pain. still w pain in coccyx and L/S spine. denies cp, sob. flat affect continues. sad. withdrawn. Current Medications - Current Medications Current Medications: Active Medications Acetaminophen (Tylenol) 650 mg PO Q4HR PRN PRN Reason: Pain 1 to 4 Last Admin: 04/07/17 04:12 Dose: 650 mg Ascorbic Acid (Vitamin C) 500 mg PO DAILY [facility] Last Admin: 04/07/17 17:52 Dose: 500 mg Cholecalciferol (Vitamin D3) 2,000 unit PO DAILY [facility] Last Admin: 04/07/17 08:56 Dose: 2,000 unit Clotrimazole (Lotrimin 1% Cream) 1 applic TOP BID [facility] Last Admin: 04/07/17 18:00 Dose: 1 applic Digoxin (Lanoxin Inj) 250 mcg IVP DAILY [facility] Last Admin: 04/07/17 13:08 Dose: 250 mcg Diltiazem HCl (Cardizem Cd) 240 mg PO DAILY [facility] Last Admin: 04/07/17 08:55 Dose: 240 mg Docusate Sodium (Colace 250mg Capsule) 250 mg PO DAILY [facility] Last Admin: 04/07/17 09:01 Dose: Not Given Docusate Sodium (Colace 250mg Capsule) 250 - 500 mg PO DAILY [facility] Last Admin: 04/07/17 08:56 Dose: 500 mg Enoxaparin Sodium (Lovenox) 40 mg SUBQ DAILY [facility] Last Admin: 04/07/17 09:01 Dose: 40 mg Famotidine (Pepcid) 20 mg PO DAILY [facility] Last Admin: 04/07/17 08:55 Dose: 20 mg Furosemide (Lasix) 40 mg PO DAILY [facility] Last Admin: 04/07/17 08:55 Dose: 40 mg Hydromorphone HCl (Dilaudid Inj Syringe) 2 mg IVP Q1HR PRN PRN Reason: severe pain Last Admin: 04/08/17 02:13 Dose: 2 mg Ceftriaxone Sodium 2 gm/ (Sodium Chloride) 100 mls @ 200 mls/hr IV DAILY [facility] Last Admin: 04/07/17 09:00 Dose: 200 mls/hr Clindamycin Phosphate (Cleocin 600 Mg/50 Ml) 50 mls @ 100 mls/hr IV Q6H [facility] Last Admin: 04/08/17 07:43 Dose: 100 mls/hr Sodium Chloride (Normal Saline 0.9%) 1,000 mls @ 0 mls/hr IV .Q0M EILEEN PRN Reason: TKO Last Infusion: 04/08/17 02:41 Dose: 30 mls/hr Insulin Aspart (Novolog) 5 unit SUBQ TIDWM [facility] Last Admin: 04/07/17 17:52 Dose: 5 unit Insulin Aspart (Novolog) 1 - 5 unit SUBQ 0800,1200,1700,2100 [facility] PRN Reason: Protocol Last Admin: 04/08/17 07:40 Dose: Not Given Insulin Glargine (Lantus Solostar) 50 unit SUBQ BID [facility] Last Admin: 04/07/17 21:20 Dose: 50 unit Levalbuterol HCl (Xopenex) 1.25 mg INH RTQ4H PRN PRN Reason: SOB/WHEEZING Last Admin: 04/07/17 18:53 Dose: 1.25 mg Losartan Potassium (Cozaar) 25 mg PO QPM [facility] Last Admin: 04/07/17 21:17 Dose: Not Given Metoprolol Succinate (Toprol Xl) 50 mg PO DAILY [facility] Last Admin: 04/07/17 08:55 Dose: 50 mg Mineral Oil (Cavilon) 1 applic TOP PRN PRN PRN Reason: Skin Care Multivitamins (Theragran) 1 tab PO DAILYWM [facility] Last Admin: 04/07/17 17:52 Dose: 1 tab Nystatin (Nystop) 1 applic TOP BID [facility] Last Admin: 04/07/17 17:59 Dose: 1 applic (Febuxostat [Uloric] (80 Mg) Tab) 1 each PO DAILY [facility] Last Admin: 04/07/17 09:02 Dose: Not Given Polyethylene Glycol (Miralax) 17 gm PO DAILY [facility] Last Admin: 04/07/17 09:01 Dose: 17 gm Prochlorperazine Edisylate (Compazine Inj) 10 mg IVP Q6HR PRN PRN Reason: Nausea / Vomiting Saccharomyces Boulardii (Florastor) 250 mg PO BIDWM [facility] Last Admin: 04/07/17 17:56 Dose: 250 mg Senna (Senokot) 8.6 - 17.2 mg PO DAILY [facility] Last Admin: 04/07/17 08:56 Dose: 17.2 mg Sodium Chloride (Normal Saline Flush 0.9%) 10 ml IVP PRN PRN PRN Reason: NEEDED PER PROVIDER ORDERS Last Admin: 04/06/17 22:42 Dose: 10 ml Sodium Chloride (Normal Saline Flush 0.9%) 10 ml IVP Q8HR [facility] Last Admin: 04/08/17 06:29 Dose: 10 ml Spironolactone (Aldactone) 25 mg PO DAILY [facility] Last Admin: 04/07/17 08:55 Dose: 25 mg Zinc Sulfate () 220 mg PO DAILY [facility] Zolpidem Tartrate (Ambien) 5 mg PO QPM PRN PRN Reason: Insomnia Cholecalciferol (Vitamin D3) [Vitamin D3] 2,000 units PO DAILY 08/29/13 Losartan [Cozaar] 25 mg PO QPM 06/10/16 Metoprolol Succinate 50 mg PO DAILY 06/10/16 Insulin Aspart [NovoLOG] 0 - 5 unit SUBQ 0800,1200,1700,2100 PRN 04/05/17 Warfarin [Coumadin] 5 mg PO MOFR@1700 04/05/17 Warfarin [Coumadin] 7.5 mg PO SUTUWETHSA@1700 04/05/17 Objective - Vital Signs/Intake & Output Reviewed Vital Signs: Yes Vital Signs: Vital Signs x48h Temp Pulse Resp BP Pulse Ox 04/08/17 07:38 37.1 C 88 18 103/43 L 97 04/08/17 05:00 36.6 C 87 16 120/48 L 97 04/08/17 00:28 37.2 C 94 18 94/47 L 100 Intake & Output: Intake & Output 04/05/17 04/06/17 04/07/17 04/08/17 23:59 23:59 23:59 23:59 Intake Total 50 1140 2809.0 276 Output Total 1900 900 300 Balance 50 -760 1909.0 -24 - Objective General Appearance: positive: No acute distress, Alert, Other (clairsa velarde white female, laying flat in bed, needs assist to sit to stand.) Eyes Bilateral: positive: PERRL, EOMI Neck: negative: Stiff neck, Carotid bruit Respiratory: positive: Chest non-tender, No respiratory distress, Rales ( occasional at bases, sounds reduced at bases.), Other (slow unlabored respiration). negative: Wheezes, Rhonchi Cardiovascular: positive: Irregularly irregular. negative: Gallop/S4, Friction rub Abdomen: positive: Non-tender, Nml bowel sounds, No distention, Other (large abd panus, can't assess for organomegaly) Skin: positive: Warm, Dry Extremities: positive: Other (large left leg, right leg w BKA. bloody oozing from right stump. Dr. Smith concerned about superior skin but it's not warm. just rubor, discolored.) Neurologic/Psychiatric: positive: Oriented x3, CN's nml (2-12), Motor nml - Lab Results Fish Bones: 04/08/17 07:44 04/07/17 04:42 Other Labs: Lab Results x24hrs 18 04/07/17 Range/Units 20:02 09:32 Lactic Acid 1.6 (0.5-2.2) mmol/L Troponin I < 0.04 (<0.49) ng/mL Assessment/Plan - Problem List (1) Atrial fibrillation with RVR Impression: yesterday with a burst of RVR and hypotension. No PE, no recurrence of infection after work up. rate has been controlled. continue lovenox until can return to po coumadin (2) Postoperative wound cellulitis Impression: The BKA site needed debridement, done by Ortho. POD #2 Continue IV antibiotics and dressing changes, wound management as per Dr Mazariegos. He feels the superior skin is worsening and plans on OR later this afternoon. (3) Osteomyelitis of ankle and foot Assessment/Plan: Wound aspirates done in ER 2/4 from the BKA stump (which was done due to osteo) have grown Ecoli, which was one of the organisms in the original infected diabetic foot. Blood cultures done 2/ have not grown any pathogen. Wound culture 04/05 with E coli New wound samples were sent from the OR 04/06/17 and no report as of yet. Current empiric antibiotics, Day#4 of iv Clinda and iv Ceftriaxone. Dr. Mazariegos would like flagyl instead so will dc clinda and change to flagyl. continue ceftriaxone. (4) DM2 (diabetes mellitus, type 2) Assessment/Plan: Continue diet an Insulin coverage, glu checks. Controlled. 04/06 glucose: 112, 127, 125 and 144 2/6 glucose: 132, 198, 169, 206, 50 2/ glucose: 135, 200 no change in meds. (5) History of COPD Assessment/Plan: Respiratory status stable, on inhalers. (6) Hx of chronic congestive heart failure Assessment/Plan: Pt on B-carlos and Spironolactone and Lasix. Change to IV lasix 04/07 and has been ~2500 cc positive bn yesterday and right now. Continue meds and follow daily weights. add one more dose of lasix right now. Case discussed with Radha Everett CRNA for today's case. (7) UTI (urinary tract infection) Qualifiers: Urinary tract infection type: acute cystitis Hematuria presence: without hematuria Qualified Code(s): N30.00 - Acute cystitis without hematuria Assessment/Plan: She was on po Macrodantin for a UTI last recent admission that grew out Klebsiella and E coli 03/27 Continue Ceftriaxone. (8) coccydynia from hx of fall and bruise. try lidoderm patch to affected area.
[2017-04-08 07:58] LABS: BASOPHILS # (AUTO) 0.1 10^3/uL (0.0-0.1); BASOPHILS % (AUTO) 0.7 %; EOSINOPHILS # (AUTO) 0.1 10^3/uL (0.0-0.7); EOSINOPHILS % (AUTO) 0.9 %; HGB - HEMOGLOBIN 8.3 g/dL (12.0-16.0); LYMPHOCYTES # (AUTO) 1.6 10^3/uL (1.5-3.5); LYMPHOCYTES % (AUTO) 17.8 %; MEAN CORPUSCULAR HEMOGLOBIN 31.1 pg (27.0-31.0); MEAN CORPUSCULAR HGB CONC 33.3 g/dL (32.0-36.0); MEAN CORPUSCULAR VOLUME 93.5 fL (81.0-99.0); MONOCYTES # (AUTO) 0.9 10^3/uL (0.0-1.0); MONOCYTES % (AUTO) 9.8 %; NEUTROPHILS # (AUTO) 6.4 10^3/uL (1.5-6.6); NEUTROPHILS % (AUTO) 70.8 %; PLT - PLATELET COUNT 313 10^3/uL (130-450); RED BLOOD COUNT 2.68 10^6/uL (4.20-5.40); RED CELL DISTRIBUTION WIDTH 14.7 % (12.0-15.0)
[2017-04-08] MEDS: POLYETHYLENE GLYCOL 3350 17 GM PACKET PO SCH (08:02)
[2017-04-08] MEDS: FAMOTIDINE 20 MG TABLET PO SCH (08:03)
[2017-04-08] MEDS: MULTIVITAMIN TABLET PO SCH (08:03)
[2017-04-08] MEDS: DOCUSATE SODIUM 250 MG CAPSULE PO SCH ×2 (08:03→08:06)
[2017-04-08] MEDS: diltiaZEM CD 240 MG CAPSULE PO SCH (08:03)
[2017-04-08] MEDS: SENNA 8.6 MG TABLET PO SCH (08:03)
[2017-04-08] MEDS: CHOLECALCIFEROL 1,000 UNIT TABLET PO SCH (08:03)
[2017-04-08] MEDS: SPIRONOLACTONE 25 MG TABLET PO SCH (08:04)
[2017-04-08] MEDS: FUROSEMIDE 20 MG TABLET PO SCH (08:04)
[2017-04-08] MEDS: SACCHAROMYCES BOULARDII 250 MG CAPSULE PO SCH ×2 (08:04→17:24)
[2017-04-08] MEDS: ZINC SULFATE 220 MG CAPSULE PO SCH (08:04)
[2017-04-08] MEDS: ASCORBIC ACID CHEW 500 MG TABLET PO SCH (08:04)
[2017-04-08] MEDS: INSULIN GLARGINE 300 UNIT/3 ML PEN SUBQ SCH ×2 (08:07→22:20)
[2017-04-08] MEDS: DIGOXIN 500 MCG/2 ML AMP IVP SCH (08:11)
[2017-04-08] MEDS: METOPROLOL SUCCINATE 50 MG TABLET PO SCH (08:11)
[2017-04-08] MEDS: ENOXAPARIN 40 MG/0.4 ML SYRINGE SUBQ SCH (08:13)
[2017-04-08] MEDS: NYSTATIN POWDER 15 GM TOP SCH ×2 (08:14→21:07)
[2017-04-08] MEDS: CLOTRIMAZOLE 1% CREAM 15 GM TUBE TOP SCH ×2 (08:14→21:08)
[2017-04-08] MEDS: cefTRIAXone 2 GM in SODIUM CHLORIDE 0.9% MINIBAG 100 ML IV SCH (08:19)
[2017-04-08] MEDS: SODIUM CHLORIDE 0.9% 1,000 ML IV SCH (12:04)
--- NOTE | 2017-04-08 12:46 | PROVIDER PROGRESS NOTE ---
Subjective - General Admit Date: 04/05/17 Procedure Date: 03/31/17 (also Apr 06 -- I&D) Post Op Days: 8 - Review of Systems Wound/Incisions: positive: Healing well ( Wouind Vac moderate drainage; tender area of erythema about 6by 2 cm on anterior flap;), Dressing dry and intact, No drainage Functional Status: positive: 1, 2, 3, 4 General: positive: Fatigue, Other (Battery ran out on NPT device due to no power cord. I was called and instructed to leave device attached. RN took it upon herself to remove the entire assembly including the occlusive wrap and sponge. Pt denies pain.) HEENT: positive: No symptoms Pulmonary: positive: No symptoms Cardiovascular: positive: No symptoms Gastrointestinal: positive: No symptoms Genitourinary: positive: No symptoms Musculoskeletal: positive: No symptoms Skin: positive: No symptoms Psychiatric: positive: No symptoms All Other Systems: positive: Reviewed and negative - Other Other Information/Narrative: Patient commfortable. PE Erythematous skin on anterior flap. Wound vac functioning. Lab Culture returned large growth of GM neg anaerobic bacillus Imp: Partially treated infection. Plan Change to Flagyl and DC Clindamycin Return to OR this lp.m. for further debridement. Explained to patient who sweems to understand and wishes to proceed. Objective - Patient Data Vital Signs: Vital Signs x48h Temp Pulse Pulse Resp BP Pulse Ox 04/08/17 08:11 85 04/08/17 07:38 37.1 C 88 18 103/43 L 97 04/08/17 05:00 36.6 C 87 16 120/48 L 97 Weight: Weight 04/06/17 04/07/17 04/08/17 23:59 23:59 23:59 Weight (kg) 150.5 kg 150 kg 151.5 kg Intake & Output: Intake and Output Totals x24h 04/06/17 04/07/17 04/08/17 23:59 23:59 23:59 Intake Total 1140 2909.0 727.5 Output Total 1900 900 300 Balance -760 2009.0 427.5 - Lab Results Lab Results: 04/08/17 07:44 04/07/17 04:42 Other Lab Results: Lab Results x24hrs 02/07/18 02/07/18 02/07/18 Range/Units 07:44 07:44 07:44 WBC 9.0 (4.8-10.8) x10^3/uL RBC 2.68 L (4.20-5.40) 10^6/uL Hgb 8.3 L (12.0-16.0) g/dL Hct 25.0 L (37.0-47.0) % MCV 93.5 (81.0-99.0) fL MCH 31.1 H (27.0-31.0) pg MCHC 33.3 (32.0-36.0) g/dL RDW 14.7 (12.0-15.0) % Plt Count 313 (130-450) 10^3/uL MPV 8.0 (7.9-10.8) fL Neut # 6.4 (1.5-6.6) 10^3/uL Lymph # 1.6 (1.5-3.5) 10^3/uL Dillon # 0.9 (0.0-1.0) 10^3/uL Eos # 0.1 (0.0-0.7) 10^3/uL Baso # 0.1 (0.0-0.1) 10^3/uL Absolute Nucleated RBC 0.00 x10^3/uL Nucleated RBC % 0.0 /100WBC ESR > 140 H (0-30) mm/Hr Lactic Acid (0.5-2.2) mmol/L C-Reactive Protein 20.1 H (0-1.0) mg/dL 04/07/17 Range/Units 20:02 WBC (4.8-10.8) x10^3/uL RBC (4.20-5.40) 10^6/uL Hgb (12.0-16.0) g/dL Hct (37.0-47.0) % MCV (81.0-99.0) fL MCH (27.0-31.0) pg MCHC (32.0-36.0) g/dL RDW (12.0-15.0) % Plt Count (130-450) 10^3/uL MPV (7.9-10.8) fL Neut # (1.5-6.6) 10^3/uL Lymph # (1.5-3.5) 10^3/uL Dillon # (0.0-1.0) 10^3/uL Eos # (0.0-0.7) 10^3/uL Baso # (0.0-0.1) 10^3/uL Absolute Nucleated RBC x10^3/uL Nucleated RBC % /100WBC ESR (0-30) mm/Hr Lactic Acid 1.6 (0.5-2.2) mmol/L C-Reactive Protein (0-1.0) mg/dL - Current Medications Current Medications: Current Medications Generic Name Dose Route Start Last Admin Trade Name Freq PRN Reason Stop Dose Admin Acetaminophen 650 mg 04/05/17 16:34 04/07/17 04:12 Tylenol PO 650 mg Q4HR PRN Administration Pain 1 to 4 Ascorbic Acid 500 mg 04/07/17 16:00 04/08/17 08:04 Vitamin C PO 500 mg DAILY EILEEN Administration Cholecalciferol 2,000 unit 04/06/17 09:00 04/08/17 08:03 Vitamin D3 PO 2,000 unit DAILY EILEEN Administration Clotrimazole 1 applic 04/05/17 21:00 04/08/17 08:14 Lotrimin 1% Cream TOP 1 applic BID EILEEN Administration Digoxin 250 mcg 04/07/17 13:00 04/08/17 08:11 Lanoxin Inj IVP 250 mcg DAILY EILEEN Administration Diltiazem HCl 240 mg 04/06/17 09:00 04/08/17 08:03 Cardizem Cd PO 240 mg DAILY EILEEN Administration Docusate Sodium 250 mg 04/06/17 09:00 04/08/17 08:03 Colace 250mg Capsule PO 250 mg DAILY EILEEN Administration Docusate Sodium 250 - 500 mg 04/06/17 21:30 04/08/17 08:06 Colace 250mg Capsule PO Not Given DAILY EILEEN Enoxaparin Sodium 40 mg 04/06/17 09:00 04/08/17 08:13 Lovenox SUBQ 40 mg DAILY EILEEN Administration Famotidine 20 mg 04/06/17 09:00 04/08/17 08:03 Pepcid PO 20 mg DAILY EILEEN Administration Furosemide 40 mg 04/06/17 09:00 04/08/17 08:04 Lasix PO 40 mg DAILY EILEEN Administration Hydromorphone HCl 2 mg 04/07/17 06:33 04/08/17 02:13 Dilaudid Inj Syringe IVP 2 mg Q1HR PRN Administration severe pain Ceftriaxone Sodium 2 gm/ 100 mls @ 200 mls/hr 04/06/17 09:00 04/08/17 08:19 Sodium Chloride IV 200 mls/hr DAILY EILEEN Administration Clindamycin Phosphate 50 mls @ 100 mls/hr 04/05/17 20:00 04/08/17 08:13 Cleocin 600 Mg/50 Ml IV Infused Q6H EILEEN Infusion Sodium Chloride 1,000 mls @ 0 mls/hr 04/06/17 20:00 04/08/17 12:04 Normal Saline 0.9% IV 30 mls/hr .Q0M EILEEN Administration TKO Insulin Aspart 5 unit 04/05/17 17:00 04/08/17 11:59 Novolog SUBQ Not Given TIDWM EILEEN Insulin Aspart 1 - 5 unit 04/06/17 17:00 04/08/17 12:00 Novolog SUBQ Not Given 0800,1200,1700,2100 [facility] Protocol Insulin Glargine 50 unit 04/05/17 21:00 04/08/17 08:07 Lantus Solostar SUBQ 50 unit BID EILEEN Administration Levalbuterol HCl 1.25 mg 04/07/17 11:00 04/07/17 18:53 Xopenex INH 1.25 mg RTQ4H PRN Administration SOB/WHEEZING Losartan Potassium 25 mg 04/06/17 21:00 04/07/17 21:17 Cozaar PO Not Given QPM EILEEN Metoprolol Succinate 50 mg 04/06/17 09:00 04/08/17 08:11 Toprol Xl PO 50 mg DAILY EILEEN Administration Multivitamins 1 tab 04/07/17 16:00 04/08/17 08:03 Theragran PO 1 tab DAILYWM EILEEN Administration Nystatin 1 applic 04/05/17 21:00 04/08/17 08:14 Nystop TOP 1 applic BID EILEEN Administration (Febuxostat [Uloric] 1 each 04/06/17 09:00 04/08/17 08:19 80 Mg) Tab PO Not Given DAILY EILEEN Polyethylene Glycol 17 gm 04/06/17 09:00 04/08/17 08:02 Miralax PO 17 gm DAILY EILEEN Administration Saccharomyces Boulardii 250 mg 04/07/17 16:00 02/07/18 08:04 Florastor PO 250 mg BIDWM EILEEN Administration Senna 8.6 - 17.2 mg 04/06/17 21:30 04/08/17 08:03 Senokot PO 8.6 mg DAILY EILEEN Administration Sodium Chloride 10 ml 04/05/17 16:34 04/06/17 22:42 Normal Saline Flush 0.9% IVP 10 ml PRN PRN Administration NEEDED PER PROVIDER ORDERS Sodium Chloride 10 ml 04/05/17 22:00 04/08/17 06:29 Normal Saline Flush 0.9% IVP 10 ml Q8HR EILEEN Administration Spironolactone 25 mg 04/06/17 09:00 04/08/17 08:04 Aldactone PO 25 mg DAILY EILEEN Administration Zinc Sulfate 220 mg 04/08/17 09:00 04/08/17 08:04 PO 220 mg DAILY EILEEN Administration
[2017-04-08] MEDS: metroNIDAZOLE 500 MG/100 ML 500 MG/100 ML BAG IV SCH ×2 (13:37→22:14)
[2017-04-08] MEDS: LIDOCAINE PATCH 5% TOP PRN (14:34)
[2017-04-08] MEDS ORDERED: LIDOCAINE-MPF 2% 5 ML VIAL IM ONE (16:30)
[2017-04-08] MEDS ORDERED: SUCCINYLCHOLINE 200 MG/10 ML VIAL IVP ONE (16:30)
[2017-04-08] MEDS ORDERED: PROPOFOL 200 MG/20 ML VIAL IVP ONE (16:30)
[2017-04-08] MEDS ORDERED: fentaNYL 100 MCG/2 ML VIAL IVP ONE (16:30)
[2017-04-08] MEDS ORDERED: ONDANSETRON 4 MG/2 ML VIAL IVP ONE (16:30)
[2017-04-08] MEDS ORDERED: ROCURONIUM 50 MG/5 ML VIAL IVP ONE (16:30)
[2017-04-08] MEDS ORDERED: MIDAZOLAM 2 MG/2 ML VIAL IVP ONE (16:30)
[2017-04-08] MEDS ORDERED: SODIUM CHLORIDE 0.9% 1,000 ML IV ONE (16:38)
[2017-04-08] MEDS ORDERED: EPINEPHrine 1 MG/ML AMP IR ONE (18:15)
[2017-04-08 18:31] LABS: HGB - HEMOGLOBIN 7.3 g/dL (12.0-16.0)
[2017-04-08] MEDS ORDERED: SODIUM CHLORIDE 0.9% 500 ML IV ONE (19:20)
--- NOTE | 2017-04-08 19:21 | OPERATIVE REPORT ---
Operative Report - General Admit Date: 04/05/17 Procedure Date: 04/08/17 Planned Procedure: Left Leg Stump Debridement Pre-Op Diagnosis: Lef leg stump infection Procedure Performed: Left Leg Debridement of skin, subcutaneous tissue,muscle and bone Placement of Wound Vac device, over 1000 sq cm Post Op Diagnosis: same - Procedure Note Primary Surgeon: Mariam Secondary Surgeon: preston Anesthesia Provider: Karlos Anesthesia Technique: General ET tube Estimated Blood Loss (mL): 600
[2017-04-08] MEDS: HYDROmorphone 1 MG/ML SYRINGE ONE ×2 (19:38→19:49)
[2017-04-08] MEDS: LEVALBUTEROL 1.25 MG/3 ML NEB INH PRN (19:40)
[2017-04-08] MEDS ORDERED: FUROSEMIDE 20 MG/2 ML VIAL IVP SCH (20:13)
[2017-04-08] MEDS ORDERED: SODIUM CHLORIDE FLUSH 0.9% 10 ML SYRINGE ONE (20:23)
[2017-04-08] MEDS: LOSARTAN 50 MG TABLET PO SCH (21:24)
[2017-04-09] MEDS: ACETAMINOPHEN 325 MG TABLET PO PRN (00:57)
[2017-04-09] MEDS: HYDROmorphone 1 MG/ML SYRINGE IVP PRN (01:04)
[2017-04-09] MEDS: SODIUM CHLORIDE FLUSH 0.9% 10 ML SYRINGE IVP PRN (02:59)
[2017-04-09] MEDS: metroNIDAZOLE 500 MG/100 ML 500 MG/100 ML BAG IV SCH ×4 (02:59→19:44)
[2017-04-09] MEDS ORDERED: SODIUM CHLORIDE 0.9% MINIBAG 100 ML IV ONE (03:00)
[2017-04-09] MEDS: SODIUM CHLORIDE FLUSH 0.9% 10 ML SYRINGE IVP SCH ×3 (04:41→21:09)
--- NOTE | 2017-04-09 07:17 | PROVIDER PROGRESS NOTE ---
Subjective - General Admit Date: 04/05/17 Procedure Date: 04/08/17 Post Op Days: 1 Procedure Performed: Debridement of left stump - Review of Systems Wound/Incisions: positive: Healing well ( Wouind Vac moderate drainage; tender area of erythema about 6by 2 cm on anterior flap;), Dressing dry and intact, No drainage Functional Status: positive: 1, 2, 3, 4 General: positive: Fatigue, Other (Battery ran out on NPT device due to no power cord. I was called and instructed to leave device attached. RN took it upon herself to remove the entire assembly including the occlusive wrap and sponge. Pt denies pain.) HEENT: positive: No symptoms Pulmonary: positive: No symptoms Cardiovascular: positive: No symptoms Gastrointestinal: positive: No symptoms Genitourinary: positive: No symptoms Musculoskeletal: positive: No symptoms Skin: positive: No symptoms Psychiatric: positive: No symptoms All Other Systems: positive: Reviewed and negative - Other Other Information/Narrative: Patient alert minor pains PE woiund vac functioning well. small drainage oavernight No leak skin proximal to anterior flap much less erythema than pre-op Imp: [id number] Plan: mobilize to chair today Objective - Patient Data Vital Signs: Vital Signs x48h Temp Pulse Resp BP Pulse Ox 04/09/17 05:20 37.0 C 88 18 92/66 92 04/08/17 23:31 36.8 C 109 H 18 117/60 98 Weight: Weight 04/07/17 04/08/17 04/09/17 23:59 23:59 23:59 Weight (kg) 150 kg 151.5 kg 151 kg Intake & Output: Intake and Output Totals x24h 04/07/17 04/08/17 04/09/17 23:59 23:59 23:59 Intake Total 2909.0 927.5 1536.5 Output Total 900 725 700 Balance 2009.0 202.5 836.5 - Lab Results Lab Results: 04/08/17 18:22 04/07/17 04:42 Other Lab Results: Lab Results x24hrs 04/08/17 04/08/17 04/08/17 Range/Units 18:22 18:22 07:44 WBC (4.8-10.8) x10^3/uL RBC (4.20-5.40) 10^6/uL Hgb 7.3 L (12.0-16.0) g/dL Hct 22.1 L (37.0-47.0) % MCV (81.0-99.0) fL MCH (27.0-31.0) pg MCHC (32.0-36.0) g/dL RDW (12.0-15.0) % Plt Count (130-450) 10^3/uL MPV (7.9-10.8) fL Neut # (1.5-6.6) 10^3/uL Lymph # (1.5-3.5) 10^3/uL [facility] # (0.0-1.0) 10^3/uL Eos # (0.0-0.7) 10^3/uL Baso # (0.0-0.1) 10^3/uL Absolute Nucleated RBC x10^3/uL Nucleated RBC % /100WBC ESR (0-30) mm/Hr C-Reactive Protein 20.1 H (0-1.0) mg/dL Blood Type A POSITIVE Antibody Screen NEGATIVE Crossmatch IS Only See Detail 04/08/17 04/08/17 Range/Units 07:44 07:44 WBC 9.0 (4.8-10.8) x10^3/uL RBC 2.68 L (4.20-5.40) 10^6/uL Hgb 8.3 L (12.0-16.0) g/dL Hct 25.0 L (37.0-47.0) % MCV 93.5 (81.0-99.0) fL MCH 31.1 H (27.0-31.0) pg MCHC 33.3 (32.0-36.0) g/dL RDW 14.7 (12.0-15.0) % Plt Count 313 (130-450) 10^3/uL MPV 8.0 (7.9-10.8) fL Neut # 6.4 (1.5-6.6) 10^3/uL Lymph # 1.6 (1.5-3.5) 10^3/uL [facility] # 0.9 (0.0-1.0) 10^3/uL Eos # 0.1 (0.0-0.7) 10^3/uL Baso # 0.1 (0.0-0.1) 10^3/uL Absolute Nucleated RBC 0.00 x10^3/uL Nucleated RBC % 0.0 /100WBC ESR > 140 H (0-30) mm/Hr C-Reactive Protein (0-1.0) mg/dL Blood Type Antibody Screen Crossmatch IS Only - Current Medications Current Medications: Current Medications Generic Name Dose Route Start Last Admin Trade Name Freq PRN Reason Stop Dose Admin Acetaminophen 650 mg 04/05/17 16:34 04/09/17 00:57 Tylenol PO 650 mg Q4HR PRN Administration Pain 1 to 4 Ascorbic Acid 500 mg 04/07/17 16:00 04/08/17 08:04 Vitamin C PO 500 mg DAILY EILEEN Administration Cholecalciferol 2,000 unit 04/06/17 09:00 04/08/17 08:03 Vitamin D3 PO 2,000 unit DAILY EILEEN Administration Clotrimazole 1 applic 04/05/17 21:00 04/08/17 21:08 Lotrimin 1% Cream TOP 1 applic BID EILEEN Administration Digoxin 250 mcg 04/07/17 13:00 04/08/17 08:11 Lanoxin Inj IVP 250 mcg DAILY EILEEN Administration Diltiazem HCl 240 mg 04/06/17 09:00 04/08/17 08:03 Cardizem Cd PO 240 mg DAILY EILEEN Administration Docusate Sodium 250 mg 04/06/17 09:00 04/08/17 08:03 Colace 250mg Capsule PO 250 mg DAILY EILEEN Administration Docusate Sodium 250 - 500 mg 04/06/17 21:30 04/08/17 08:06 Colace 250mg Capsule PO Not Given DAILY EILEEN Enoxaparin Sodium 40 mg 04/06/17 09:00 04/08/17 08:13 Lovenox SUBQ 40 mg DAILY EILEEN Administration Famotidine 20 mg 04/06/17 09:00 04/08/17 08:03 Pepcid PO 20 mg DAILY EILEEN Administration Furosemide 40 mg 04/06/17 09:00 04/08/17 08:04 Lasix PO 40 mg DAILY EILEEN Administration Hydromorphone HCl 2 mg 04/07/17 06:33 04/09/17 01:04 Dilaudid Inj Syringe IVP 2 mg Q1HR PRN Administration severe pain Ceftriaxone Sodium 2 gm/ 100 mls @ 200 mls/hr 04/06/17 09:00 04/08/17 08:19 Sodium Chloride IV 200 mls/hr DAILY EILEEN Administration Sodium Chloride 1,000 mls @ 0 mls/hr 04/06/17 20:00 04/09/17 04:33 Normal Saline 0.9% IV 0 mls/hr .Q0M EILEEN Infusion TKO Metronidazole 500 mg in 100 mls @ 100 mls/hr 04/08/17 14:00 04/09/17 04:00 Flagyl 500 Mg/100 Ml IV Infused Q6H EILEEN Infusion Insulin Aspart 5 unit 04/05/17 17:00 04/08/17 16:37 Novolog SUBQ Not Given TIDWM EILEEN Insulin Aspart 1 - 5 unit 04/06/17 17:00 04/08/17 21:08 Novolog SUBQ Not Given 0800,1200,1700,2100 [facility] Protocol Insulin Glargine 50 unit 04/05/17 21:00 04/08/17 22:20 Lantus Solostar SUBQ 50 unit BID EILEEN Administration Levalbuterol HCl 1.25 mg 04/07/17 11:00 04/08/17 19:40 Xopenex INH 1.25 mg RTQ4H PRN Administration SOB/WHEEZING Lidocaine 1 patch 04/08/17 14:10 04/08/17 14:34 Lidoderm Patch TOP 1 patch DAILY PRN Administration PAIN Losartan Potassium 25 mg 04/06/17 21:00 04/08/17 21:24 Cozaar PO 25 mg QPM EILEEN Administration Metoprolol Succinate 50 mg 04/06/17 09:00 04/08/17 08:11 Toprol Xl PO 50 mg DAILY EILEEN Administration Multivitamins 1 tab 04/07/17 16:00 04/08/17 08:03 Theragran PO 1 tab DAILYWM EILEEN Administration Nystatin 1 applic 04/05/17 21:00 04/08/17 21:07 Nystop TOP 1 applic BID EILEEN Administration (Febuxostat [Uloric] 1 each 04/06/17 09:00 04/08/17 08:19 80 Mg) Tab PO Not Given DAILY EILEEN Polyethylene Glycol 17 gm 04/06/17 09:00 04/08/17 08:02 Miralax PO 17 gm DAILY EILEEN Administration Saccharomyces Boulardii 250 mg 04/07/17 16:00 04/08/17 17:24 Florastor PO Not Given BIDWM EILEEN Senna 8.6 - 17.2 mg 04/06/17 21:30 04/08/17 08:03 Senokot PO 8.6 mg DAILY EILEEN Administration Sodium Chloride 10 ml 04/05/17 16:34 04/09/17 02:59 Normal Saline Flush 0.9% IVP 10 ml PRN PRN Administration NEEDED PER PROVIDER ORDERS Sodium Chloride 10 ml 04/05/17 22:00 04/09/17 04:41 Normal Saline Flush 0.9% IVP Not Given Q8HR EILEEN Spironolactone 25 mg 04/06/17 09:00 04/08/17 08:04 Aldactone PO 25 mg DAILY EILEEN Administration Zinc Sulfate 220 mg 04/08/17 09:00 04/08/17 08:04 PO 220 mg DAILY EILEEN Administration
--- NOTE | 2017-04-09 07:53 | PROVIDER PROGRESS NOTE ---
Subjective - Prog Note Date Prog Note Date: 04/09/17 Prog Note Time: 07:51 - Subjective Pt reports feeling: No change Subjective: debridement done yesterday afternoon. while in OR received 2 units of PRBC and 18:30 hgb was 7.3. Was that before, during, or after transfusion? denies cp, just really tired. Current Medications - Current Medications Current Medications: Active Medications Acetaminophen (Tylenol) 650 mg PO Q4HR PRN PRN Reason: Pain 1 to 4 Last Admin: 04/09/17 00:57 Dose: 650 mg Ascorbic Acid (Vitamin C) 500 mg PO DAILY [facility] Last Admin: 04/08/17 08:04 Dose: 500 mg Cholecalciferol (Vitamin D3) 2,000 unit PO DAILY [facility] Last Admin: 04/08/17 08:03 Dose: 2,000 unit Clotrimazole (Lotrimin 1% Cream) 1 applic TOP BID [facility] Last Admin: 04/08/17 21:08 Dose: 1 applic Digoxin (Lanoxin Inj) 250 mcg IVP DAILY [facility] Last Admin: 04/08/17 08:11 Dose: 250 mcg Diltiazem HCl (Cardizem Cd) 240 mg PO DAILY [facility] Last Admin: 04/08/17 08:03 Dose: 240 mg Docusate Sodium (Colace 250mg Capsule) 250 mg PO DAILY [facility] Last Admin: 04/08/17 08:03 Dose: 250 mg Docusate Sodium (Colace 250mg Capsule) 250 - 500 mg PO DAILY [facility] Last Admin: 04/08/17 08:06 Dose: Not Given Enoxaparin Sodium (Lovenox) 40 mg SUBQ DAILY [facility] Last Admin: 04/08/17 08:13 Dose: 40 mg Famotidine (Pepcid) 20 mg PO DAILY [facility] Last Admin: 04/08/17 08:03 Dose: 20 mg Furosemide (Lasix) 40 mg PO DAILY [facility] Last Admin: 04/08/17 08:04 Dose: 40 mg Hydromorphone HCl (Dilaudid Inj Syringe) 2 mg IVP Q1HR PRN PRN Reason: severe pain Last Admin: 04/09/17 01:04 Dose: 2 mg Ceftriaxone Sodium 2 gm/ (Sodium Chloride) 100 mls @ 200 mls/hr IV DAILY [facility] Last Admin: 04/08/17 08:19 Dose: 200 mls/hr Sodium Chloride (Normal Saline 0.9%) 1,000 mls @ 0 mls/hr IV .Q0M EILEEN PRN Reason: TKO Last Infusion: 04/09/17 04:33 Dose: 0 mls/hr Metronidazole (Flagyl 500 Mg/100 Ml) 500 mg in 100 mls @ 100 mls/hr IV Q6H [facility] Last Infusion: 04/09/17 04:00 Dose: Infused Insulin Aspart (Novolog) 5 unit SUBQ TIDWM [facility] Last Admin: 04/08/17 16:37 Dose: Not Given Insulin Aspart (Novolog) 1 - 5 unit SUBQ 0800,1200,1700,2100 [facility] PRN Reason: Protocol Last Admin: 04/08/17 21:08 Dose: Not Given Insulin Glargine (Lantus Solostar) 50 unit SUBQ BID [facility] Last Admin: 04/08/17 22:20 Dose: 50 unit Levalbuterol HCl (Xopenex) 1.25 mg INH RTQ4H PRN PRN Reason: SOB/WHEEZING Last Admin: 04/08/17 19:40 Dose: 1.25 mg Lidocaine (Lidoderm Patch) 1 patch TOP DAILY PRN PRN Reason: PAIN Last Admin: 04/08/17 14:34 Dose: 1 patch Losartan Potassium (Cozaar) 25 mg PO QPM [facility] Last Admin: 04/08/17 21:24 Dose: 25 mg Metoprolol Succinate (Toprol Xl) 50 mg PO DAILY [facility] Last Admin: 04/08/17 08:11 Dose: 50 mg Mineral Oil (Cavilon) 1 applic TOP PRN PRN PRN Reason: Skin Care Multivitamins (Theragran) 1 tab PO DAILYWM [facility] Last Admin: 04/08/17 08:03 Dose: 1 tab Nystatin (Nystop) 1 applic TOP BID [facility] Last Admin: 04/08/17 21:07 Dose: 1 applic (Febuxostat [Uloric] (80 Mg) Tab) 1 each PO DAILY [facility] Last Admin: 04/08/17 08:19 Dose: Not Given Polyethylene Glycol (Miralax) 17 gm PO DAILY [facility] Last Admin: 04/08/17 08:02 Dose: 17 gm Prochlorperazine Edisylate (Compazine Inj) 10 mg IVP Q6HR PRN PRN Reason: Nausea / Vomiting Saccharomyces Boulardii (Florastor) 250 mg PO BIDWM [facility] Last Admin: 04/08/17 17:24 Dose: Not Given Senna (Senokot) 8.6 - 17.2 mg PO DAILY [facility] Last Admin: 04/08/17 08:03 Dose: 8.6 mg Sodium Chloride (Normal Saline Flush 0.9%) 10 ml IVP PRN PRN PRN Reason: NEEDED PER PROVIDER ORDERS Last Admin: 04/09/17 02:59 Dose: 10 ml Sodium Chloride (Normal Saline Flush 0.9%) 10 ml IVP Q8HR [facility] Last Admin: 04/09/17 04:41 Dose: Not Given Spironolactone (Aldactone) 25 mg PO DAILY [facility] Last Admin: 04/08/17 08:04 Dose: 25 mg Zinc Sulfate () 220 mg PO DAILY [facility] Last Admin: 04/08/17 08:04 Dose: 220 mg Zolpidem Tartrate (Ambien) 5 mg PO QPM PRN PRN Reason: Insomnia Cholecalciferol (Vitamin D3) [Vitamin D3] 2,000 units PO DAILY 08/29/13 Losartan [Cozaar] 25 mg PO QPM 06/10/16 Metoprolol Succinate 50 mg PO DAILY 06/10/16 Insulin Aspart [NovoLOG] 0 - 5 unit SUBQ 0800,1200,1700,2100 PRN 04/05/17 Warfarin [Coumadin] 5 mg PO MOFR@1700 04/05/17 Warfarin [Coumadin] 7.5 mg PO SUTUWETHSA@1700 04/05/17 Objective - Vital Signs/Intake & Output Reviewed Vital Signs: Yes Vital Signs: Vital Signs x48h Temp Pulse Resp BP Pulse Ox 04/09/17 05:20 37.0 C 88 18 92/66 92 Intake & Output: Intake & Output 04/06/17 04/07/17 04/08/17 04/09/17 23:59 23:59 23:59 23:59 Intake Total 1140 2909.0 927.5 1536.5 Output Total 1900 900 725 700 Balance -760 2009.0 202.5 836.5 - Lab Results Fish Bones: 04/09/17 12:51 04/07/17 04:42 Other Labs: Lab Results x24hrs 0204/08/17 04/08/17 Range/Units 18:22 18:22 07:44 WBC (4.8-10.8) x10^3/uL RBC (4.20-5.40) 10^6/uL Hgb 7.3 L (12.0-16.0) g/dL Hct 22.1 L (37.0-47.0) % MCV (81.0-99.0) fL MCH (27.0-31.0) pg MCHC (32.0-36.0) g/dL RDW (12.0-15.0) % Plt Count (130-450) 10^3/uL MPV (7.9-10.8) fL Neut # (1.5-6.6) 10^3/uL Lymph # (1.5-3.5) 10^3/uL [place] # (0.0-1.0) 10^3/uL Eos # (0.0-0.7) 10^3/uL Baso # (0.0-0.1) 10^3/uL Absolute Nucleated RBC x10^3/uL Nucleated RBC % /100WBC ESR (0-30) mm/Hr C-Reactive Protein 20.1 H (0-1.0) mg/dL Blood Type A POSITIVE Antibody Screen NEGATIVE Crossmatch IS Only See Detail 04/08/17 04/08/17 Range/Units 07:44 07:44 WBC 9.0 (4.8-10.8) x10^3/uL RBC 2.68 L (4.20-5.40) 10^6/uL Hgb 8.3 L (12.0-16.0) g/dL Hct 25.0 L (37.0-47.0) % MCV 93.5 (81.0-99.0) fL MCH 31.1 H (27.0-31.0) pg MCHC 33.3 (32.0-36.0) g/dL RDW 14.7 (12.0-15.0) % Plt Count 313 (130-450) 10^3/uL MPV 8.0 (7.9-10.8) fL Neut # 6.4 (1.5-6.6) 10^3/uL Lymph # 1.6 (1.5-3.5) 10^3/uL [place] # 0.9 (0.0-1.0) 10^3/uL Eos # 0.1 (0.0-0.7) 10^3/uL Baso # 0.1 (0.0-0.1) 10^3/uL Absolute Nucleated RBC 0.00 x10^3/uL Nucleated RBC % 0.0 /100WBC ESR > 140 H (0-30) mm/Hr C-Reactive Protein (0-1.0) mg/dL Blood Type Antibody Screen Crossmatch IS Only Assessment/Plan - Problem List (1) Acute blood loss anemia Impression: some of it is from post op loss but most of it is most likely from the oozing stump. She is with hypotension, fatigue off and on. Plan: Type and cross for 2 units if repeat hgb low. transfuse. (2) Atrial fibrillation with RVR Impression: yesterday with a burst of RVR and hypotension. No PE, no recurrence of infection after work up. rate has been controlled on metoprolol and dig. continue lovenox until can return to po coumadin (3) Postoperative wound cellulitis Impression: The BKA site needed debridement, done by Ortho. POD #3 Second debridement yesterday. POD #1 Continue IV antibiotics and dressing changes, wound management as per Dr Mazariegos. She has a wound vac. (4) Osteomyelitis of ankle and foot Assessment/Plan: Wound aspirates done in ER 2/4 from the BKA stump (which was done due to osteo) have grown Ecoli, which was one of the organisms in the original infected diabetic foot. Blood cultures done 2/ have not grown any pathogen. Wound culture 2/ with E coli New tissue samples were sent from the OR 2 and growing gram negative bacilli. Current empiric antibiotics, Day#4 of iv Clinda and iv Ceftriaxone. Dr. Mazariegos would like flagyl instead so will dc clinda and change to flagyl Day #2 , continue ceftriaxone Now Day #5. (5) DM2 (diabetes mellitus, type 2) Assessment/Plan: Continue diet an Insulin coverage, glu checks. Controlled. 2/5 glucose: 112, 127, 125 and 144 2/6 glucose: 132, 198, 169, 206, 50 2/7 glucose: 135, 200, 130, 96 2/8 gucose: 207, 244 after a POC finger stick was 50. Reduce lantus to 45 U bid from 50 units bid (6) History of COPD Assessment/Plan: Respiratory status stable, on inhalers. (7) Hx of chronic congestive heart failure Assessment/Plan: Pt on B-carlos and Spironolactone and Lasix. Change to IV lasix 04/07 and has been ~2500 cc positive bn yesterday and right now. Continue meds and follow daily weights. Case discussed with Radha Everett CRNA for OR on 04/08 (8) UTI (urinary tract infection) Qualifiers: Urinary tract infection type: acute cystitis Hematuria presence: without hematuria Qualified Code(s): N30.00 - Acute cystitis without hematuria Assessment/Plan: She was on po Macrodantin for a UTI last recent admission that grew out Klebsiella and E coli 03/27 Continue Ceftriaxone. (9) coccydynia from hx of fall and bruise. try lidoderm patch to affected area.
[2017-04-09] MEDS: INSULIN ASPART 300 UNIT/3 ML PEN SUBQ SCH ×7 (08:22→21:11)
[2017-04-09] MEDS: ENOXAPARIN 40 MG/0.4 ML SYRINGE SUBQ SCH (08:32)
[2017-04-09] MEDS: SPIRONOLACTONE 25 MG TABLET PO SCH (08:35)
[2017-04-09] MEDS: MULTIVITAMIN TABLET PO SCH (08:35)
[2017-04-09] MEDS: ZINC SULFATE 220 MG CAPSULE PO SCH (08:35)
[2017-04-09] MEDS: ASCORBIC ACID CHEW 500 MG TABLET PO SCH (08:35)
[2017-04-09] MEDS: FAMOTIDINE 20 MG TABLET PO SCH (08:35)
[2017-04-09] MEDS: DOCUSATE SODIUM 250 MG CAPSULE PO SCH ×2 (08:35→09:01)
[2017-04-09] MEDS: SACCHAROMYCES BOULARDII 250 MG CAPSULE PO SCH ×2 (08:35→16:55)
[2017-04-09] MEDS: SENNA 8.6 MG TABLET PO SCH (08:35)
[2017-04-09] MEDS: CHOLECALCIFEROL 1,000 UNIT TABLET PO SCH (08:36)
[2017-04-09] MEDS: METOPROLOL SUCCINATE 50 MG TABLET PO SCH (08:58)
[2017-04-09] MEDS: diltiaZEM CD 240 MG CAPSULE PO SCH (08:58)
[2017-04-09] MEDS: INSULIN GLARGINE 300 UNIT/3 ML PEN SUBQ SCH ×4 (09:00→21:10)
[2017-04-09] MEDS: DIGOXIN 500 MCG/2 ML AMP IVP SCH (09:00)
[2017-04-09] MEDS: POLYETHYLENE GLYCOL 3350 17 GM PACKET PO SCH (09:12)
[2017-04-09] MEDS: NYSTATIN POWDER 15 GM TOP SCH ×2 (09:13→19:45)
[2017-04-09] MEDS: LEVALBUTEROL 1.25 MG/3 ML NEB INH PRN (09:30)
[2017-04-09] MEDS: cefTRIAXone 2 GM in SODIUM CHLORIDE 0.9% MINIBAG 100 ML IV SCH (10:03)
[2017-04-09] MEDS: FUROSEMIDE 20 MG TABLET PO SCH (10:04)
[2017-04-09] MEDS: CLOTRIMAZOLE 1% CREAM 15 GM TUBE TOP SCH ×2 (10:12→19:45)
[2017-04-09] MEDS: LIDOCAINE PATCH 5% TOP PRN (10:47)
--- NOTE | 2017-04-09 12:02 | OPERATIVE REPORT ---
Physician: Arsalan Becerra MD DATE OF SURGERY: 04/08/2017. PREOPERATIVE DIAGNOSIS: Infection, left leg stump. POSTOPERATIVE DIAGNOSIS: Infection, left leg stump. PROCEDURES PERFORMED 1. Extensive debridement of left leg stump infection. 2. Osteotomy. 3. Wound VAC application. SURGEON: Arsalan Becerra MD FINAL DRESSING CUTTER: None. ANESTHESIA: Aube. ANESTHESIA TYPE: General endotracheal. FINDINGS: Multiple areas of hardened, necrosing tissue. Portions of muscle fascia had necrotic infected material on it, but there was no destruction of the fascia itself. No gross dripping pus was located, but some fluid came out in places, which obviously was cloudy. There was a pocket anterior to the tibia. There was a pocket straight posterior, just deep to the subcutaneous level. There was a pocket on the lateral aspect. All of these areas were explored. A uterine curet was used to scrape the sides and very effectively remove the and dying tissue. INDICATIONS FOR PROCEDURE: This woman was about a week from a below-knee amputation which became infected. One debridement done 2 days ago. After that , cultures returned E coli and gram-negative bacillus, anaerobic. Patient's CRP steadily climbed, up to 20 this morning. PROCEDURE: Patient was brought into the operating room and slid on the air mattress over to the operating table. She was then placed under adequate general endotracheal anesthesia. Left lower extremity was prepped and draped in the usual fashion. Timeout was held to identify patient, site, and procedure. Thigh tourniquet was applied. This was inflated to 350 mmHg for 17 minutes during the mid portion of the procedure where bleeding was being controlled. The wound VAC sponge and its covering had been left on for the prepping. Small scissors was then used to cut circumferentially around the sponge and free it of the plastic barrier. Sponge could be removed then. A thorough irrigation was done with normal saline. A scalpel was used for sharp debridement and probably 150 or so different fragments removed. Three times during the procedure, pulsating lavage was utilized to irrigate the flesh. Electrocautery was used to obtain hemostasis. One strong bleeder was cerclaged with 3-0 PDS suture. The pocket that went down around the tibia had some foul-appearing tissue. This was all removed. The oscillating saw was then used to cut off about 5 mm of bone to get a fresh, noninfected edge. The wound in that area was then irrigated to remove the bone dust and any other debris. Approximately 1-1/2 hours were spent cleaning and debriding the wound. At the end of all this, there were very few areas of fat that was a little more firm than normal. All of the hard fat had been excised and all of the infected fascial tissue was also removed. The wound VAC was then placed. A sponge was contoured to fit around the stump, and 3 small pieces were then placed into the pockets that are described above. These all communicated with the larger sponge. The plastic barrier was then placed in strips finally circumferentially closing the wound VAC sponge. When the suction was applied, the sponge contracted nicely, and there were no leaks. The device used had 2 tubes and 2 seals. Both of these were placed. The inflow seal was placed where it would be superior as the patient lay in bed. Patient was then awakened, extubated, and taken to the recovery room in good condition, having tolerated the procedure well with a good pulse and pressure. ESTIMATED BLOOD LOSS: 600 mL TD: 04/08/2017 20:27 DEXTER
[2017-04-09 13:03] LABS: BASOPHILS # (AUTO) 0.1 10^3/uL (0.0-0.1); BASOPHILS % (AUTO) 0.4 %; EOSINOPHILS % (AUTO) 0.2 %; HGB - HEMOGLOBIN 8.9 g/dL (12.0-16.0); LYMPHOCYTES # (AUTO) 1.6 10^3/uL (1.5-3.5); LYMPHOCYTES % (AUTO) 12.4 %; MEAN CORPUSCULAR HEMOGLOBIN 30.1 pg (27.0-31.0); MEAN CORPUSCULAR HGB CONC 33.1 g/dL (32.0-36.0); MEAN CORPUSCULAR VOLUME 90.8 fL (81.0-99.0); MEAN PLATELET VOLUME 8.1 fL (7.9-10.8); MONOCYTES # (AUTO) 0.8 10^3/uL (0.0-1.0); MONOCYTES % (AUTO) 6.2 %; NEUTROPHILS # (AUTO) 10.1 10^3/uL (1.5-6.6); NEUTROPHILS % (AUTO) 80.8 %; PLT - PLATELET COUNT 343 10^3/uL (130-450); RED BLOOD COUNT 2.95 10^6/uL (4.20-5.40); RED CELL DISTRIBUTION WIDTH 16.1 % (12.0-15.0); WHITE BLOOD COUNT 12.6 x10^3/uL (4.8-10.8)
[2017-04-09] MEDS: LOSARTAN 50 MG TABLET PO SCH (19:45)
[2017-04-10] MEDS: ACETAMINOPHEN 325 MG TABLET PO PRN (01:37)
[2017-04-10] MEDS: SODIUM CHLORIDE FLUSH 0.9% 10 ML SYRINGE IVP SCH ×3 (01:38→21:15)
[2017-04-10] MEDS: metroNIDAZOLE 500 MG/100 ML 500 MG/100 ML BAG IV SCH ×4 (01:39→19:46)
[2017-04-10 05:56] LABS: BASOPHILS # (AUTO) 0.1 10^3/uL (0.0-0.1); BASOPHILS % (AUTO) 0.9 %; EOSINOPHILS # (AUTO) 0.1 10^3/uL (0.0-0.7); EOSINOPHILS % (AUTO) 0.6 %; HGB - HEMOGLOBIN 8.2 g/dL (12.0-16.0); LYMPHOCYTES # (AUTO) 1.8 10^3/uL (1.5-3.5); LYMPHOCYTES % (AUTO) 19.2 %; MEAN CORPUSCULAR VOLUME 90.9 fL (81.0-99.0); MEAN PLATELET VOLUME 7.8 fL (7.9-10.8); MONOCYTES # (AUTO) 0.8 10^3/uL (0.0-1.0); MONOCYTES % (AUTO) 9.1 %; NEUTROPHILS # (AUTO) 6.4 10^3/uL (1.5-6.6); NEUTROPHILS % (AUTO) 70.2 %; PLT - PLATELET COUNT 309 10^3/uL (130-450); RED BLOOD COUNT 2.72 10^6/uL (4.20-5.40); RED CELL DISTRIBUTION WIDTH 15.9 % (12.0-15.0); WHITE BLOOD COUNT 9.2 x10^3/uL (4.8-10.8)
[2017-04-10 06:07] LABS: CALCIUM 7.6 mg/dL (8.5-10.3); CREATININE 1.1 mg/dL (0.4-1.0)
[2017-04-10] MEDS: ASCORBIC ACID CHEW 500 MG TABLET PO SCH (07:36)
[2017-04-10] MEDS: MULTIVITAMIN TABLET PO SCH (07:36)
--- NOTE | 2017-04-10 07:36 | PROVIDER PROGRESS NOTE ---
Subjective - Prog Note Date Prog Note Date: 04/10/17 Prog Note Time: 07:35 - Subjective Subjective: she doesn't have any new complaints. glucose has been low bc she has been NPO for surgery and still had her lantus. I went from 50 units to 45 units yesterday. still low this am. Current Medications - Current Medications Current Medications: Active Medications Acetaminophen (Tylenol) 650 mg PO Q4HR PRN PRN Reason: Pain 1 to 4 Last Admin: 04/10/17 01:37 Dose: 650 mg Ascorbic Acid (Vitamin C) 500 mg PO DAILY [facility] Last Admin: 04/09/17 08:35 Dose: 500 mg Cholecalciferol (Vitamin D3) 2,000 unit PO DAILY [facility] Last Admin: 04/09/17 08:36 Dose: 2,000 unit Clotrimazole (Lotrimin 1% Cream) 1 applic TOP BID [facility] Last Admin: 04/09/17 19:45 Dose: Not Given Digoxin (Lanoxin Inj) 250 mcg IVP DAILY [facility] Last Admin: 04/09/17 09:00 Dose: 250 mcg Diltiazem HCl (Cardizem Cd) 240 mg PO DAILY [facility] Last Admin: 04/09/17 08:58 Dose: 240 mg Docusate Sodium (Colace 250mg Capsule) 250 mg PO DAILY [facility] Last Admin: 04/09/17 08:35 Dose: 250 mg Docusate Sodium (Colace 250mg Capsule) 250 - 500 mg PO DAILY [facility] Last Admin: 04/09/17 09:01 Dose: Not Given Enoxaparin Sodium (Lovenox) 40 mg SUBQ DAILY [facility] Last Admin: 04/09/17 08:32 Dose: 40 mg Famotidine (Pepcid) 20 mg PO DAILY [facility] Last Admin: 04/09/17 08:35 Dose: 20 mg Furosemide (Lasix) 40 mg PO DAILY [facility] Last Admin: 04/09/17 10:04 Dose: 40 mg Hydromorphone HCl (Dilaudid Inj Syringe) 2 mg IVP Q1HR PRN PRN Reason: severe pain Last Admin: 04/09/17 01:04 Dose: 2 mg Ceftriaxone Sodium 2 gm/ (Sodium Chloride) 100 mls @ 200 mls/hr IV DAILY [facility] Last Infusion: 04/09/17 10:35 Dose: Infused Sodium Chloride (Normal Saline 0.9%) 1,000 mls @ 0 mls/hr IV .Q0M [facility] PRN Reason: TKO Last Infusion: 04/10/17 04:10 Dose: 0 mls/hr Metronidazole (Flagyl 500 Mg/100 Ml) 500 mg in 100 mls @ 100 mls/hr IV Q6H [facility] Last Infusion: 04/10/17 03:00 Dose: Infused Insulin Aspart (Novolog) 5 unit SUBQ TIDWM [facility] Last Admin: 04/09/17 16:56 Dose: 5 unit Insulin Glargine (Lantus Solostar) 45 unit SUBQ BID [facility] Last Admin: 04/09/17 21:10 Dose: 45 unit Insulin Human Regular (Novolin R) 1 - 5 unit SUBQ Q6HR [facility] PRN Reason: Protocol Levalbuterol HCl (Xopenex) 1.25 mg INH RTQ4H PRN PRN Reason: SOB/WHEEZING Last Admin: 04/09/17 09:30 Dose: 1.25 mg Lidocaine (Lidoderm Patch) 1 patch TOP DAILY PRN PRN Reason: PAIN Last Admin: 04/09/17 10:47 Dose: 1 patch Losartan Potassium (Cozaar) 25 mg PO QPM [facility] Last Admin: 04/09/17 19:45 Dose: 25 mg Metoprolol Succinate (Toprol Xl) 50 mg PO DAILY [facility] Last Admin: 04/09/17 08:58 Dose: 50 mg Mineral Oil (Cavilon) 1 applic TOP PRN PRN PRN Reason: Skin Care Multivitamins (Theragran) 1 tab PO DAILYWM [facility] Last Admin: 04/09/17 08:35 Dose: 1 tab Nystatin (Nystop) 1 applic TOP BID [facility] Last Admin: 04/09/17 19:45 Dose: 1 applic (Febuxostat [Uloric] (80 Mg) Tab) 1 each PO DAILY [facility] Last Admin: 04/09/17 12:00 Dose: Not Given Polyethylene Glycol (Miralax) 17 gm PO DAILY [facility] Last Admin: 04/09/17 09:12 Dose: 17 gm Prochlorperazine Edisylate (Compazine Inj) 10 mg IVP Q6HR PRN PRN Reason: Nausea / Vomiting Saccharomyces Boulardii (Florastor) 250 mg PO BIDWM [facility] Last Admin: 02/08/18 16:55 Dose: 250 mg Senna (Senokot) 8.6 - 17.2 mg PO DAILY [facility] Last Admin: 04/09/17 08:35 Dose: 8.6 mg Sodium Chloride (Normal Saline Flush 0.9%) 10 ml IVP PRN PRN PRN Reason: NEEDED PER PROVIDER ORDERS Last Admin: 04/09/17 02:59 Dose: 10 ml Sodium Chloride (Normal Saline Flush 0.9%) 10 ml IVP Q8HR [facility] Last Admin: 04/10/17 01:38 Dose: 10 ml Spironolactone (Aldactone) 25 mg PO DAILY [facility] Last Admin: 04/09/17 08:35 Dose: 25 mg Zinc Sulfate () 220 mg PO DAILY [facility] Last Admin: 04/09/17 08:35 Dose: 220 mg Zolpidem Tartrate (Ambien) 5 mg PO QPM PRN PRN Reason: Insomnia Cholecalciferol (Vitamin D3) [Vitamin D3] 2,000 units PO DAILY 08/29/13 Losartan [Cozaar] 25 mg PO QPM 06/10/16 Metoprolol Succinate 50 mg PO DAILY 06/10/16 Insulin Aspart [NovoLOG] 0 - 5 unit SUBQ 0800,1200,1700,2100 PRN 04/05/17 Warfarin [Coumadin] 5 mg PO MOFR@1700 04/05/17 Warfarin [Coumadin] 7.5 mg PO SUTUWETHSA@1700 04/05/17 Objective - Vital Signs/Intake & Output Reviewed Vital Signs: Yes Vital Signs: Vital Signs x48h Temp Pulse Resp BP Pulse Ox 04/10/17 05:00 36.8 C 74 18 116/46 L 98 04/10/17 00:33 36.8 C 83 18 106/56 L 98 Intake & Output: Intake & Output 04/07/17 04/08/17 04/09/17 04/10/17 23:59 23:59 23:59 23:59 Intake Total 2909.0 1027.5 3162.5 169.5 Output Total 694 654 6469 700 Balance 2009.0 302.5 837.5 -530.5 - Objective General Appearance: positive: No acute distress, Alert, Other (flushed, diaphoretic morbidly obese white female who always has a cold rag on her forehead. is sleeping here. he has ?dementia and stays the day. same clothes for a few dsys now.) Eyes Bilateral: positive: PERRL, EOMI ENT: positive: Pharynx nml Neck: negative: Stiff neck, Carotid bruit Respiratory: positive: Chest non-tender, Other (but diminished at bases and when she tries to roll over or sit up gets grunting tachynea with the effort of just trying to reposition herself.). negative: Wheezes, Rales, Rhonchi Cardiovascular: positive: Regular rate & rhythm. negative: Gallop/S4, Friction rub Abdomen: positive: Nml bowel sounds, No distention, Other (huge panus, can't assess for masses) Skin: positive: Warm, Diaphoresis Extremities: positive: Other (left BKA with JAKE wrap and wound vac right leg large, but trace edema. no redness or venous stasis. calf is soft) Neurologic/Psychiatric: positive: Oriented x3, CN's nml (2-12), Motor nml (jsut really weak) - Lab Results Fish Bones: 04/10/17 05:40 04/10/17 05:40 Other Labs: Lab Results x24hrs 04/10/17 04/10/17 04/09/17 Range/Units 05:40 05:40 12:51 WBC 9.2 12.6 H (4.8-10.8) x10^3/uL RBC 2.72 L 2.95 L (4.20-5.40) 10^6/uL Hgb 8.2 L 8.9 L (12.0-16.0) g/dL Hct 24.8 L 26.8 L (37.0-47.0) % MCV 90.9 90.8 (81.0-99.0) fL MCH 30.0 30.1 (27.0-31.0) pg MCHC 33.0 33.1 (32.0-36.0) g/dL RDW 15.9 H 16.1 H (12.0-15.0) % Plt Count 309 343 (130-450) 10^3/uL MPV 7.8 L 8.1 (7.9-10.8) fL Neut # 6.4 10.1 H (1.5-6.6) 10^3/uL Lymph # 1.8 1.6 (1.5-3.5) 10^3/uL [place] # 0.8 0.8 (0.0-1.0) 10^3/uL Eos # 0.1 0.0 (0.0-0.7) 10^3/uL Baso # 0.1 0.1 (0.0-0.1) 10^3/uL Absolute Nucleated RBC 0.00 0.00 x10^3/uL Nucleated RBC % 0.0 0.0 /100WBC Sodium 136 (135-145) mmol/L Potassium 4.8 (3.5-5.0) mmol/L Chloride 104 (101-111) mmol/L Carbon Dioxide 26 (21-32) mmol/L Anion Gap 6.0 (6-13) BUN 25 H (6-20) mg/dL Creatinine 1.1 H (0.4-1.0) mg/dL Estimated GFR (MDRD) 49 L (>89) Glucose 156 H (70-100) mg/dL Calcium 7.6 L (8.5-10.3) mg/dL Assessment/Plan - Problem List (1) Acute blood loss anemia Impression: some of it is from post op loss but most of it is most likely from the oozing stump. She is with hypotension, fatigue off and on. She had 2 units on 04/08. Stable enough this am before surgery. but Dr. Mazariegos will order T&C if needs more today. Plan: Type and cross for 2 units if repeat hgb low. (2) Atrial fibrillation with RVR Impression: had a burst of RVR and hypotension on admission and on 04/07. No PE, no recurrence of infection after work up. rate has been controlled on metoprolol and dig. continue lovenox until can return to po coumadin (3) Postoperative wound cellulitis Impression: The BKA site needed debridement, done by Ortho. POD #4 Second debridement . POD #2 now to go to OR today again. Continue IV antibiotics and dressing changes, wound management as per Dr Mazariegos. She has a wound vac. (4) Osteomyelitis of ankle and foot Assessment/Plan: s/p BKA for the osteo in March admission. Went to SNF. Then post op stump infection. Wound aspirates done in ER 2/4 from the BKA stump (which was done due to osteo) have grown Ecoli, which was one of the organisms in the original infected diabetic foot. Blood cultures done 04/05 have not grown any pathogen. Wound culture 04/05 with E coli New tissue samples were sent from the OR 04/06/17 and growing gram negative bacilli. Looks like E coli. Current empiric antibiotics, Day#4 of iv Clinda and iv Ceftriaxone. Dr. Mazariegos would like flagyl instead so will dc clinda and change to flagyl Day #3 , continue ceftriaxone Now Day #6 Since she continues to need abx will ask Anesthesia for a PICC line.. (5) DM2 (diabetes mellitus, type 2) Assessment/Plan: Continue diet an Insulin coverage, glu checks. Controlled. 2 glucose: 112, 127, 125 and 144 2/6 glucose: 132, 198, 169, 206, 50 2/7 glucose: 135, 200, 130, 96 2/ gucose: 207, 244 after a POC finger stick was 50. then 207 and 228 2 glucose: 156, 138, 126, 118, 110 before OR Reduce lantus to 20 units bid from 45 U bid which was reduced from 50 units bid Will also order D5NS at 75 cc/hr as she waits for surgery since she is NPO. (6) History of COPD Assessment/Plan: Respiratory status stable, on inhalers. (7) Hx of chronic congestive heart failure Assessment/Plan: Pt on B-carlos and Spironolactone and Lasix. Change to IV lasix 2 and has been positive bn 2 and right now. Continue meds and follow daily weights. Case discussed with Radha Everett CRNA for OR on 04/08 (8) UTI (urinary tract infection) Qualifiers: Urinary tract infection type: acute cystitis Hematuria presence: without hematuria Qualified Code(s): N30.00 - Acute cystitis without hematuria Assessment/Plan: She was on po Macrodantin for a UTI last recent admission that grew out Klebsiella and E coli 03/27 Continue Ceftriaxone. (9) coccydynia from hx of fall and bruise. try lidoderm patch to affected area.
[2017-04-10] MEDS: CHOLECALCIFEROL 1,000 UNIT TABLET PO SCH (07:37)
[2017-04-10] MEDS: DOCUSATE SODIUM 250 MG CAPSULE PO SCH ×2 (07:37→08:29)
[2017-04-10] MEDS: ZINC SULFATE 220 MG CAPSULE PO SCH (07:38)
[2017-04-10] MEDS: POLYETHYLENE GLYCOL 3350 17 GM PACKET PO SCH (07:38)
[2017-04-10] MEDS: INSULIN ASPART 300 UNIT/3 ML PEN SUBQ SCH ×3 (07:41→19:18)
[2017-04-10] MEDS: ENOXAPARIN 40 MG/0.4 ML SYRINGE SUBQ SCH (07:44)
[2017-04-10] MEDS: INSULIN REGULAR HUMAN 100 UNIT/1 ML 10 ML MDV SUBQ SCH ×3 (07:45→17:31)
[2017-04-10] MEDS: SACCHAROMYCES BOULARDII 250 MG CAPSULE PO SCH ×2 (08:27→17:32)
[2017-04-10] MEDS: diltiaZEM CD 240 MG CAPSULE PO SCH (08:28)
[2017-04-10] MEDS: FUROSEMIDE 20 MG TABLET PO SCH (08:28)
[2017-04-10] MEDS: SENNA 8.6 MG TABLET PO SCH (08:29)
[2017-04-10] MEDS: SPIRONOLACTONE 25 MG TABLET PO SCH (08:29)
[2017-04-10] MEDS: METOPROLOL SUCCINATE 50 MG TABLET PO SCH (08:29)
[2017-04-10] MEDS: FAMOTIDINE 20 MG TABLET PO SCH (08:29)
[2017-04-10] MEDS: DIGOXIN 500 MCG/2 ML AMP IVP SCH (08:29)
[2017-04-10] MEDS: INSULIN GLARGINE 300 UNIT/3 ML PEN SUBQ SCH ×2 (08:31→21:14)
[2017-04-10] MEDS: cefTRIAXone 2 GM in SODIUM CHLORIDE 0.9% MINIBAG 100 ML IV SCH (09:51)
[2017-04-10] MEDS: DEXTROSE 5%-0.9% NACL 1,000 ML IV SCH (10:00)
[2017-04-10] MEDS: CLOTRIMAZOLE 1% CREAM 15 GM TUBE TOP SCH ×2 (10:00→21:11)
[2017-04-10] MEDS: NYSTATIN POWDER 15 GM TOP SCH ×2 (10:01→21:09)
[2017-04-10] MEDS: SODIUM CHLORIDE 0.9% 1,000 ML IV SCH ×2 (12:48→21:15)
[2017-04-10] MEDS ORDERED: MIDAZOLAM 2 MG/2 ML VIAL IVP ONE (13:20)
[2017-04-10] MEDS ORDERED: fentaNYL 100 MCG/2 ML VIAL IVP ONE (13:20)
[2017-04-10] MEDS ORDERED: PROPOFOL 200 MG/20 ML VIAL IVP ONE (13:20)
[2017-04-10] MEDS ORDERED: ROCURONIUM 50 MG/5 ML VIAL IVP ONE (13:20)
[2017-04-10] MEDS ORDERED: SUCCINYLCHOLINE 200 MG/10 ML VIAL IVP ONE (13:20)
[2017-04-10] MEDS ORDERED: LIDOCAINE-MPF 2% 5 ML VIAL IM ONE (13:20)
[2017-04-10] MEDS ORDERED: SODIUM CHLORIDE 0.9% 1,000 ML IV ONE ×2 (13:52→16:26)
[2017-04-10] MEDS ORDERED: DEXTROSE 5% 1,000 ML IV SCH (14:00)
[2017-04-10] MEDS ORDERED: THROMBIN (BOVINE) 5,000 UNIT VIAL TOP ONE (14:08)
--- NOTE | 2017-04-10 16:38 | OPERATIVE REPORT ---
Operative Report - General Admit Date: 04/05/17 Procedure Date: 04/10/17 Planned Procedure: Irrigation and debridement of left leg stump with Wound Vac Placement Pre-Op Diagnosis: Infected left leg stump Procedure Performed: Irrigation and debridemnt of left leg stump with wound vac placement Post Op Diagnosis: same - Procedure Note Primary Surgeon: Mariam Anesthesia Provider: Ajay Anesthesia Technique: General ET tube Estimated Blood Loss (mL): 1,000 Complications: Bleeding
--- NOTE | 2017-04-10 17:18 | XRAY Report ---
FRONTAL CHEST: 04/10/2017 CLINICAL INDICATION: PICC placement. FINDINGS: Frontal view of the chest demonstrates a right arm PICC terminating in the distal superior vena cava. Endotracheal tube terminates approximately 3 cm above the sneha. The cardiac silhouette is enlarged. Left basilar atelectasis or infiltrate is present. No effusion or pneumothorax is seen. IMPRESSION: RIGHT ARM PICC TERMINATING IN THE DISTAL SUPERIOR VENA CAVA. TD: 04/10/2017 17:16
[2017-04-10 18:54] LABS: HEMOGLOBIN A1C 0.55 g/dL; HEMOGLOBIN A1C % 7.7 % (4.6-6.2)
[2017-04-10] MEDS: LOSARTAN 50 MG TABLET PO SCH (21:06)
[2017-04-11] MEDS: DEXTROSE 5%-0.9% NACL 1,000 ML IV SCH (01:03)
[2017-04-11] MEDS: metroNIDAZOLE 500 MG/100 ML 500 MG/100 ML BAG IV SCH ×3 (01:55→14:12)
[2017-04-11] MEDS: SODIUM CHLORIDE FLUSH 0.9% 10 ML SYRINGE IVP SCH ×2 (05:21→12:38)
[2017-04-11] MEDS: HYDROmorphone 1 MG/ML SYRINGE IVP PRN (05:21)
[2017-04-11] MEDS: SODIUM CHLORIDE FLUSH 0.9% 10 ML SYRINGE IVP PRN (06:00)
--- NOTE | 2017-04-11 06:09 | PROVIDER PROGRESS NOTE ---
Subjective - Prog Note Date Prog Note Date: 04/11/17 Prog Note Time: 06:08 - Subjective Subjective: taken to the OR yesterday and tissue was soft, mushy "like brain" according to ortho. transfused 2 units during case and as she came to the floor lost quite a bit of blood Ortho has to ponder next step since her tissue may need more debridement and she will need some skin flap of some kind to cover the large, large area of stump she is up in chair after being positioned by Renato lift. she is crying out in pain as we try to straighten out the left knee with full extension Current Medications - Current Medications Current Medications: Active Medications Acetaminophen (Tylenol) 650 mg PO Q4HR PRN PRN Reason: Pain 1 to 4 Last Admin: 04/10/17 01:37 Dose: 650 mg Ascorbic Acid (Vitamin C) 500 mg PO DAILY [facility] Last Admin: 04/10/17 07:36 Dose: Not Given Cholecalciferol (Vitamin D3) 2,000 unit PO DAILY [facility] Last Admin: 04/10/17 07:37 Dose: Not Given Clotrimazole (Lotrimin 1% Cream) 1 applic TOP BID [facility] Last Admin: 04/10/17 21:11 Dose: 1 applic Digoxin (Lanoxin Inj) 250 mcg IVP DAILY [facility] Last Admin: 04/10/17 08:29 Dose: 250 mcg Diltiazem HCl (Cardizem Cd) 240 mg PO DAILY [facility] Last Admin: 04/10/17 08:28 Dose: 240 mg Docusate Sodium (Colace 250mg Capsule) 250 mg PO DAILY [facility] Last Admin: 04/10/17 08:29 Dose: Not Given Docusate Sodium (Colace 250mg Capsule) 250 - 500 mg PO DAILY [facility] Last Admin: 04/10/17 07:37 Dose: Not Given Enoxaparin Sodium (Lovenox) 40 mg SUBQ DAILY [facility] Last Admin: 04/10/17 07:44 Dose: Not Given Famotidine (Pepcid) 20 mg PO DAILY [facility] Last Admin: 04/10/17 08:29 Dose: 20 mg Furosemide (Lasix) 40 mg PO DAILY [facility] Last Admin: 04/10/17 08:28 Dose: 40 mg Hydromorphone HCl (Dilaudid Inj Syringe) 2 mg IVP Q1HR PRN PRN Reason: severe pain Last Admin: 04/11/17 05:21 Dose: 2 mg Ceftriaxone Sodium 2 gm/ (Sodium Chloride) 100 mls @ 200 mls/hr IV DAILY [facility] Last Infusion: 04/10/17 10:40 Dose: Infused Sodium Chloride (Normal Saline 0.9%) 1,000 mls @ 0 mls/hr IV .Q0M [facility] PRN Reason: TKO Last Infusion: 04/11/17 05:33 Dose: Infused Metronidazole (Flagyl 500 Mg/100 Ml) 500 mg in 100 mls @ 100 mls/hr IV Q6H [facility] Last Infusion: 04/11/17 02:55 Dose: Infused Sodium Chloride (Normal Saline 0.9%) 1,000 mls @ 83.333 mls/hr IV .Q12H [facility] Last Admin: 04/10/17 21:15 Dose: 83 mls/hr Dextrose/Sodium Chloride (D5ns) 1,000 mls @ 75 mls/hr IV .[id number] [facility] Last Admin: 04/11/17 01:03 Dose: Not Given Insulin Aspart (Novolog) 5 unit SUBQ TIDWM [facility] Last Admin: 04/10/17 19:18 Dose: Not Given Insulin Aspart (Novolog) 1 - 5 unit SUBQ 0800,1200,1700,2100 [facility] PRN Reason: Protocol Insulin Glargine (Lantus Solostar) 25 unit SUBQ BID [facility] Last Admin: 04/10/17 21:14 Dose: 25 unit Levalbuterol HCl (Xopenex) 1.25 mg INH RTQ4H PRN PRN Reason: SOB/WHEEZING Last Admin: 04/09/17 09:30 Dose: 1.25 mg Lidocaine (Lidoderm Patch) 1 patch TOP DAILY PRN PRN Reason: PAIN Last Admin: 04/09/17 10:47 Dose: 1 patch Losartan Potassium (Cozaar) 25 mg PO QPM [facility] Last Admin: 04/10/17 21:06 Dose: 25 mg Metoprolol Succinate (Toprol Xl) 50 mg PO DAILY [facility] Last Admin: 04/10/17 08:29 Dose: 50 mg Mineral Oil (Cavilon) 1 applic TOP PRN PRN PRN Reason: Skin Care Multivitamins (Theragran) 1 tab PO DAILYWM [facility] Last Admin: 04/10/17 07:36 Dose: Not Given Nystatin (Nystop) 1 applic TOP BID [facility] Last Admin: 04/10/17 21:09 Dose: 1 applic (Febuxostat [Uloric] (80 Mg) Tab) 1 each PO DAILY [facility] Last Admin: 04/10/17 07:51 Dose: Not Given Polyethylene Glycol (Miralax) 17 gm PO DAILY [facility] Last Admin: 04/10/17 07:38 Dose: Not Given Prochlorperazine Edisylate (Compazine Inj) 10 mg IVP Q6HR PRN PRN Reason: Nausea / Vomiting Saccharomyces Boulardii (Florastor) 250 mg PO BIDWM [facility] Last Admin: 04/10/17 17:32 Dose: Not Given Senna (Senokot) 8.6 - 17.2 mg PO DAILY [facility] Last Admin: 04/10/17 08:29 Dose: Not Given Sodium Chloride (Normal Saline Flush 0.9%) 10 ml IVP PRN PRN PRN Reason: NEEDED PER PROVIDER ORDERS Last Admin: 04/11/17 06:00 Dose: 30 ml Sodium Chloride (Normal Saline Flush 0.9%) 10 ml IVP Q8HR [facility] Last Admin: 04/11/17 05:21 Dose: 10 ml Spironolactone (Aldactone) 25 mg PO DAILY [facility] Last Admin: 04/10/17 08:29 Dose: 25 mg Zinc Sulfate () 220 mg PO DAILY [facility] Last Admin: 04/10/17 07:38 Dose: Not Given Zolpidem Tartrate (Ambien) 5 mg PO QPM PRN PRN Reason: Insomnia Cholecalciferol (Vitamin D3) [Vitamin D3] 2,000 units PO DAILY 08/29/13 Losartan [Cozaar] 25 mg PO QPM 06/10/16 Metoprolol Succinate 50 mg PO DAILY 06/10/16 Insulin Aspart [NovoLOG] 0 - 5 unit SUBQ 0800,1200,1700,2100 PRN 04/05/17 Warfarin [Coumadin] 5 mg PO MOFR@1700 04/05/17 Warfarin [Coumadin] 7.5 mg PO SUTUWETHSA@1700 04/05/17 Objective - Vital Signs/Intake & Output Reviewed Vital Signs: Yes Vital Signs: Vital Signs x48h Temp Pulse Pulse Resp BP Pulse Ox 04/11/17 05:00 37.2 C 63 18 109/63 97 02/09/18 23:52 37.1 C 75 16 107/50 L 100 Intake & Output: Intake & Output 04/08/17 04/09/17 04/10/17 04/11/17 23:59 23:59 23:59 23:59 Intake Total 1027.5 3162.5 3069.5 536 Output Total 725 2325 700 350 Balance 302.5 837.5 2369.5 186 - Objective General Appearance: positive: Alert, Moderate distress (from pain in stump and knee as we position her), Other (morbidly obese white female, looks stated age. at the bedside) Eyes Bilateral: positive: PERRL, EOMI ENT: positive: Pharynx nml Neck: negative: Stiff neck Respiratory: positive: Chest non-tender, Other (sound diminished at bases in this large unfortunate lady). negative: Wheezes, Rales, Rhonchi Cardiovascular: positive: Irregularly irregular, Other (BP occasionally 90's systolic up to low 100's but now 120). negative: Gallop/S4, Friction rub Abdomen: positive: Nml bowel sounds, No distention, Other (can't assess for organomegaly bc of large panus). negative: Tenderness, Guarding, Rebound Skin: positive: Warm, Dry Extremities: positive: Pedal edema Neurologic/Psychiatric: positive: Oriented x3, CN's nml (2-12), Motor nml (but she is weak from illness, deconditioning and her size limits her mobility) - Lab Results Fish Bones: 04/11/17 03:59 04/10/17 05:40 Other Labs: Lab Results x24hrs 04/10/17 04/08/17 Range/Units 05:40 18:22 Glycated Hemoglobin 7.7 H (4.6-6.2) % Estim Average Glucose 174 H (70-100) Blood Type A POSITIVE Antibody Screen NEGATIVE Crossmatch IS Only See Detail Assessment/Plan - Problem List (1) Acute blood loss anemia Impression: From post op loss and from the oozing stump. She was with hypotension, fatigue off and on. She had 2 units on 04/08. Another 2 units needed 04/10. Plan: Type and cross for 2 units if repeat hgb low (<7) or if develops hypotension, tachycardia continue daily CBC. I thought about doing only Hgb/Hct but want to watch her WBC as well (2) Atrial fibrillation with RVR Impression: had a burst of RVR and hypotension on admission and on 04/07. No PE, no recurrence of infection after work up. rate has been controlled on metoprolol and dig. Cardizem resumed as well. continue lovenox until can return to po coumadin Still on tele so will stop since she has been stable rhythm will also change vitals from q4 to q8 (3) Postoperative wound cellulitis Impression: The BKA site needed debridement, done by Ortho. POD #5 Second debridement . POD #3 Third debridement POD #1. Continue IV antibiotics and dressing changes, wound management as per Dr Mazariegos. She has a wound vac. He is to decide what to do about covering that stump. Skin graft? Revision? After discussion, Ortho feels she is above the ability for us to continue to deliver care. She needs a way of bring up skin to cover the stump. He can't do above knee amp bc of the previous THR and the femoral component coming too far down. I will jose UW and ask to evaluate for transfer. (4) Osteomyelitis of ankle and foot Assessment/Plan: s/p BKA for the osteo 03/31/17 then went to SNF for rehab and abx. Then post op stump infection. Wound aspirates done in ER 2 from the BKA stump (which was done due to osteo) have grown Ecoli, which was one of the organisms in the original infected diabetic foot. Blood cultures done 04/05 have not grown any pathogen. Wound culture 04/05 with E coli New tissue samples were sent from the OR 04/06/17 and growing gram negative bacilli. It is E coli. Current empiric antibiotics, Day#4 of iv Clinda and iv Ceftriaxone. Dr. Mazariegos would like flagyl instead so clinda stopped and change to flagyl Day #4 , continue ceftriaxone Now Day #7 PICC line placed 04/10/17 (5) DM2 (diabetes mellitus, type 2) Assessment/Plan: Continue diet an Insulin coverage, glu checks. Controlled. 2/5 glucose: 112, 127, 125 and 144 2/6 glucose: 132, 198, 169, 206, 50 2/7 glucose: 135, 200, 130, 96 2/8 gucose: 207, 244 after a POC finger stick was 50. then 207 and 228 04/10 glucose: 156, 138, 126, 118, 110 before OR Reduce lantus to 20 units bid from 45 U bid which was reduced from 50 units bid Will also order D5NS at 75 cc/hr as she waits for surgery since she is NPO. 04/11 glucose is 213. Stop D5 and change back to NS if she is not eating or drinking. I suspect she can be IV locked. (6) History of COPD Assessment/Plan: Respiratory status stable, on inhalers. (7) Hx of chronic congestive heart failure Assessment/Plan: Pt on B-carlos and Spironolactone and Lasix. Change to IV lasix 04/07 and has been positive bn 04/07 and right now. Continue meds and follow daily weights. Continues to be fluid overloaded on I/O give lasix today Case discussed with Radha Everett CRNA for OR on 04/08 (8) UTI (urinary tract infection) Qualifiers: Urinary tract infection type: acute cystitis Hematuria presence: without hematuria Qualified Code(s): N30.00 - Acute cystitis without hematuria Assessment/Plan: She was on po Macrodantin for a UTI last recent admission that grew out Klebsiella and E coli 03/27 Continue Ceftriaxone. (9) coccydynia from hx of fall and bruise. try lidoderm patch to affected area.
[2017-04-11 06:20] LABS: BASOPHILS % (AUTO) 0.4 %; EOSINOPHILS % (AUTO) 0.4 %; HGB - HEMOGLOBIN 8.5 g/dL (12.0-16.0); LYMPHOCYTES # (AUTO) 1.3 10^3/uL (1.5-3.5); LYMPHOCYTES % (AUTO) 11.4 %; MEAN CORPUSCULAR HEMOGLOBIN 29.4 pg (27.0-31.0); MEAN CORPUSCULAR HGB CONC 32.8 g/dL (32.0-36.0); MEAN CORPUSCULAR VOLUME 89.5 fL (81.0-99.0); MEAN PLATELET VOLUME 7.5 fL (7.9-10.8); MONOCYTES # (AUTO) 0.8 10^3/uL (0.0-1.0); MONOCYTES % (AUTO) 7.3 %; NEUTROPHILS # (AUTO) 8.9 10^3/uL (1.5-6.6); NEUTROPHILS % (AUTO) 80.5 %; PLT - PLATELET COUNT 283 10^3/uL (130-450); RED BLOOD COUNT 2.89 10^6/uL (4.20-5.40); RED CELL DISTRIBUTION WIDTH 15.8 % (12.0-15.0); WHITE BLOOD COUNT 11.1 x10^3/uL (4.8-10.8)
[2017-04-11 06:30] LABS: DIGOXIN 0.6 ng/mL
[2017-04-11] MEDS ORDERED: FUROSEMIDE 20 MG/2 ML VIAL IVP SCH ×2 (07:00→08:00)
[2017-04-11] MEDS: LEVALBUTEROL 1.25 MG/3 ML NEB INH PRN (07:36)
[2017-04-11] MEDS: INSULIN ASPART 300 UNIT/3 ML PEN SUBQ SCH ×6 (07:59→16:51)
[2017-04-11] MEDS: SACCHAROMYCES BOULARDII 250 MG CAPSULE PO SCH ×2 (08:17→16:54)
[2017-04-11] MEDS: MULTIVITAMIN TABLET PO SCH (08:17)
[2017-04-11] MEDS: DIGOXIN 500 MCG/2 ML AMP IVP SCH (09:30)
[2017-04-11] MEDS: ASCORBIC ACID CHEW 500 MG TABLET PO SCH (09:37)
[2017-04-11] MEDS: SENNA 8.6 MG TABLET PO SCH (09:37)
[2017-04-11] MEDS: ZINC SULFATE 220 MG CAPSULE PO SCH (09:37)
[2017-04-11] MEDS: FUROSEMIDE 20 MG TABLET PO SCH (09:38)
[2017-04-11] MEDS: DOCUSATE SODIUM 250 MG CAPSULE PO SCH ×2 (09:38→10:28)
[2017-04-11] MEDS: METOPROLOL SUCCINATE 50 MG TABLET PO SCH (09:38)
[2017-04-11] MEDS: FAMOTIDINE 20 MG TABLET PO SCH (09:38)
[2017-04-11] MEDS: CHOLECALCIFEROL 1,000 UNIT TABLET PO SCH (09:38)
[2017-04-11] MEDS: POLYETHYLENE GLYCOL 3350 17 GM PACKET PO SCH ×2 (09:39→10:21)
[2017-04-11] MEDS: diltiaZEM CD 240 MG CAPSULE PO SCH (09:39)
[2017-04-11] MEDS: ENOXAPARIN 40 MG/0.4 ML SYRINGE SUBQ SCH (09:39)
[2017-04-11] MEDS: cefTRIAXone 2 GM in SODIUM CHLORIDE 0.9% MINIBAG 100 ML IV SCH (09:40)
[2017-04-11] MEDS: INSULIN GLARGINE 300 UNIT/3 ML PEN SUBQ SCH (09:42)
--- NOTE | 2017-04-11 09:47 | PROVIDER PROGRESS NOTE ---
Subjective - General Admit Date: 04/05/17 Procedure Date: 03/31/17 (also Apr 06 -- I&D) Post Op Days: 11 Procedure Performed: Debridement of left stump - Review of Systems Wound/Incisions: positive: Healing well ( Wouind Vac moderate drainage; tender area of erythema about 6by 2 cm on anterior flap;), Dressing dry and intact, No drainage Functional Status: positive: 1, 2, 3, 4 General: positive: Fatigue, Other (Battery ran out on NPT device due to no power cord. I was called and instructed to leave device attached. RN took it upon herself to remove the entire assembly including the occlusive wrap and sponge. Pt denies pain.) HEENT: positive: No symptoms Pulmonary: positive: No symptoms Cardiovascular: positive: No symptoms Gastrointestinal: positive: No symptoms Genitourinary: positive: No symptoms Musculoskeletal: positive: No symptoms Skin: positive: No symptoms Psychiatric: positive: No symptoms All Other Systems: positive: Reviewed and negative - Other Other Information/Narrative: Patient feels well. No pain at rest. getting up to chair with lift. Objective - Patient Data Vital Signs: Vital Signs x48h Temp Pulse Pulse Pulse Resp BP Pulse Ox 04/11/17 07:50 86 22 04/11/17 07:25 36.5 C 65 16 120/52 L 97 04/11/17 05:00 37.2 C 63 18 109/63 97 Weight: Weight 04/09/17 04/10/17 04/11/17 23:59 23:59 23:59 Weight (kg) 151 kg 156.5 kg 159 kg Intake & Output: Intake and Output Totals x24h 04/09/17 04/10/17 04/11/17 23:59 23:59 23:59 Intake Total 3162.5 3069.5 2216 Output Total 2325 700 350 Balance 837.5 2369.5 1866 - Lab Results Lab Results: 04/11/17 03:59 04/10/17 05:40 Other Lab Results: Lab Results x24hrs 04/11/17 04/11/17 04/10/17 Range/Units 03:59 03:59 05:40 WBC 11.1 H (4.8-10.8) x10^3/uL RBC 2.89 L (4.20-5.40) 10^6/uL Hgb 8.5 L (12.0-16.0) g/dL Hct 25.8 L (37.0-47.0) % MCV 89.5 (81.0-99.0) fL MCH 29.4 (27.0-31.0) pg MCHC 32.8 (32.0-36.0) g/dL RDW 15.8 H (12.0-15.0) % Plt Count 283 (130-450) 10^3/uL MPV 7.5 L (7.9-10.8) fL Neut # 8.9 H (1.5-6.6) 10^3/uL Lymph # 1.3 L (1.5-3.5) 10^3/uL [place] # 0.8 (0.0-1.0) 10^3/uL Eos # 0.0 (0.0-0.7) 10^3/uL Baso # 0.0 (0.0-0.1) 10^3/uL Absolute Nucleated RBC 0.02 x10^3/uL Nucleated RBC % 0.1 /100WBC Glycated Hemoglobin 7.7 H (4.6-6.2) % Estim Average Glucose 174 H (70-100) Last Dose Date 04/10/17 Last Dose Time 0829 Digoxin 0.6 ng/mL Blood Type Antibody Screen Crossmatch IS Only 04/08/17 Range/Units 18:22 WBC (4.8-10.8) x10^3/uL RBC (4.20-5.40) 10^6/uL Hgb (12.0-16.0) g/dL Hct (37.0-47.0) % MCV (81.0-99.0) fL MCH (27.0-31.0) pg MCHC (32.0-36.0) g/dL RDW (12.0-15.0) % Plt Count (130-450) 10^3/uL MPV (7.9-10.8) fL Neut # (1.5-6.6) 10^3/uL Lymph # (1.5-3.5) 10^3/uL [place] # (0.0-1.0) 10^3/uL Eos # (0.0-0.7) 10^3/uL Baso # (0.0-0.1) 10^3/uL Absolute Nucleated RBC x10^3/uL Nucleated RBC % /100WBC Glycated Hemoglobin (4.6-6.2) % Estim Average Glucose (70-100) Last Dose Date Last Dose Time Digoxin ng/mL Blood Type A POSITIVE Antibody Screen NEGATIVE Crossmatch IS Only See Detail - Current Medications Current Medications: Current Medications Generic Name Dose Route Start Last Admin Trade Name Freq PRN Reason Stop Dose Admin Acetaminophen 650 mg 04/05/17 16:34 04/10/17 01:37 Tylenol PO 650 mg Q4HR PRN Administration Pain 1 to 4 Ascorbic Acid 500 mg 04/07/17 16:00 04/10/17 07:36 Vitamin C PO Not Given DAILY [facility] Cholecalciferol 2,000 unit 04/06/17 09:00 04/10/17 07:37 Vitamin D3 PO Not Given DAILY [facility] Clotrimazole 1 applic 04/05/17 21:00 04/10/17 21:11 Lotrimin 1% Cream TOP 1 applic BID EILEEN Administration Digoxin 250 mcg 04/07/17 13:00 04/10/17 08:29 Lanoxin Inj IVP 250 mcg DAILY EILEEN Administration Diltiazem HCl 240 mg 04/06/17 09:00 04/10/17 08:28 Cardizem Cd PO 240 mg DAILY EILEEN Administration Docusate Sodium 250 mg 04/06/17 09:00 04/10/17 08:29 Colace 250mg Capsule PO Not Given DAILY [facility] Docusate Sodium 250 - 500 mg 04/06/17 21:30 04/10/17 07:37 Colace 250mg Capsule PO Not Given DAILY [facility] Enoxaparin Sodium 40 mg 04/06/17 09:00 04/10/17 07:44 Lovenox SUBQ Not Given DAILY [facility] Famotidine 20 mg 04/06/17 09:00 04/10/17 08:29 Pepcid PO 20 mg DAILY EILEEN Administration Furosemide 40 mg 04/06/17 09:00 04/10/17 08:28 Lasix PO 40 mg DAILY EILEEN Administration Furosemide 20 mg 04/11/17 08:00 04/11/17 08:12 Lasix Inj 20mg Vial IVP 04/11/17 10:00 20 mg ONCE EILEEN Administration Hydromorphone HCl 2 mg 04/07/17 06:33 04/11/17 05:21 Dilaudid Inj Syringe IVP 2 mg Q1HR PRN Administration severe pain Ceftriaxone Sodium 2 gm/ 100 mls @ 200 mls/hr 04/06/17 09:00 04/10/17 10:40 Sodium Chloride IV Infused DAILY EILEEN Infusion Sodium Chloride 1,000 mls @ 0 mls/hr 04/06/17 20:00 04/11/17 05:33 Normal Saline 0.9% IV Infused .Q0M EILEEN Infusion TKO Metronidazole 500 mg in 100 mls @ 100 mls/hr 04/08/17 14:00 04/11/17 08:20 Flagyl 500 Mg/100 Ml IV 100 mls/hr Q6H EILEEN Administration Sodium Chloride 1,000 mls @ 83.333 mls/hr 04/10/17 09:00 04/10/17 21:15 Normal Saline 0.9% IV 83 mls/hr .Q12H EILEEN Administration Insulin Aspart 5 unit 04/05/17 17:00 04/11/17 07:59 Novolog SUBQ 5 unit TIDWM EILEEN Administration Insulin Aspart 1 - 5 unit 04/11/17 08:00 04/11/17 07:59 Novolog SUBQ 2 unit 0800,1200,1700,2100 EILEEN Administration Protocol Insulin Glargine 25 unit 04/10/17 08:09 04/10/17 21:14 Lantus Solostar SUBQ 25 unit BID EILEEN Administration Levalbuterol HCl 1.25 mg 04/07/17 11:00 04/11/17 07:36 Xopenex INH 1.25 mg RTQ4H PRN Administration SOB/WHEEZING Lidocaine 1 patch 04/08/17 14:10 04/09/17 10:47 Lidoderm Patch TOP 1 patch DAILY PRN Administration PAIN Losartan Potassium 25 mg 04/06/17 21:00 04/10/17 21:06 Cozaar PO 25 mg QPM EILEEN Administration Metoprolol Succinate 50 mg 04/06/17 09:00 04/10/17 08:29 Toprol Xl PO 50 mg DAILY EILEEN Administration Multivitamins 1 tab 04/07/17 16:00 04/11/17 08:17 Theragran PO 1 tab DAILYWM EILEEN Administration Nystatin 1 applic 04/05/17 21:00 04/10/17 21:09 Nystop TOP 1 applic BID EILEEN Administration (Febuxostat [Uloric] 1 each 04/06/17 09:00 04/10/17 07:51 80 Mg) Tab PO Not Given DAILY EILEEN Polyethylene Glycol 17 gm 04/06/17 09:00 04/10/17 07:38 Miralax PO Not Given DAILY EILEEN Saccharomyces Boulardii 250 mg 04/07/17 16:00 04/11/17 08:17 Florastor PO 250 mg BIDWM EILEEN Administration Senna 8.6 - 17.2 mg 04/06/17 21:30 04/10/17 08:29 Senokot PO Not Given DAILY EILEEN Sodium Chloride 10 ml 04/05/17 16:34 04/11/17 06:00 Normal Saline Flush 0.9% IVP 30 ml PRN PRN Administration NEEDED PER PROVIDER ORDERS Sodium Chloride 10 ml 04/05/17 22:00 04/11/17 05:21 Normal Saline Flush 0.9% IVP 10 ml Q8HR EILEEN Administration Spironolactone 25 mg 04/06/17 09:00 04/10/17 08:29 Aldactone PO 25 mg DAILY EILEEN Administration Zinc Sulfate 220 mg 04/08/17 09:00 04/10/17 07:38 PO Not Given DAILY EILEEN - Physical Exam Comments/Other: Left leg Wouind Vac functioning with only small drainage. Lab: Hgb 8.5 WBC 11K Final culture resut is e.coli plus gm neg bacillus fragilis Impression/Plan - Problem List Problem List: IMP: Stump infection appears eradicated. Await CRP and ESR 4 operations at this hospital, and still large open wound CLosure of this large 9 by 8 INCH wound will be difficult. Possible a large mesh graft would do it. Patient has no possibility for useful prosthesis anyway. (Age, weight, poor lung function) Explained operative findings with patient and . Explained possible transfer to [facility]. Discussed possible transfer with Dr Diallo. Wound Vac change not necessary until Thursday afternoon.
[2017-04-11] MEDS: SPIRONOLACTONE 25 MG TABLET PO SCH (10:29)
[2017-04-11] MEDS: NYSTATIN POWDER 15 GM TOP SCH (12:56)
[2017-04-11] MEDS: CLOTRIMAZOLE 1% CREAM 15 GM TUBE TOP SCH (12:56)
[2017-04-11] MEDS: SODIUM CHLORIDE 0.9% 1,000 ML IV SCH (14:00)
[2017-04-11 17:37] VITALS: BP 94/70
[2017-04-11] MEDS: ACETAMINOPHEN 325 MG TABLET PO PRN (18:11)
--- NOTE | 2017-04-11 19:31 | DISCHARGE SUMMARY ---
Physician: Vianey Diallo MD DATE OF ADMISSION: 04/05/2017 DATE OF DISCHARGE: 04/11/2017 PRIMARY CARE PHYSICIAN: Bernardo Valente MD DISCHARGE DIAGNOSES 1. Postoperative wound infection. 2. Osteomyelitis of ankle and foot, history, status post below-knee amputation. 3. Type 2 diabetes mellitus, uncontrolled, with complications, not on long-term use of insulin. 4. History of chronic obstructive pulmonary disease. 5. History of chronic congestive heart failure. 6. Urinary tract infection. 7. Coccydynia. 8. Acute blood loss anemia. 9. Atrial fibrillation with rapid ventricular response. 10. Super obesity. MEDICATIONS AT TRANSFER 1. Acetaminophen 650 every 4 hours p.r.n. 2. Vitamin C 500 daily. 3. Ceftriaxone 2 grams daily since 04/06/2017. 4. Flagyl 500 mg q.i.d. since 04/08/2017. 5. Clindamycin was given between 04/05/2017 and 04/08/2017. 6. Vitamin D 2000 units daily. 7. Clotrimazole 1% cream topically b.i.d. 8. Lanoxin 0.25 IV push daily. 9. Cardizem-CD 240 mg p.o. daily. 10. Colace 250 mg p.o. daily. 11. Zinc sulfate 220 mg daily. 12. Aldactone 25 mg daily. 13. Florastor 250 mg p.o. b.i.d. 14. Theragran multivitamin once a day. 15. Toprol-XL 50 mg daily. 16. Cozaar 25 mg p.o. q.p.m. 17. Lidoderm patch topically to coccyx. 18. Xopenex 1.25 mg via inhalation every 4 hours as needed. 19. Lantus 25 units subcut b.i.d. (reduced from 50 units subcu b.i.d. because of hypoglycemia). 20. NovoLog sliding scale insulin before meals t.i.d. 21. NovoLog 5 units fixed dose t.i.d. with meals. 22. Dilaudid 2 mg IV push q. 1 hour p.r.n. pain. 23. Lasix 40 mg p.o. daily. 24. Pepcid 20 mg p.o. daily. 25. Lovenox 40 mg subcu daily. PRINCIPAL PROCEDURE 1. Wound culture on admission, 04/05/2017, shows E coli, pansensitive. 2. Blood cultures done 04/05/2017: No growth after 5 days. 3. Tissue culture of first debridement growing out E coli. 4. CT angiogram of the chest 04/07/2017 with no evidence of pulmonary embolus, trace pleural effusions, cardiomegaly, and pulmonary vascular congestion compatible with fluid overload. 5. Chest x-ray after PICC line placement showing PICC terminating in the distal superior vena cava. 6. Incision and drainage of left stump, 04/05/2017, 04/06/2017, and 04/10/2017. 7. Placement of wound VAC. 8. Status post 4 units of packed cells transfused. Last transfusion on the evening of 04/10/2017 after debridement. HOSPITAL COURSE: The patient is a severely obese 71-year-old female who has a history of diabetes on insulin. She was admitted in March with a diabetic foot infection that ended up having left foot osteomyelitis. She opted to have a left BKA as definitive treatment and did not want to undergo prolonged IV antibiotic therapy. She has poorly controlled diabetes, has been relatively noncompliant over the decades. She has chronic atrial fibrillation, chronic kidney disease. She was discharged from this institution to go to a [facility] facility and to undergo physical rehabilitation to develop strength to be able to go back home. After 3 days there, she developed some serous discharge from the stump. This progressed to redness at the stump, swelling at the BKA wound site, and she was brought to the emergency room again. She was evaluated on 04/05/2017 and readmitted. She was seen by Orthopedic Surgery who cultured the wound after he ruptured the sutures to release probable abscess. Since here, the patient has been treated with postoperative wound infection with her history of BKA and osteomyelitis. All of her cultures have shown E coli, pansensitive. Orthopedics felt strongly that she should be on anaerobic coverage, and as she was on Flagyl this entire time, she has been on Rocephin. Cultures have grown out of the wound, the tissue debridement, but she has had negative blood cultures. She has had 7 days of ceftriaxone, 4 days of Flagyl, and 4 days of clindamycin. He has debrided the wound 3 times. With the last debridement, there were complications of quite a bit of bleeding with venous structures being quite fragile. He feels that she may have lost at least 500-600 mL of blood. She received 2 units with the first debridement and 2 units with the third debridement. Hemoglobin on admission was 10. After the first debridement. She went down to 7.3 and was transfused 2 units. With the debridement from 04/10/2017, she received another 2 units and hemoglobin on the day of discharge is 8.5. White cell count is mildly elevated at 11.1. Sedimentation rate was initially greater than 140 on 04/08/2017 and is 77 today. Orthopedics does note that when he was debriding the tissue, the muscle felt like "brain tissue" and completely "mushy". Unfortunately, this patient has had a left hip replacement, and he feels that the femoral component may be too far down and he fears doing an above-knee amputation. She has an 8 x 9 cm open area of muscle tissue and soft tissue that is going to need a skin flap. During her stay, diabetes was relatively controlled. Glucose varied from as low as 118. She was as high as 303. With n.p.o. status, she would actually get hypoglycemic to 50 before surgery. Her insulin was reduced from Lantus 50 b.i.d. to 25 b.i.d. She may be able to safely go back up to at least 40 b.i.d. when she is transferred to [facility]. She is eating anywhere from 50% to 100% of her meals. Atrial fibrillation has been relatively controlled, and she is on metoprolol and Cardizem. Digoxin was added because she had 2 episodes of RVR with hypotension. CT pulmonary angiogram was done to make sure she did not have PE, and that was negative. Heart rate is in the 60s to 80s in the last 48 hours. She has a history of COPD. That has been relatively stable and compensated during this stay. She has had only short-acting bronchodilators for treatment. She has a history of congestive heart failure. She has been receiving diuretics. Because of surgeries and IV fluid resuscitation, she has positive fluid status. She is positive at 3400 mL today, 2300 yesterday, 837 on 04/09/2017, 302 on 04/08/2017, and 2000 mL on 04/07/2017. She should be continued on diuretic therapy and watched for fluid overload. UTI was present on her previous admission on 03/27/2017. It grew out Klebsiella and E coli. Those have been treated with the Rocephin that she has received this admission. Prior to her admission in March, she had fallen and bruised her coccyx. Most recently, she has had Lidoderm patch to the affected area to help that. PHYSICAL EXAMINATION VITAL SIGNS: She is transferred in stable condition with a temperature of 37.5, heart rate 74. Blood pressure is anywhere from 94 to 109 systolic, respirations 20, and 100% on room air. GENERAL: She is a morbidly obese, short-statured female at 5 feet 4 inches tall, 159 kg. She gets easily diaphoretic and flushed in the room. She likes having the fan on. NECK: Cannot be assessed for JVD because it is too thick. LUNGS: Have diminished breath sounds at the bases, and there is no tachypnea, no increased respiratory effort. MENTAL STATUS: She does have some emotional distraughtness at the idea of being transferred so far away from the [facility]. Her has mild dementia and he relies on her. With her being here and then going to [facility], he is upset. ABDOMEN: Hugely obese, not able to be assessed for organomegaly. The pannus has evidence of Dilia and she gets nystatin. EXTREMITIES: The right leg is huge with 1+ edema. The left leg has the BKA with the stump wrapped in Bobby wrap and wound VAC. NEUROLOGIC: She is alert and oriented to person, place and time. Can follow commands. She has not had any encephalopathy while here. Greater than 30 minutes were spent in coordinating discharge. She has been accepted by Dr. Shruthi Aguayo at [facility]. cc: Bernardo Valente MD, TD: 04/11/2017 19:29
--- NOTE | 2017-04-13 10:09 | OPERATIVE REPORT ---
Physician: Arsalan Becerra MD DATE OF SURGERY: 04/10/2017. PREOPERATIVE DIAGNOSIS: Left leg below-knee amputation stump infection. POSTOPERATIVE DIAGNOSIS: Left leg below-knee amputation stump infection. PROCEDURE PERFORMED: Left leg stump debridement and placement of wound VAC. SURGEON: Arsalan Becerra MD DISPATCH CLERK: None. ANESTHESIA: General. INDICATIONS: This woman had previously had 3 procedures. The first was a below -knee amputation about 03/31/2017. The second was exploration for infection on 2017. Gross pus was found at that point. A third procedure was then done on 04/08/2017. This was further debridement of infected bad tissue with wound VAC placement and some shortening of the tibia. The patient had seemed much better. Cultures grew E coli and anaerobic gram- negative bacilli. Patient was on appropriate antibiotics. She did not have systemic symptoms. The plan was to take her to the operating room for this procedure in an effort to debulk the posterior flap if appropriate and allow it to brass wind instruments tube bender some and be held in a position more amenable to closure by use of the wound VAC. PROCEDURE: Patient was brought into the operating room and placed under adequate general anesthesia. She was then slid to the operating table utilizing the air mattress device. The left lower extremity was then prepped and sterilely draped in the usual fashion. Thigh tourniquet was not placed due to the shape of the adipose tissue of the thigh, I thought it was not probably going to be effective. The wound VAC sponge was carefully removed. Fortunately it appeared there was no retained necrotic tissue and no purulence. This area was washed with a pulse lavage. The tissue was noted to be a little friable. There was still an opening going up to the tibial osteotomy site. This area was washed out and, for safety, about 8 mm of distal tibia was cut off with the oscillating saw with the hopes of it coming back to fully live bone to resist infection. In the process of doing this, some small veins of the posterior aspect of the tibia were cut obviously. Hemostasis was very difficult to obtain. Finally some thrombin on Gelfoam was placed in, and this effectively stopped the bleeding over time. Attention was directed distally. The tissue seemed so well healing that I thought it was probably going to be effective and possible to fit out the posterior flap and allow it to come around somewhat. However, when I pushed the Figueroa scissors into the tissue with the expectation of spreading it like muscle would normally spread, the tissue simply parted in a transverse fashion. I put my finger in and could basically push it through the tissue as if it was brain or liver. Similar to these, as I pushed through the tissue, small veins which I could not feel were torn and bled. These were also difficult to control. I made one further attempt to get across the posterior flap tissue and encountered bleeding which was very difficult to stop. A sterile tourniquet was then applied to the very proximal leg and inflated to 300 mmHg. This was not really effective in stopping the bleeding, although it did slow it down. After 17 minutes, I deflated the tourniquet. I utilized vessel clips, medium sized, and very effectively blocked the bleeding. The problem had been ligature coming down too tight and basically guillotining the tissue, leaving of course an open vein. I did not encounter any arterial bleed. However, the blood loss during the procedure I estimate to be just under 1000 mL. The blood loss estimate, made by looking at the lavage fluid, the output, and estimated absorbent sponges, came in a little bit lower than that. Once the bleeding was stopped, further irrigation was not done because of the concern of stimulating further bleeding. Looking at this open area and utilizing my hand as a measuring device, I estimate the opening was about 8 x 9 inches, elliptical. Exactly how this would ever be closed, I tried to consider. A split-thickness expanded skin graft would be possible, I suppose, although the donor sites might easily become a problem with healing. The surface of the wound had become irregular during the procedure, as it had been fairly flat prior. I therefore decided to put back another wound VAC. This did not burn any bridges. We may wish to refer the patient to a larger medical center for further treatment and did not want to make their task more difficult. Wound VAC sponge was applied. This was somewhat difficult with this large irregular opening, but it was achieved, and the suction worked quite well. There was no active bleeding from the wound prior to placement of this sponge. Patient was then awakened, extubated, and taken to the recovery room in good condition, having tolerated the procedure well, with just under 1000 mL blood loss. TD: 04/12/2017 01:10 DEXTER
== END 2017-04-11 06:30 | disposition short-term general hospital (02) | DRG 464 ==
LOC: EDUNIT# → ED 12:43 → MS2 16:34
PROVIDERS: ADMIT Internal Medicine; ATTEND Specialist
PROC: 0JBP0ZZ Excision of Left Lower Leg Subcutaneous Tissue and Fascia, Open Approach (ICD-10-PCS; 2017-04-06)
PROC: 0QBH0ZZ Excision of Left Tibia, Open Approach (ICD-10-PCS; principal; 2017-04-08 16:30)
PROC: 30233N1 Transfusion of Nonautologous Red Blood Cells into Peripheral Vein, Percutaneous Approach (ICD-10-PCS; 2017-04-09)
PROC: 0QBH0ZZ Excision of Left Tibia, Open Approach (ICD-10-PCS; 2017-04-10)
PROC: 02HV33Z Insertion of Infusion Device into Superior Vena Cava, Percutaneous Approach (ICD-10-PCS; 2017-04-10)
DX: T87.44 Infection of amputation stump, left lower extremity (principal); L03.116 Cellulitis of left lower limb; E11.42 Type 2 diabetes mellitus with diabetic polyneuropathy; I13.0 Hypertensive heart and chronic kidney disease with heart failure and stage 1 through stage 4 chronic kidney disease, or unspecified chronic kidney disease; Z68.43 Body mass index [BMI] 50.0-59.9, adult; D62 Acute posthemorrhagic anemia; N30.00 Acute cystitis without hematuria; T87.54 Necrosis of amputation stump, left lower extremity; Y83.5 Amputation of limb(s) as the cause of abnormal reaction of the patient, or of later complication, without mention of misadventure at the time of the procedure; R09.02 Hypoxemia; J44.9 Chronic obstructive pulmonary disease, unspecified; Y92.129 Unspecified place in nursing home as the place of occurrence of the external cause; B96.20 Unspecified Escherichia coli [E. coli] as the cause of diseases classified elsewhere; B96.1 Klebsiella pneumoniae [K. pneumoniae] as the cause of diseases classified elsewhere; I95.9 Hypotension, unspecified; E11.22 Type 2 diabetes mellitus with diabetic chronic kidney disease; E11.65 Type 2 diabetes mellitus with hyperglycemia; N18.9 Chronic kidney disease, unspecified; E66.01 Morbid (severe) obesity due to excess calories; I48.2 Chronic atrial fibrillation; I50.9 Heart failure, unspecified; Z79.4 Long term (current) use of insulin; B37.2 Candidiasis of skin and nail; M53.3 Sacrococcygeal disorders, not elsewhere classified; S30.0XXS Contusion of lower back and pelvis, sequela; Z96.642 Presence of left artificial hip joint; Z89.512 Acquired absence of left leg below knee; Z79.01 Long term (current) use of anticoagulants; Z88.0 Allergy status to penicillin
CPT/HCPCS: 36415; 71045; 71275; 80048; 80053; 80162; 83036; 83605; 83690; 83735; 84484; 85014; 85018; 85025; 85610; 85651; 86140; 86850; 86900; 86901; 86920; 87040; 87070; 87077; 87205; 93005; 93041; 94640; 99283; 99284

== ENCOUNTER 2017-04-11 18:40 | Outpatient (CLI) | payer MEDICARE, MEDICAID | END 2017-04-11 18:41 | disposition short-term general hospital (02) | LOC: EMS 18:40 | PROVIDERS: ATTEND Surgery | DX: T81.4XXA Infection following a procedure, initial encounter (principal); Z89.512 Acquired absence of left leg below knee | CPT/HCPCS: A0170; A0425; A0428 ==

== ENCOUNTER 2017-05-12 08:00 | Outpatient (CLI) | payer MEDICAID, MEDICARE, OTHER ==
[2017-05-12 16:19] LABS: BASOPHILS % (AUTO) 0.6 %; EOSINOPHILS % (AUTO) 0.2 %; HGB - HEMOGLOBIN 9.9 g/dL (12.0-16.0); LYMPHOCYTES # (AUTO) 1.7 10^3/uL (1.5-3.5); LYMPHOCYTES % (AUTO) 30.5 %; MEAN CORPUSCULAR HEMOGLOBIN 29.9 pg (27.0-31.0); MEAN CORPUSCULAR HGB CONC 31.8 g/dL (32.0-36.0); MONOCYTES # (AUTO) 0.5 10^3/uL (0.0-1.0); MONOCYTES % (AUTO) 9.6 %; NEUTROPHILS # (AUTO) 3.4 10^3/uL (1.5-6.6); NEUTROPHILS % (AUTO) 59.1 %; PLT - PLATELET COUNT 166 10^3/uL (130-450); RED BLOOD COUNT 3.31 10^6/uL (4.20-5.40); RED CELL DISTRIBUTION WIDTH 17.3 % (12.0-15.0); WHITE BLOOD COUNT 5.7 x10^3/uL (4.8-10.8)
[2017-05-12 16:30] LABS: CALCIUM 8.2 mg/dL (8.5-10.3)
== END 2017-05-12 08:01 | disposition home or self-care (01) ==
LOC: LAB.R 08:00
DX: E11.9 Type 2 diabetes mellitus without complications (principal); N39.0 Urinary tract infection, site not specified
CPT/HCPCS: 80048; 85025

== ENCOUNTER 2017-07-29 10:00 | Outpatient (CLI) | payer MEDICARE, MEDICAID | END 2017-07-29 10:01 | LOC: LAB.R 10:00 | DX: A04.72 Enterocolitis due to Clostridium difficile, not specified as recurrent (principal) | CPT/HCPCS: 87493 ==

== ENCOUNTER 2017-08-03 14:40 | Outpatient (CLI) | payer MEDICARE, MEDICAID ==
[2017-08-03 17:14] LABS: INR 2.7 (0.8-1.2); PT - PROTHROMBIN TIME 28.9 secs (9.9-12.6)
== END 2017-08-03 14:41 | disposition home or self-care (01) ==
LOC: LAB.R 14:40
DX: I48.91 Unspecified atrial fibrillation (principal)
CPT/HCPCS: 85610; 85730

== ENCOUNTER 2017-09-07 15:50 | Outpatient (CLI) | payer MEDICARE, MEDICAID ==
[2017-09-07 17:25] LABS: HGB - HEMOGLOBIN 11.6 g/dL (12.0-16.0); MEAN CORPUSCULAR HEMOGLOBIN 28.2 pg (27.0-31.0); MEAN CORPUSCULAR HGB CONC 32.4 g/dL (32.0-36.0); MEAN CORPUSCULAR VOLUME 86.9 fL (81.0-99.0); MEAN PLATELET VOLUME 8.7 fL (7.9-10.8); RED BLOOD COUNT 4.1 10^6/uL (4.20-5.40); RED CELL DISTRIBUTION WIDTH 18.9 % (12.0-15.0); WHITE BLOOD COUNT 7.6 x10^3/uL (4.8-10.8)
[2017-09-07 17:38] LABS: CREATININE 1.1 mg/dL (0.4-1.0); PHOSPHORUS 3.4 mg/dL (2.5-4.6)
[2017-09-07 17:48] LABS: PROTEIN/CREATININE RATIO,URINE 0.2 (<=0.2)
== END 2017-09-07 15:51 | disposition home or self-care (01) ==
LOC: LAB.R 15:50
DX: K43.9 Ventral hernia without obstruction or gangrene (principal)
CPT/HCPCS: 80048; 82570; 83970; 84100; 84156; 85027

== ENCOUNTER 2017-09-23 08:00 | Outpatient (CLI) | payer MEDICARE, MEDICAID ==
[2017-09-23 10:04] LABS: BASOPHILS # (AUTO) 0.1 10^3/uL (0.0-0.1); BASOPHILS % (AUTO) 0.8 %; EOSINOPHILS # (AUTO) 0.1 10^3/uL (0.0-0.7); EOSINOPHILS % (AUTO) 1.4 %; HGB - HEMOGLOBIN 11.3 g/dL (12.0-16.0); LYMPHOCYTES # (AUTO) 2.7 10^3/uL (1.5-3.5); LYMPHOCYTES % (AUTO) 37.5 %; MEAN CORPUSCULAR HEMOGLOBIN 28.5 pg (27.0-31.0); MEAN CORPUSCULAR HGB CONC 32.5 g/dL (32.0-36.0); MEAN CORPUSCULAR VOLUME 87.9 fL (81.0-99.0); MEAN PLATELET VOLUME 8.6 fL (7.9-10.8); MONOCYTES # (AUTO) 0.5 10^3/uL (0.0-1.0); MONOCYTES % (AUTO) 7.2 %; NEUTROPHILS # (AUTO) 3.8 10^3/uL (1.5-6.6); NEUTROPHILS % (AUTO) 53.1 %; PLT - PLATELET COUNT 208 10^3/uL (130-450); RED BLOOD COUNT 3.94 10^6/uL (4.20-5.40); RED CELL DISTRIBUTION WIDTH 18.4 % (12.0-15.0); WHITE BLOOD COUNT 7.2 x10^3/uL (4.8-10.8)
[2017-09-23 10:14] LABS: CALCIUM 9.2 mg/dL (8.5-10.3); CREATININE 0.9 mg/dL (0.4-1.0); PHOSPHORUS 4.1 mg/dL (2.5-4.6)
[2017-09-23 20:26] LABS: BILIRUBIN,URINE NEGATIVE (NEGATIVE); GLUCOSE, URINE (UA) NEGATIVE (NEGATIVE); KETONES,URINE (UA) NEGATIVE (NEGATIVE); LEUKOCYTE ESTERASE, URINE TRACE (NEGATIVE); NITRITE,URINE POSITIVE (NEGATIVE); OCCULT BLOOD,URINE NEGATIVE (NEGATIVE); PH,URINE 5.5 PH (5.0-7.5); PROTEIN,URINE NEGATIVE (NEGATIVE); UROBILINOGEN,URINE 0.2 (NORMAL) E.U./dL (NORMAL)
[2017-09-23 20:39] LABS: CLARITY,URINE SL. CLOUDY (CLEAR)
[2017-09-23 20:48] LABS: BACTERIA,URINE Many /HPF (None Seen); RBC,URINE 0-5 /HPF (0-5); SQUAMOUS EPITHELIAL CELL,UR FEW Squamous (<= Few)
== END 2017-09-23 08:01 | disposition home or self-care (01) ==
LOC: LAB.R 08:00
DX: N05.9 Unspecified nephritic syndrome with unspecified morphologic changes (principal); D70.9 Neutropenia, unspecified; D63.1 Anemia in chronic kidney disease; E83.30 Disorder of phosphorus metabolism, unspecified; E66.9 Obesity, unspecified; N39.0 Urinary tract infection, site not specified; D72.829 Elevated white blood cell count, unspecified
CPT/HCPCS: 80048; 81001; 81003; 83970; 84100; 85025

== ENCOUNTER 2017-09-24 13:05 | Outpatient (CLI) | payer MEDICARE, MEDICAID ==
[2017-09-24 18:05] LABS: CALCIUM 9.3 mg/dL (8.5-10.3)
== END 2017-09-24 23:59 ==
LOC: LAB.R 13:05
DX: I10 Essential (primary) hypertension (principal)
CPT/HCPCS: 80048

== ENCOUNTER 2017-09-29 14:33 | Outpatient (CLI) | payer MEDICARE, MEDICAID ==
[2017-09-29 19:28] LABS: HB2 TOTAL 12.1 g/dL; HEMOGLOBIN A1C 0.84 g/dL; HEMOGLOBIN A1C % 8.5 % (4.6-6.2)
== END 2017-09-29 14:34 | disposition home or self-care (01) ==
LOC: LAB.N 14:33
PROVIDERS: ATTEND Family Medicine
DX: E11.9 Type 2 diabetes mellitus without complications (principal)
CPT/HCPCS: 36415; 83036